=== PATIENT | male | born 2000 | race Caucasian/White ===

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

== ENCOUNTER 2023-10-11 19:32 | Emergency (ER) | payer OTHER ==
[~2023-10-11] VITALS: Ht 177.8 cm; Wt 166.9 kg
[2023-10-11 21:44] LABS: BASOPHILS # (AUTO) 0.04 K/uL (0.00-0.20); BASOPHILS % (AUTO) 0.4 % (0.0-5.0); EOSINOPHILS % (AUTO) 0.9 % (0.0-8.0); HEMATOCRIT 43.4 % (42-54); IMMATURE GRANULOCYTE ABSOLUTE 0.06 K/uL (0-1); LYMPHOCYTES # (AUTO) 2.2 K/uL (1.0-4.8); LYMPHOCYTES % (AUTO) 20.8 % (21.0-51.0); MEAN CORPUSCULAR HEMOGLOBIN 25.3 pg (27.0-33.0); MEAN CORPUSCULAR HGB CONC 34.3 g/dL (32.0-36.0); MEAN CORPUSCULAR VOLUME 73.8 fL (79-99); MONOCYTES # (AUTO) 0.9 K/uL (0.1-1.0); NEUTROPHILS # (AUTO) 7.5 K/uL (1.8-7.7); NEUTROPHILS % (AUTO) 69.3 % (40.0-77.0); PLATELET COUNT (AUTO) 393 K/uL (130-400); RED BLOOD CELL COUNT(AUTO) 5.88 MIL/uL (4.50-6.20); WHITE BLOOD COUNT (AUTO) 10.8 K/uL (4.8-10.8)
[2023-10-11] MEDS: CLINDAMYCIN IVPB 900MG/50ML 50 ML IV SCH (21:54)
[2023-10-11 22:27] LABS: CREATININE 0.6 mg/dL (0.5-1.3); POTASSIUM 5.2 mmol/L (3.5-5.1)
[2023-10-11] MEDS ORDERED: IOHEXOL 350 MG/ML 100ML INFUS..BTL IV ONE (22:33)
[2023-10-11] MEDS ORDERED: SULF1TAB42 PO (23:14)
[2023-10-11] MEDS: 0.9%NACL 1000ML 1,000 ML IV ONE (23:20)
[2023-10-11] MEDS: INSULIN HUMULIN R 100 UNIT/ML 3ML IV ONE (23:20)
[2023-10-11] MEDS ORDERED: KETO10TA2 PO (23:22)
[2023-10-11 23:40] VITALS: BP 105/73; PULSE 96; RESP 21; O2SAT 98
[2023-10-11] MEDS: ONDANSETRON 4MG INJ IVP ONE (23:45)
[2023-10-11] MEDS: FAMOTIDINE 20MG VIAL IV ONE (23:46)
[2023-10-11] MEDS: DiphenhydrAMINE HCL 50 MG/ML VIAL IV ONE (23:46)
== END 2023-10-12 00:50 | disposition home or self-care (01) ==
LOC: EDH 19:32
DX: L02.214 Cutaneous abscess of groin (principal); E11.9 Type 2 diabetes mellitus without complications; I10 Essential (primary) hypertension; Z79.4 Long term (current) use of insulin; Z79.899 Other long term (current) drug therapy
CPT/HCPCS: 99285; 74177; 96365; 96375; 96361; 80048; 85025; 36415; 84145; J1815; J1200; J3490 ×2; J7030; J2405; Q9967

== ENCOUNTER 2024-07-05 10:48 | Inpatient (IN) | payer BC ==
[~2024-07-05] VITALS: Ht 177.8 cm; Wt 165.6 kg
[~2024-07-05 10:48] MED LIST: KETO10TA2 PO; SULF1TAB42 PO
--- NOTE | 2024-07-05 11:16 | ERN ---
General Chief Complaint: Lower Extremity Pain/Injury Stated Complaint: RIGHT LEG PAIN Time Seen by MD: 10:49 History of Present Illness Initial Comments 23-year-old male history of obesity and hypertension, who presents for right leg pain. Patient reports that yesterday he noticed some redness and irritation to the back of his right knee. He reports that he thinks he has started with the pain because he was on his feet all day at work. He denies any trauma. He woke up this morning and there is some erythema to his paez as well. There is some swelling to the leg. He denies any other symptoms such as fevers, vomiting, shortness of breath, or any other concerning illness. Allergies: Coded Allergies: No Known Drug Allergies (Unverified Allergy, Unknown, 10/08/18) Home Meds Active Scripts Ketorolac Tromethamine (Ketorolac Tromethamine) 10 Mg Tablet, 10 MG PO BID for 5 Days, #10 TAB Prov:KO ESCUDERO 10/11/23 Sulfamethoxazole/Trimethoprim (Bactrim Ds Tablet) 800 Mg-160 Mg Tablet, 1 TAB PO BID for 10 Days, #20 TAB Prov:KO ESCUDERO 10/11/23 Past Medical History Past Medical History: Diabetes-Type II Past Surgical History: None ROS Dictation CONSTITUTIONAL: No chills, no fever, no weakness, no diaphoresis, no malaise. HEAD/FACE: No signs of trauma. EENT: No eye pain, no blurred vision, no tearing, no double vision, no ear pain, no ear discharge, no nose pain, no nasal congestion, no throat pain, no throat swelling, no mouth pain. RESPIRATORY: No cough, no orthopnea, no SOB, no stridor, no wheezing. CARDIOVASCULAR: No chest pain, no edema, no palpitations, no syncope. GASTROINTESTINAL/ABDOMINAL: No abdominal pain, no constipation, no diarrhea, no nausea, no vomiting. GENITOURINARY: No abnormal discharge, no dysuria, no frequent urination, no hematuria. No complaints of pain in the genitals. MUSCULOSKELETAL: Right leg pain INTEGUMENTARY: No change in color, no change in hair/nails, no dryness, no lesion, no lumps, no rash. NEUROLOGICAL/PSYCH: No anxiety, not depressed, no emotional problem, no headache, no numbness, no pre-existing deficit, no history of seizures, no tremors, no weakness. HEMATOLOGIC/LYMPHATIC: Not anemic, no history of blood clots, no apparent bleeding, no bruising, glands not swollen. All Systems Negative, Except as Noted. Physical Exam Physical Exam Dictation VITAL SIGNS: Reviewed. GENERAL APPEARANCE: Alert, oriented x3, no acute distress, obese. HEAD AND FACE: Non-traumatic. EYES: PERRL, pink conjunctivas, eyelid no trauma, anterior chamber clear. EARS: Pinnas intact and no signs of trauma or erythema. Ear canals clear and no discharge. TMs no erythema. NOSE: No discharge, no bleeding. OROPHARYNX: Mouth normal, teeth no caries, tongue pink. Pharynx clear, no erythema. Tonsils no exudates, no abscesses noted. Mucous membrane moist. NECK: Supple, non-tender, no thyromegaly, no masses, no JVD, no bruits. BREAST: Deferred. CHEST: No tenderness, no crepitus, no paradoxical movement, no retractions. LUNGS: Clear, well-ventilated, symmetric, no rales, no wheezing, no rhonchi, no stridor, good breath sounds bilaterally. HEART: Regular rate, regular rhythm, no murmur, no gallops. VASCULAR: No peripheral edema. ABDOMEN: Soft, positive bowel sounds, nondistended, no guarding, nontender, no rebound, no masses no hepatomegaly, no splenomegaly, no Lewis's sign, no hernias. RECTAL: Deferred. GENITAL: Deferred. NEUROLOGICAL: Normal speech, gross motor function intact, gross sensory function intact. MUSCULOSKELETAL: Neck nontender, full range of motion, back nontender, full range of motion. Right leg has some erythema to the back of the right leg, there is some swelling, he was neurovascularly intact, there is some erythema to the paez. No obvious open sores. He was ambulatory although he has not antalgic gait. Full range of motion of the knee in the ankle. EXTREMITIES: Nontender, full range of motion. SKIN: Color pink, dry, no turgor, no rash, no lacerations, no abrasions, no contusions. LYMPHATICS: Deferred. Results Laboratory and Microbiology Lab and Micro Result Laboratory Tests Test 07/05/24 11:46 White Blood Count 13.9 K/uL (4.8-10.8) H Red Blood Count 5.92 MIL/uL (4.50-6.20) Hemoglobin 15.0 g/dL (14.0-18.0) Hematocrit 43.1 % (42-54) Mean Corpuscular Volume 72.8 fL (79-99) L Mean Corpuscular Hemoglobin 25.3 pg (27.0-33.0) L Mean Corpuscular Hemoglobin Concent 34.8 g/dL (32.0-36.0) Red Cell Distribution Width 13.2 % (11.0-15.5) Platelet Count 364 K/uL (130-400) Mean Platelet Volume 8.8 fL (7.5-10.5) Immature Granulocyte % (Auto) 0.4 % (0-1) Neutrophils (%) (Auto) 73.1 % (40.0-77.0) Lymphocytes (%) (Auto) 14.6 % (21.0-51.0) L Monocytes (%) (Auto) 11.4 % (3.0-13.0) Eosinophils (%) (Auto) 0.2 % (0.0-8.0) Basophils (%) (Auto) 0.3 % (0.0-5.0) Neutrophils # (Auto) 10.2 K/uL (1.8-7.7) H Lymphocytes # (Auto) 2.0 K/uL (1.0-4.8) Monocytes # (Auto) 1.6 K/uL (0.1-1.0) H Eosinophils # (Auto) 0.03 K/uL (0.00-0.70) Basophils # (Auto) 0.04 K/uL (0.00-0.20) Absolute Immature Granulocyte (auto 0.06 K/uL (0-1) Nucleated Red Blood Cells 0.0 % (0.0-0.19) Erythrocyte Sedimentation Rate 16 MM/HR (0-15) H Sodium Level 130 mmol/L (136-145) L Potassium Level 3.9 mmol/L (3.5-5.1) Chloride Level 94 mmol/L (101-111) L Carbon Dioxide Level 25 mmol/L (21-32) Blood Urea Nitrogen 7 mg/dL (7-18) Creatinine 0.7 mg/dL (0.5-1.3) Glomerular Filtration Rate Calc 134 mL/min (>90) Random Glucose 398 mg/dL (70-105) H Total Calcium 9.1 mg/dL (8.5-10.1) C-Reactive Protein, Quantitative 55.10 mg/L (0.5-3.0) H MDM CC: Right leg swelling and pain unprovoked Historian: Patient Comorbidities: Obesity and diabetes Limitations by social determinants of health: None Differential diagnosis: Cellulitis, DVT, soft tissue injury, sepsis, other Vital signs: Stable, remained stable in the ER Labs ( independently ordered and interpreted by me ): CBC shows a leukocytosis 13.9 K, no bands. No anemia. Inflammatory markers CRP and ESR both elevated. The metabolic panel is unremarkable other than a glucose of 398. Right knee x-ray ( independently interpreted by me ): No free air obvious osseous abnormality DVT study of the right leg (independently interpreted by me): No obvious DVT Based on the presentation of right leg erythema swelling tenderness, in the elevated inflammatory markers including white blood cell count CRP and ESR, I suspect the patient has a cellulitis. He was an uncontrolled diabetic with a glucose of 398. Plan will be to started an IV give antibiotics and admit for IV antibiotics and further treatment and evaluation. The patient was agreeable to the plan. Treatment in the ED: 15 mg IV Toradol, 1 g of IV vancomycin, 2 g IV Rocephin, 1 L normal saline, 5 units of IV insulin. Consultation: Hospitalist for admission. ED Course Orders Procedure Category Date Status Time Cbc With Differential LAB 07/05/24 Complete 10:56 Basic Metabolic Panel LAB 07/05/24 Complete 10:56 Crp Quantitative LAB 07/05/24 Complete 10:56 Erythrocyte LAB 07/05/24 Complete Sedimentation Rate 10:56 Us Venous Doppler US 07/05/24 Resulted Unilateral 10:56 Knee 3vws Rt RAD 07/05/24 Resulted 10:56 Ketorolac PHA 07/05/24 Complete Tromethamine 15mg/Ml 11:00 Vancomycin 1g/250ml PHA 07/05/24 Complete Kit (Vancomycin 1g/2 13:00 0.9%Nacl 1000ml (Ns PHA 07/05/24 Complete 1000ml) 12:30 Insulin Regular, PHA 07/05/24 Complete Human 3ml (Humulin R 12:30 Ceftriaxone 2gm Vial PHA 07/05/24 Complete (Rocephin 2gm Inj) 12:30 Current Medications Medications (Trade) Dose Ordered Sig/Morales Route PRN Reason Start Time Stop Time Status Last Admin Dose Admin Ceftriaxone Sodium (Rocephin 2gm Inj) 2 gm ONCE ONCE IVPB 07/05/24 12:30 07/05/24 12:31 DC Insulin Human Regular (humuLIN R 100 UNIT/ML 3ML) 5 unit ONCE ONCE IV 07/05/24 12:30 07/05/24 12:31 DC Ketorolac Tromethamine (toRADol) 15 mg ONCE ONCE IM 07/05/24 11:00 07/05/24 11:03 DC Sodium Chloride 1,000 ml @ 0 mls/hr ONCE ONCE IV 07/05/24 12:30 07/05/24 12:31 DC Vancomycin HCl (Vancomycin 1g/ 250ml Kit) 1 gm ONCE ONCE IV 07/05/24 13:00 07/05/24 13:01 DC Vital Signs Date Time Temp Pulse Resp B/P (MAP) Pulse Ox O2 Delivery O2 Flow Rate FiO2 07/05/24 10:52 98.2 99 16 131/83 96 Room Air 0 DX & DISP Disposition: Inpatient Departure Impression: Primary Impression: Cellulitis of right lower leg Additional Impressions: Morbid obesity, Hyperglycemia due to diabetes mellitus Condition: Stable Referrals: AZRA GARCIA MD (PCP) LESLIE CARVALHO DO Jul 05, 2024 11:16
--- NOTE | 2024-07-05 11:41 | HMCIMG ---
RIGHT KNEE RADIOGRAPHS - 3 VIEWS INDICATION: Pain COMPARISON: None FINDINGS: AP, lateral, and oblique views. No acute fracture or dislocation identified. No significant joint effusion is present. Overlying soft tissues appear normal. IMPRESSION: No evidence for fracture or dislocation.
[2024-07-05 11:51] LABS: BASOPHILS # (AUTO) 0.04 K/uL (0.00-0.20); BASOPHILS % (AUTO) 0.3 % (0.0-5.0); EOSINOPHILS # (AUTO) 0.03 K/uL (0.00-0.70); EOSINOPHILS % (AUTO) 0.2 % (0.0-8.0); HEMATOCRIT 43.1 % (42-54); IMMATURE GRANULOCYTE ABSOLUTE 0.06 K/uL (0-1); LYMPHOCYTES % (AUTO) 14.6 % (21.0-51.0); MEAN CORPUSCULAR HEMOGLOBIN 25.3 pg (27.0-33.0); MEAN CORPUSCULAR HGB CONC 34.8 g/dL (32.0-36.0); MEAN CORPUSCULAR VOLUME 72.8 fL (79-99); MONOCYTES # (AUTO) 1.6 K/uL (0.1-1.0); MONOCYTES % (AUTO) 11.4 % (3.0-13.0); NEUTROPHILS # (AUTO) 10.2 K/uL (1.8-7.7); NEUTROPHILS % (AUTO) 73.1 % (40.0-77.0); PLATELET COUNT (AUTO) 364 K/uL (130-400); RED BLOOD CELL COUNT(AUTO) 5.92 MIL/uL (4.50-6.20); RED CELL DISTRIBUTION WIDTH 13.2 % (11.0-15.5); WHITE BLOOD COUNT (AUTO) 13.9 K/uL (4.8-10.8)
[2024-07-05 11:59] LABS: CREATININE 0.7 mg/dL (0.5-1.3); POTASSIUM 3.9 mmol/L (3.5-5.1)
--- NOTE | 2024-07-05 12:07 | HMCIMG ---
ULTRASOUND VENOUS DOPPLER RIGHT LOWER EXTREMITY INDICATION: Pain and swelling. TECHNIQUE: Routine grayscale and color Doppler ultrasound of the right lower extremity veins performed. COMPARISON: None. FINDINGS: Examination is limited by large patient body habitus. The demonstrated veins of the right lower extremity including the common femoral vein, femoral vein, and popliteal vein are associated with normal compressibility. IMPRESSION: No evidence for deep venous thrombosis.
[2024-07-05 13:01] LABS: ERYTHROCYTE SEDIMENTATION RATE 16 MM/HR (0-15)
[2024-07-05] MEDS: 0.9%NACL 1000ML 1,000 ML IV ONE (13:48)
[2024-07-05] MEDS: CEFTRIAXONE 2GM VIAL IVPB ONE (13:55)
[2024-07-05] MEDS: ketOROlac 15MG/ML VIAL (15MG/ML) IM ONE (13:56)
[2024-07-05] MEDS: INSULIN humuLIN R 100 UNIT/ML 3ML IV ONE (14:01)
[2024-07-05] MEDS: VANCOMYCIN KIT 1 GM/250 ML IV.KIT IV ONE (14:15)
[2024-07-05] MEDS ORDERED: VANCOMYCIN PROTOCOL PER PHARMACY IV SCH (14:30)
--- NOTE | 2024-07-05 14:43 | HMCIMG ---
RIGHT FOOT RADIOGRAPHS - 2 VIEWS INDICATION: Pain COMPARISON: None FINDINGS: AP, lateral views. Moderate dorsal soft tissue swelling. 3 mm linear radiopaque foreign body within the first web space closer to the second toe. No evidence for periosteal reaction, cortical erosive changes, or any abnormal subperiosteal bone resorption. No acute fracture or subluxation identified. Midfoot alignment is well maintained. Subcentimeter plantar calcaneal spur. No radiopaque foreign body noted. IMPRESSION: 3 mm linear radiopaque foreign body within the first web space closer to the second toe. No evidence for fracture or osteomyelitis.
[2024-07-05] MEDS: ZOSYN 3.375GM +NS 50ML IVPB SCH (14:56)
[2024-07-05] MEDS: 0.9%NACL 1000ML 1,000 ML IV SCH (14:56)
[2024-07-05] MEDS ORDERED: DEXTROSE 50%-WATER 50 ML DISP.SYRIN IV PRN (15:00)
[2024-07-05] MEDS ORDERED: GLUCAGON 1MG KIT 1 MG ML IM PRN (15:00)
[2024-07-05] MEDS: VANCOMYCIN 1G/250ML KIT 250 ML IV ONE (15:11)
[2024-07-05] MEDS ORDERED: IOHEXOL-350 75 ML VIAL IV ONE (15:20)
[2024-07-05 15:24] LABS: ABG BASE EXCESS -2.5 mmol/L (-2.0-3.0); ABG HCO3 21.1 mmol/L (21.0-28.0); ABG OXYGEN SATURATION 97.1 % (94.0-98.0); ABG PCO2 33 mmHg (35-48); DEVICE COMMENT RR RN; PO2, ARTERIAL BG 89.9 mmHg (83.0-108.0); VENT MODE, BG RA (ROOM AIR)
[2024-07-05 15:45] LABS: THYROID STIMULATING HORMONE 1.45 uIU/mL (0.36-3.74)
[2024-07-05] MEDS: INSULIN GLARgine 100 UNITS/ML 10 ML VIAL SQ SCH (15:48)
--- NOTE | 2024-07-05 16:17 | HMCIMG ---
CT LOW EXT W/WO CONTRAST HISTORY: right leg cellulitis. Rule out out necrotizing infection TECHNIQUE: CT LOW EXT W/WO CONTRAST. Axial images of the right lower extremity were performed from the hip to the foot. Coronal and sagittal reformats were obtained. FINDINGS/IMPRESSION: The study is degraded due to large [id number] and motion. No displaced fracture or dislocation is seen. There is diffuse soft tissue swelling. No soft tissue gas is identified. No drainable fluid collection is seen.
--- NOTE | 2024-07-05 16:39 | HP ---
[facility] HISTORY AND PHYSICAL Date of Service: Jul 05, 2024 Time of Service: 16:29 HISTORY OF PRESENT ILLNESS: 23-year-old male with no significant past medical history who presented to the hospital secondary to pain in the right leg. Patient states he noted that he was having redness in the right leg which started yesterday. Redness was notable on the posterior aspect of the right knee and was traveling down to the leg. He also has a history of ulcer in the big hallux of the right foot. He has been followed at least for a year by Dr. Mason as outpatient. Patient currently does not use any dressing on the two. He denied any cuts or scrapes to the leg. Denied any fever, chills, chest pain, shortness of breath, abdominal pain, nausea, vomiting. Denied any history of diabetes mellitus. He currently denies taking any medications for diabetes. Denied any falls, syncopal episode. Patient was having 10/10 pain in the right lower extremity. Labs showed white count of 13.9, hemoglobin was 15.0, platelet count was 364 K, sodium was 130, potassium was 3.9, chloride was 94, creatinine was 0.7, glucose was 398, calcium was 9.1 Patient had a knee x-ray done which showed no evidence of fracture or dislocation. He had a venous Doppler done which showed no evidence of venous thrombosis. REVIEW OF SYSTEMS CONSTITUTIONAL: Denies fevers, chills, or night sweats. No unintentional weight loss reported. NEUROLOGICAL: Denies headache, amaurosis fugax, motor weakness, sensory deficit, vertigo/spinning sensation, gait abnormalities, or tremors. ENT: No hearing loss, otalgia, otorrhea, rhinitis, rhinorrhea, hoarseness, or sore throat. CARDIOVASCULAR: Denies any exertional angina, dyspnea on exertion, orthopnea, paroxysmal nocturnal dyspnea, palpitations, life-threatening arrhythmias, cl audication. PULMONARY: Denies any shortness of breath, cough, phlegm/sputum, hemoptysis, pleuritic chest pain. SLEEP: Denies morning headaches, daytime somnolence or napping. Denies difficulty falling asleep, staying asleep, waking from sleep. Denies knowledge of snoring. GASTROINTESTINAL: Denies any type of dysphagia to either liquids or solids. Denies nausea, vomiting, pyrosis, early satiety, abdominal pain, diarrhea, const ipation, or changes in stool consistency or caliber. Denies coffee-ground emesis, hematemesis, hematochezia, or melanotic stools. GENITOURINARY: Denies frequency, urgency, nocturia, hematuria or incontinence (Storage/Irritative symptoms.) Low urinary stream, straining to void, urinary intermittency or hesitancy, splitting of the voiding stream, terminal dribbling. ENDOCRINOLOGIC: Denies polyuria, polydipsia, polyphagia or heat/cold intolerances. HEMATOLOGIC: Denies thrombophilia/previous clots, or coagulopathy/bleeding disorders. ONCOLOGIC: Denies personal history of malignancy. DERMATOLOGIC: Positive for redness in the right lower extremity. PSYCHIATRIC: Denies any suicidal or homicidal ideation. Denies hallucinations. PAST MEDICAL HISTORY: History of foot ulcer in the 1st toe of the right foot PAST SURGICAL HISTORY: Denied any previous surgical history PAST SOCIAL HISTORY: Denied any smoking, alcohol, drug use FAMILY HISTORY: Denied any pertinent family history Coded Allergies: No Known Drug Allergies (Unverified Allergy, Unknown, 10/08/18) PHYSICAL EXAM GENERAL APPEARANCE: The patient is awake, alert, and oriented, in no acute cardiopulmonary distress. Patient is obese NEUROLOGICAL: Cranial nerves II-XII grossly intact. Motor is 5/5 in bilateral upper and lower extremities proximal to distal. No sensory deficits. HEENT: Face is symmetric. Pupils are equal and reactive. Extraocular movements are intact. NECK: Supple. No JVD. No thyromegaly. No submental, submandibular, pre- /postauricular, occipital or supraclavicular lymphadenopathy. CHEST: Normal chest expansion. No Telemetry. LUNGS: Absence of any rales, rhonchi or any wheezing. CARDIOVASCULAR: Regular. S1 and S2 normal. No appreciable rubs, murmurs or gallops. ABDOMEN: Soft, nontender, and nondistended. There is no rebound, voluntary guarding, or rigidity. : Deferred. No Harden. EXTREMITIES: Patient has erythema on the posterior aspect of the leg involving the knee. He has redness traveling down to the leg to the foot. He has swelling noted. Area is tender to palpation. Additionally he has a ulcer noted in the 1st toe of the right foot. He has blackish discoloration with possible eschar noted SKIN: No skin breakdown. Vital Sign (Last 24 Hours) 4/26/25 13:46 Temp 99.0 Pulse 90 Resp 20 B/P (MAP) 137/78 Pulse Ox 96 O2 Delivery Room Air* O2 Flow Rate 0 FiO2 21 LABS: Laboratory: Test 07/05/24 15:21 07/05/24 14:55 07/05/24 14:00 07/05/24 11:46 Range/Units Blood Gas Specimen Type Arterial Arterial Blood pH 7.420 7.350-7.450 Arterial Blood Partial Pressure CO2 33 L 35-48 mmHg Arterial Blood Partial Pressure O2 89.9 83.0-108.0 mmHg Arterial Blood HCO3 21.1 21.0-28.0 mmol/L Arterial Blood Oxygen Saturation 97.1 94.0-98.0 % Arterial Blood Base Excess -2.5 L -2.0-3.0 mmol/L Blood Gas Temperature 37.0 35.5-37.0 CELSIUS Blood Gas Vent Mode RA ROOM AIR FiO2 21.0 % Blood Gas Specimen Comment RR RN Whole Blood Ketones Quantitative 0.2 0.0-0.6 mmol/L Lactic Acid Level 1.7 0.8-2.5 mmol/L Total Creatine Kinase 52 21-232 U/L C-Reactive Protein, Quantitative 57.90 H 0.5-3.0 mg/L Procalcitonin 0.11 0.05-0.5 ng/mL Thyroid Stimulating Hormone (TSH) 1.45 0.36-3.74 uIU/mL Whole Blood Glucose 411 *H 70-110 MG/DL White Blood Count 13.9 H 4.8-10.8 K/uL Red Blood Count 5.92 4.50-6.20 MIL/uL Hemoglobin 15.0 14.0-18.0 g/dL Hematocrit 43.1 42-54 % Mean Corpuscular Volume 72.8 L 79-99 fL Mean Corpuscular Hemoglobin 25.3 L 27.0-33.0 pg Mean Corpuscular Hemoglobin Concent 34.8 32.0-36.0 g/dL Red Cell Distribution Width 13.2 11.0-15.5 % Platelet Count 364 130-400 K/uL Mean Platelet Volume 8.8 7.5-10.5 fL Immature Granulocyte % (Auto) 0.4 0-1 % Neutrophils (%) (Auto) 73.1 40.0-77.0 % Lymphocytes (%) (Auto) 14.6 L 21.0-51.0 % Monocytes (%) (Auto) 11.4 3.0-13.0 % Eosinophils (%) (Auto) 0.2 0.0-8.0 % Basophils (%) (Auto) 0.3 0.0-5.0 % Neutrophils # (Auto) 10.2 H 1.8-7.7 K/uL Lymphocytes # (Auto) 2.0 1.0-4.8 K/uL Monocytes # (Auto) 1.6 H 0.1-1.0 K/uL Eosinophils # (Auto) 0.03 0.00-0.70 K/uL Basophils # (Auto) 0.04 0.00-0.20 K/uL Absolute Immature Granulocyte (auto 0.06 0-1 K/uL Nucleated Red Blood Cells 0.0 0.0-0.19 % Erythrocyte Sedimentation Rate 16 H 0-15 MM/HR Sodium Level 130 L 136-145 mmol/L Potassium Level 3.9 3.5-5.1 mmol/L Chloride Level 94 L 101-111 mmol/L Carbon Dioxide Level 25 21-32 mmol/L Blood Urea Nitrogen 7 7-18 mg/dL Creatinine 0.7 0.5-1.3 mg/dL Glomerular Filtration Rate Calc 134 >90 mL/min Random Glucose 398 H 70-105 mg/dL Total Calcium 9.1 8.5-10.1 mg/dL Current Medications Medications (Trade) Dose Ordered Sig/Morales Route PRN Reason Start Time Stop Time Status Last Admin Dose Admin Dextrose (D50w) 50 ml AD PRN IV HYPOGLYCEMIA PROTOCOL 07/05/24 15:00 08/04/24 14:59 Famotidine (Pepcid 20mg Vial) 20 mg BID IV 07/05/24 21:00 08/04/24 20:59 Glucagon (Glucagon 1mg Kit) 1 mg AD PRN IM HYPOGLYCEMIA PROTOCOL 07/05/24 15:00 08/04/24 14:59 Insulin Glargine (LANtus 100 UNITS/ML 10 ML VIAL) 15 units DAILY SQ 07/05/24 15:00 08/04/24 14:59 07/05/24 15:48 15 UNITS Insulin Human Regular (humuLIN R 100 UNIT/ML 3ML) INSULIN SLIDING SCAL... Q6H6 SQ 07/05/24 18:00 08/04/24 17:59 Piperacillin Sod/ Tazobactam Sod (Zosyn 3.375gm+NS 50ml) 3.375 gm Q8H IVPB 07/05/24 14:30 07/15/24 14:29 07/05/24 14:56 3.375 GM Sodium Chloride 1,000 ml @ 100 mls/hr Q10H IV 07/05/24 14:30 08/04/24 14:29 07/05/24 14:56 100 MLS/HR Sodium Chloride (NS 50ml) 50 ml AD IV 07/05/24 18:00 08/04/24 17:59 Vancomycin HCl 250 ml @ 167 mls/hr Q12H IV 07/06/24 01:00 07/16/24 00:59 Vancomycin HCl (Vancomycin Protocol) 1 each AD IV 07/05/24 14:30 07/19/24 14:29 DIAGNOSTICS / RADIOLOGY: [ ] ASSESSMENT: Right Leg cellulitis POA Hyperglycemia secondary to uncontrolled diabetes mellitus type POA Foot ulcer of the 1st toe of the right foot POA Hyponatremia secondary to hyperglycemia Dehydration Obesity BMI 53.1 PLAN: - patient to be admitted to medical-surgical unit -in reference to right foot cellulitis. We will start patient on vancomycin and Zosyn. Secondary to significant pain on palpation. We will also request consultation with Orthopedic surgery. Case was discussed with Orthopedic surgery. We will obtain a CT lower extremity with contrast to rule out concern for necrotizing infection. We will request consultation with Infectious Disease -in reference to foot ulcer of the right toe. We will obtain a foot x-ray. We will request consultation with Podiatry. - start patient on [id number] units daily. Patient will be started on sliding scale insulin. Check A1c. -check TSH, procal -further orders per hospitalization course. Advanced Care Planning Which of the following were discussed: Hospice care: Yes __ No _x_ Therapeutic options: Yes __ No __ Advance directives: Yes __ No __ Other discussions: Pt is full code Discussed with who?: patient (Patient, family or surrogates) Voluntary nature of this service was explained to the patient? Yes _x_ No __ Amount of time spent: 25 minutes KIMBERLY BROOKS MD Jul 05, 2024 16:39
[2024-07-05] MEDS ORDERED: morPHINE 2 MG SYG IVP PRN (17:00)
--- NOTE | 2024-07-05 17:07 | HMCIMG ---
US ARTERIAL BILAT LOW EXT DUPL HISTORY: assess for PVD TECHNIQUE: Real-time arterial doppler ultrasound of the lower extremity was performed using B mode, color flow and spectral analysis. FINDINGS: RIGHT: Abnormal monophasic waveforms and anterior tibial and dorsalis pedis artery suggesting proximal flow-limiting stenosis. The remaining arteries demonstrate biphasic and triphasic waveforms. LEFT: Normal triphasic and biphasic waveforms seen in the evaluated arteries. IMPRESSION: RIGHT: Abnormal monophasic waveforms and anterior tibial and dorsalis pedis artery suggesting proximal flow-limiting stenosis. The remaining arteries demonstrate biphasic and triphasic waveforms. LEFT: Normal triphasic and biphasic waveforms seen in the evaluated arteries.
[2024-07-05] MEDS: INSULIN humuLIN R 100 UNIT/ML 3ML SQ SCH (17:43)
[2024-07-05] MEDS ORDERED: 0.9%NACL 50ML IV SCH (18:00)
[2024-07-05 20:00] VITALS: BP 131/72; PULSE 91; RESP 16; TEMP 98.7
[2024-07-05] MEDS: FAMOTIDINE 20MG VIAL IV SCH (21:00)
[2024-07-05] MEDS: ketOROlac 15MG/ML VIAL (15MG/ML) IV PRN (21:03)
[2024-07-06] VITALS: BP 102/55; PULSE 86; RESP 21; TEMP 98.7
[2024-07-06] MEDS: VANCOMYCIN 1.5 GM/250 ML BAG 250 ML IV SCH (00:59)
[2024-07-06 04:12] VITALS: BP 118/68; PULSE 92; RESP 18; TEMP 98.7
[2024-07-06 06:43] LABS: BASOPHILS # (AUTO) 0.02 K/uL (0.00-0.20); BASOPHILS % (AUTO) 0.2 % (0.0-5.0); EOSINOPHILS # (AUTO) 0.04 K/uL (0.00-0.70); EOSINOPHILS % (AUTO) 0.3 % (0.0-8.0); HEMATOCRIT 41.1 % (42-54); IMMATURE GRANULOCYTE ABSOLUTE 0.05 K/uL (0-1); LYMPHOCYTES # (AUTO) 1.8 K/uL (1.0-4.8); LYMPHOCYTES % (AUTO) 13.9 % (21.0-51.0); MEAN CORPUSCULAR HEMOGLOBIN 25.8 pg (27.0-33.0); MEAN CORPUSCULAR HGB CONC 34.8 g/dL (32.0-36.0); MEAN CORPUSCULAR VOLUME 74.2 fL (79-99); MONOCYTES # (AUTO) 1.3 K/uL (0.1-1.0); MONOCYTES % (AUTO) 10.4 % (3.0-13.0); NEUTROPHILS # (AUTO) 9.6 K/uL (1.8-7.7); NEUTROPHILS % (AUTO) 74.8 % (40.0-77.0); PLATELET COUNT (AUTO) 320 K/uL (130-400); RED BLOOD CELL COUNT(AUTO) 5.54 MIL/uL (4.50-6.20); RED CELL DISTRIBUTION WIDTH 13.3 % (11.0-15.5); WHITE BLOOD COUNT (AUTO) 12.9 K/uL (4.8-10.8)
[2024-07-06 07:00] LABS: CREATININE 0.5 mg/dL (0.5-1.3); POTASSIUM 3.6 mmol/L (3.5-5.1)
[2024-07-06] MEDS: INSULIN humuLIN R 100 UNIT/ML 3ML SQ SCH ×2 (07:30)
[2024-07-06] MEDS: ENOXAPARIN SODIUM 30 MG/0.3 ML SQ SCH (09:28)
--- NOTE | 2024-07-06 09:49 | NUR ---
DR. DUNCAN CALLED AND NOTIFIED OF PATIENT, ORDERS GIVEN
[2024-07-06 12:00] VITALS: BP 148/86; PULSE 95; RESP 20; TEMP 98
--- NOTE | 2024-07-06 12:56 | HMCIMG ---
ULTRASOUND VENOUS DOPPLER LEFT LOWER EXTREMITY INDICATION: Pain and swelling. TECHNIQUE: Routine grayscale and color Doppler ultrasound of the left lower extremity veins performed. COMPARISON: None. FINDINGS: Examination is limited by patient body habitus. The demonstrated veins of the left lower extremity including the common femoral vein, femoral vein, and popliteal vein are associated with normal compressibility. IMPRESSION: No evidence for deep venous thrombosis.
--- NOTE | 2024-07-06 15:02 | PN ---
[facility] PROGRESS NOTE Date of Service: Jul 06, 2024 Time of Service: 14:58 SUBJECTIVE: 07/06 patient seen at bedside, no acute events overnight. He has been afebrile, hemodynamically stable saturating well on room air. His only complaint is pain when he is ambulating, his right lower extremity proximal to the knee joint on the medial aspect has erythema induration, no fluctuance noted and is tender to palpation. There is no crepitus noted. Outlined the margins of the lesion and we will continue with broad-spectrum antibiotics. WBC improved from 13.9 down to 12.9, blood sugars still quite elevated, diabetic medications have been adj usted by space buyer, appreciate their assistance. A1c pending, we will follow up. Podiatry recommendations regarding diabetic foot ulcer on the 1st great toe are still pending. REVIEW OF SYSTEMS 12 point review of systems negative unless noted in HPI PHYSICAL EXAM GENERAL APPEARANCE: The patient is awake, alert, and oriented, in no acute cardiopulmonary distress. Patient is obese NEUROLOGICAL: Cranial nerves II-XII grossly intact. Motor is 5/5 in bilateral upper and lower extremities proximal to distal. No sensory deficits. HEENT: Face is symmetric. Pupils are equal and reactive. Extraocular movements are intact. NECK: Supple. No JVD. No thyromegaly. No submental, submandibular, pre- /postauricular, occipital or supraclavicular lymphadenopathy. CHEST: Normal chest expansion. No Telemetry. LUNGS: Absence of any rales, rhonchi or any wheezing. CARDIOVASCULAR: Regular. S1 and S2 normal. No appreciable rubs, murmurs or gallops. ABDOMEN: Soft, nontender, and nondistended. There is no rebound, voluntary guarding, or rigidity. : Deferred. No Harden. EXTREMITIES: Patient has erythema on the posterior aspect of the leg involving the knee. He has redness traveling down to the leg to the foot. He has swelling noted. Area is tender to palpation. Additionally he has a ulcer noted in the 1st toe of the right foot. He has blackish discoloration with possible eschar noted SKIN: No skin breakdown. Vital Signs (last 8hr) Date Time Temp Pulse Resp B/P (MAP) Pulse Ox O2 Delivery O2 Flow Rate FiO2 07/06/24 12:00 98.1 95 20 148/86 96 Room Air LABS: Laboratory: Test 07/06/24 13:14 07/06/24 09:29 07/06/24 06:36 07/05/24 15:21 Range/Units Whole Blood Glucose 294 H 70-110 MG/DL Bedside Glucose Comment Notified Nurse White Blood Count 12.9 H 4.8-10.8 K/uL Red Blood Count 5.54 4.50-6.20 MIL/uL Hemoglobin 14.3 14.0-18.0 g/dL Hematocrit 41.1 L 42-54 % Mean Corpuscular Volume 74.2 L 79-99 fL Mean Corpuscular Hemoglobin 25.8 L 27.0-33.0 pg Mean Corpuscular Hemoglobin Concent 34.8 32.0-36.0 g/dL Red Cell Distribution Width 13.3 11.0-15.5 % Platelet Count 320 130-400 K/uL Mean Platelet Volume 8.5 7.5-10.5 fL Immature Granulocyte % (Auto) 0.4 0-1 % Neutrophils (%) (Auto) 74.8 40.0-77.0 % Lymphocytes (%) (Auto) 13.9 L 21.0-51.0 % Monocytes (%) (Auto) 10.4 3.0-13.0 % Eosinophils (%) (Auto) 0.3 0.0-8.0 % Basophils (%) (Auto) 0.2 0.0-5.0 % Neutrophils # (Auto) 9.6 H 1.8-7.7 K/uL Lymphocytes # (Auto) 1.8 1.0-4.8 K/uL Monocytes # (Auto) 1.3 H 0.1-1.0 K/uL Eosinophils # (Auto) 0.04 0.00-0.70 K/uL Basophils # (Auto) 0.02 0.00-0.20 K/uL Absolute Immature Granulocyte (auto 0.05 0-1 K/uL Nucleated Red Blood Cells 0.0 0.0-0.19 % Sodium Level 136 136-145 mmol/L Potassium Level 3.6 3.5-5.1 mmol/L Chloride Level 100 L 101-111 mmol/L Carbon Dioxide Level 25 21-32 mmol/L Blood Urea Nitrogen 6 L 7-18 mg/dL Creatinine 0.5 0.5-1.3 mg/dL Glomerular Filtration Rate Calc 148 >90 mL/min Random Glucose 235 H 70-105 mg/dL Total Calcium 8.4 L 8.5-10.1 mg/dL Blood Gas Specimen Type Arterial Arterial Blood pH 7.420 7.350-7.450 Arterial Blood Partial Pressure CO2 33 L 35-48 mmHg Arterial Blood Partial Pressure O2 89.9 83.0-108.0 mmHg Arterial Blood HCO3 21.1 21.0-28.0 mmol/L Arterial Blood Oxygen Saturation 97.1 94.0-98.0 % Arterial Blood Base Excess -2.5 L -2.0-3.0 mmol/L Blood Gas Temperature 37.0 35.5-37.0 CELSIUS Blood Gas Vent Mode RA ROOM AIR FiO2 21.0 % Blood Gas Specimen Comment RR RN Test 07/05/24 14:55 07/05/24 11:46 Range/Units Whole Blood Ketones Quantitative 0.2 0.0-0.6 mmol/L Lactic Acid Level 1.7 0.8-2.5 mmol/L Total Creatine Kinase 52 21-232 U/L C-Reactive Protein, Quantitative 57.90 H 0.5-3.0 mg/L Procalcitonin 0.11 0.05-0.5 ng/mL Thyroid Stimulating Hormone (TSH) 1.45 0.36-3.74 uIU/mL Erythrocyte Sedimentation Rate 16 H 0-15 MM/HR Current Medications Medications (Trade) Dose Ordered Sig/Morales Route PRN Reason Start Time Stop Time Status Last Admin Dose Admin Acetaminophen (TYLenol 325MG TAB) 650 mg Q6H PRN PO MILD PAIN (1-3) 07/06/24 13:30 08/05/24 13:29 Acetaminophen/ Hydrocodone Bitart (NORco 5/325MG) 1 tab Q6H PRN PO MODERATE PAIN (4-6) 07/06/24 13:30 07/11/24 13:29 Dextrose (D50w) 50 ml AD PRN IV HYPOGLYCEMIA PROTOCOL 07/05/24 15:00 08/04/24 14:59 Enoxaparin Sodium (Lovenox) 30 mg DAILY SQ 07/06/24 09:00 08/05/24 08:59 07/06/24 09:28 30 MG Famotidine (Pepcid 20mg Vial) 20 mg BID IV 07/05/24 21:00 08/04/24 20:59 07/06/24 09:28 20 MG Glucagon (Glucagon 1mg Kit) 1 mg AD PRN IM HYPOGLYCEMIA PROTOCOL 07/05/24 15:00 08/04/24 14:59 Insulin Glargine (LANtus 100 UNITS/ML 10 ML VIAL) 15 units DAILY SQ 07/05/24 15:00 08/04/24 14:59 07/06/24 09:38 15 UNITS Insulin Human Regular (humuLIN R 100 UNIT/ML 3ML) 10 unit TIDAC SQ 07/06/24 07:30 08/05/24 07:29 07/06/24 11:30 10 UNIT Insulin Human Regular (humuLIN R 100 UNIT/ML 3ML) INSULIN SLIDING SCAL... ACHS SQ 07/06/24 07:30 08/05/24 07:29 07/06/24 11:30 10 UNIT Insulin Human Regular (humuLIN R 100 UNIT/ML 3ML) INSULIN SLIDING SCAL... Q6H6 SQ 07/05/24 18:00 07/05/24 21:19 DC 07/05/24 17:43 8 UNIT Ketorolac Tromethamine (toRADol) 15 mg Q6H PRN IV MODERATE PAIN (4-6) 07/05/24 17:00 07/10/24 16:59 07/05/24 21:03 15 MG Morphine Sulfate (morPHINE 2MG SYG) 2 mg Q6H PRN IVP SEVERE PAIN (7-10) 07/05/24 17:00 07/12/24 16:59 Piperacillin Sod/ Tazobactam Sod (Zosyn 3.375gm+NS 50ml) 3.375 gm Q8H IVPB 07/05/24 14:30 07/15/24 14:29 07/06/24 06:07 3.375 GM Sodium Chloride 1,000 ml @ 100 mls/hr Q10H IV 07/05/24 14:30 08/04/24 14:29 07/06/24 01:02 100 MLS/HR Sodium Chloride (NS 50ml) 50 ml AD IV 07/05/24 18:00 07/06/24 13:20 DC Vancomycin HCl 250 ml @ 167 mls/hr Q12H IV 07/06/24 01:00 07/16/24 00:59 07/06/24 12:46 167 MLS/HR Vancomycin HCl (Vancomycin Protocol) 1 each AD IV 07/05/24 14:30 07/19/24 14:29 DIAGNOSTICS / RADIOLOGY: [ ] ASSESSMENT: Right Leg cellulitis POA Hyperglycemia secondary to uncontrolled diabetes mellitus type POA Foot ulcer of the 1st toe of the right foot POA Hyponatremia secondary to hyperglycemia Dehydration Obesity BMI 53.1 PLAN: - patient to be admitted to medical-surgical unit - Continue vancomycin and Zosyn. - Podiatry consulted, appreciate recommendations - Continue patient on [id number] units daily. Patient will be started on sliding scale insulin. Check A1c. - Continue hypoglycemia protocol Disposition: Pending improvement in clinical status MARICARMEN MCDANIELS MD Jul 06, 2024 15:02
[2024-07-06 16:00] VITALS: BP 130/79; PULSE 88; RESP 22; TEMP 98.4
--- NOTE | 2024-07-06 17:20 | NUR ---
Received patient from [facility] x4 , redness to rt lower extremity denies pain at present. new iv 20 to rt hand started bri well.
[2024-07-06 17:25] VITALS: BP 134/88; PULSE 90; RESP 20; TEMP 98.9
--- NOTE | 2024-07-06 20:11 | NUR ---
cm note met with pt and states is independent with adls/ambulation. no dme no home services. lives with grandmother and brother. plan is dc home. no dc needs. Addendum: 07/06/24 at 2012 by SHAY WOLFE CM Amended: Links added.
[2024-07-06 20:21] VITALS: BP 116/75; PULSE 95; RESP 18; TEMP 99.1
--- NOTE | 2024-07-06 21:34 | CONS ---
HISTORY OF PRESENT ILLNESS: The patient is a 23-year-old diabetic, morbidly obese male, who I was asked to see regarding a right great toe ulcer. He presented with right knee and leg cellulitis. Had a CT of his right lower extremity that was negative. He had an incidental finding of a possible retained foreign body to the medial aspect of his right second toe. The patient is currently afebrile at 98.1, pulse 95, respirations 20, blood pressure 148/86. White count decreased 12.9, H and H of 14 and 41, platelets 320, neutrophils 74.8, sedimentation rate 16. BUN and creatinine level 6 and 0.5, glucose 294. The patient has had an arterial Doppler study suggesting possible peripheral vascular disease, anterior tibial and dorsalis pedis artery on the right. Foot x-ray showed calcaneal spur, linear radiopaque foreign body medial aspect of the second toe. No evidence of any fractures or osteomyelitis. The patient is currently receiving the IV vancomycin and IV Zosyn. PAST MEDICAL HISTORY: The patient has a past medical history significant for morbid obesity, right great toe ulcer, diabetes. He has been followed for right leg cellulitis, hyperglycemia, right foot first toe plantar ulcer, hyponatremia, dehydration, obesity, BMI 53.1. SOCIAL HISTORY: He does not smoke or drink or use any drugs. PHYSICAL EXAMINATION: He does have palpable pedal pulses. His protective sensation is decreased to his feet bilaterally. Reflexes are diminished. Muscle strength is intact. He has flexible hammertoes and bunion deformities. Toenails are well trimmed. He has a callus sub hallux on the left. No ulcer. Callus sub 5 on the left, no ulcer. He has a hemorrhagic callus with ulceration to the plantar aspect of the right great toe. ASSESSMENT: A 23-year-old diabetic male, morbid obesity, BMI of 53, ulcer plantar aspect of the right great toe, right cellulitis. X-rays suggest small retained foreign body to the second toe on the right. PLAN: We will continue with the vancomycin and Zosyn. I blocked the right great toe today with 3 mL of 1% lidocaine plain with the patient's consent and use of a 15 scalpel blade. I performed sharp excisional debridement. I debrided hemorrhagic callus. I debrided slough, fiber and necrotic fiber and dysvascular debridement of skin and subcutaneous tissues down to including the level of the subcutaneous tissue in an area that measured pre-debridement approximately 5 x 3 mm and post debridement 10 x 15 mm approximately 5 mm in depth for a total area of sharp excision and debridement of 1.5 cm2. Estimated blood loss 2 mL. Hemostasis was obtained with pressure, gauze, and QuikClot. A culture was taken of the wound. A dressing of QuikClot and Hydrofera Blue was applied. We will continue with the IV antibiotics in need of vancomycin and Zosyn. Follow the patient closely while in-house. TID: [id number] RECEIPT: [id number]
[2024-07-07] VITALS (9 sets, daily range): BP systolic 103–142; BP diastolic 55–89; PULSE 89–97; RESP 17–22; TEMP 98.9–99.8; O2SAT 95–96
[2024-07-07] MEDS: HYDROcodone/APAP 5/325 1 TAB TABLET PO PRN (01:53)
[2024-07-07 06:24] LABS: BASOPHILS # (AUTO) 0.03 K/uL (0.00-0.20); BASOPHILS % (AUTO) 0.3 % (0.0-5.0); EOSINOPHILS # (AUTO) 0.07 K/uL (0.00-0.70); EOSINOPHILS % (AUTO) 0.6 % (0.0-8.0); HEMATOCRIT 37.7 % (42-54); IMMATURE GRANULOCYTE ABSOLUTE 0.05 K/uL (0-1); LYMPHOCYTES # (AUTO) 2.4 K/uL (1.0-4.8); LYMPHOCYTES % (AUTO) 21.3 % (21.0-51.0); MEAN CORPUSCULAR HEMOGLOBIN 25.5 pg (27.0-33.0); MEAN CORPUSCULAR HGB CONC 34.7 g/dL (32.0-36.0); MEAN CORPUSCULAR VOLUME 73.3 fL (79-99); MONOCYTES # (AUTO) 1.2 K/uL (0.1-1.0); MONOCYTES % (AUTO) 10.3 % (3.0-13.0); NEUTROPHILS # (AUTO) 7.6 K/uL (1.8-7.7); NEUTROPHILS % (AUTO) 67.1 % (40.0-77.0); PLATELET COUNT (AUTO) 324 K/uL (130-400); RED BLOOD CELL COUNT(AUTO) 5.14 MIL/uL (4.50-6.20); RED CELL DISTRIBUTION WIDTH 13.3 % (11.0-15.5); WHITE BLOOD COUNT (AUTO) 11.4 K/uL (4.8-10.8)
[2024-07-07 06:35] LABS: CREATININE 0.5 mg/dL (0.5-1.3); MAGNESIUM 1.7 mg/dL (1.80-2.40); PHOSPHORUS 3.2 mg/dL (2.5-4.9); POTASSIUM 3.2 mmol/L (3.5-5.1)
--- NOTE | 2024-07-07 06:45 | PN ---
SUBJECTIVE: The patient is a very pleasant 23-year-old male with diabetes, followed up for a right great toe ulcer. T-max 99.7, pulse 94, respirations 17, blood pressure 105/67. White count 12.9, H and H 14.3 and 41, neutrophils 74.8, sed rate 16. BUN and creatinine 6 and 0.5, blood sugar 235. The patient is currently receiving IV vancomycin, IV Zosyn. REVIEW OF SYSTEMS: CONSTITUTIONAL: Having no chills, no fevers, no night sweats. No nausea, vomiting, no diarrhea. HEENT: No problems with his eyes, ears, nose, or throat. CARDIOVASCULAR: Having no current chest pain. RESPIRATORY: No shortness of breath. GENITOURINARY: No dysuria. GASTROINTESTINAL: No dysphagia. ENDOCRINE: Diabetes. PSYCHIATRIC: Denied any depression. MUSCULOSKELETAL: Bunions and hammertoe deformities. INTEGUMENT: Ulceration on plantar aspect of his right great toe. OBJECTIVE: Examination today shows he has palpable pedal pulses. He has protective sensation that is intact to his feet bilaterally. He has a callus subhallux on the left. He has an ulcer subhallux on the right, the ulcer is measuring 10 x 15 x 5 mm. No evidence of consolidated abscess, no ascending cellulitis. ASSESSMENT: A 23-year-old morbidly obese, diabetic male, BMI of 53. Ulcer to plantar aspect of the right great toe, right great toe cellulitis. X-rays suggest small retained foreign body to the second toe on the right. PLAN: We will continue with vancomycin and Zosyn. Await the results of his wound cultures. Medihoney dressings to his wound daily. We will dispense the patient postop shoes to ambulate with, with the use of a walker. TID: [id number] RECEIPT: [id number]
--- NOTE | 2024-07-07 07:29 | CONS ---
CONSULT NOTE: endocrinology consult chief complaint: right toe ulcer reason for consult: uncontrolled dm-2 Date of Service: Jul 07, 2024 HISTORY OF PRESENT ILLNESS: 23-year-old male with no significant past medical history who presented to the hospital secondary to pain in the right leg. Patient states he noted that he was having redness in the right leg. Redness was notable on the posterior aspect of the right knee and was traveling down to the leg. He also has a history of ulcer in the big hallux of the right foot. He has been followed at least for a year by Dr. Mason as outpatient. Patient currently does not use any dressing on the two. He denied any cuts or scrapes to the leg. Denied any fever, chills, chest pain, shortness of breath, abdominal pain, nausea, vomiting. Denied any history of diabetes mellitus. He currently denies taking any medications for diabetes. Denied any falls, syncopal episode. Patient was having 10/10 pain in the right lower extremity. Labs showed white count of 13.9, hemoglobin was 15.0, platelet count was 364 K, sodium was 130, potassium was 3.9, chloride was 94, creatinine was 0.7, glucose was 398, calcium was 9.1 Patient had a knee x-ray done which showed no evidence of fracture or dislocation. He had a venous Doppler done which showed no evidence of venous thrombosis. patient used to inject lantus and humalog but not injecting for many months. he does not check glucose at home. hba1c>15.0% REVIEW OF SYSTEMS CONSTITUTIONAL: Denies fevers, chills, or night sweats. No unintentional weight loss reported. NEUROLOGICAL: Denies headache, amaurosis fugax, motor weakness, sensory deficit, vertigo/spinning sensation, gait abnormalities, or tremors. ENT: No hearing loss, otalgia, otorrhea, rhinitis, rhinorrhea, hoarseness, or sore throat. CARDIOVASCULAR: Denies any exertional angina, dyspnea on exertion, orthopnea, paroxysmal nocturnal dyspnea, palpitations, life-threatening arrhythmias, claudication. PULMONARY: Denies any shortness of breath, cough, phlegm/sputum, hemoptysis, p leuritic chest pain. SLEEP: Denies morning headaches, daytime somnolence or napping. Denies difficulty falling asleep, staying asleep, waking from sleep. Denies knowledge of snoring. GASTROINTESTINAL: Denies any type of dysphagia to either liquids or solids. Denies nausea, vomiting, pyrosis, early satiety, abdominal pain, diarrhea, constipation, or changes in stool consistency or caliber. Denies coffee-ground emesis, hematemesis, hematochezia, or melanotic stools. GENITOURINARY: Denies frequency, urgency, nocturia, hematuria or incontinence (Storage/Irritative symptoms.) Low urinary stream, straining to void, urinary intermittency or hesitancy, splitting of the voiding stream, terminal dribbling. ENDOCRINOLOGIC: Denies polyuria, polydipsia, polyphagia or heat/cold intoler ances. HEMATOLOGIC: Denies thrombophilia/previous clots, or coagulopathy/bleeding disorders. ONCOLOGIC: Denies personal history of malignancy. DERMATOLOGIC: Positive for redness in the right lower extremity and improving. PSYCHIATRIC: Denies any suicidal or homicidal ideation. Denies hallucinations. PAST MEDICAL HISTORY: History of foot ulcer in the 1st toe of the right foot PAST SURGICAL HISTORY: Denied any previous surgical history PAST SOCIAL HISTORY: Denied any smoking, alcohol, drug use FAMILY HISTORY: Denied any pertinent family history Coded Allergies: No Known Drug Allergies (Unverified Allergy, Unknown, 10/08/18) PHYSICAL EXAM GENERAL APPEARANCE: The patient is awake, alert, and oriented, in no acute cardiopulmonary distress. Patient is obese NEUROLOGICAL: Cranial nerves II-XII grossly intact. Motor is 5/5 in bilateral upper and lower extremities proximal to distal. No sensory deficits. HEENT: Face is symmetric. Pupils are equal and reactive. Extraocular movements are intact. NECK: Supple. No JVD. No thyromegaly. No submental, submandibular, pre- /postauricular, occipital or supraclavicular lymphadenopathy. CHEST: Normal chest expansion. No Telemetry. LUNGS: Absence of any rales, rhonchi or any wheezing. CARDIOVASCULAR: Regular. S1 and S2 normal. No appreciable rubs, murmurs or gallops. ABDOMEN: Soft, nontender, and nondistended. There is no rebound, voluntary guarding, or rigidity. : Deferred. No Harden. EXTREMITIES: Patient has erythema on the posterior aspect of the leg involving the knee. He has redness traveling down to the leg to the foot. He has swelling noted. Area is tender to palpation. Additionally he has a ulcer noted in the 1st toe of the right foot. He has blackish discoloration with possible eschar noted SKIN: No skin breakdown. ASSESSMENT: Hyperglycemia secondary to uncontrolled diabetes mellitus type POA patient used to inject lantus and humalog but not injecting for many months. he does not check glucose at home. hba1c>15.0% Right Leg cellulitis POA Foot ulcer of the 1st toe of the right foot POA Hyponatremia secondary to hyperglycemia Dehydration Obesity BMI 53.1 PLAN: increase lantus to 40 units daily increase regular insulin to 16 units tid before meals continue medium dose insulin ssi [id number] abs ordered. monitor glucose qx6 hourly patient will need insulin at discharge thanks for allowing me to particpate in patient care and will continue to follow up. Vital Signs 07/06/24 07/07/24 20:00 04:16 Temp 99.1 Pulse 92 Resp 19 B/P (MAP) 135/89 Pulse Ox 96 O2 Delivery Room Air O2 Flow Rate 0 FiO2 21 Hematology Labs: Test 07/07/24 06:19 07/05/24 11:46 Range/Units White Blood Count 11.4 H 4.8-10.8 K/uL Red Blood Count 5.14 4.50-6.20 MIL/uL Hemoglobin 13.1 L 14.0-18.0 g/dL Hematocrit 37.7 L 42-54 % Mean Corpuscular Volume 73.3 L 79-99 fL Mean Corpuscular Hemoglobin 25.5 L 27.0-33.0 pg Mean Corpuscular Hemoglobin Concent 34.7 32.0-36.0 g/dL Red Cell Distribution Width 13.3 11.0-15.5 % Platelet Count 324 130-400 K/uL Mean Platelet Volume 8.7 7.5-10.5 fL Immature Granulocyte % (Auto) 0.4 0-1 % Neutrophils (%) (Auto) 67.1 40.0-77.0 % Lymphocytes (%) (Auto) 21.3 21.0-51.0 % Monocytes (%) (Auto) 10.3 3.0-13.0 % Eosinophils (%) (Auto) 0.6 0.0-8.0 % Basophils (%) (Auto) 0.3 0.0-5.0 % Neutrophils # (Auto) 7.6 1.8-7.7 K/uL Lymphocytes # (Auto) 2.4 1.0-4.8 K/uL Monocytes # (Auto) 1.2 H 0.1-1.0 K/uL Eosinophils # (Auto) 0.07 0.00-0.70 K/uL Basophils # (Auto) 0.03 0.00-0.20 K/uL Absolute Immature Granulocyte (auto 0.05 0-1 K/uL Nucleated Red Blood Cells 0.0 0.0-0.19 % Erythrocyte Sedimentation Rate 16 H 0-15 MM/HR Chemistry Labs: Test 07/07/24 06:19 07/07/24 05:20 07/06/24 16:38 07/05/24 14:55 Range/Units Sodium Level 133 L 136-145 mmol/L Potassium Level 3.2 L 3.5-5.1 mmol/L Chloride Level 100 L 101-111 mmol/L Carbon Dioxide Level 23 21-32 mmol/L Blood Urea Nitrogen 6 L 7-18 mg/dL Creatinine 0.5 0.5-1.3 mg/dL Glomerular Filtration Rate Calc 148 >90 mL/min Random Glucose 171 H 70-105 mg/dL Total Calcium 8.1 L 8.5-10.1 mg/dL Phosphorus Level 3.2 2.5-4.9 mg/dL Magnesium Level 1.70 L 1.80-2.40 mg/dL Whole Blood Glucose 182 H 70-110 MG/DL Bedside Glucose Comment Notified Nurse Whole Blood Ketones Quantitative 0.2 0.0-0.6 mmol/L Lactic Acid Level 1.7 0.8-2.5 mmol/L Total Creatine Kinase 52 21-232 U/L C-Reactive Protein, Quantitative 57.90 H 0.5-3.0 mg/L Procalcitonin 0.11 0.05-0.5 ng/mL Thyroid Stimulating Hormone (TSH) 1.45 0.36-3.74 uIU/mL Current Medications Medications (Trade) Dose Ordered Sig/Morales Route Start Time Stop Time Status Last Admin Dose Admin Enoxaparin Sodium (Lovenox) 30 mg DAILY SQ 07/06/24 09:00 08/05/24 08:59 07/06/24 09:28 30 MG Famotidine (Pepcid 20mg Vial) 20 mg BID IV 07/05/24 21:00 08/04/24 20:59 07/06/24 20:55 20 MG Insulin Glargine (LANtus 100 UNITS/ML 10 ML VIAL) 15 units DAILY SQ 07/05/24 15:00 08/04/24 14:59 07/06/24 09:38 15 UNITS Insulin Human Regular (humuLIN R 100 UNIT/ML 3ML) 10 unit TIDAC SQ 07/06/24 07:30 08/05/24 07:29 07/07/24 05:38 10 UNIT Insulin Human Regular (humuLIN R 100 UNIT/ML 3ML) INSULIN SLIDING SCAL... ACHS SQ 07/06/24 07:30 08/05/24 07:29 07/07/24 05:39 2 UNIT Insulin Human Regular (humuLIN R 100 UNIT/ML 3ML) INSULIN SLIDING SCAL... Q6H6 SQ 07/05/24 18:00 07/05/24 21:19 DC 07/05/24 17:43 8 UNIT Leptospermum Honey ([facility]) 1 APPLICATION DAILY TP 07/07/24 09:00 08/06/24 08:59 Piperacillin Sod/ Tazobactam Sod (Zosyn 3.375gm+NS 50ml) 3.375 gm Q8H IVPB 07/05/24 14:30 07/15/24 14:29 07/07/24 05:46 3.375 GM Sodium Chloride 1,000 ml @ 100 mls/hr Q10H IV 07/05/24 14:30 08/04/24 14:29 07/07/24 05:46 100 MLS/HR Sodium Chloride (NS 50ml) 50 ml AD IV 07/05/24 18:00 07/06/24 13:20 DC Vancomycin HCl 250 ml @ 167 mls/hr Q12H IV 07/06/24 01:00 07/16/24 00:59 07/07/24 01:11 167 MLS/HR Vancomycin HCl (Vancomycin Protocol) 1 each AD IV 07/05/24 14:30 07/19/24 14:29 JOSE CASTILLO MD Jul 07, 2024 07:29
--- NOTE | 2024-07-07 07:56 | CONS ---
DATE OF SERVICE: 07/05/2024 CONSULTING PHYSICIAN: Dr. Ayan Buchanan. CONSULTING SERVICE: Hospitalist. REASON FOR CONSULTATION: Right leg cellulitis. HISTORY OF PRESENT ILLNESS: This is a 23-year-old gentleman who has noticed bruising, erythema, and some ecchymosis to the right knee and thigh for the last few days, progressively getting worse. No history of any trauma or falls. Low-grade fever present. The patient is obese and has a history of diabetes which is not very much under control. PAST MEDICAL HISTORY: Positive for diabetes. PAST SURGICAL HISTORY: No surgeries. ALLERGIES: No allergies. MEDICATIONS: He does not take diabetic medications regularly. SOCIAL HISTORY: The patient lives in [place], works in [employer]. REVIEW OF SYSTEMS: A 12-system review of system was obtained and is negative. PHYSICAL EXAMINATION: GENERAL: The patient is awake, alert, and oriented x 3. VITAL SIGNS: Heart rate tachycardia present, temperature low-grade fever present, blood pressure 142/73. HEENT: Normocephalic and atraumatic. NECK: No engorged vein. CHEST: Symmetric. Murmur is seen. HEART: Regular rate and rhythm. ABDOMEN: Soft, nontender, and nondistended. PELVIS: No tenderness on pelvis compression or distraction. EXTREMITIES: Examination of the right lower extremity, erythema present around the right knee and distal thigh. Mild warmth present. No obvious discharge seen. No crepitus present. Good capillary refill is present. Motor and sensory grossly intact. LABORATORY INVESTIGATIONS: Reviewed. ASSESSMENT AND PLAN: A 23-year-old man showing some cellulitis to the right thigh and knee. We have some suspicion of deep infection, so we took a CT scan which came back negative for any correction or crepitus or any air in the thigh. So the patient will be getting the IV broad-spectrum antibiotics. Ortho will closely follow the patient. TID: [id number] RECEIPT: [id number] [facility]
--- NOTE | 2024-07-07 07:59 | PN ---
DATE OF SERVICE: 07/06/2024 SUBJECTIVE: This is a 23-year-old gentleman who has been diagnosed with cellulitis to the right knee and distal thigh. The patient is still in the emergency department getting IV antibiotics, broad spectrum. The patient still continues to complain of pain. No change in the acute events overnight. PHYSICAL EXAMINATION: GENERAL: The patient is awake, alert and oriented x 3. VITAL SIGNS: So far showing some tachycardia and pressures are stable. The patient is afebrile. EXTREMITIES: Examination of the right lower extremity and the right thigh shows some swelling and ecchymosis present. Mild erythema present over the middle of the thigh and the knee. Motor and sensory grossly intact. Dorsalis pedis, posterior tibialis 2+. No crepitus palpable. Increased warmth present. Tenderness was present over the thigh. LABORATORY INVESTIGATIONS: Reviewed. ASSESSMENT AND PLAN: We will continue to follow the patient. We discussed the treatment options and I strongly recommended for the patient to control his blood sugars. Otherwise, he may end up losing his leg and sometimes life because of low immunity and increased risk of infection. Orthopedics will continue to follow the patient. TID: [id number] RECEIPT: [id number] [facility]
[2024-07-07] MEDS: HONEY 1 APPL/ML TUBE TP SCH (08:58)
[2024-07-07] MEDS ORDERED: PoTASSium chl 10% ELIXIR 20MEQ 20 MEQ/15 ML UDCUP PO PRN (10:00)
[2024-07-07] MEDS: MAGNESIUM 2GM PREMIX 50ML 50 ML IV PRN (10:57)
[2024-07-07] MEDS: PoTASSium chloRIDE 20MEQ ER 20 MEQ ERTAB PO PRN (12:31)
[2024-07-07] MEDS: VANCOMYCIN 1G/250ML KIT 250 ML IV SCH (13:15)
[2024-07-07] MEDS: acetaMINOPHEN 325 MG TAB PO PRN (14:01)
--- NOTE | 2024-07-07 16:22 | PN ---
[facility] PROGRESS NOTE Date of Service: Jul 07, 2024 Time of Service: 16:18 SUBJECTIVE: 07/06 patient seen at bedside, no acute events overnight. He has been afebrile, hemodynamically stable saturating well on room air. His only complaint is pain when he is ambulating, his right lower extremity proximal to the knee joint on the medial aspect has erythema induration, no fluctuance noted and is tender to palpation. There is no crepitus noted. Outlined the margins of the lesion and we will continue with broad-spectrum antibiotics. WBC improved from 13.9 down to 12.9, blood sugars still quite elevated, diabetic medications have been adj usted by log operations coordinator, appreciate their assistance. A1c pending, we will follow up. Podiatry recommendations regarding diabetic foot ulcer on the 1st great toe are still pending. 07/07 patient seen at bedside, no acute events overnight. He has been afebrile, hemodynamically stable saturating well on room air. Area of cellulitis appears to be improved in color and swelling is diminished. Foot x-ray showing possible retained foreign body. Podiatry recommending a bone scan has MRI is contraindicated with foreign body, to assess for osteomyelitis. We will follow up with Endocrinology recommendations. REVIEW OF SYSTEMS 12 point review of systems negative unless noted in HPI PHYSICAL EXAM GENERAL APPEARANCE: The patient is awake, alert, and oriented, in no acute cardiopulmonary distress. Patient is obese NEUROLOGICAL: Cranial nerves II-XII grossly intact. Motor is 5/5 in bilateral upper and lower extremities proximal to distal. No sensory deficits. HEENT: Face is symmetric. Pupils are equal and reactive. Extraocular movements are intact. NECK: Supple. No JVD. No thyromegaly. No submental, submandibular, pre- /postauricular, occipital or supraclavicular lymphadenopathy. CHEST: Normal chest expansion. No Telemetry. LUNGS: Absence of any rales, rhonchi or any wheezing. CARDIOVASCULAR: Regular. S1 and S2 normal. No appreciable rubs, murmurs or gallops. ABDOMEN: Soft, nontender, and nondistended. There is no rebound, voluntary guarding, or rigidity. : Deferred. No Harden. EXTREMITIES: Patient has erythema on the posterior aspect of the leg involving the knee. He has redness traveling down to the leg to the foot. He has swelling noted. Area is tender to palpation. Additionally he has a ulcer noted in the 1st toe of the right foot. He has blackish discoloration with possible eschar noted SKIN: No skin breakdown. Vital Signs (last 8hr) Date Time Temp Pulse Resp B/P (MAP) Pulse Ox O2 Delivery O2 Flow Rate FiO2 07/07/24 12:00 99.0 90 20 123/77 96 Room Air 21 LABS: Laboratory: Test 07/07/24 15:31 07/07/24 11:52 07/07/24 06:19 07/06/24 16:38 Range/Units Whole Blood Glucose 283 H 70-110 MG/DL Vancomycin Level Trough 2.0 L 10.0-20.0 UG/ML White Blood Count 11.4 H 4.8-10.8 K/uL Red Blood Count 5.14 4.50-6.20 MIL/uL Hemoglobin 13.1 L 14.0-18.0 g/dL Hematocrit 37.7 L 42-54 % Mean Corpuscular Volume 73.3 L 79-99 fL Mean Corpuscular Hemoglobin 25.5 L 27.0-33.0 pg Mean Corpuscular Hemoglobin Concent 34.7 32.0-36.0 g/dL Red Cell Distribution Width 13.3 11.0-15.5 % Platelet Count 324 130-400 K/uL Mean Platelet Volume 8.7 7.5-10.5 fL Immature Granulocyte % (Auto) 0.4 0-1 % Neutrophils (%) (Auto) 67.1 40.0-77.0 % Lymphocytes (%) (Auto) 21.3 21.0-51.0 % Monocytes (%) (Auto) 10.3 3.0-13.0 % Eosinophils (%) (Auto) 0.6 0.0-8.0 % Basophils (%) (Auto) 0.3 0.0-5.0 % Neutrophils # (Auto) 7.6 1.8-7.7 K/uL Lymphocytes # (Auto) 2.4 1.0-4.8 K/uL Monocytes # (Auto) 1.2 H 0.1-1.0 K/uL Eosinophils # (Auto) 0.07 0.00-0.70 K/uL Basophils # (Auto) 0.03 0.00-0.20 K/uL Absolute Immature Granulocyte (auto 0.05 0-1 K/uL Nucleated Red Blood Cells 0.0 0.0-0.19 % Sodium Level 133 L 136-145 mmol/L Potassium Level 3.2 L 3.5-5.1 mmol/L Chloride Level 100 L 101-111 mmol/L Carbon Dioxide Level 23 21-32 mmol/L Blood Urea Nitrogen 6 L 7-18 mg/dL Creatinine 0.5 0.5-1.3 mg/dL Glomerular Filtration Rate Calc 148 >90 mL/min Random Glucose 171 H 70-105 mg/dL Total Calcium 8.1 L 8.5-10.1 mg/dL Phosphorus Level 3.2 2.5-4.9 mg/dL Magnesium Level 1.70 L 1.80-2.40 mg/dL Bedside Glucose Comment Notified Nurse Current Medications Medications (Trade) Dose Ordered Sig/Morales Route PRN Reason Start Time Stop Time Status Last Admin Dose Admin Acetaminophen (TYLenol 325MG TAB) 650 mg Q6H PRN PO MILD PAIN (1-3) 07/06/24 13:30 08/05/24 13:29 07/07/24 14:01 650 MG Acetaminophen/ Hydrocodone Bitart (NORco 5/325MG) 1 tab Q6H PRN PO MODERATE PAIN (4-6) 07/06/24 13:30 07/11/24 13:29 07/07/24 01:53 1 TAB Dextrose (D50w) 50 ml AD PRN IV HYPOGLYCEMIA PROTOCOL 07/05/24 15:00 08/04/24 14:59 Enoxaparin Sodium (Lovenox) 30 mg DAILY SQ 07/06/24 09:00 08/05/24 08:59 07/07/24 08:41 30 MG Famotidine (Pepcid 20mg Vial) 20 mg BID IV 07/05/24 21:00 08/04/24 20:59 07/07/24 08:41 20 MG Glucagon (Glucagon 1mg Kit) 1 mg AD PRN IM HYPOGLYCEMIA PROTOCOL 07/05/24 15:00 08/04/24 14:59 Insulin Glargine (LANtus 100 UNITS/ML 10 ML VIAL) 15 units DAILY SQ 07/05/24 15:00 08/04/24 14:59 07/07/24 08:47 15 UNITS Insulin Human Regular (humuLIN R 100 UNIT/ML 3ML) 10 unit TIDAC SQ 07/06/24 07:30 08/05/24 07:29 07/07/24 12:34 10 UNIT Insulin Human Regular (humuLIN R 100 UNIT/ML 3ML) INSULIN SLIDING SCAL... ACHS SQ 07/06/24 07:30 08/05/24 07:29 07/07/24 12:35 6 UNIT Insulin Human Regular (humuLIN R 100 UNIT/ML 3ML) INSULIN SLIDING SCAL... Q6H6 SQ 07/05/24 18:00 07/05/24 21:19 DC 07/05/24 17:43 8 UNIT Ketorolac Tromethamine (toRADol) 15 mg Q6H PRN IV MODERATE PAIN (4-6) 07/05/24 17:00 07/07/24 06:16 DC 07/05/24 21:03 15 MG Leptospermum Honey (Medihoney) 1 APPLICATION DAILY TP 07/07/24 09:00 08/06/24 08:59 07/07/24 08:58 1 APPL Magnesium Sulfate 50 ml @ 0 mls/hr PROTOCOL PRN IV low magnesium 07/07/24 10:00 08/06/24 09:59 07/07/24 10:57 1.7 MLS/HR Morphine Sulfate (morPHINE 2MG SYG) 2 mg Q6H PRN IVP SEVERE PAIN (7-10) 07/05/24 17:00 07/12/24 16:59 Piperacillin Sod/ Tazobactam Sod (Zosyn 3.375gm+NS 50ml) 3.375 gm Q8H IVPB 07/05/24 14:30 07/15/24 14:29 07/07/24 15:58 3.375 GM Potassium Chloride 100 ml @ 100 mls/hr AD PRN IV POTASSIUM PROTOCOL 07/07/24 10:00 08/06/24 09:59 Potassium Chloride (K-Dur/Klor-Con 20meq) 20 meq AD PRN PO POTASSIUM PROTOCOL 07/07/24 10:00 08/06/24 09:59 07/07/24 14:31 20 MEQ Potassium Chloride (KCl 10% Elixir 20meq/15ml) 20 meq AD PRN PO POTASSIUM PROTOCOL 07/07/24 10:00 08/06/24 09:59 Sodium Chloride 1,000 ml @ 100 mls/hr Q10H IV 07/05/24 14:30 08/04/24 14:29 07/07/24 05:46 100 MLS/HR Sodium Chloride (NS 50ml) 50 ml AD IV 07/05/24 18:00 07/06/24 13:20 DC Vancomycin HCl 250 ml @ 125 mls/hr Q8H IV 07/07/24 13:00 07/17/24 12:59 07/07/24 13:15 125 MLS/HR Vancomycin HCl 250 ml @ 167 mls/hr Q12H IV 07/06/24 01:00 07/07/24 12:31 DC 07/07/24 01:11 167 MLS/HR Vancomycin HCl (Vancomycin Protocol) 1 each AD IV 07/05/24 14:30 07/19/24 14:29 DIAGNOSTICS / RADIOLOGY: [ ] ASSESSMENT: Right Leg cellulitis POA Hyperglycemia secondary to uncontrolled diabetes mellitus type POA Foot ulcer of the 1st toe of the right foot POA Hyponatremia secondary to hyperglycemia Dehydration Obesity BMI 53.1 PLAN: - patient to be admitted to medical-surgical unit - Continue vancomycin and Zosyn. - Podiatry consulted, appreciate recommendations - bone scan ordered, we will follow up - Continue patient on [id number] units daily. Patient will be started on sliding scale insulin. Check A1c. - Continue hypoglycemia protocol Disposition: Pending improvement in clinical status MARICARMEN MCDANIELS MD Jul 07, 2024 16:22
[2024-07-08] VITALS (7 sets, daily range): BP systolic 104–141; BP diastolic 61–93; PULSE 93–99; RESP 18–21; TEMP 98.7–99.8; O2SAT 91
[2024-07-08 06:20] LABS: BASOPHILS # (AUTO) 0.03 K/uL (0.00-0.20); BASOPHILS % (AUTO) 0.3 % (0.0-5.0); EOSINOPHILS # (AUTO) 0.12 K/uL (0.00-0.70); EOSINOPHILS % (AUTO) 1.1 % (0.0-8.0); IMMATURE GRANULOCYTE ABSOLUTE 0.05 K/uL (0-1); LYMPHOCYTES # (AUTO) 2.1 K/uL (1.0-4.8); LYMPHOCYTES % (AUTO) 19.2 % (21.0-51.0); MEAN CORPUSCULAR HEMOGLOBIN 25.5 pg (27.0-33.0); MEAN CORPUSCULAR VOLUME 74.9 fL (79-99); MONOCYTES # (AUTO) 0.8 K/uL (0.1-1.0); MONOCYTES % (AUTO) 7.5 % (3.0-13.0); NEUTROPHILS # (AUTO) 7.8 K/uL (1.8-7.7); NEUTROPHILS % (AUTO) 71.4 % (40.0-77.0); PLATELET COUNT (AUTO) 385 K/uL (130-400); RED BLOOD CELL COUNT(AUTO) 5.34 MIL/uL (4.50-6.20); RED CELL DISTRIBUTION WIDTH 13.4 % (11.0-15.5); WHITE BLOOD COUNT (AUTO) 10.9 K/uL (4.8-10.8)
--- NOTE | 2024-07-08 06:23 | PN ---
SUBJECTIVE: The patient is a very pleasant 23-year-old diabetic male who is being followed for right leg cellulitis, right great toe ulcer, hyperglycemia, diabetes, morbid obesity and foreign body to the right second toe. The patient is currently afebrile and his white count is within normal limits. He has a T-max of 99.9. He has a pulse of 95, respirations of 19 and blood pressure 141/93. He has a white count of 11.4, trending down, H and H 13.1 and 37.7, platelets 324. Sedimentation rate 16. BUN and creatinine level 6 and 0.5. Glucose 228. The patient is currently receiving IV vancomycin and IV Zosyn. The patient has arterial Doppler studies on the right. Abnormal monophasic waveform anterior tibial and dorsalis pedis. The patient was evaluated by the Orthopedic Service. Apparently, there is no plan for surgical intervention for his right thigh cellulitis. _mri____ has been cancelled to the right foot due to the foreign body to the second toe. We will order a 3-phase technetium bone scan for the patient on the right side. The patient's examination today shows that he has T-max of 99.9 REVIEW OF SYSTEMS: CONSTITUTIONAL: Relates no fevers, no chills, no night sweats. No nausea, vomiting or diarrhea. HEENT: No problems with eyes, ears, nose or throat. CARDIOVASCULAR: No shortness of breath. GENITOURINARY: No dysuria. GASTROINTESTINAL: No dysphagia. ENDOCRINE: Diabetes. PSYCHIATRIC: Denies impression. MUSCULOSKELETAL: Bunions and hammertoes. INTEGUMENTARY: He has an ulcer to the plantar aspect of the right great toe. OBJECTIVE: On examination today shows he has palpable pedal pulses. He has protective sensation intact to his feet. He has a callus, sub hallux on the left. He has an ulcer, plantar great toe on the right, 10 x 15 x 3 mm. No consolidated abscess. No ascending cellulitis. ASSESSMENT: The patient is a 23-year-old male with morbid obesity, BMI of 53, ulcer to the plantar aspect of the right great toe and right great toe cellulitis. X-rays suggest small retained foreign body to the second toe on the right. PLAN: We will order a 3-phase technetium bone scan to rule out osteomyelitis of the right great toe. Continue the vancomycin and Zosyn. The patient's wound cultures are pending. Medihoney dressings to his right great toe daily. The patient may ambulate with surgical shoes to his feet bilaterally. TID: [id number] RECEIPT: [id number] [facility]
[2024-07-08 06:46] LABS: CREATININE 0.4 mg/dL (0.5-1.3); POTASSIUM 3.6 mmol/L (3.5-5.1)
[2024-07-08] MEDS: INSULIN GLARgine 100 UNITS/ML 10 ML VIAL SQ SCH (07:54)
[2024-07-08] MEDS: INSULIN humuLIN R 100 UNIT/ML 3ML SQ SCH (07:54)
--- NOTE | 2024-07-08 12:18 | HMCIMG ---
NM BONE SCAN 3 PHASE REASON: Right great toe osteomyelitis. COMPARISON: None TECHNIQUE: 3 phase bone scan was performed with 25 mCi of technetium MDP through intravenous route. FINDINGS: Increased activities are seen involving the shoulders, knees and ankles consistent with degenerative changes. No scintigraphic evidence of bone metastases is seen. Specific attention is given to the right great toe. No definite decrease activity is seen. If needed, MRI may be helpful. IMPRESSION: Findings as described above.
--- NOTE | 2024-07-08 18:39 | PN ---
[facility] PROGRESS NOTE Date of Service: Jul 08, 2024 Time of Service: 18:37 SUBJECTIVE: 07/06 patient seen at bedside, no acute events overnight. He has been afebrile, hemodynamically stable saturating well on room air. His only complaint is pain when he is ambulating, his right lower extremity proximal to the knee joint on the medial aspect has erythema induration, no fluctuance noted and is tender to palpation. There is no crepitus noted. Outlined the margins of the lesion and we will continue with broad-spectrum antibiotics. WBC improved from 13.9 down to 12.9, blood sugars still quite elevated, diabetic medications have been adj usted by town administrator, appreciate their assistance. A1c pending, we will follow up. Podiatry recommendations regarding diabetic foot ulcer on the 1st great toe are still pending. 07/07 patient seen at bedside, no acute events overnight. He has been afebrile, hemodynamically stable saturating well on room air. Area of cellulitis appears to be improved in color and swelling is diminished. Foot x-ray showing possible retained foreign body. Podiatry recommending a bone scan has MRI is contraindicated with foreign body, to assess for osteomyelitis. We will follow up with Endocrinology recommendations. 07/08 bone scan pending today, we will follow up postprocedure. Wound cultures are still pending, we will continue to follow. Patient has cellulitis in his right medial thigh continues to improve, swelling and erythema have retracted significantly. Labs are relatively unremarkable. Insulin adjusted by endocrinology, appreciate recommendations. REVIEW OF SYSTEMS 12 point review of systems negative unless noted in HPI PHYSICAL EXAM GENERAL APPEARANCE: The patient is awake, alert, and oriented, in no acute cardiopulmonary distress. Patient is obese NEUROLOGICAL: Cranial nerves II-XII grossly intact. Motor is 5/5 in bilateral upper and lower extremities proximal to distal. No sensory deficits. HEENT: Face is symmetric. Pupils are equal and reactive. Extraocular movements are intact. NECK: Supple. No JVD. No thyromegaly. No submental, submandibular, pre-/pos tauricular, occipital or supraclavicular lymphadenopathy. CHEST: Normal chest expansion. No Telemetry. LUNGS: Absence of any rales, rhonchi or any wheezing. CARDIOVASCULAR: Regular. S1 and S2 normal. No appreciable rubs, murmurs or gallops. ABDOMEN: Soft, nontender, and nondistended. There is no rebound, voluntary guarding, or rigidity. : Deferred. No Harden. EXTREMITIES: Patient has erythema on the posterior aspect of the leg involving the knee. He has redness traveling down to the leg to the foot. He has swelling noted. Area is tender to palpation. Additionally he has a ulcer noted in the 1st toe of the right foot. He has blackish discoloration with possible eschar noted SKIN: No skin breakdown. Vital Signs (last 8hr) Date Time Temp Pulse Resp B/P (MAP) Pulse Ox O2 Delivery O2 Flow Rate FiO2 07/08/24 16:00 98.8 99 20 110/80 92 Room Air 07/08/24 14:18 99.0 94 127/78 91 Room Air 07/08/24 11:43 99.0 95 21 130/81 93 Room Air LABS: Laboratory: Test 07/08/24 16:05 07/08/24 05:28 07/07/24 11:52 07/07/24 06:19 Range/Units Whole Blood Glucose 236 H 70-110 MG/DL White Blood Count 10.9 H 4.8-10.8 K/uL Red Blood Count 5.34 4.50-6.20 MIL/uL Hemoglobin 13.6 L 14.0-18.0 g/dL Hematocrit 40.0 L 42-54 % Mean Corpuscular Volume 74.9 L 79-99 fL Mean Corpuscular Hemoglobin 25.5 L 27.0-33.0 pg Mean Corpuscular Hemoglobin Concent 34.0 32.0-36.0 g/dL Red Cell Distribution Width 13.4 11.0-15.5 % Platelet Count 385 130-400 K/uL Mean Platelet Volume 9.0 7.5-10.5 fL Immature Granulocyte % (Auto) 0.5 0-1 % Neutrophils (%) (Auto) 71.4 40.0-77.0 % Lymphocytes (%) (Auto) 19.2 L 21.0-51.0 % Monocytes (%) (Auto) 7.5 3.0-13.0 % Eosinophils (%) (Auto) 1.1 0.0-8.0 % Basophils (%) (Auto) 0.3 0.0-5.0 % Neutrophils # (Auto) 7.8 H 1.8-7.7 K/uL Lymphocytes # (Auto) 2.1 1.0-4.8 K/uL Monocytes # (Auto) 0.8 0.1-1.0 K/uL Eosinophils # (Auto) 0.12 0.00-0.70 K/uL Basophils # (Auto) 0.03 0.00-0.20 K/uL Absolute Immature Granulocyte (auto 0.05 0-1 K/uL Nucleated Red Blood Cells 0.0 0.0-0.19 % Sodium Level 136 136-145 mmol/L Potassium Level 3.6 3.5-5.1 mmol/L Chloride Level 103 101-111 mmol/L Carbon Dioxide Level 23 21-32 mmol/L Blood Urea Nitrogen 6 L 7-18 mg/dL Creatinine 0.4 L 0.5-1.3 mg/dL Glomerular Filtration Rate Calc 158 >90 mL/min Random Glucose 228 H 70-105 mg/dL Total Calcium 8.5 8.5-10.1 mg/dL Vancomycin Level Trough 2.0 L 10.0-20.0 UG/ML Phosphorus Level 3.2 2.5-4.9 mg/dL Magnesium Level 1.70 L 1.80-2.40 mg/dL Current Medications Medications (Trade) Dose Ordered Sig/Morales Route PRN Reason Start Time Stop Time Status Last Admin Dose Admin Acetaminophen (TYLenol 325MG TAB) 650 mg Q6H PRN PO MILD PAIN (1-3) 07/06/24 13:30 08/05/24 13:29 07/07/24 14:01 650 MG Acetaminophen/ Hydrocodone Bitart (NORco 5/325MG) 1 tab Q6H PRN PO MODERATE PAIN (4-6) 07/06/24 13:30 07/11/24 13:29 07/07/24 01:53 1 TAB Dextrose (D50w) 50 ml AD PRN IV HYPOGLYCEMIA PROTOCOL 07/05/24 15:00 08/04/24 14:59 Enoxaparin Sodium (Lovenox) 30 mg DAILY SQ 07/06/24 09:00 08/05/24 08:59 07/08/24 07:45 30 MG Famotidine (Pepcid 20mg Vial) 20 mg BID IV 07/05/24 21:00 08/04/24 20:59 07/08/24 07:44 20 MG Glucagon (Glucagon 1mg Kit) 1 mg AD PRN IM HYPOGLYCEMIA PROTOCOL 07/05/24 15:00 08/04/24 14:59 Insulin Glargine (LANtus 100 UNITS/ML 10 ML VIAL) 15 units DAILY SQ 07/05/24 15:00 07/07/24 22:00 DC 07/07/24 08:47 15 UNITS Insulin Glargine (LANtus 100 UNITS/ML 10 ML VIAL) 40 units DAILY07 SQ 07/08/24 07:00 08/04/24 14:59 07/08/24 07:54 40 UNITS Insulin Human Regular (humuLIN R 100 UNIT/ML 3ML) 10 unit TIDAC SQ 07/06/24 07:30 07/07/24 22:00 DC 07/07/24 17:19 10 UNIT Insulin Human Regular (humuLIN R 100 UNIT/ML 3ML) 16 unit TIDAC SQ 07/08/24 07:30 08/07/24 07:29 07/08/24 17:33 16 UNIT Insulin Human Regular (humuLIN R 100 UNIT/ML 3ML) INSULIN SLIDING SCAL... ACHS SQ 07/06/24 07:30 08/05/24 07:29 07/08/24 17:32 6 UNIT Insulin Human Regular (humuLIN R 100 UNIT/ML 3ML) INSULIN SLIDING SCAL... Q6H6 SQ 07/05/24 18:00 07/05/24 21:19 DC 07/05/24 17:43 8 UNIT Ketorolac Tromethamine (toRADol) 15 mg Q6H PRN IV MODERATE PAIN (4-6) 07/05/24 17:00 07/07/24 06:16 DC 07/05/24 21:03 15 MG Leptospermum Honey (Medihoney) 1 APPLICATION DAILY TP 07/07/24 09:00 08/06/24 08:59 07/08/24 07:55 1 APPL Magnesium Sulfate 50 ml @ 0 mls/hr PROTOCOL PRN IV low magnesium 07/07/24 10:00 08/06/24 09:59 07/07/24 10:57 1.7 MLS/HR Morphine Sulfate (morPHINE 2MG SYG) 2 mg Q6H PRN IVP SEVERE PAIN (7-10) 07/05/24 17:00 07/12/24 16:59 Piperacillin Sod/ Tazobactam Sod (Zosyn 3.375gm+NS 50ml) 3.375 gm Q8H IVPB 07/05/24 14:30 07/15/24 14:29 07/08/24 15:12 3.375 GM Potassium Chloride 100 ml @ 100 mls/hr AD PRN IV POTASSIUM PROTOCOL 07/07/24 10:00 08/06/24 09:59 Potassium Chloride (K-Dur/Klor-Con 20meq) 20 meq AD PRN PO POTASSIUM PROTOCOL 07/07/24 10:00 08/06/24 09:59 07/08/24 11:53 20 MEQ Potassium Chloride (KCl 10% Elixir 20meq/15ml) 20 meq AD PRN PO POTASSIUM PROTOCOL 07/07/24 10:00 08/06/24 09:59 Sodium Chloride 1,000 ml @ 100 mls/hr Q10H IV 07/05/24 14:30 08/04/24 14:29 07/08/24 13:08 100 MLS/HR Sodium Chloride (NS 50ml) 50 ml AD IV 07/05/24 18:00 07/06/24 13:20 DC Vancomycin HCl 250 ml @ 125 mls/hr Q8H IV 07/07/24 13:00 07/17/24 12:59 07/08/24 13:08 125 MLS/HR Vancomycin HCl 250 ml @ 167 mls/hr Q12H IV 07/06/24 01:00 07/07/24 12:31 DC 07/07/24 01:11 167 MLS/HR Vancomycin HCl (Vancomycin Protocol) 1 each AD IV 07/05/24 14:30 07/19/24 14:29 DIAGNOSTICS / RADIOLOGY: [ ] ASSESSMENT: Right Leg cellulitis POA Hyperglycemia secondary to uncontrolled diabetes mellitus type POA Foot ulcer of the 1st toe of the right foot POA Hyponatremia secondary to hyperglycemia Dehydration Obesity BMI 53.1 PLAN: - patient to be admitted to medical-surgical unit - Continue vancomycin and Zosyn. - Podiatry consulted, appreciate recommendations - bone scan ordered, we will follow up - Continue patient on [id number] units daily. Patient will be started on sliding scale insulin. Check A1c. - Continue hypoglycemia protocol - endocrinology consulted, appreciate recommendations Disposition: Pending bone scan, cultures and sensitivities MARICARMEN MCDANIELS MD Jul 08, 2024 18:39
--- NOTE | 2024-07-08 21:01 | PN ---
endocrinology Date of Service: Jul 08, 2024 subjective: glucose are stll elevated. insulin adjusted. patient used to inject lantus and humalog but not injecting for many months. he does not check glucose at home. hba1c>15.0% PAST MEDICAL HISTORY: History of foot ulcer in the 1st toe of the right foot PAST SURGICAL HISTORY: Denied any previous surgical history PAST SOCIAL HISTORY: Denied any smoking, alcohol, drug use FAMILY HISTORY: Denied any pertinent family history Coded Allergies: No Known Drug Allergies (Unverified Allergy, Unknown, 10/08/18) ASSESSMENT: Hyperglycemia secondary to uncontrolled diabetes mellitus type POA patient used to inject lantus and humalog but not injecting for many months. he does not check glucose at home. hba1c>15.0% Right Leg cellulitis POA Foot ulcer of the 1st toe of the right foot POA Hyponatremia secondary to hyperglycemia Dehydration Obesity BMI 53.1 PLAN: increase lantus to 60 units daily increase regular insulin to 22 units tid before meals continue medium dose insulin ssi follow on talia-65 abs monitor glucose qx6 hourly patient will need insulin at discharge Vitals/Labs Vital Signs Date Time Temp Pulse Resp B/P (MAP) Pulse Ox O2 Delivery O2 Flow Rate FiO2 07/08/24 20:40 99.0 96 18 104/61 90 Room Air 07/08/24 07:55 0 21 Laboratory Tests 07/08/24 05:28 Medications Current Medications Ketorolac Tromethamine 15 mg ONCE ONCE IM Last administered on 07/05/24at 13:56; Start 07/05/24 at 11:00; Stop 07/05/24 at 11:03; Status DC Vancomycin HCl 1 gm ONCE ONCE IV Last administered on 07/05/24at 14:15; Start 07/05/24 at 13:00; Stop 07/05/24 at 13:01; Status DC Ceftriaxone Sodium 2 gm ONCE ONCE IVPB Last administered on 07/05/24at 13:55; Start 07/05/24 at 12:30; Stop 07/05/24 at 12:31; Status DC Sodium Chloride 1,000 ml @ 0 mls/hr ONCE ONCE IV Last administered on 07/05/24at 13:48; Start 07/05/24 at 12:30; Stop 07/05/24 at 12:31; Status DC Insulin Human Regular 5 unit ONCE ONCE IV Last administered on 07/05/24at 14:01; Start 07/05/24 at 12:30; Stop 07/05/24 at 12:31; Status DC Famotidine 20 mg BID IV Last administered on 07/08/24at 07:44; Start 07/05/24 at 21:00; Stop 08/04/24 at 20:59 Vancomycin HCl 1 each AD IV; Start 07/05/24 at 14:30; Stop 07/19/24 at 14:29 Piperacillin Sod/ Tazobactam Sod 3.375 gm Q8H IVPB Last administered on 07/08/24at 15:12; Start 07/05/24 at 14:30; Stop 07/15/24 at 14:29 Sodium Chloride 50 ml AD IV; Start 07/05/24 at 18:00; Stop 07/06/24 at 13:20; Status DC Insulin Human Regular INSULIN SLIDING SCAL... Q6H6 SQ Last administered on 07/05/24at 17:43; Start 07/05/24 at 18:00; Stop 07/05/24 at 21:19; Status DC Sodium Chloride 1,000 ml @ 100 mls/hr Q10H IV Last administered on 07/08/24at 13:08; Start 07/05/24 at 14:30; Stop 08/04/24 at 14:29 Insulin Glargine 15 units DAILY SQ Last administered on 07/07/24at 08:47; Start 07/05/24 at 15:00; Stop 07/07/24 at 22:00; Status DC Dextrose 50 ml AD PRN IV; Start 07/05/24 at 15:00; Stop 08/04/24 at 14:59 Glucagon 1 mg AD PRN IM; Start 07/05/24 at 15:00; Stop 08/04/24 at 14:59 Vancomycin HCl 250 ml @ 250 mls/hr ONCE ONCE IV Last administered on 07/05/24at 15:11; Start 07/05/24 at 15:00; Stop 07/05/24 at 15:59; Status DC Vancomycin HCl 250 ml @ 167 mls/hr Q12H IV Last administered on 07/07/24at 01:11; Start 07/06/24 at 01:00; Stop 07/07/24 at 12:31; Status DC Iohexol 75 ml STK-MED ONCE IV; Start 07/05/24 at 15:20; Stop 07/05/24 at 15:21; Status DC Ketorolac Tromethamine 15 mg Q6H PRN IV Last administered on 07/05/24at 21:03; Start 07/05/24 at 17:00; Stop 07/07/24 at 06:16; Status DC Morphine Sulfate 2 mg Q6H PRN IVP; Start 07/05/24 at 17:00; Stop 07/12/24 at 16:59 Insulin Human Regular 10 unit TIDAC SQ Last administered on 07/07/24at 17:19; Start 07/06/24 at 07:30; Stop 07/07/24 at 22:00; Status DC Insulin Human Regular INSULIN SLIDING SCAL... ACHS SQ Last administered on 07/08/24at 17:32; Start 07/06/24 at 07:30; Stop 08/05/24 at 07:29 Enoxaparin Sodium 30 mg DAILY SQ Last administered on 07/08/24at 07:45; Start 07/06/24 at 09:00; Stop 08/05/24 at 08:59 Acetaminophen 650 mg Q6H PRN PO Last administered on 07/07/24at 14:01; Start 07/06/24 at 13:30; Stop 08/05/24 at 13:29 Acetaminophen/ Hydrocodone Bitart 1 tab Q6H PRN PO Last administered on 07/07/24at 01:53; Start 07/06/24 at 13:30; Stop 07/11/24 at 13:29 Leptospermum Honey 1 APPLICATION DAILY TP Last administered on 07/08/24at 07:55; Start 07/07/24 at 09:00; Stop 08/06/24 at 08:59 Potassium Chloride 100 ml @ 100 mls/hr AD PRN IV; Start 07/07/24 at 10:00; Stop 08/06/24 at 09:59 Potassium Chloride 20 meq AD PRN PO; Start 07/07/24 at 10:00; Stop 08/06/24 at 09:59 Potassium Chloride 20 meq AD PRN PO Last administered on 07/08/24at 11:53; Start 07/07/24 at 10:00; Stop 08/06/24 at 09:59 Magnesium Sulfate 50 ml @ 0 mls/hr PROTOCOL PRN IV Last administered on 07/07/24at 10:57; Start 07/07/24 at 10:00; Stop 08/06/24 at 09:59 Vancomycin HCl 250 ml @ 125 mls/hr Q8H IV Last administered on 07/08/24at 13:08; Start 07/07/24 at 13:00; Stop 07/17/24 at 12:59 Insulin Glargine 40 units DAILY07 SQ Last administered on 07/08/24at 07:54; Start 07/08/24 at 07:00; Stop 08/04/24 at 14:59 Insulin Human Regular 16 unit TIDAC SQ Last administered on 07/08/24at 17:33; Start 07/08/24 at 07:30; Stop 08/07/24 at 07:29 JOSE CASTILLO MD Jul 08, 2024 21:01
[2024-07-09] VITALS (7 sets, daily range): BP systolic 109–140; BP diastolic 67–93; PULSE 92–99; RESP 18–20; TEMP 98.7–99.7; O2SAT 94
[2024-07-09 06:11] LABS: BASOPHILS # (AUTO) 0.04 K/uL (0.00-0.20); BASOPHILS % (AUTO) 0.4 % (0.0-5.0); EOSINOPHILS # (AUTO) 0.21 K/uL (0.00-0.70); HEMATOCRIT 39.9 % (42-54); IMMATURE GRANULOCYTE ABSOLUTE 0.06 K/uL (0-1); LYMPHOCYTES # (AUTO) 2.1 K/uL (1.0-4.8); MEAN CORPUSCULAR HEMOGLOBIN 25.4 pg (27.0-33.0); MEAN CORPUSCULAR HGB CONC 34.3 g/dL (32.0-36.0); MEAN CORPUSCULAR VOLUME 73.9 fL (79-99); MONOCYTES # (AUTO) 0.8 K/uL (0.1-1.0); MONOCYTES % (AUTO) 7.9 % (3.0-13.0); NEUTROPHILS # (AUTO) 7.4 K/uL (1.8-7.7); NEUTROPHILS % (AUTO) 69.1 % (40.0-77.0); PLATELET COUNT (AUTO) 415 K/uL (130-400); RED CELL DISTRIBUTION WIDTH 13.3 % (11.0-15.5); WHITE BLOOD COUNT (AUTO) 10.6 K/uL (4.8-10.8)
[2024-07-09 06:18] LABS: CREATININE 0.5 mg/dL (0.5-1.3); POTASSIUM 3.3 mmol/L (3.5-5.1)
--- NOTE | 2024-07-09 06:27 | PN ---
SUBJECTIVE: The patient is a very pleasant 23-year-old diabetic, [place] male who is followed up for a diabetic ulcer to the plantar aspect of his right great toe, cellulitis to his right knee. He has a T-Max today of 99.1, pulse 98, respirations 18, blood pressure 136/93. He has a white count decreased to 10.9, H and H 13.6 and 40.0, platelets 385, neutrophils 71.4. The patient is currently receiving IV vancomycin, IV Zosyn. Cultures right great toe, 3+ Gram-positive cocci in cluster, Staph aureus, 2+ Gram-positive cocci in chains. Identifications and sensitivities to follow. Three-phase technetium bone scan has been performed on patient. Increased activity seen in the shoulders, knees, and ankles consistent with degenerative changes. No evidence of increased signal intensity to the right great toe. REVIEW OF SYSTEMS: CONSTITUTIONAL: Having no constitutional symptoms. HEENT: No problems with his eyes, ears, nose, or throat. CARDIOVASCULAR: No chest pain. GENITOURINARY: No dysuria. GASTROINTESTINAL: No dysphagia. ENDOCRINE: Diabetes. PSYCHIATRIC: Denied any depression. MUSCULOSKELETAL: Bunions and hammertoe deformities. INTEGUMENTARY: He has an ulcer to the plantar aspect of the right great toe that is improving. OBJECTIVE: Examination today, he has palpable pedal pulses. Projective sensation is decreased to his feet bilaterally. He has a callus sub-hallux on the left, no ulcer. Ulcer on the plantar aspect of the right great toe, approximately 8 x 12 x 2 mm. No abscess, no ascending cellulitis. ASSESSMENT: A 23-year-old male with morbid obesity, BMI of 53, ulcer to the plantar aspect of the right great toe improving with the use of Medihoney and the IV antibiotics. X-rays suggest a small retained foreign body to the second toe on the right, asymptomatic. The patient's bone scan negative for any increased signal intensity to that right great toe. PLAN: We will continue with vancomycin and Zosyn. Awaiting the results of his cultures. Sensitivities and identifications pending to the right great toe. Medihoney dressings to the right great toe. The patient may ambulate with surgical shoes to his feet bilaterally. TID: [id number] RECEIPT: [id number]
[2024-07-09] MEDS: INSULIN humuLIN R 100 UNIT/ML 3ML SQ SCH (06:39)
[2024-07-09] MEDS: INSULIN GLARgine 100 UNITS/ML 10 ML VIAL SQ SCH (10:30)
--- NOTE | 2024-07-09 11:45 | NUR ---
Discharge Planning: Bone Scan is negative. As per Dr. Kincaid, patient may ambulate with surgical shoe. Pending PCP orders. Possible d/c home tomorrow.
[2024-07-09] MEDS: VANCOMYCIN 2GM/500 ML BAG 500 ML IV ONE (15:24)
--- NOTE | 2024-07-09 15:38 | NUR ---
Discharge Update: Patient's nurse Valentina to call Dr. Kincaid to clarify if patient will require a walker.States he is ambulating without difficulty. Pending PT evaluation and recommendations.
--- NOTE | 2024-07-09 16:51 | PN ---
[facility] PROGRESS NOTE Date of Service: Jul 09, 2024 Time of Service: 16:35 SUBJECTIVE: 07/06 patient seen at bedside, no acute events overnight. He has been afebrile, hemodynamically stable saturating well on room air. His only complaint is pain when he is ambulating, his right lower extremity proximal to the knee joint on the medial aspect has erythema induration, no fluctuance noted and is tender to palpation. There is no crepitus noted. Outlined the margins of the lesion and we will continue with broad-spectrum antibiotics. WBC improved from 13.9 down to 12.9, blood sugars still quite elevated, diabetic medications have been adj usted by compactor driver, appreciate their assistance. A1c pending, we will follow up. Podiatry recommendations regarding diabetic foot ulcer on the 1st great toe are still pending. 07/07 patient seen at bedside, no acute events overnight. He has been afebrile, hemodynamically stable saturating well on room air. Area of cellulitis appears to be improved in color and swelling is diminished. Foot x-ray showing possible retained foreign body. Podiatry recommending a bone scan has MRI is contraindicated with foreign body, to assess for osteomyelitis. We will follow up with Endocrinology recommendations. 07/08 bone scan pending today, we will follow up postprocedure. Wound cultures are still pending, we will continue to follow. Patient has cellulitis in his right medial thigh continues to improve, swelling and erythema have retracted significantly. Labs are relatively unremarkable. Insulin adjusted by endocrinology, appreciate recommendations. 07/09 patient seen at bedside, no acute events overnight. Sensitivities are growing out Enterococcus and MRSA, infectious disease consulted for this discharge antibiotics. Patient counseled extensively on the importance of glycemic control. REVIEW OF SYSTEMS 12 point review of systems negative unless noted in HPI PHYSICAL EXAM GENERAL APPEARANCE: The patient is awake, alert, and oriented, in no acute cardiopulmonary distress. Patient is obese NEUROLOGICAL: Cranial nerves II-XII grossly intact. Motor is 5/5 in bilateral upper and lower extremities proximal to distal. No sensory deficits. HEENT: Face is symmetric. Pupils are equal and reactive. Extraocular movements are intact. NECK: Supple. No JVD. No thyromegaly. No submental, submandibular, pre- /postauricular, occipital or supraclavicular lymphadenopathy. CHEST: Normal chest expansion. No Telemetry. LUNGS: Absence of any rales, rhonchi or any wheezing. CARDIOVASCULAR: Regular. S1 and S2 normal. No appreciable rubs, murmurs or gallops. ABDOMEN: Soft, nontender, and nondistended. There is no rebound, voluntary guarding, or rigidity. : Deferred. No Harden. EXTREMITIES: Patient has erythema on the posterior aspect of the leg involving the knee. He has redness traveling down to the leg to the foot. He has swelling noted. Area is tender to palpation. Additionally he has a ulcer noted in the 1st toe of the right foot. He has blackish discoloration with possible eschar noted SKIN: No skin breakdown. Vital Signs (last 8hr) Date Time Temp Pulse Resp B/P (MAP) Pulse Ox O2 Delivery O2 Flow Rate FiO2 07/09/24 12:00 99.7 92 20 109/67 90 Room Air LABS: Laboratory: Test 07/09/24 16:27 07/09/24 11:52 07/09/24 06:01 Range/Units Whole Blood Glucose 271 H 70-110 MG/DL Vancomycin Level Trough 4.0 #L 10.0-20.0 UG/ML White Blood Count 10.6 4.8-10.8 K/uL Red Blood Count 5.40 4.50-6.20 MIL/uL Hemoglobin 13.7 L 14.0-18.0 g/dL Hematocrit 39.9 L 42-54 % Mean Corpuscular Volume 73.9 L 79-99 fL Mean Corpuscular Hemoglobin 25.4 L 27.0-33.0 pg Mean Corpuscular Hemoglobin Concent 34.3 32.0-36.0 g/dL Red Cell Distribution Width 13.3 11.0-15.5 % Platelet Count 415 H 130-400 K/uL Mean Platelet Volume 8.6 7.5-10.5 fL Immature Granulocyte % (Auto) 0.6 0-1 % Neutrophils (%) (Auto) 69.1 40.0-77.0 % Lymphocytes (%) (Auto) 20.0 L 21.0-51.0 % Monocytes (%) (Auto) 7.9 3.0-13.0 % Eosinophils (%) (Auto) 2.0 0.0-8.0 % Basophils (%) (Auto) 0.4 0.0-5.0 % Neutrophils # (Auto) 7.4 1.8-7.7 K/uL Lymphocytes # (Auto) 2.1 1.0-4.8 K/uL Monocytes # (Auto) 0.8 0.1-1.0 K/uL Eosinophils # (Auto) 0.21 0.00-0.70 K/uL Basophils # (Auto) 0.04 0.00-0.20 K/uL Absolute Immature Granulocyte (auto 0.06 0-1 K/uL Nucleated Red Blood Cells 0.0 0.0-0.19 % Sodium Level 135 L 136-145 mmol/L Potassium Level 3.3 L 3.5-5.1 mmol/L Chloride Level 103 101-111 mmol/L Carbon Dioxide Level 23 21-32 mmol/L Blood Urea Nitrogen 4 L 7-18 mg/dL Creatinine 0.5 0.5-1.3 mg/dL Glomerular Filtration Rate Calc 148 >90 mL/min Random Glucose 189 H 70-105 mg/dL Total Calcium 8.4 L 8.5-10.1 mg/dL Current Medications Medications (Trade) Dose Ordered Sig/Morales Route PRN Reason Start Time Stop Time Status Last Admin Dose Admin Acetaminophen (TYLenol 325MG TAB) 650 mg Q6H PRN PO MILD PAIN (1-3) 07/06/24 13:30 08/05/24 13:29 07/07/24 14:01 650 MG Acetaminophen/ Hydrocodone Bitart (NORco 5/325MG) 1 tab Q6H PRN PO MODERATE PAIN (4-6) 07/06/24 13:30 07/11/24 13:29 07/07/24 01:53 1 TAB Dextrose (D50w) 50 ml AD PRN IV HYPOGLYCEMIA PROTOCOL 07/05/24 15:00 08/04/24 14:59 Enoxaparin Sodium (Lovenox) 30 mg DAILY SQ 07/06/24 09:00 08/05/24 08:59 07/09/24 10:24 30 MG Famotidine (Pepcid 20mg Vial) 20 mg BID IV 07/05/24 21:00 08/04/24 20:59 07/09/24 10:24 20 MG Glucagon (Glucagon 1mg Kit) 1 mg AD PRN IM HYPOGLYCEMIA PROTOCOL 07/05/24 15:00 08/04/24 14:59 Insulin Glargine (LANtus 100 UNITS/ML 10 ML VIAL) 15 units DAILY SQ 07/05/24 15:00 07/07/24 22:00 DC 07/07/24 08:47 15 UNITS Insulin Glargine (LANtus 100 UNITS/ML 10 ML VIAL) 40 units DAILY07 SQ 07/08/24 07:00 07/08/24 21:03 DC 07/08/24 07:54 40 UNITS Insulin Glargine (LANtus 100 UNITS/ML 10 ML VIAL) 60 units DAILY07 SQ 07/09/24 07:00 08/08/24 06:59 07/09/24 10:30 60 UNITS Insulin Human Regular (humuLIN R 100 UNIT/ML 3ML) 10 unit TIDAC SQ 07/06/24 07:30 07/07/24 22:00 DC 07/07/24 17:19 10 UNIT Insulin Human Regular (humuLIN R 100 UNIT/ML 3ML) 16 unit TIDAC SQ 07/08/24 07:30 07/08/24 21:03 DC 07/08/24 17:33 16 UNIT Insulin Human Regular (humuLIN R 100 UNIT/ML 3ML) 22 unit TIDAC SQ 07/09/24 07:30 08/08/24 07:29 07/09/24 13:41 22 UNIT Insulin Human Regular (humuLIN R 100 UNIT/ML 3ML) INSULIN SLIDING SCAL... ACHS SQ 07/06/24 07:30 08/05/24 07:29 07/09/24 13:42 6 UNIT Insulin Human Regular (humuLIN R 100 UNIT/ML 3ML) INSULIN SLIDING SCAL... Q6H6 SQ 07/05/24 18:00 07/05/24 21:19 DC 07/05/24 17:43 8 UNIT Ketorolac Tromethamine (toRADol) 15 mg Q6H PRN IV MODERATE PAIN (4-6) 07/05/24 17:00 07/07/24 06:16 DC 07/05/24 21:03 15 MG Leptospermum Honey (Medihoney) 1 APPLICATION DAILY TP 07/07/24 09:00 08/06/24 08:59 07/09/24 10:24 1 APPL Magnesium Sulfate 50 ml @ 0 mls/hr PROTOCOL PRN IV low magnesium 07/07/24 10:00 08/06/24 09:59 07/07/24 10:57 1.7 MLS/HR Morphine Sulfate (morPHINE 2MG SYG) 2 mg Q6H PRN IVP SEVERE PAIN (7-10) 07/05/24 17:00 07/12/24 16:59 Piperacillin Sod/ Tazobactam Sod (Zosyn 3.375gm+NS 50ml) 3.375 gm Q8H IVPB 07/05/24 14:30 07/15/24 14:29 07/09/24 15:24 3.375 GM Potassium Chloride 100 ml @ 100 mls/hr AD PRN IV POTASSIUM PROTOCOL 07/07/24 10:00 08/06/24 09:59 Potassium Chloride (K-Dur/Klor-Con 20meq) 20 meq AD PRN PO POTASSIUM PROTOCOL 07/07/24 10:00 08/06/24 09:59 07/08/24 11:53 20 MEQ Potassium Chloride (KCl 10% Elixir 20meq/15ml) 20 meq AD PRN PO POTASSIUM PROTOCOL 07/07/24 10:00 08/06/24 09:59 Sodium Chloride 1,000 ml @ 100 mls/hr Q10H IV 07/05/24 14:30 08/04/24 14:29 07/09/24 15:24 100 MLS/HR Sodium Chloride (NS 50ml) 50 ml AD IV 07/05/24 18:00 07/06/24 13:20 DC Vancomycin HCl 250 ml @ 125 mls/hr Q8H IV 07/07/24 13:00 07/09/24 12:53 DC 07/09/24 04:38 125 MLS/HR Vancomycin HCl 250 ml @ 125 mls/hr Q8H IV 07/09/24 21:00 07/19/24 20:59 Vancomycin HCl 250 ml @ 167 mls/hr Q12H IV 07/06/24 01:00 07/07/24 12:31 DC 07/07/24 01:11 167 MLS/HR Vancomycin HCl (Vancomycin Protocol) 1 each AD IV 07/05/24 14:30 07/19/24 14:29 DIAGNOSTICS / RADIOLOGY: [ ] ASSESSMENT: Right Leg cellulitis, improving POA Hyperglycemia secondary to uncontrolled diabetes mellitus type 2 last A1C 15.5, POA Foot ulcer of the 1st toe of the right foot, MRSA and Enterofaecalis, POA Hyponatremia secondary to hyperglycemia Dehydration, resolved Obesity BMI 53.1 PLAN: - patient to be admitted to medical-surgical unit - Continue vancomycin and Zosyn. - Podiatry consulted, appreciate recommendations - bone scan ordered, we will follow up - Continue patient on Tzddid62 units daily. Patient will be started on sliding scale insulin. Check A1c. - Continue hypoglycemia protocol - endocrinology consulted, appreciate recommendations Disposition: Pending ID recommendations for discharge MARICARMEN MCDANIELS MD Jul 09, 2024 16:51
--- NOTE | 2024-07-09 21:14 | PN ---
endocrinology Date of Service: Jul 09, 2024 subjective: glucose are still elevated but improving. insulin adjusted. patient used to inject lantus and humalog but not injecting for many months. he does not check glucose at home. hba1c>15.0% right foot wound is positive for MRSA and Enterofaecalis, PAST MEDICAL HISTORY: History of foot ulcer in the 1st toe of the right foot PAST SURGICAL HISTORY: Denied any previous surgical history PAST SOCIAL HISTORY: Denied any smoking, alcohol, drug use FAMILY HISTORY: Denied any pertinent family history Coded Allergies: No Known Drug Allergies (Unverified Allergy, Unknown, 10/08/18) ASSESSMENT: Hyperglycemia secondary to uncontrolled diabetes mellitus type POA patient used to inject lantus and humalog but not injecting for many months. he does not check glucose at home. hba1c>15.0% Right Leg cellulitis POA MRSA and Enterofaecalis, Foot ulcer of the 1st toe of the right foot POA Hyponatremia secondary to hyperglycemia Dehydration Obesity BMI 53.1 PLAN: increase lantus to 65 units daily increase regular insulin to 25 units tid before meals continue medium dose insulin ssi follow on talia-65 abs monitor glucose qx6 hourly patient will need insulin at discharge Vitals/Labs Vital Signs Date Time Temp Pulse Resp B/P (MAP) Pulse Ox O2 Delivery O2 Flow Rate FiO2 07/09/24 20:00 98.8 99 18 135/84 94 Room Air 07/09/24 08:00 0 21 Laboratory Tests 07/09/24 06:01 Medications Current Medications Ketorolac Tromethamine 15 mg ONCE ONCE IM Last administered on 07/05/24at 13:56; Start 07/05/24 at 11:00; Stop 07/05/24 at 11:03; Status DC Vancomycin HCl 1 gm ONCE ONCE IV Last administered on 07/05/24at 14:15; Start 07/05/24 at 13:00; Stop 07/05/24 at 13:01; Status DC Ceftriaxone Sodium 2 gm ONCE ONCE IVPB Last administered on 07/05/24at 13:55; Start 07/05/24 at 12:30; Stop 07/05/24 at 12:31; Status DC Sodium Chloride 1,000 ml @ 0 mls/hr ONCE ONCE IV Last administered on 07/05/24at 13:48; Start 07/05/24 at 12:30; Stop 07/05/24 at 12:31; Status DC Insulin Human Regular 5 unit ONCE ONCE IV Last administered on 07/05/24at 14:01; Start 07/05/24 at 12:30; Stop 07/05/24 at 12:31; Status DC Famotidine 20 mg BID IV Last administered on 07/09/24at 10:24; Start 07/05/24 at 21:00; Stop 08/04/24 at 20:59 Vancomycin HCl 1 each AD IV; Start 07/05/24 at 14:30; Stop 07/19/24 at 14:29 Piperacillin Sod/ Tazobactam Sod 3.375 gm Q8H IVPB Last administered on 07/09/24at 15:24; Start 07/05/24 at 14:30; Stop 07/15/24 at 14:29 Sodium Chloride 50 ml AD IV; Start 07/05/24 at 18:00; Stop 07/06/24 at 13:20; Status DC Insulin Human Regular INSULIN SLIDING SCAL... Q6H6 SQ Last administered on 07/05/24at 17:43; Start 07/05/24 at 18:00; Stop 07/05/24 at 21:19; Status DC Sodium Chloride 1,000 ml @ 100 mls/hr Q10H IV Last administered on 07/09/24at 15:24; Start 07/05/24 at 14:30; Stop 08/04/24 at 14:29 Insulin Glargine 15 units DAILY SQ Last administered on 07/07/24at 08:47; Start 07/05/24 at 15:00; Stop 07/07/24 at 22:00; Status DC Dextrose 50 ml AD PRN IV; Start 07/05/24 at 15:00; Stop 08/04/24 at 14:59 Glucagon 1 mg AD PRN IM; Start 07/05/24 at 15:00; Stop 08/04/24 at 14:59 Vancomycin HCl 250 ml @ 250 mls/hr ONCE ONCE IV Last administered on 07/05/24at 15:11; Start 07/05/24 at 15:00; Stop 07/05/24 at 15:59; Status DC Vancomycin HCl 250 ml @ 167 mls/hr Q12H IV Last administered on 07/07/24at 01:11; Start 07/06/24 at 01:00; Stop 07/07/24 at 12:31; Status DC Iohexol 75 ml STK-MED ONCE IV; Start 07/05/24 at 15:20; Stop 07/05/24 at 15:21; Status DC Ketorolac Tromethamine 15 mg Q6H PRN IV Last administered on 07/05/24at 21:03; Start 07/05/24 at 17:00; Stop 07/07/24 at 06:16; Status DC Morphine Sulfate 2 mg Q6H PRN IVP; Start 07/05/24 at 17:00; Stop 07/12/24 at 16:59 Insulin Human Regular 10 unit TIDAC SQ Last administered on 07/07/24at 17:19; Start 07/06/24 at 07:30; Stop 07/07/24 at 22:00; Status DC Insulin Human Regular INSULIN SLIDING SCAL... ACHS SQ Last administered on 07/09/24at 17:45; Start 07/06/24 at 07:30; Stop 08/05/24 at 07:29 Enoxaparin Sodium 30 mg DAILY SQ Last administered on 07/09/24at 10:24; Start 07/06/24 at 09:00; Stop 08/05/24 at 08:59 Acetaminophen 650 mg Q6H PRN PO Last administered on 07/07/24at 14:01; Start 07/06/24 at 13:30; Stop 08/05/24 at 13:29 Acetaminophen/ Hydrocodone Bitart 1 tab Q6H PRN PO Last administered on 07/07/24at 01:53; Start 07/06/24 at 13:30; Stop 07/11/24 at 13:29 Leptospermum Honey 1 APPLICATION DAILY TP Last administered on 07/09/24at 10:24; Start 07/07/24 at 09:00; Stop 08/06/24 at 08:59 Potassium Chloride 100 ml @ 100 mls/hr AD PRN IV; Start 07/07/24 at 10:00; Stop 08/06/24 at 09:59 Potassium Chloride 20 meq AD PRN PO; Start 07/07/24 at 10:00; Stop 08/06/24 at 09:59 Potassium Chloride 20 meq AD PRN PO Last administered on 07/08/24at 11:53; Start 07/07/24 at 10:00; Stop 08/06/24 at 09:59 Magnesium Sulfate 50 ml @ 0 mls/hr PROTOCOL PRN IV Last administered on 07/07/24at 10:57; Start 07/07/24 at 10:00; Stop 08/06/24 at 09:59 Vancomycin HCl 250 ml @ 125 mls/hr Q8H IV Last administered on 07/09/24at 04:38; Start 07/07/24 at 13:00; Stop 07/09/24 at 12:53; Status DC Insulin Glargine 40 units DAILY07 SQ Last administered on 07/08/24at 07:54; Start 07/08/24 at 07:00; Stop 07/08/24 at 21:03; Status DC Insulin Human Regular 16 unit TIDAC SQ Last administered on 07/08/24at 17:33; Start 07/08/24 at 07:30; Stop 07/08/24 at 21:03; Status DC Insulin Glargine 60 units DAILY07 SQ Last administered on 07/09/24at 10:30; Start 07/09/24 at 07:00; Stop 08/08/24 at 06:59 Insulin Human Regular 22 unit TIDAC SQ Last administered on 07/09/24at 17:44; Start 07/09/24 at 07:30; Stop 08/08/24 at 07:29 Vancomycin HCl 250 ml @ 125 mls/hr Q8H IV; Start 07/09/24 at 21:00; Stop 07/19/24 at 20:59 Vancomycin HCl 500 ml @ 250 mls/hr ONCE ONCE IV Last administered on 07/09/24at 15:24; Start 07/09/24 at 13:00; Stop 07/09/24 at 14:59; Status JOSE MARTINEZ MD Jul 09, 2024 21:14
[2024-07-09] MEDS: VANCOMYCIN 1.5 GM/250 ML BAG 250 ML IV SCH (21:43)
[2024-07-10] VITALS (7 sets, daily range): BP systolic 125–147; BP diastolic 73–89; PULSE 69–96; RESP 19–20; TEMP 98.3–98.7; O2SAT 93–94
--- NOTE | 2024-07-10 07:10 | PN ---
SUBJECTIVE: The patient is a very pleasant 23-year-old diabetic, Latin-[place] male followed for right leg cellulitis, right great toe ulcer. He had a 3-phase technetium bone scan, no evidence of osteomyelitis. He has hyperglycemia, diabetes, morbid obesity, history of asymptomatic foreign body to the right second toe per x-rays. He is currently afebrile. His white count is within normal limits. He has been receiving IV antibiotics per Infectious Disease, currently the vancomycin and the Zosyn. He has a T-max of 99.5. He has a pulse of 95, respirations 20, blood pressure 140/94. White count trending down at 11.2, H and H 13 and 37, BUN and creatinine 6 and 0.5. He has had abnormal arterial Doppler studies. His right great toe ulcer is healing well. REVIEW OF SYSTEMS: CONSTITUTIONAL: No chills, no fevers, no night sweats. No nausea or vomiting, no diarrhea. HEENT: No problems with eyes, ears, nose, or throat. CARDIOVASCULAR: He has no chest pain. RESPIRATORY: No shortness of breath. GENITOURINARY: No dysuria. GASTROINTESTINAL: No dysphagia. ENDOCRINE: Diabetes. PSYCHIATRIC: Denied any depression. MUSCULOSKELETAL: Bunions and hammertoe deformity. INTEGUMENT: He has an ulcer to the plantar aspect of the right great toe, is improving. OBJECTIVE: His examination today shows palpable pedal pulses. Protective sensation is intact. He has a callus subhallux to the left. He has an ulcer to plantar aspect of the right great toe that is now 5 x 10 x 2 mm. No signs of infection. ASSESSMENT: A 23-year-old male with morbid obesity, BMI of 53, ulcer to the plantar aspect of the right great toe improving. A 3-phase bone scan negative for osteomyelitis. X-rays suggest small foreign body asymptomatic to the second toe on the right. PLAN: We will continue with Medihoney dressings to the right great toe. Continue with vancomycin and Zosyn. The patient may ambulate with a surgical shoe on that right side. Continue to follow the patient closely while in-house. TID: [id number] RECEIPT: [id number]
[2024-07-10] MEDS: INSULIN humuLIN R 100 UNIT/ML 3ML SQ SCH (07:30)
[2024-07-10] MEDS ORDERED: ZOSYN 3.375GM +NS 50ML IVPB SCH (08:00)
[2024-07-10 11:34] LABS: INR 1.19 (0.85-1.15); PROTHROMBIN TIME 12.4 SEC (9.6-11.6)
--- NOTE | 2024-07-10 11:57 | NUR ---
Discharge Planning: Spoke to patient and offered a walker for ambulation. Patient states he is uncomfortable ambulating with a walker and would prefer a cane. Ambulating >150 ft. States he will reach out to family member to purchase. New referral to Peggy from Dr. Toure. Pt. not sure if he has a ride. States will contact his grandmother. Offered SNF placement.
--- NOTE | 2024-07-10 15:01 | PN ---
[facility] PROGRESS NOTE Date of Service: July 10, 2024 Time of Service: 15:00 SUBJECTIVE: 07/06 patient seen at bedside, no acute events overnight. He has been afebrile, hemodynamically stable saturating well on room air. His only complaint is pain when he is ambulating, his right lower extremity proximal to the knee joint on the medial aspect has erythema induration, no fluctuance noted and is tender to palpation. There is no crepitus noted. Outlined the margins of the lesion and we will continue with broad-spectrum antibiotics. WBC improved from 13.9 down to 12.9, blood sugars still quite elevated, diabetic medications have been adju sted by doll wig maker, appreciate their assistance. A1c pending, we will follow up. Podiatry recommendations regarding diabetic foot ulcer on the 1st great toe are still pending. 07/07 patient seen at bedside, no acute events overnight. He has been afebrile, hemodynamically stable saturating well on room air. Area of cellulitis appears to be improved in color and swelling is diminished. Foot x-ray showing possible retained foreign body. Podiatry recommending a bone scan has MRI is contraindicated with foreign body, to assess for osteomyelitis. We will follow up with Endocrinology recommendations. 07/08 bone scan pending today, we will follow up postprocedure. Wound cultures are still pending, we will continue to follow. Patient has cellulitis in his right medial thigh continues to improve, swelling and erythema have retracted significantly. Labs are relatively unremarkable. Insulin adjusted by endocrinology, appreciate recommendations. 07/09 patient seen at bedside, no acute events overnight. Sensitivities are growing out Enterococcus and MRSA, infectious disease consulted for this discharge antibiotics. Patient counseled extensively on the importance of glycemic control. 07/10 infectious Disease recommending PICC line with follow up at [facility] for outpatient IV antibiotics. Once this is completed patient will be good candidate for discharge REVIEW OF SYSTEMS 12 point review of systems negative unless noted in HPI PHYSICAL EXAM GENERAL APPEARANCE: The patient is awake, alert, and oriented, in no acute cardiopulmonary distress. Patient is obese NEUROLOGICAL: Cranial nerves II-XII grossly intact. Motor is 5/5 in bilateral upper and lower extremities proximal to distal. No sensory deficits. HEENT: Face is symmetric. Pupils are equal and reactive. Extraocular movements are intact. NECK: Supple. No JVD. No thyromegaly. No submental, submandibular, pre- /postauricular, occipital or supraclavicular lymphadenopathy. CHEST: Normal chest expansion. No Telemetry. LUNGS: Absence of any rales, rhonchi or any wheezing. CARDIOVASCULAR: Regular. S1 and S2 normal. No appreciable rubs, murmurs or gallops. ABDOMEN: Soft, nontender, and nondistended. There is no rebound, voluntary guarding, or rigidity. : Deferred. No Harden. EXTREMITIES: Patient has erythema on the posterior aspect of the leg involving the knee. He has redness traveling down to the leg to the foot. He has swelling noted. Area is tender to palpation. Additionally he has a ulcer noted in the 1st toe of the right foot. He has blackish discoloration with possible eschar noted SKIN: No skin breakdown. Vital Signs (last 8hr) Date Time Temp Pulse Resp B/P (MAP) Pulse Ox O2 Delivery O2 Flow Rate FiO2 07/10/24 12:59 98.4 93 19 147/89 98 07/10/24 09:26 98.6 69 19 125/81 93 LABS: Laboratory: Test 07/10/24 11:19 07/10/24 11:12 07/09/24 11:52 07/09/24 06:01 Range/Units Prothrombin Time 12.4 H 9.6-11.6 SEC Prothromb Time International Ratio 1.19 H 0.85-1.15 Whole Blood Glucose 149 H 70-110 MG/DL Vancomycin Level Trough 4.0 #L 10.0-20.0 UG/ML White Blood Count 10.6 4.8-10.8 K/uL Red Blood Count 5.40 4.50-6.20 MIL/uL Hemoglobin 13.7 L 14.0-18.0 g/dL Hematocrit 39.9 L 42-54 % Mean Corpuscular Volume 73.9 L 79-99 fL Mean Corpuscular Hemoglobin 25.4 L 27.0-33.0 pg Mean Corpuscular Hemoglobin Concent 34.3 32.0-36.0 g/dL Red Cell Distribution Width 13.3 11.0-15.5 % Platelet Count 415 H 130-400 K/uL Mean Platelet Volume 8.6 7.5-10.5 fL Immature Granulocyte % (Auto) 0.6 0-1 % Neutrophils (%) (Auto) 69.1 40.0-77.0 % Lymphocytes (%) (Auto) 20.0 L 21.0-51.0 % Monocytes (%) (Auto) 7.9 3.0-13.0 % Eosinophils (%) (Auto) 2.0 0.0-8.0 % Basophils (%) (Auto) 0.4 0.0-5.0 % Neutrophils # (Auto) 7.4 1.8-7.7 K/uL Lymphocytes # (Auto) 2.1 1.0-4.8 K/uL Monocytes # (Auto) 0.8 0.1-1.0 K/uL Eosinophils # (Auto) 0.21 0.00-0.70 K/uL Basophils # (Auto) 0.04 0.00-0.20 K/uL Absolute Immature Granulocyte (auto 0.06 0-1 K/uL Nucleated Red Blood Cells 0.0 0.0-0.19 % Sodium Level 135 L 136-145 mmol/L Potassium Level 3.3 L 3.5-5.1 mmol/L Chloride Level 103 101-111 mmol/L Carbon Dioxide Level 23 21-32 mmol/L Blood Urea Nitrogen 4 L 7-18 mg/dL Creatinine 0.5 0.5-1.3 mg/dL Glomerular Filtration Rate Calc 148 >90 mL/min Random Glucose 189 H 70-105 mg/dL Total Calcium 8.4 L 8.5-10.1 mg/dL Current Medications Medications (Trade) Dose Ordered Sig/Morales Route PRN Reason Start Time Stop Time Status Last Admin Dose Admin Acetaminophen (TYLenol 325MG TAB) 650 mg Q6H PRN PO MILD PAIN (1-3) 07/06/24 13:30 08/05/24 13:29 07/07/24 14:01 650 MG Acetaminophen/ Hydrocodone Bitart (NORco 5/325MG) 1 tab Q6H PRN PO MODERATE PAIN (4-6) 07/06/24 13:30 07/11/24 13:29 07/07/24 01:53 1 TAB Dextrose (D50w) 50 ml AD PRN IV HYPOGLYCEMIA PROTOCOL 07/05/24 15:00 08/04/24 14:59 Enoxaparin Sodium (Lovenox) 30 mg DAILY SQ 07/06/24 09:00 08/05/24 08:59 07/09/24 10:24 30 MG Famotidine (Pepcid 20mg Vial) 20 mg BID IV 07/05/24 21:00 08/04/24 20:59 07/10/24 12:01 20 MG Glucagon (Glucagon 1mg Kit) 1 mg AD PRN IM HYPOGLYCEMIA PROTOCOL 07/05/24 15:00 08/04/24 14:59 Insulin Glargine (LANtus 100 UNITS/ML 10 ML VIAL) 15 units DAILY SQ 07/05/24 15:00 07/07/24 22:00 DC 07/07/24 08:47 15 UNITS Insulin Glargine (LANtus 100 UNITS/ML 10 ML VIAL) 40 units DAILY07 07/08/24 07:00 07/08/24 21:03 DC 07/08/24 07:54 40 UNITS Insulin Glargine (LANtus 100 UNITS/ML 10 ML VIAL) 60 units DAILY07 07/09/24 07:00 08/08/24 06:59 07/10/24 13:57 60 UNITS Insulin Human Regular (humuLIN R 100 UNIT/ML 3ML) 10 unit TIDAC SQ 07/06/24 07:30 07/07/24 22:00 DC 07/07/24 17:19 10 UNIT Insulin Human Regular (humuLIN R 100 UNIT/ML 3ML) 16 unit TIDAC SQ 07/08/24 07:30 07/08/24 21:03 DC 07/08/24 17:33 16 UNIT Insulin Human Regular (humuLIN R 100 UNIT/ML 3ML) 22 unit TIDAC SQ 07/09/24 07:30 07/09/24 21:14 DC 07/09/24 17:44 22 UNIT Insulin Human Regular (humuLIN R 100 UNIT/ML 3ML) 25 unit TIDAC SQ 07/10/24 07:30 08/09/24 07:29 07/10/24 13:58 25 UNIT Insulin Human Regular (humuLIN R 100 UNIT/ML 3ML) INSULIN SLIDING SCAL... ACHS SQ 07/06/24 07:30 08/05/24 07:29 07/09/24 21:00 2 UNIT Insulin Human Regular (humuLIN R 100 UNIT/ML 3ML) INSULIN SLIDING SCAL... Q6H6 SQ 07/05/24 18:00 07/05/24 21:19 DC 07/05/24 17:43 8 UNIT Ketorolac Tromethamine (toRADol) 15 mg Q6H PRN IV MODERATE PAIN (4-6) 07/05/24 17:00 07/07/24 06:16 DC 07/05/24 21:03 15 MG Leptospermum Honey (Medihoney) 1 APPLICATION DAILY TP 07/07/24 09:00 08/06/24 08:59 07/10/24 12:01 1 APPL Magnesium Sulfate 50 ml @ 0 mls/hr PROTOCOL PRN IV low magnesium 07/07/24 10:00 08/06/24 09:59 07/07/24 10:57 1.7 MLS/HR Morphine Sulfate (morPHINE 2MG SYG) 2 mg Q6H PRN IVP SEVERE PAIN (7-10) 07/05/24 17:00 07/12/24 16:59 Piperacillin Sod/ Tazobactam Sod (Zosyn 3.375gm+NS 50ml) 3.375 gm Q8H IVPB 07/05/24 14:30 07/10/24 03:41 DC 07/10/24 00:09 3.375 GM Piperacillin Sod/ Tazobactam Sod (Zosyn 3.375gm+NS 50ml) 3.375 gm Q8H IVPB 07/10/24 08:00 07/10/24 09:45 DC Potassium Chloride 100 ml @ 100 mls/hr AD PRN IV POTASSIUM PROTOCOL 07/07/24 10:00 08/06/24 09:59 Potassium Chloride (K-Dur/Klor-Con 20meq) 20 meq AD PRN PO POTASSIUM PROTOCOL 07/07/24 10:00 08/06/24 09:59 07/08/24 11:53 20 MEQ Potassium Chloride (KCl 10% Elixir 20meq/15ml) 20 meq AD PRN PO POTASSIUM PROTOCOL 07/07/24 10:00 08/06/24 09:59 Sodium Chloride 1,000 ml @ 100 mls/hr Q10H IV 07/05/24 14:30 08/04/24 14:29 07/09/24 15:24 100 MLS/HR Sodium Chloride (NS 50ml) 50 ml AD IV 07/05/24 18:00 07/06/24 13:20 DC Vancomycin HCl 250 ml @ 125 mls/hr Q8H IV 07/07/24 13:00 07/09/24 12:53 DC 07/09/24 04:38 125 MLS/HR Vancomycin HCl 250 ml @ 125 mls/hr Q8H IV 07/09/24 21:00 07/10/24 09:45 DC 07/09/24 21:43 125 MLS/HR Vancomycin HCl 250 ml @ 167 mls/hr Q12H IV 07/06/24 01:00 07/07/24 12:31 DC 07/07/24 01:11 167 MLS/HR Vancomycin HCl (Vancomycin Protocol) 1 each AD IV 07/05/24 14:30 07/19/24 14:29 DIAGNOSTICS / RADIOLOGY: [ ] ASSESSMENT: Right Leg cellulitis, improving POA Hyperglycemia secondary to uncontrolled diabetes mellitus type 2 last A1C 15.5, POA Foot ulcer of the 1st toe of the right foot, MRSA and Enterofaecalis, POA Hyponatremia secondary to hyperglycemia Dehydration, resolved Obesity BMI 53.1 PLAN: - patient to be admitted to medical-surgical unit - Continue vancomycin and Zosyn. - Podiatry consulted, appreciate recommendations - bone scan ordered, we will follow up - Continue patient on [id number] units daily. Patient will be started on sliding scale insulin. Check A1c. - Continue hypoglycemia protocol - endocrinology consulted, appreciate recommendations Disposition: Pending ID recommendations for discharge MARICARMEN MCDANIELS MD July 10, 2024 15:01
--- NOTE | 2024-07-10 16:12 | HMCIMG ---
CHEST 1VW HISTORY: PICC line placement COMPARISON: None FINDINGS: A frontal projection of the chest was obtained. There are bilateral pulmonary infiltrates suggestive of pulmonary vascular congestion with possible superimposed pneumonitis. The study is limited due to patient's large body habitus. PICC line is seen entering from the right with distal tip in the plane of the atriocaval junction. The heart is borderline enlarged. All the lines and tubes are again seen in place. Degenerative changes are seen IMPRESSION: 1. Bilateral pulmonary infiltrates are seen suggestive of pulmonary vascular congestion with possible superimposed pneumonitis.
[2024-07-10] MEDS ORDERED: VANCOMYCIN PROTOCOL PER PHARMACY IV SCH (21:00)
[2024-07-10] MEDS: VANCOMYCIN 1G/250ML KIT 250 ML IV SCH (21:04)
--- NOTE | 2024-07-10 21:18 | PN ---
endocrinology Date of Service: 07/10/2024 subjective: glucose are improving. patient used to inject lantus and humalog but not injecting for many months. he does not check glucose at home. hba1c>15.0% right foot wound is positive for MRSA and Enterofaecalis, PAST MEDICAL HISTORY: History of foot ulcer in the 1st toe of the right foot PAST SURGICAL HISTORY: Denied any previous surgical history PAST SOCIAL HISTORY: Denied any smoking, alcohol, drug use FAMILY HISTORY: Denied any pertinent family history Coded Allergies: No Known Drug Allergies (Unverified Allergy, Unknown, 10/08/18) ASSESSMENT: Hyperglycemia secondary to uncontrolled diabetes mellitus type POA patient used to inject lantus and humalog but not injecting for many months. he does not check glucose at home. hba1c>15.0% Right Leg cellulitis POA MRSA and Enterofaecalis, Foot ulcer of the 1st toe of the right foot POA Hyponatremia secondary to hyperglycemia Dehydration Obesity BMI 53.1 PLAN: increase lantus to 65 units daily continue regular insulin 25 units tid before meals continue medium dose insulin ssi follow on talia-65 abs monitor glucose qx6 hourly patient will need insulin at discharge Vitals/Labs Vital Signs Date Time Temp Pulse Resp B/P (MAP) Pulse Ox O2 Delivery O2 Flow Rate FiO2 07/10/24 20:00 98.8 87 20 140/77 94 Room Air 07/09/24 20:45 0 21 Medications Current Medications Ketorolac Tromethamine 15 mg ONCE ONCE IM Last administered on 07/05/24at 13:56; Start 07/05/24 at 11:00; Stop 07/05/24 at 11:03; Status DC Vancomycin HCl 1 gm ONCE ONCE IV Last administered on 07/05/24at 14:15; Start 07/05/24 at 13:00; Stop 07/05/24 at 13:01; Status DC Ceftriaxone Sodium 2 gm ONCE ONCE IVPB Last administered on 07/05/24at 13:55; Start 07/05/24 at 12:30; Stop 07/05/24 at 12:31; Status DC Sodium Chloride 1,000 ml @ 0 mls/hr ONCE ONCE IV Last administered on 07/05/24at 13:48; Start 07/05/24 at 12:30; Stop 07/05/24 at 12:31; Status DC Insulin Human Regular 5 unit ONCE ONCE IV Last administered on 07/05/24at 14:01; Start 07/05/24 at 12:30; Stop 07/05/24 at 12:31; Status DC Famotidine 20 mg BID IV Last administered on 07/10/24at 21:03; Start 07/05/24 at 21:00; Stop 08/04/24 at 20:59 Vancomycin HCl 1 each AD IV; Start 07/05/24 at 14:30; Stop 07/10/24 at 20:22; Status DC Piperacillin Sod/ Tazobactam Sod 3.375 gm Q8H IVPB Last administered on 07/10/24at 00:09; Start 07/05/24 at 14:30; Stop 07/10/24 at 03:41; Status DC Sodium Chloride 50 ml AD IV; Start 07/05/24 at 18:00; Stop 07/06/24 at 13:20; Status DC Insulin Human Regular INSULIN SLIDING SCAL... Q6H6 SQ Last administered on 07/05/24at 17:43; Start 07/05/24 at 18:00; Stop 07/05/24 at 21:19; Status DC Sodium Chloride 1,000 ml @ 100 mls/hr Q10H IV Last administered on 07/09/24at 15:24; Start 07/05/24 at 14:30; Stop 08/04/24 at 14:29 Insulin Glargine 15 units DAILY SQ Last administered on 07/07/24at 08:47; Start 07/05/24 at 15:00; Stop 07/07/24 at 22:00; Status DC Dextrose 50 ml AD PRN IV; Start 07/05/24 at 15:00; Stop 08/04/24 at 14:59 Glucagon 1 mg AD PRN IM; Start 07/05/24 at 15:00; Stop 08/04/24 at 14:59 Vancomycin HCl 250 ml @ 250 mls/hr ONCE ONCE IV Last administered on 07/05/24at 15:11; Start 07/05/24 at 15:00; Stop 07/05/24 at 15:59; Status DC Vancomycin HCl 250 ml @ 167 mls/hr Q12H IV Last administered on 07/07/24at 01:11; Start 07/06/24 at 01:00; Stop 07/07/24 at 12:31; Status DC Iohexol 75 ml STK-MED ONCE IV; Start 07/05/24 at 15:20; Stop 07/05/24 at 15:21; Status DC Ketorolac Tromethamine 15 mg Q6H PRN IV Last administered on 07/05/24at 21:03; Start 07/05/24 at 17:00; Stop 07/07/24 at 06:16; Status DC Morphine Sulfate 2 mg Q6H PRN IVP; Start 07/05/24 at 17:00; Stop 07/10/24 at 19:59; Status DC Insulin Human Regular 10 unit TIDAC SQ Last administered on 07/07/24at 17:19; Start 07/06/24 at 07:30; Stop 07/07/24 at 22:00; Status DC Insulin Human Regular INSULIN SLIDING SCAL... ACHS SQ Last administered on 07/10/24at 21:05; Start 07/06/24 at 07:30; Stop 08/05/24 at 07:29 Enoxaparin Sodium 30 mg DAILY SQ Last administered on 07/09/24at 10:24; Start 07/06/24 at 09:00; Stop 08/05/24 at 08:59 Acetaminophen 650 mg Q6H PRN PO Last administered on 07/07/24at 14:01; Start 07/06/24 at 13:30; Stop 08/05/24 at 13:29 Acetaminophen/ Hydrocodone Bitart 1 tab Q6H PRN PO Last administered on 07/10/24at 19:19; Start 07/06/24 at 13:30; Stop 07/11/24 at 13:29 Leptospermum Honey 1 APPLICATION DAILY TP Last administered on 07/10/24at 12:01; Start 07/07/24 at 09:00; Stop 08/06/24 at 08:59 Potassium Chloride 100 ml @ 100 mls/hr AD PRN IV; Start 07/07/24 at 10:00; Stop 08/06/24 at 09:59 Potassium Chloride 20 meq AD PRN PO; Start 07/07/24 at 10:00; Stop 08/06/24 at 09:59 Potassium Chloride 20 meq AD PRN PO Last administered on 07/08/24at 11:53; Start 07/07/24 at 10:00; Stop 08/06/24 at 09:59 Magnesium Sulfate 50 ml @ 0 mls/hr PROTOCOL PRN IV Last administered on 07/07/24at 10:57; Start 07/07/24 at 10:00; Stop 08/06/24 at 09:59 Vancomycin HCl 250 ml @ 125 mls/hr Q8H IV Last administered on 07/09/24at 04:38; Start 07/07/24 at 13:00; Stop 07/09/24 at 12:53; Status DC Insulin Glargine 40 units DAILY07 SQ Last administered on 07/08/24at 07:54; Start 07/08/24 at 07:00; Stop 07/08/24 at 21:03; Status DC Insulin Human Regular 16 unit TIDAC SQ Last administered on 07/08/24at 17:33; Start 07/08/24 at 07:30; Stop 07/08/24 at 21:03; Status DC Insulin Glargine 60 units DAILY07 SQ Last administered on 07/10/24at 13:57; Start 07/09/24 at 07:00; Stop 08/08/24 at 06:59 Insulin Human Regular 22 unit TIDAC SQ Last administered on 07/09/24at 17:44; Start 07/09/24 at 07:30; Stop 07/09/24 at 21:14; Status DC Vancomycin HCl 250 ml @ 125 mls/hr Q8H IV Last administered on 07/09/24at 21:43; Start 07/09/24 at 21:00; Stop 07/10/24 at 09:45; Status DC Vancomycin HCl 500 ml @ 250 mls/hr ONCE ONCE IV Last administered on 07/09/24at 15:24; Start 07/09/24 at 13:00; Stop 07/09/24 at 14:59; Status DC Insulin Human Regular 25 unit TIDAC SQ Last administered on 07/10/24at 19:13; Start 07/10/24 at 07:30; Stop 08/09/24 at 07:29 Piperacillin Sod/ Tazobactam Sod 3.375 gm Q8H IVPB; Start 07/10/24 at 08:00; Stop 07/10/24 at 09:45; Status DC Vancomycin HCl 1 each AD IV; Start 07/10/24 at 21:00; Stop 07/24/24 at 20:59 Vancomycin HCl 250 ml @ 125 mls/hr Q6H IV Last administered on 07/10/24at 21:04; Start 07/10/24 at 21:00; Stop 07/20/24 at 20:59 JOSE CASTILLO MD July 10, 2024 21:18
[2024-07-11] VITALS (8 sets, daily range): BP systolic 114–144; BP diastolic 73–89; PULSE 70–97; RESP 18–20; TEMP 97.8–98.6; O2SAT 90–99
[2024-07-11] MEDS: ZOSYN 3.375GM +NS 50ML IV SCH (00:03)
--- NOTE | 2024-07-11 02:42 | CONS ---
INFECTIOUS DISEASE CONSULTATION DATE OF SERVICE: 07/10/2024 REQUESTING PHYSICIAN: Dr. Caldwell. REASON FOR CONSULTATION: Right great toe ulcer and antibiotic management. HISTORY OF PRESENT ILLNESS: This is a 23-year-old male who presented to the hospital with right leg pain, swelling, and redness. The patient claims that he has had ulcer to the right great toe for about one year. The patient has been followed up with all source analyst. Wound culture sent and came back positive for Enterococcus faecalis and MRSA. The patient has glucose of 411. A1c came back at 15.4. The patient denies of diabetes mellitus in the past. No cough, no hemoptysis, or pleuritic pain. PAST MEDICAL HISTORY: * Morbid obesity. * Diabetic foot ulcer. * Newly-diagnosed diabetes mellitus PAST SURGICAL HISTORY: Denies. ALLERGIES: No known drug allergies. CURRENT MEDICATIONS: Reviewed. * Vancomycin. * Zosyn. * Insulin. * Tylenol. SOCIAL HISTORY: Lives with grandmother. No alcohol, tobacco or illicit drug use. FAMILY HISTORY: Positive for diabetes mellitus. REVIEW OF SYSTEMS: Greater than 10 systems were reviewed, negative except for as document above. PHYSICAL EXAMINATION: GENERAL: A young male, awake, not in distress. VITAL SIGNS: Temperature 98.6, pulse 69, respiratory 19, blood pressure 125/81. EYES: No icterus. Pupils are equal and reactive. HENT: No oral thrush seen. Moist oral mucosa. NECK: Supple. No JVD or thyromegaly. LUNGS: Good air entry. No rales. No rhonchi. CARDIOVASCULAR: S1, S2. Regular. No murmur heard. ABDOMEN: Morbidly obese, soft, nontender. Bowel sound is present. CENTRAL NERVOUS SYSTEM: Awake, alert, oriented x 3. No focal deficits. SKIN: No rashes. No itchiness. LYMPHATIC: No peripheral lymphadenopathy. BACK: No deformity. No pressure ulcer. EXTREMITIES: Ulcer involving the right great toe on the plantar aspect right great toe. There is callus involving at the plantar aspect of the left great toe. Cellulitis right thigh with blister. LABORATORY DATA: Hemoglobin A1c of 15.4, sodium 135, potassium 3.3, BUN 4, creatinine 0.5. Right foot wound culture . RADIOLOGY: unremarkable. ASSESSMENT: A 23-year-old presenting with right foot ulcer. Current problems include: * Right foot abscess. * Diabetic foot ulcer. * Diabetes mellitus. * Hemoglobin A1c of 15.4. * Morbid obesity. * Right lower extremity cellulitis. * Polymicrobial wound infection. * DVT. * Hypokalemia. PLAN: * Continue vancomycin. * Discontinue Zosyn. * Start cefepime. * Continue antidiabetic. * Continue nutritional support. * Monitor electrolytes. * The patient will be followed up closely. Thank you for allowing me to participate in the care of this patient. TID: [id number] RECEIPT: [id number] MTD
--- NOTE | 2024-07-11 06:42 | PN ---
SUBJECTIVE: The patient is a very pleasant 23-year-old male. Follow up for right leg cellulitis, right great toe ulcer. Three-phase bone scan negative for osteomyelitis of the right great toe. He is being followed for hyperglycemia, elevated hemoglobin A1c, being evaluated by the nurse staff industrial. He is being followed for morbid obesity. T-max 98.6, pulse 72, respirations 19, blood pressure 114/73. Blood sugar 85. White count 10.6, trending down, hemoglobin and hematocrit were 13.7 and 39.9 and platelets 415. The patient has had abnormal arterial Doppler studies. Right great toe ulcer is healing well. He has no pain. He is pending evaluation by the PED coagulating bath operator in the office for appropriate shoe gear and appropriate diabetic insoles. REVIEW OF SYSTEMS: CONSTITUTIONAL: No chills, fevers or night sweats. No nausea or vomiting. No diarrhea HEENT: No problems with eyes, ears, nose or throat. CARDIOVASCULAR: He has no chest pain. He has had abnormal arterial Doppler studies to his lower extremities. GENITOURINARY: No dysuria. GASTROINTESTINAL: No dysphagia. ENDOCRINE: Diabetes uncontrolled, being followed by nurse staff industrial. PSYCHIATRIC: Denied any depression. MUSCULOSKELETAL: Bunions and hammertoe. INTEGUMENTARY: He has an ulcer on the plantar aspect of the right great toe that has shown significant improvement. OBJECTIVE: On examination today, palpable pedal pulses, protective sensation is intact. Callus, sub hallux on the left. No ulcer. The ulcer in the plantar aspect of the right great toe is now 3 mm x 8 mm x 1 mm. No signs of infection. ASSESSMENT: The patient is a 23-year-old male, morbid obesity, BMI 53, ulcer at the plantar aspect of the right great toe improving. Three-phase bone scan negative for osteomyelitis. The patient's cultures grew back Enterococcus faecalis and MRSA. Currently receiving antibiotic therapy with IV vancomycin and IV Zosyn. Plan is for continuation of IV vancomycin and IV Zosyn as an outpatient. The patient is being followed for leg cellulitis. PLAN: We will continue with Medihoney dressings of the right great toe. Continue with vancomycin and Zosyn. The patient may ambulate with a surgical shoe on that right side and need to follow up with the PED coagulating bath operator in my office for shoe gear and appropriate insoles to prevent recurrence of his ulcerations to his feet bilaterally. TID: [id number] RECEIPT: [id number]
--- NOTE | 2024-07-11 14:26 | PN ---
INFECTIOUS DISEASE PROGRESS NOTE Date of Service: July 11, 2024 SUBJECTIVE: This 23 year old male patient is being seen today at bedside. He is awake, alert and oriented x3. No fever or chills. No nausea or vomiting. Patient continues with antibiotics tolerating well. Patient denies chest pain or shortness of breath. Patient swelling and redness have improved from right lower extremity. Still states to have some tenderness. Patient will remain on antibiotics and continues as outpatient. PHYSICAL EXAM EYES: Anicteric. Pupils equal and reactive. HENT: No oral thrush seen, moist Oral mucosa NECK: Supple, no JVD or thyromegaly. LUNGS: Good air entry. No rales, no rhonchi. CARDIOVASCULAR: S1, S2 regular. No murmur heard. ABDOMEN: Soft, non tender, bowel sounds present, no organomegaly CENTRAL NERVOUS SYSTEM: Awake, alert, oriented x 3. No focal deficits. SKIN: No rashes, no swelling. LYMPHATICS: No peripheral lymphadenopathy MUSCULOSKELETAL: No joint swelling, erythema or tenderness. EXTREMITIES: small blister to right upper extremity, erythema, induration noted to area. BACK: No deformity, no pressure ulcer. GENITOURINARY: No dysuria or hematuria Vital Sign (Last 12 Hours) 07/11/24 07/11/24 07/11/24 07/11/24 03:44 07:48 10:00 11:10 Temp 98.6 98.2 98.4 Pulse 72 84 88 Resp 19 19 19 B/P (MAP) 114/73 121/77 128/89 Pulse Ox 94 94 99 94 O2 Delivery Room Air Room Air Room Air* Room Air O2 Flow Rate 0 FiO2 21 Intake & Output (last 24hrs) 07/10/24 07/10/24 07/11/24 15:00 23:00 07:00 Intake Total 250.0 ml 300.0 ml Balance 250.0 ml 300.0 ml LABS: Laboratory: Test 07/11/24 10:41 07/10/24 20:15 07/10/24 11:19 Range/Units Whole Blood Glucose 113 H 70-110 MG/DL Vancomycin Level Trough 4.1 L 10.0-20.0 UG/ML Prothrombin Time 12.4 H 9.6-11.6 SEC Prothromb Time International Ratio 1.19 H 0.85-1.15 DIAGNOSTICS / RADIOLOGY: AEROBIC CULTURE Final (continued) 07/09/24-4678 REPORT 2: NO FURTHER WORK-UP DONE MRSA: NOTE: THIS IS A METHICILLIN-RESISTANT STAPH AUREUS ENTEROCOCCUS FAECALIS STAPHYLOCOCCUS AUREUS-MRSA E FAECALIS MRSA M.I.C. RX M.I.C. RX --------- ---- --------- ---- AMPICILLIN <=2 S CLINDAMYCIN >2 R ERYTHROMYCIN >4 R GENTAMICIN <=4 S VANCOMYCIN 1 S 1 S OXACILLIN SMOOTH >2 R RIFAMPIN <=1 S TETRACYCLINE <=4 S GENTAMICIN Synergy Screen >500 R PENICILLIN 2 S STREPTOMYCIN Synergy Screen <=1000 S TRIMETHOPRIM/SUFLAMETHOXAZOLE <=0.5/9.5 S ENTEROCOCCUS FAECALIS: POSITIVE COMBO 34 Streptomycin Synergy Screen S Gentamicin Synergy Screen R ASSESSMENT: * Right foot abscess. * Diabetic foot ulcer. * Diabetes mellitus. * Hemoglobin A1c of 15.4. * Morbid obesity. * Right lower extremity cellulitis. * Polymicrobial wound infection. * DVT. * Hypokalemia. PLAN: * Continue vancomycin. * continue Zosyn. * Continue antidiabetic. * Continue nutritional support. * Monitor electrolytes. This case has been discussed with my supervising physician Dr. Toure. [facility] July 11, 2024 14:26
--- NOTE | 2024-07-11 15:32 | PN ---
[facility] PROGRESS NOTE Date of Service: July 11, 2024 Time of Service: 15:30 SUBJECTIVE: 07/06 patient seen at bedside, no acute events overnight. He has been afebrile, hemodynamically stable saturating well on room air. His only complaint is pain when he is ambulating, his right lower extremity proximal to the knee joint on the medial aspect has erythema induration, no fluctuance noted and is tender to palpation. There is no crepitus noted. Outlined the margins of the lesion and we will continue with broad-spectrum antibiotics. WBC improved from 13.9 down to 12.9, blood sugars still quite elevated, diabetic medications have been adju sted by lobby attendant, appreciate their assistance. A1c pending, we will follow up. Podiatry recommendations regarding diabetic foot ulcer on the 1st great toe are still pending. 07/07 patient seen at bedside, no acute events overnight. He has been afebrile, hemodynamically stable saturating well on room air. Area of cellulitis appears to be improved in color and swelling is diminished. Foot x-ray showing possible retained foreign body. Podiatry recommending a bone scan has MRI is contraindicated with foreign body, to assess for osteomyelitis. We will follow up with Endocrinology recommendations. 07/08 bone scan pending today, we will follow up postprocedure. Wound cultures are still pending, we will continue to follow. Patient has cellulitis in his right medial thigh continues to improve, swelling and erythema have retracted significantly. Labs are relatively unremarkable. Insulin adjusted by endocrinology, appreciate recommendations. 07/09 patient seen at bedside, no acute events overnight. Sensitivities are growing out Enterococcus and MRSA, infectious disease consulted for this discharge antibiotics. Patient counseled extensively on the importance of glycemic control. 07/10 infectious Disease recommending PICC line with follow up at [facility] for outpatient IV antibiotics. Once this is completed patient will be good candidate for discharge 07/11 patient seen at bedside, no acute events overnight. PICC line has been successfully placed, still pending acceptance to [facility]. Once he was acc eptance will be good candidate for discharge. REVIEW OF SYSTEMS 12 point review of systems negative unless noted in HPI PHYSICAL EXAM GENERAL APPEARANCE: The patient is awake, alert, and oriented, in no acute cardiopulmonary distress. Patient is obese NEUROLOGICAL: Cranial nerves II-XII grossly intact. Motor is 5/5 in bilateral upper and lower extremities proximal to distal. No sensory deficits. HEENT: Face is symmetric. Pupils are equal and reactive. Extraocular movements are intact. NECK: Supple. No JVD. No thyromegaly. No submental, submandibular, pre- /postauricular, occipital or supraclavicular lymphadenopathy. CHEST: Normal chest expansion. No Telemetry. LUNGS: Absence of any rales, rhonchi or any wheezing. CARDIOVASCULAR: Regular. S1 and S2 normal. No appreciable rubs, murmurs or gallops. ABDOMEN: Soft, nontender, and nondistended. There is no rebound, voluntary guarding, or rigidity. : Deferred. No Harden. EXTREMITIES: Patient has erythema on the posterior aspect of the leg involving the knee. He has redness traveling down to the leg to the foot. He has swelling noted. Area is tender to palpation. Additionally he has a ulcer noted in the 1st toe of the right foot. He has blackish discoloration with possible eschar noted SKIN: No skin breakdown. Vital Signs (last 8hr) Date Time Temp Pulse Resp B/P (MAP) Pulse Ox O2 Delivery O2 Flow Rate FiO2 07/11/24 15:27 97.9 70 18 144/77 958 Room Air 07/11/24 11:10 98.4 88 19 128/89 94 Room Air 07/11/24 10:00 99 Room Air* 0 21 07/11/24 07:48 98.2 84 19 121/77 94 Room Air LABS: Laboratory: Test 07/11/24 14:22 07/11/24 10:41 07/10/24 11:19 Range/Units Vancomycin Level Trough 11.4 # 10.0-20.0 UG/ML Whole Blood Glucose 113 H 70-110 MG/DL Prothrombin Time 12.4 H 9.6-11.6 SEC Prothromb Time International Ratio 1.19 H 0.85-1.15 Current Medications Medications (Trade) Dose Ordered Sig/Morales Route PRN Reason Start Time Stop Time Status Last Admin Dose Admin Acetaminophen (TYLenol 325MG TAB) 650 mg Q6H PRN PO MILD PAIN (1-3) 07/06/24 13:30 08/05/24 13:29 07/07/24 14:01 650 MG Acetaminophen/ Hydrocodone Bitart (NORco 5/325MG) 1 tab Q6H PRN PO MODERATE PAIN (4-6) 07/06/24 13:30 07/11/24 13:29 DC 07/10/24 19:19 1 TAB Dextrose (D50w) 50 ml AD PRN IV HYPOGLYCEMIA PROTOCOL 07/05/24 15:00 08/04/24 14:59 Enoxaparin Sodium (Lovenox) 30 mg DAILY SQ 07/06/24 09:00 08/05/24 08:59 07/11/24 09:37 30 MG Famotidine (Pepcid 20mg Vial) 20 mg BID IV 07/05/24 21:00 08/04/24 20:59 07/11/24 09:37 20 MG Glucagon (Glucagon 1mg Kit) 1 mg AD PRN IM HYPOGLYCEMIA PROTOCOL 07/05/24 15:00 08/04/24 14:59 Insulin Glargine (LANtus 100 UNITS/ML 10 ML VIAL) 15 units DAILY SQ 07/05/24 15:00 07/07/24 22:00 DC 07/07/24 08:47 15 UNITS Insulin Glargine (LANtus 100 UNITS/ML 10 ML VIAL) 40 units DAILY07 SQ 07/08/24 07:00 07/08/24 21:03 DC 07/08/24 07:54 40 UNITS Insulin Glargine (LANtus 100 UNITS/ML 10 ML VIAL) 60 units DAILY07 SQ 07/09/24 07:00 08/08/24 06:59 07/11/24 08:10 60 UNITS Insulin Human Regular (humuLIN R 100 UNIT/ML 3ML) 10 unit TIDAC SQ 07/06/24 07:30 07/07/24 22:00 DC 07/07/24 17:19 10 UNIT Insulin Human Regular (humuLIN R 100 UNIT/ML 3ML) 16 unit TIDAC SQ 07/08/24 07:30 07/08/24 21:03 DC 07/08/24 17:33 16 UNIT Insulin Human Regular (humuLIN R 100 UNIT/ML 3ML) 22 unit TIDAC SQ 07/09/24 07:30 07/09/24 21:14 DC 07/09/24 17:44 22 UNIT Insulin Human Regular (humuLIN R 100 UNIT/ML 3ML) 25 unit TIDAC SQ 07/10/24 07:30 08/09/24 07:29 07/10/24 19:13 25 UNIT Insulin Human Regular (humuLIN R 100 UNIT/ML 3ML) INSULIN SLIDING SCAL... ACHS SQ 07/06/24 07:30 08/05/24 07:29 07/10/24 21:05 6 UNIT Insulin Human Regular (humuLIN R 100 UNIT/ML 3ML) INSULIN SLIDING SCAL... Q6H6 SQ 07/05/24 18:00 07/05/24 21:19 DC 07/05/24 17:43 8 UNIT Ketorolac Tromethamine (toRADol) 15 mg Q6H PRN IV MODERATE PAIN (4-6) 07/05/24 17:00 07/07/24 06:16 DC 07/05/24 21:03 15 MG Leptospermum Honey (Medihoney) 1 APPLICATION DAILY TP 07/07/24 09:00 08/06/24 08:59 07/11/24 09:38 1 APPL Magnesium Sulfate 50 ml @ 0 mls/hr PROTOCOL PRN IV low magnesium 07/07/24 10:00 08/06/24 09:59 07/07/24 10:57 1.7 MLS/HR Morphine Sulfate (morPHINE 2MG SYG) 2 mg Q6H PRN IVP SEVERE PAIN (7-10) 07/05/24 17:00 07/10/24 19:59 DC Piperacillin Sod/ Tazobactam Sod (Zosyn 3.375gm+NS 50ml) 3.375 gm Q8H IV 07/11/24 00:00 07/21/24 00:00 07/11/24 15:18 3.375 GM Piperacillin Sod/ Tazobactam Sod (Zosyn 3.375gm+NS 50ml) 3.375 gm Q8H IVPB 07/05/24 14:30 07/10/24 03:41 DC 07/10/24 00:09 3.375 GM Piperacillin Sod/ Tazobactam Sod (Zosyn 3.375gm+NS 50ml) 3.375 gm Q8H IVPB 07/10/24 08:00 07/10/24 09:45 DC Potassium Chloride 100 ml @ 100 mls/hr AD PRN IV POTASSIUM PROTOCOL 07/07/24 10:00 08/06/24 09:59 Potassium Chloride (K-Dur/Klor-Con 20meq) 20 meq AD PRN PO POTASSIUM PROTOCOL 07/07/24 10:00 08/06/24 09:59 07/08/24 11:53 20 MEQ Potassium Chloride (KCl 10% Elixir 20meq/15ml) 20 meq AD PRN PO POTASSIUM PROTOCOL 07/07/24 10:00 08/06/24 09:59 Sodium Chloride 1,000 ml @ 100 mls/hr Q10H IV 07/05/24 14:30 07/11/24 03:05 DC 07/09/24 15:24 100 MLS/HR Sodium Chloride (NS 50ml) 50 ml AD IV 07/05/24 18:00 07/06/24 13:20 DC Vancomycin HCl 250 ml @ 125 mls/hr Q6H IV 07/10/24 21:00 07/20/24 20:59 07/11/24 15:18 125 MLS/HR Vancomycin HCl 250 ml @ 125 mls/hr Q8H IV 07/07/24 13:00 07/09/24 12:53 DC 07/09/24 04:38 125 MLS/HR Vancomycin HCl 250 ml @ 125 mls/hr Q8H IV 07/09/24 21:00 07/10/24 09:45 DC 07/09/24 21:43 125 MLS/HR Vancomycin HCl 250 ml @ 167 mls/hr Q12H IV 07/06/24 01:00 07/07/24 12:31 DC 07/07/24 01:11 167 MLS/HR Vancomycin HCl (Vancomycin Protocol) 1 each AD IV 07/05/24 14:30 07/10/24 20:22 DC Vancomycin HCl (Vancomycin Protocol) 1 each AD IV 07/10/24 21:00 07/24/24 20:59 DIAGNOSTICS / RADIOLOGY: [ ] ASSESSMENT: Right Leg cellulitis, improving POA Hyperglycemia secondary to uncontrolled diabetes mellitus type 2 last A1C 15.5, POA Foot ulcer of the 1st toe of the right foot, MRSA and Enterofaecalis, POA Hyponatremia secondary to hyperglycemia Dehydration, resolved Obesity BMI 53.1 PLAN: - patient to be admitted to medical-surgical unit - Continue vancomycin and Zosyn. - Podiatry consulted, appreciate recommendations - bone scan ordered, we will follow up - Continue patient on [id number] units daily. Patient will be started on sliding scale insulin. Check A1c. - Continue hypoglycemia protocol - endocrinology consulted, appreciate recommendations Disposition: Pending good melissa acceptance for discharge MARICARMEN MCDANIELS MD July 11, 2024 15:32
--- NOTE | 2024-07-11 22:06 | PN ---
endocrinology Date of Service: 07/11/2024 subjective: glucose are improving. patient used to inject lantus and humalog but not injecting for many months. he does not check glucose at home. hba1c>15.0% right foot wound is positive for MRSA and Enterofaecalis, PAST MEDICAL HISTORY: History of foot ulcer in the 1st toe of the right foot PAST SURGICAL HISTORY: Denied any previous surgical history PAST SOCIAL HISTORY: Denied any smoking, alcohol, drug use FAMILY HISTORY: Denied any pertinent family history Coded Allergies: No Known Drug Allergies (Unverified Allergy, Unknown, 10/08/18) ASSESSMENT: Hyperglycemia secondary to uncontrolled diabetes mellitus type POA patient used to inject lantus and humalog but not injecting for many months. he does not check glucose at home. hba1c>15.0% Right Leg cellulitis POA MRSA and Enterofaecalis, ID following Foot ulcer of the 1st toe of the right foot POA Hyponatremia secondary to hyperglycemia Dehydration Obesity BMI 53.1 PLAN: increase lantus to 65 units daily continue regular insulin 25 units tid before meals continue medium dose insulin ssi follow on talia-65 abs monitor glucose qx6 hourly patient will need insulin at discharge Vitals/Labs Vital Signs Date Time Temp Pulse Resp B/P (MAP) Pulse Ox O2 Delivery O2 Flow Rate FiO2 07/11/24 20:40 98.2 97 18 128/83 90 Room Air 07/11/24 10:00 0 21 Medications Current Medications Ketorolac Tromethamine 15 mg ONCE ONCE IM Last administered on 07/05/24at 13:56; Start 07/05/24 at 11:00; Stop 07/05/24 at 11:03; Status DC Vancomycin HCl 1 gm ONCE ONCE IV Last administered on 07/05/24at 14:15; Start 07/05/24 at 13:00; Stop 07/05/24 at 13:01; Status DC Ceftriaxone Sodium 2 gm ONCE ONCE IVPB Last administered on 07/05/24at 13:55; Start 07/05/24 at 12:30; Stop 07/05/24 at 12:31; Status DC Sodium Chloride 1,000 ml @ 0 mls/hr ONCE ONCE IV Last administered on 07/05/24at 13:48; Start 07/05/24 at 12:30; Stop 07/05/24 at 12:31; Status DC Insulin Human Regular 5 unit ONCE ONCE IV Last administered on 07/05/24at 14:01; Start 07/05/24 at 12:30; Stop 07/05/24 at 12:31; Status DC Famotidine 20 mg BID IV Last administered on 07/11/24at 20:27; Start 07/05/24 at 21:00; Stop 08/04/24 at 20:59 Vancomycin HCl 1 each AD IV; Start 07/05/24 at 14:30; Stop 07/10/24 at 20:22; Status DC Piperacillin Sod/ Tazobactam Sod 3.375 gm Q8H IVPB Last administered on 07/10/24at 00:09; Start 07/05/24 at 14:30; Stop 07/10/24 at 03:41; Status DC Sodium Chloride 50 ml AD IV; Start 07/05/24 at 18:00; Stop 07/06/24 at 13:20; Status DC Insulin Human Regular INSULIN SLIDING SCAL... Q6H6 SQ Last administered on 07/05/24at 17:43; Start 07/05/24 at 18:00; Stop 07/05/24 at 21:19; Status DC Sodium Chloride 1,000 ml @ 100 mls/hr Q10H IV Last administered on 07/09/24at 15:24; Start 07/05/24 at 14:30; Stop 07/11/24 at 03:05; Status DC Insulin Glargine 15 units DAILY SQ Last administered on 07/07/24at 08:47; Start 07/05/24 at 15:00; Stop 07/07/24 at 22:00; Status DC Dextrose 50 ml AD PRN IV; Start 07/05/24 at 15:00; Stop 08/04/24 at 14:59 Glucagon 1 mg AD PRN IM; Start 07/05/24 at 15:00; Stop 08/04/24 at 14:59 Vancomycin HCl 250 ml @ 250 mls/hr ONCE ONCE IV Last administered on 07/05/24at 15:11; Start 07/05/24 at 15:00; Stop 07/05/24 at 15:59; Status DC Vancomycin HCl 250 ml @ 167 mls/hr Q12H IV Last administered on 07/07/24at 01:11; Start 07/06/24 at 01:00; Stop 07/07/24 at 12:31; Status DC Iohexol 75 ml STK-MED ONCE IV; Start 07/05/24 at 15:20; Stop 07/05/24 at 15:21; Status DC Ketorolac Tromethamine 15 mg Q6H PRN IV Last administered on 07/05/24at 21:03; Start 07/05/24 at 17:00; Stop 07/07/24 at 06:16; Status DC Morphine Sulfate 2 mg Q6H PRN IVP; Start 07/05/24 at 17:00; Stop 07/10/24 at 19:59; Status DC Insulin Human Regular 10 unit TIDAC SQ Last administered on 07/07/24at 17:19; Start 07/06/24 at 07:30; Stop 07/07/24 at 22:00; Status DC Insulin Human Regular INSULIN SLIDING SCAL... ACHS SQ Last administered on 07/11/24at 20:33; Start 07/06/24 at 07:30; Stop 08/05/24 at 07:29 Enoxaparin Sodium 30 mg DAILY SQ Last administered on 07/11/24at 09:37; Start 07/06/24 at 09:00; Stop 08/05/24 at 08:59 Acetaminophen 650 mg Q6H PRN PO Last administered on 07/07/24at 14:01; Start 07/06/24 at 13:30; Stop 08/05/24 at 13:29 Acetaminophen/ Hydrocodone Bitart 1 tab Q6H PRN PO Last administered on 07/10/24at 19:19; Start 07/06/24 at 13:30; Stop 07/11/24 at 13:29; Status DC Leptospermum Honey 1 APPLICATION DAILY TP Last administered on 07/11/24at 09:38; Start 07/07/24 at 09:00; Stop 08/06/24 at 08:59 Potassium Chloride 100 ml @ 100 mls/hr AD PRN IV; Start 07/07/24 at 10:00; Stop 08/06/24 at 09:59 Potassium Chloride 20 meq AD PRN PO; Start 07/07/24 at 10:00; Stop 08/06/24 at 09:59 Potassium Chloride 20 meq AD PRN PO Last administered on 07/08/24at 11:53; Start 07/07/24 at 10:00; Stop 08/06/24 at 09:59 Magnesium Sulfate 50 ml @ 0 mls/hr PROTOCOL PRN IV Last administered on 07/07/24at 10:57; Start 07/07/24 at 10:00; Stop 08/06/24 at 09:59 Vancomycin HCl 250 ml @ 125 mls/hr Q8H IV Last administered on 07/09/24at 04:38; Start 07/07/24 at 13:00; Stop 07/09/24 at 12:53; Status DC Insulin Glargine 40 units DAILY07 SQ Last administered on 07/08/24at 07:54; Start 07/08/24 at 07:00; Stop 07/08/24 at 21:03; Status DC Insulin Human Regular 16 unit TIDAC SQ Last administered on 07/08/24at 17:33; Start 07/08/24 at 07:30; Stop 07/08/24 at 21:03; Status DC Insulin Glargine 60 units DAILY07 SQ Last administered on 07/11/24at 08:10; Start 07/09/24 at 07:00; Stop 08/08/24 at 06:59 Insulin Human Regular 22 unit TIDAC SQ Last administered on 07/09/24at 17:44; Start 07/09/24 at 07:30; Stop 07/09/24 at 21:14; Status DC Vancomycin HCl 250 ml @ 125 mls/hr Q8H IV Last administered on 07/09/24at 21:43; Start 07/09/24 at 21:00; Stop 07/10/24 at 09:45; Status DC Vancomycin HCl 500 ml @ 250 mls/hr ONCE ONCE IV Last administered on 07/09/24at 15:24; Start 07/09/24 at 13:00; Stop 07/09/24 at 14:59; Status DC Insulin Human Regular 25 unit TIDAC SQ Last administered on 07/10/24at 19:13; Start 07/10/24 at 07:30; Stop 08/09/24 at 07:29 Piperacillin Sod/ Tazobactam Sod 3.375 gm Q8H IVPB; Start 07/10/24 at 08:00; Stop 07/10/24 at 09:45; Status DC Vancomycin HCl 1 each AD IV; Start 07/10/24 at 21:00; Stop 07/24/24 at 20:59 Vancomycin HCl 250 ml @ 125 mls/hr Q6H IV Last administered on 07/11/24at 20:27; Start 07/10/24 at 21:00; Stop 07/20/24 at 20:59 Piperacillin Sod/ Tazobactam Sod 3.375 gm Q8H IV Last administered on 07/11/24at 15:18; Start 07/11/24 at 00:00; Stop 07/21/24 at 00:00 JOSE CASTILLO MD July 11, 2024 22:06
[2024-07-12] VITALS (7 sets, daily range): BP systolic 114–131; BP diastolic 64–87; PULSE 66–96; RESP 18–20; TEMP 97.9–98.5; O2SAT 92–96
--- NOTE | 2024-07-12 07:02 | PN ---
SUBJECTIVE: The patient is a very pleasant 23-year-old diabetic, Latin-[place] male who has a T-Max today of 97.9, pulse 92, respirations 18, blood pressure 122/72. White count 10.6, H and H 13.7 and 39.9, platelets 415, sed rate 16. Results of the bone scan negative for osteomyelitis of the right great toe. BUN and creatinine level 4 and 0.5, glucose 239. The patient is receiving Medihoney dressings to the right great toe plantar ulcer. The patient has been followed by Endocrinology. The patient has a PICC line in place. He is pending acceptance to [facility] for IV antibiotics as an outpatient. REVIEW OF SYSTEMS: CONSTITUTIONAL: Denies any chills, fevers, night sweats, nausea, vomiting, or diarrhea. HEENT: No problems with his eyes, ears, nose, or throat. CARDIOVASCULAR: Having no chest pain. He has abnormal arterial Doppler studies. He has strongly palpable pedal pulses. GENITOURINARY: No dysuria. GASTROINTESTINAL: No dysphagia. ENDOCRINE: Diabetes, uncontrolled. Being followed by Endocrinology. PSYCHIATRIC: Denied any depression. MUSCULOSKELETAL: Bunions and hammertoes. Morbid obesity. INTEGUMENT: He has an ulcer to the plantar aspect of his right great toe, decreased in size and depth without clinical signs of infection. Bone scan has been negative for osteomyelitis. OBJECTIVE: On examination today, he has palpable pedal pulses. Productive sensation is decreased. Callus and hallux on the left. No ulcer. He has an ulcer to the plantar aspect of the right great toe, 3 x 8 x 1 mm. No signs of infection present. ASSESSMENT: This is a 23-year-old male with morbid obesity, BMI of 53, ulcer to the plantar aspect of the right great toe improving. Three-phase bone scan negative for osteomyelitis to the right great toe. The patient's culture scored back enterococcus faecalis and MRSA. Currently receiving antibiotics with vancomycin and Zosyn. PLAN: We will continue with Medihoney dressings to the right great toe. Continue with IV vancomycin and IV Zosyn. The patient may ambulate with surgical shoe to his feet bilaterally. He will need to follow up as an outpatient with the pedorthotist for shoe gear evaluation and modification. We will need to offload the areas of the right great toes due to recurrent callus and recurrent ulcerations to those areas. TID: [id number] RECEIPT: [id number]
[2024-07-12 07:31] LABS: MEAN CORPUSCULAR HEMOGLOBIN 25.5 pg (27.0-33.0); MEAN CORPUSCULAR HGB CONC 34.1 g/dL (32.0-36.0); MEAN CORPUSCULAR VOLUME 74.7 fL (79-99); RED BLOOD CELL COUNT(AUTO) 5.22 MIL/uL (4.50-6.20); RED CELL DISTRIBUTION WIDTH 13.4 % (11.0-15.5); WHITE BLOOD COUNT (AUTO) 10.2 K/uL (4.8-10.8)
[2024-07-12 07:42] LABS: CREATININE 0.6 mg/dL (0.5-1.3); POTASSIUM 3.3 mmol/L (3.5-5.1)
--- NOTE | 2024-07-12 09:47 | NUR ---
CM NOTE call made to [facility] to followup on referral.appt at [phone].no answer. and unable to leave message full voicemeail. updated Pita Matthew NP of above.
--- NOTE | 2024-07-12 11:51 | PN ---
INFECTIOUS DISEASE PROGRESS NOTE Date of Service: July 12, 2024 SUBJECTIVE: This is a 23 year old male patient who was seen and examined at bedside in room 328. Patient is awake, alert and oriented x3. The final right great toe wound cultures results came back positive for MRSA and Enterococcus faecalis. We will discontinue Zosyn and start patient on cefepime 1 g IV every 8 hours and continue on vancomycin. [facility] with cefepime and vancomycin for 4 weeks and pending insurance approval. Patient is afebrile this morning, temperature is 98.1� and a WBC of 10.2. No other issues reported by nursing. PHYSICAL EXAM EYES: Anicteric. Pupils equal and reactive. HENT: No oral thrush seen, moist Oral mucosa. NECK: Supple, no JVD or thyromegaly. LUNGS: Good air entry. No rales, no rhonchi. CARDIOVASCULAR: S1, S2 regular. No murmur heard. ABDOMEN: Soft, non tender, bowel sounds present, no organomegaly CENTRAL NERVOUS SYSTEM: Awake, alert, oriented x 3. SKIN: No rashes, no swelling. LYMPHATICS: No peripheral lymphadenopathy MUSCULOSKELETAL: No joint swelling, erythema or tenderness. EXTREMITIES: Right great toe diabetic ulcer with abscess. Left great toe callus. BACK: No deformity, no pressure ulcer. GENITOURINARY: No dysuria or hematuria. Vital Sign (Last 12 Hours) 07/12/24 07/12/24 07/12/24 00:34 04:45 08:00 Temp 98.1 97.9 98.1 Pulse 96 92 66 Resp 18 18 18 B/P (MAP) 122/72 114/68 Pulse Ox 95 95 92 O2 Delivery Room Air Room Air Room Air FiO2 21 LABS: Laboratory: Test 07/12/24 07:15 07/11/24 19:12 07/11/24 14:22 Range/Units White Blood Count 10.2 4.8-10.8 K/uL Red Blood Count 5.22 4.50-6.20 MIL/uL Hemoglobin 13.3 L 14.0-18.0 g/dL Hematocrit 39.0 L 42-54 % Mean Corpuscular Volume 74.7 L 79-99 fL Mean Corpuscular Hemoglobin 25.5 L 27.0-33.0 pg Mean Corpuscular Hemoglobin Concent 34.1 32.0-36.0 g/dL Red Cell Distribution Width 13.4 11.0-15.5 % Platelet Count 231 130-400 K/uL Mean Platelet Volume 10.4 7.5-10.5 fL Nucleated Red Blood Cells 0.0 0.0-0.19 % Sodium Level 137 136-145 mmol/L Potassium Level 3.3 L 3.5-5.1 mmol/L Chloride Level 104 101-111 mmol/L Carbon Dioxide Level 27 21-32 mmol/L Blood Urea Nitrogen 5 L 7-18 mg/dL Creatinine 0.6 0.5-1.3 mg/dL Glomerular Filtration Rate Calc 140 >90 mL/min Random Glucose 137 H 70-105 mg/dL Total Calcium 8.4 L 8.5-10.1 mg/dL Whole Blood Glucose 253 H 70-110 MG/DL Vancomycin Level Trough 11.4 # 10.0-20.0 UG/ML DIAGNOSTICS / RADIOLOGY: RUN DATE: 07/10/24 [facility] [address] RUN TIME: [id number] [address], [place] [address] Department of Laboratories CLIA # [id number] Stave Hewer: Massiel Hewitt DO Specimen Report SPEC: [id number] PATIENT: SARA HEADLEY [id number] (Continued) Procedure Result Renetta Date-Time AEROBIC CULTURE Final (continued) 07/09/24-1049 REPORT 2: NO FURTHER WORK-UP DONE MRSA: NOTE: THIS IS A METHICILLIN-RESISTANT STAPH AUREUS ENTEROCOCCUS FAECALIS STAPHYLOCOCCUS AUREUS-MRSA E FAECALIS MRSA M.I.C. RX M.I.C. RX --------- ---- --------- ---- AMPICILLIN <=2 S CLINDAMYCIN >2 R ERYTHROMYCIN >4 R GENTAMICIN <=4 S VANCOMYCIN 1 S 1 S OXACILLIN SMOOTH >2 R RIFAMPIN <=1 S TETRACYCLINE <=4 S GENTAMICIN Synergy Screen >500 R PENICILLIN 2 S STREPTOMYCIN Synergy Screen <=1000 S TRIMETHOPRIM/SUFLAMETHOXAZOLE <=0.5/9.5 S ENTEROCOCCUS FAECALIS: POSITIVE COMBO 34 Streptomycin Synergy Screen S Gentamicin Synergy Screen R ASSESSMENT: Right foot diabetic ulcer with abscess. Infection with methicillin-resistant Staphylococcus aureus. Right foot cellulitis, resolving. Leukocytosis, resolved. Poorly controlled Diabetes mellitus with hemoglobin A1c of 15.4. Morbid obesity. PLAN: Discontinue Zosyn. Start cefepime 1 g IV every 8 hours. Continue vancomycin per pharmacy protocol. Continue wound care. Continue antidiabetics. Patient was educated on weight loss. Will monitor electrolytes. This case was reviewed and discussed with my supervising physician and the above assessment and plan was formulated and agreed upon. ATTESTATION BY PHYSICIAN I have seen and examined the patient. I reviewed the documentation, medical decision making, and treatment plan as noted by the mid-level provider above. I agree with the findings and plan of care. ALTON LEÓN MD, [facility] July 12, 2024 11:51
[2024-07-12] MEDS: ceFEPime HCL 1 GM VIAL IVPB SCH (13:31)
--- NOTE | 2024-07-12 17:14 | PN ---
[facility] PROGRESS NOTE Date of Service: July 12, 2024 Time of Service: 17:12 SUBJECTIVE: 07/06 patient seen at bedside, no acute events overnight. He has been afebrile, hemodynamically stable saturating well on room air. His only complaint is pain when he is ambulating, his right lower extremity proximal to the knee joint on the medial aspect has erythema induration, no fluctuance noted and is tender to palpation. There is no crepitus noted. Outlined the margins of the lesion and we will continue with broad-spectrum antibiotics. WBC improved from 13.9 down to 12.9, blood sugars still quite elevated, diabetic medications have been adju sted by ribbon hanking machine operator, appreciate their assistance. A1c pending, we will follow up. Podiatry recommendations regarding diabetic foot ulcer on the 1st great toe are still pending. 07/07 patient seen at bedside, no acute events overnight. He has been afebrile, hemodynamically stable saturating well on room air. Area of cellulitis appears to be improved in color and swelling is diminished. Foot x-ray showing possible retained foreign body. Podiatry recommending a bone scan has MRI is contraindicated with foreign body, to assess for osteomyelitis. We will follow up with Endocrinology recommendations. 07/08 bone scan pending today, we will follow up postprocedure. Wound cultures are still pending, we will continue to follow. Patient has cellulitis in his right medial thigh continues to improve, swelling and erythema have retracted significantly. Labs are relatively unremarkable. Insulin adjusted by endocrinology, appreciate recommendations. 07/09 patient seen at bedside, no acute events overnight. Sensitivities are growing out Enterococcus and MRSA, infectious disease consulted for this discharge antibiotics. Patient counseled extensively on the importance of glycemic control. 07/10 infectious Disease recommending PICC line with follow up at [facility] for outpatient IV antibiotics. Once this is completed patient will be good candidate for discharge 5/ patient seen at bedside, no acute events overnight. PICC line has been successfully placed, still pending acceptance to [facility]. Once he was acc eptance will be good candidate for discharge. 5 patient seen at bedside, no acute events overnight. Still pending acceptance to [facility]. Once he was acceptance will be good candidate for discharge. REVIEW OF SYSTEMS 12 point review of systems negative unless noted in HPI PHYSICAL EXAM GENERAL APPEARANCE: The patient is awake, alert, and oriented, in no acute cardiopulmonary distress. Patient is obese NEUROLOGICAL: Cranial nerves II-XII grossly intact. Motor is 5/5 in bilateral upper and lower extremities proximal to distal. No sensory deficits. HEENT: Face is symmetric. Pupils are equal and reactive. Extraocular movements are intact. NECK: Supple. No JVD. No thyromegaly. No submental, submandibular, pre- /postauricular, occipital or supraclavicular lymphadenopathy. CHEST: Normal chest expansion. No Telemetry. LUNGS: Absence of any rales, rhonchi or any wheezing. CARDIOVASCULAR: Regular. S1 and S2 normal. No appreciable rubs, murmurs or gallops. ABDOMEN: Soft, nontender, and nondistended. There is no rebound, voluntary guarding, or rigidity. : Deferred. No Harden. EXTREMITIES: Patient has erythema on the posterior aspect of the leg involving the knee. He has redness traveling down to the leg to the foot. He has swelling noted. Area is tender to palpation. Additionally he has a ulcer noted in the 1st toe of the right foot. He has blackish discoloration with possible eschar noted SKIN: No skin breakdown. Vital Signs (last 8hr) Date Time Temp Pulse Resp B/P (MAP) Pulse Ox O2 Delivery O2 Flow Rate FiO2 07/12/24 16:00 98.4 85 18 115/64 92 Room Air 21 07/12/24 11:59 98.4 84 18 131/75 92 Room Air 21 LABS: Laboratory: Test 07/12/24 15:19 07/12/24 14:09 07/12/24 07:15 Range/Units Whole Blood Glucose 156 H 70-110 MG/DL Vancomycin Level Trough 13.1 10.0-20.0 UG/ML White Blood Count 10.2 4.8-10.8 K/uL Red Blood Count 5.22 4.50-6.20 MIL/uL Hemoglobin 13.3 L 14.0-18.0 g/dL Hematocrit 39.0 L 42-54 % Mean Corpuscular Volume 74.7 L 79-99 fL Mean Corpuscular Hemoglobin 25.5 L 27.0-33.0 pg Mean Corpuscular Hemoglobin Concent 34.1 32.0-36.0 g/dL Red Cell Distribution Width 13.4 11.0-15.5 % Platelet Count 231 130-400 K/uL Mean Platelet Volume 10.4 7.5-10.5 fL Nucleated Red Blood Cells 0.0 0.0-0.19 % Sodium Level 137 136-145 mmol/L Potassium Level 3.3 L 3.5-5.1 mmol/L Chloride Level 104 101-111 mmol/L Carbon Dioxide Level 27 21-32 mmol/L Blood Urea Nitrogen 5 L 7-18 mg/dL Creatinine 0.6 0.5-1.3 mg/dL Glomerular Filtration Rate Calc 140 >90 mL/min Random Glucose 137 H 70-105 mg/dL Total Calcium 8.4 L 8.5-10.1 mg/dL Current Medications Medications (Trade) Dose Ordered Sig/Morales Route PRN Reason Start Time Stop Time Status Last Admin Dose Admin Acetaminophen (TYLenol 325MG TAB) 650 mg Q6H PRN PO MILD PAIN (1-3) 07/06/24 13:30 08/05/24 13:29 07/07/24 14:01 650 MG Acetaminophen/ Hydrocodone Bitart (NORco 5/325MG) 1 tab Q6H PRN PO MODERATE PAIN (4-6) 07/06/24 13:30 07/11/24 13:29 DC 07/10/24 19:19 1 TAB Alteplase, Recombinant (CathFLO 2MG VIAL) 1 mg ONCE IVCATH 07/12/24 13:30 08/11/24 13:29 Cefepime HCl (MAXipime 1 GM vial) 1 gm Q8H IVPB 07/12/24 12:00 07/22/24 11:59 07/12/24 13:31 1 GM Dextrose (D50w) 50 ml AD PRN IV HYPOGLYCEMIA PROTOCOL 07/05/24 15:00 08/04/24 14:59 Enoxaparin Sodium (Lovenox) 30 mg DAILY SQ 07/06/24 09:00 08/05/24 08:59 07/12/24 08:52 30 MG Famotidine (Pepcid 20mg Vial) 20 mg BID IV 07/05/24 21:00 08/04/24 20:59 07/12/24 08:52 20 MG Glucagon (Glucagon 1mg Kit) 1 mg AD PRN IM HYPOGLYCEMIA PROTOCOL 07/05/24 15:00 08/04/24 14:59 Insulin Glargine (LANtus 100 UNITS/ML 10 ML VIAL) 15 units DAILY SQ 07/05/24 15:00 07/07/24 22:00 DC 07/07/24 08:47 15 UNITS Insulin Glargine (LANtus 100 UNITS/ML 10 ML VIAL) 40 units DAILY07 SQ 07/08/24 07:00 07/08/24 21:03 DC 07/08/24 07:54 40 UNITS Insulin Glargine (LANtus 100 UNITS/ML 10 ML VIAL) 60 units DAILY07 SQ 07/09/24 07:00 08/08/24 06:59 07/12/24 06:56 60 UNITS Insulin Human Regular (humuLIN R 100 UNIT/ML 3ML) 10 unit TIDAC SQ 07/06/24 07:30 07/07/24 22:00 DC 07/07/24 17:19 10 UNIT Insulin Human Regular (humuLIN R 100 UNIT/ML 3ML) 16 unit TIDAC SQ 07/08/24 07:30 07/08/24 21:03 DC 07/08/24 17:33 16 UNIT Insulin Human Regular (humuLIN R 100 UNIT/ML 3ML) 22 unit TIDAC SQ 07/09/24 07:30 07/09/24 21:14 DC 07/09/24 17:44 22 UNIT Insulin Human Regular (humuLIN R 100 UNIT/ML 3ML) 25 unit TIDAC SQ 07/10/24 07:30 08/09/24 07:29 07/10/24 19:13 25 UNIT Insulin Human Regular (humuLIN R 100 UNIT/ML 3ML) INSULIN SLIDING SCAL... ACHS SQ 07/06/24 07:30 08/05/24 07:29 07/11/24 20:33 8 UNIT Insulin Human Regular (humuLIN R 100 UNIT/ML 3ML) INSULIN SLIDING SCAL... Q6H6 SQ 07/05/24 18:00 07/05/24 21:19 DC 07/05/24 17:43 8 UNIT Ketorolac Tromethamine (toRADol) 15 mg Q6H PRN IV MODERATE PAIN (4-6) 07/05/24 17:00 07/07/24 06:16 DC 07/05/24 21:03 15 MG Leptospermum Honey (Medihoney) 1 APPLICATION DAILY TP 07/07/24 09:00 08/06/24 08:59 07/11/24 09:38 1 APPL Magnesium Sulfate 50 ml @ 0 mls/hr PROTOCOL PRN IV low magnesium 07/07/24 10:00 08/06/24 09:59 07/07/24 10:57 1.7 MLS/HR Morphine Sulfate (morPHINE 2MG SYG) 2 mg Q6H PRN IVP SEVERE PAIN (7-10) 07/05/24 17:00 07/10/24 19:59 DC Piperacillin Sod/ Tazobactam Sod (Zosyn 3.375gm+NS 50ml) 3.375 gm Q8H IV 07/11/24 00:00 07/12/24 11:46 DC 07/12/24 08:51 3.375 GM Piperacillin Sod/ Tazobactam Sod (Zosyn 3.375gm+NS 50ml) 3.375 gm Q8H IVPB 07/05/24 14:30 07/10/24 03:41 DC 07/10/24 00:09 3.375 GM Piperacillin Sod/ Tazobactam Sod (Zosyn 3.375gm+NS 50ml) 3.375 gm Q8H IVPB 07/10/24 08:00 07/10/24 09:45 DC Potassium Chloride 100 ml @ 100 mls/hr AD PRN IV POTASSIUM PROTOCOL 07/07/24 10:00 08/06/24 09:59 Potassium Chloride (K-Dur/Klor-Con 20meq) 20 meq AD PRN PO POTASSIUM PROTOCOL 07/07/24 10:00 08/06/24 09:59 07/08/24 11:53 20 MEQ Potassium Chloride (KCl 10% Elixir 20meq/15ml) 20 meq AD PRN PO POTASSIUM PROTOCOL 07/07/24 10:00 08/06/24 09:59 Sodium Chloride 1,000 ml @ 100 mls/hr Q10H IV 07/05/24 14:30 07/11/24 03:05 DC 07/09/24 15:24 100 MLS/HR Sodium Chloride (NS 50ml) 50 ml AD IV 07/05/24 18:00 07/06/24 13:20 DC Vancomycin HCl 250 ml @ 125 mls/hr Q6H IV 07/10/24 21:00 07/20/24 20:59 07/12/24 15:08 125 MLS/HR Vancomycin HCl 250 ml @ 125 mls/hr Q8H IV 07/07/24 13:00 07/09/24 12:53 DC 07/09/24 04:38 125 MLS/HR Vancomycin HCl 250 ml @ 125 mls/hr Q8H IV 07/09/24 21:00 07/10/24 09:45 DC 07/09/24 21:43 125 MLS/HR Vancomycin HCl 250 ml @ 167 mls/hr Q12H IV 07/06/24 01:00 07/07/24 12:31 DC 07/07/24 01:11 167 MLS/HR Vancomycin HCl (Vancomycin Protocol) 1 each AD IV 07/05/24 14:30 07/10/24 20:22 DC Vancomycin HCl (Vancomycin Protocol) 1 each AD IV 07/10/24 21:00 07/24/24 20:59 DIAGNOSTICS / RADIOLOGY: [ ] ASSESSMENT: Right Leg cellulitis, improving POA Hyperglycemia secondary to uncontrolled diabetes mellitus type 2 last A1C 15.5, POA Foot ulcer of the 1st toe of the right foot, MRSA and Enterofaecalis, POA Hyponatremia secondary to hyperglycemia Dehydration, resolved Obesity BMI 53.1 PLAN: - patient to be admitted to medical-surgical unit - Continue vancomycin and Zosyn. - Podiatry consulted, appreciate recommendations - bone scan ordered, we will follow up - Continue patient on [id number] units daily. Patient will be started on sliding scale insulin. Check A1c. - Continue hypoglycemia protocol - endocrinology consulted, appreciate recommendations Disposition: [facility]ending [facility] for [facility] MARICARMEN MCDANIELS MD July 12, 2024 17:14
[2024-07-12] MEDS: ALTEplase 2MG VIAL 2 MG/VIAL VIAL IVCATH SCH (18:20)
--- NOTE | 2024-07-12 22:07 | PN ---
endocrinology Date of Service: 07/12/2024 subjective: glucose are improving despote did not receive pre-meal insulin.. patient used to inject lantus and humalog but not injecting for many months. he does not check glucose at home. hba1c>15.0% right foot wound is positive for MRSA and Enterofaecalis, PAST MEDICAL HISTORY: History of foot ulcer in the 1st toe of the right foot PAST SURGICAL HISTORY: Denied any previous surgical history PAST SOCIAL HISTORY: Denied any smoking, alcohol, drug use FAMILY HISTORY: Denied any pertinent family history Coded Allergies: No Known Drug Allergies (Unverified Allergy, Unknown, 10/08/18) ASSESSMENT: Hyperglycemia secondary to uncontrolled diabetes mellitus type POA patient used to inject lantus and humalog but not injecting for many months. he does not check glucose at home. hba1c>15.0% talia-65 abs are negative, so likely type 2 dm. Right Leg cellulitis POA MRSA and Enterofaecalis, ID following Foot ulcer of the 1st toe of the right foot POA Hyponatremia secondary to hyperglycemia Dehydration Obesity BMI 53.1 PLAN: decrease lantus to 50 units daily decrease regular insulin to 10 units tid before meals continue medium dose insulin ssi monitor glucose qx6 hourly patient will need insulin at discharge Vitals/Labs Vital Signs Date Time Temp Pulse Resp B/P (MAP) Pulse Ox O2 Delivery O2 Flow Rate FiO2 07/12/24 20:00 98.2 88 20 116/87 92 Room Air 07/12/24 16:00 21 07/12/24 08:00 0 Laboratory Tests 07/12/24 07:15 Medications Current Medications Ketorolac Tromethamine 15 mg ONCE ONCE IM Last administered on 07/05/24at 13:56; Start 07/05/24 at 11:00; Stop 07/05/24 at 11:03; Status DC Vancomycin HCl 1 gm ONCE ONCE IV Last administered on 07/05/24at 14:15; Start 07/05/24 at 13:00; Stop 07/05/24 at 13:01; Status DC Ceftriaxone Sodium 2 gm ONCE ONCE IVPB Last administered on 07/05/24at 13:55; Start 07/05/24 at 12:30; Stop 07/05/24 at 12:31; Status DC Sodium Chloride 1,000 ml @ 0 mls/hr ONCE ONCE IV Last administered on 07/05/24at 13:48; Start 07/05/24 at 12:30; Stop 07/05/24 at 12:31; Status DC Insulin Human Regular 5 unit ONCE ONCE IV Last administered on 07/05/24at 14:01; Start 07/05/24 at 12:30; Stop 07/05/24 at 12:31; Status DC Famotidine 20 mg BID IV Last administered on 07/12/24at 20:47; Start 07/05/24 at 21:00; Stop 08/04/24 at 20:59 Vancomycin HCl 1 each AD IV; Start 07/05/24 at 14:30; Stop 07/10/24 at 20:22; Status DC Piperacillin Sod/ Tazobactam Sod 3.375 gm Q8H IVPB Last administered on 07/10/24at 00:09; Start 07/05/24 at 14:30; Stop 07/10/24 at 03:41; Status DC Sodium Chloride 50 ml AD IV; Start 07/05/24 at 18:00; Stop 07/06/24 at 13:20; Status DC Insulin Human Regular INSULIN SLIDING SCAL... Q6H6 SQ Last administered on 07/05/24at 17:43; Start 07/05/24 at 18:00; Stop 07/05/24 at 21:19; Status DC Sodium Chloride 1,000 ml @ 100 mls/hr Q10H IV Last administered on 07/09/24at 15:24; Start 07/05/24 at 14:30; Stop 07/11/24 at 03:05; Status DC Insulin Glargine 15 units DAILY SQ Last administered on 07/07/24at 08:47; Start 07/05/24 at 15:00; Stop 07/07/24 at 22:00; Status DC Dextrose 50 ml AD PRN IV; Start 07/05/24 at 15:00; Stop 08/04/24 at 14:59 Glucagon 1 mg AD PRN IM; Start 07/05/24 at 15:00; Stop 08/04/24 at 14:59 Vancomycin HCl 250 ml @ 250 mls/hr ONCE ONCE IV Last administered on 07/05/24at 15:11; Start 07/05/24 at 15:00; Stop 07/05/24 at 15:59; Status DC Vancomycin HCl 250 ml @ 167 mls/hr Q12H IV Last administered on 07/07/24at 01:11; Start 07/06/24 at 01:00; Stop 07/07/24 at 12:31; Status DC Iohexol 75 ml STK-MED ONCE IV; Start 07/05/24 at 15:20; Stop 07/05/24 at 15:21; Status DC Ketorolac Tromethamine 15 mg Q6H PRN IV Last administered on 07/05/24at 21:03; Start 07/05/24 at 17:00; Stop 07/07/24 at 06:16; Status DC Morphine Sulfate 2 mg Q6H PRN IVP; Start 07/05/24 at 17:00; Stop 07/10/24 at 19:59; Status DC Insulin Human Regular 10 unit TIDAC SQ Last administered on 07/07/24at 17:19; Start 07/06/24 at 07:30; Stop 07/07/24 at 22:00; Status DC Insulin Human Regular INSULIN SLIDING SCAL... ACHS SQ Last administered on 07/12/24at 20:49; Start 07/06/24 at 07:30; Stop 08/05/24 at 07:29 Enoxaparin Sodium 30 mg DAILY SQ Last administered on 07/12/24at 08:52; Start 07/06/24 at 09:00; Stop 08/05/24 at 08:59 Acetaminophen 650 mg Q6H PRN PO Last administered on 07/07/24at 14:01; Start 07/06/24 at 13:30; Stop 08/05/24 at 13:29 Acetaminophen/ Hydrocodone Bitart 1 tab Q6H PRN PO Last administered on 07/10/24at 19:19; Start 07/06/24 at 13:30; Stop 07/11/24 at 13:29; Status DC Leptospermum Honey 1 APPLICATION DAILY TP Last administered on 07/11/24at 09:38; Start 07/07/24 at 09:00; Stop 08/06/24 at 08:59 Potassium Chloride 100 ml @ 100 mls/hr AD PRN IV; Start 07/07/24 at 10:00; Stop 08/06/24 at 09:59 Potassium Chloride 20 meq AD PRN PO; Start 07/07/24 at 10:00; Stop 08/06/24 at 09:59 Potassium Chloride 20 meq AD PRN PO Last administered on 07/08/24at 11:53; Start 07/07/24 at 10:00; Stop 08/06/24 at 09:59 Magnesium Sulfate 50 ml @ 0 mls/hr PROTOCOL PRN IV Last administered on 07/07/24at 10:57; Start 07/07/24 at 10:00; Stop 08/06/24 at 09:59 Vancomycin HCl 250 ml @ 125 mls/hr Q8H IV Last administered on 07/09/24at 04:38; Start 07/07/24 at 13:00; Stop 07/09/24 at 12:53; Status DC Insulin Glargine 40 units DAILY07 SQ Last administered on 07/08/24at 07:54; Start 07/08/24 at 07:00; Stop 07/08/24 at 21:03; Status DC Insulin Human Regular 16 unit TIDAC SQ Last administered on 07/08/24at 17:33; Start 07/08/24 at 07:30; Stop 07/08/24 at 21:03; Status DC Insulin Glargine 60 units DAILY07 SQ Last administered on 07/12/24at 06:56; Start 07/09/24 at 07:00; Stop 08/08/24 at 06:59 Insulin Human Regular 22 unit TIDAC SQ Last administered on 07/09/24at 17:44; Start 07/09/24 at 07:30; Stop 07/09/24 at 21:14; Status DC Vancomycin HCl 250 ml @ 125 mls/hr Q8H IV Last administered on 07/09/24at 21:43; Start 07/09/24 at 21:00; Stop 07/10/24 at 09:45; Status DC Vancomycin HCl 500 ml @ 250 mls/hr ONCE ONCE IV Last administered on 07/09/24at 15:24; Start 07/09/24 at 13:00; Stop 07/09/24 at 14:59; Status DC Insulin Human Regular 25 unit TIDAC SQ Last administered on 07/10/24at 19:13; Start 07/10/24 at 07:30; Stop 08/09/24 at 07:29 Piperacillin Sod/ Tazobactam Sod 3.375 gm Q8H IVPB; Start 07/10/24 at 08:00; Stop 07/10/24 at 09:45; Status DC Vancomycin HCl 1 each AD IV; Start 07/10/24 at 21:00; Stop 07/24/24 at 20:59 Vancomycin HCl 250 ml @ 125 mls/hr Q6H IV Last administered on 07/12/24at 20:50; Start 07/10/24 at 21:00; Stop 07/20/24 at 20:59 Piperacillin Sod/ Tazobactam Sod 3.375 gm Q8H IV Last administered on 07/12/24at 08:51; Start 07/11/24 at 00:00; Stop 07/12/24 at 11:46; Status DC Cefepime HCl 1 gm Q8H IVPB Last administered on 07/12/24at 20:47; Start 07/12/24 at 12:00; Stop 07/22/24 at 11:59 Alteplase, Recombinant 1 mg ONCE IVCATH Last administered on 07/12/24at 18:20; Start 07/12/24 at 13:30; Stop 08/11/24 at 13:29 JOSE CASTILLO MD July 12, 2024 22:07
[2024-07-13] VITALS (7 sets, daily range): BP systolic 122–146; BP diastolic 58–87; PULSE 68–88; RESP 18–20; TEMP 98.1–98.5; O2SAT 92–93
[2024-07-13] MEDS: INSULIN GLARgine 100 UNITS/ML 10 ML VIAL SQ SCH (06:20)
[2024-07-13] MEDS: INSULIN humuLIN R 100 UNIT/ML 3ML SQ SCH (06:22)
--- NOTE | 2024-07-13 09:25 | PN ---
SUBJECTIVE: A very pleasant 23-year-old male who has been afebrile and his white count is within normal limits. Sed rate is 16. Results of his bone scan negative for osteomyelitis of the right great toe. BUN and creatinine level 4 and 0.5. The patient has been receiving Medihoney dressings to his right great toe ulcer. He has been followed by Endocrinology. He has a PICC line in place and is pending acceptance to [facility] for IV antibiotics as an outpatient. He is concerned of callus at the plantar aspects of both great toes. He is ambulating with surgical shoes. REVIEW OF SYSTEMS: CONSTITUTIONAL: No chills, no fevers, no night sweats. No nausea, vomiting. No diarrhea. HEENT: No problems with eyes, ears, nose, or throat. CARDIOVASCULAR: He has no chest pain. He has abnormal arterial Doppler studies, but strongly palpable pedal pulses clinically. GENITOURINARY: No dysuria. GASTROINTESTINAL: No dysphagia. ENDOCRINE: Diabetes, uncontrolled. Being followed by Endocrinology. PSYCHIATRIC: Denied any depression. MUSCULOSKELETAL: Bunions and hammertoes. He has morbid obesity. INTEGUMENT: He has an ulcer to the plantar aspect of his right great toe. MRI could not be done. Bone scan was negative for osteomyelitis. He has developed a new ulcer now to the left great toe. OBJECTIVE: His examination today shows he has hemorrhagic callus to the plantar aspects of both great toes. He has a central ulcer to the right great toe plantarly that is 3 x 5 x 1 mm. He developed a new ulcer to the left great toe. Pre-debridement, it was a hemorrhagic callus and post-debridement, it was 3 x 3 x 3 mm. ASSESSMENT: A 23-year-old male with morbid obesity, BMI of 55, uncontrolled diabetes, ulcer to plantar aspects of both great toes, new ulcer to the left great toe, improving ulcer to the right great toe. Three phase bone scan was negative for great toe osteomyelitis. The patient has cultures on the right, growing back Enterococcus faecalis and MRSA, currently receiving vancomycin and Zosyn per his cultures and sensitivities. The patient is pending authorization for IV antibiotics through [facility] as an outpatient. PLAN: With the patient's consent and with the use of #15 scalpel blade and a forceps, I trimmed the hemorrhagic callus to the ulcer site sub-hallux on the right without incidence. On the left, I debrided hemorrhagic hyperkeratotic callus. I then debrided full-thickness skin. I debrided slough and fibrin, necrotic fibrin, dysvascular appearing subcutaneous tissues down to including the level of the subcutaneous tissues and an area that measured post debridement 3 x 3 x 3 mm. There was no purulent drainage. Minimal bleeding. Hemostasis with pressure. Both wounds were dressed with Medihoney. The patient tolerated the debridement well and had no pain. Total area of sharp excisional debridement was 0.09 cm2. The patient was instructed to ambulate with his surgical shoes, follow up with his pedorthotist as an outpatient for offloading insoles to both great toes. Continue with his IV antibiotics, currently the IV Zosyn and the IV vancomycin. TID: [id number] RECEIPT: [id number]
--- NOTE | 2024-07-13 18:33 | PN ---
[facility] PROGRESS NOTE Date of Service: July 13, 2024 Time of Service: 18:33 SUBJECTIVE: 07/06 patient seen at bedside, no acute events overnight. He has been afebrile, hemodynamically stable saturating well on room air. His only complaint is pain when he is ambulating, his right lower extremity proximal to the knee joint on the medial aspect has erythema induration, no fluctuance noted and is tender to palpation. There is no crepitus noted. Outlined the margins of the lesion and we will continue with broad-spectrum antibiotics. WBC improved from 13.9 down to 12.9, blood sugars still quite elevated, diabetic medications have been adju sted by structural steel shop supervisor, appreciate their assistance. A1c pending, we will follow up. Podiatry recommendations regarding diabetic foot ulcer on the 1st great toe are still pending. 07/07 patient seen at bedside, no acute events overnight. He has been afebrile, hemodynamically stable saturating well on room air. Area of cellulitis appears to be improved in color and swelling is diminished. Foot x-ray showing possible retained foreign body. Podiatry recommending a bone scan has MRI is contraindicated with foreign body, to assess for osteomyelitis. We will follow up with Endocrinology recommendations. 07/08 bone scan pending today, we will follow up postprocedure. Wound cultures are still pending, we will continue to follow. Patient has cellulitis in his right medial thigh continues to improve, swelling and erythema have retracted significantly. Labs are relatively unremarkable. Insulin adjusted by endocrinology, appreciate recommendations. 07/09 patient seen at bedside, no acute events overnight. Sensitivities are growing out Enterococcus and MRSA, infectious disease consulted for this discharge antibiotics. Patient counseled extensively on the importance of glycemic control. 07/10 infectious Disease recommending PICC line with follow up at [facility] for outpatient IV antibiotics. Once this is completed patient will be good candidate for discharge 5/ patient seen at bedside, no acute events overnight. PICC line has been successfully placed, still pending acceptance to [facility]. Once he was acc eptance will be good candidate for discharge. 5/3 patient seen at bedside, no acute events overnight. Still pending acceptance to [facility]. Once he was acceptance will be good candidate for discharge. / patient seen at bedside, no acute events overnight. Still pending acceptance to [facility]. Once he was acceptance will be good candidate for discharge. REVIEW OF SYSTEMS 12 point review of systems negative unless noted in HPI PHYSICAL EXAM GENERAL APPEARANCE: The patient is awake, alert, and oriented, in no acute cardiopulmonary distress. Patient is obese NEUROLOGICAL: Cranial nerves II-XII grossly intact. Motor is 5/5 in bilateral upper and lower extremities proximal to distal. No sensory deficits. HEENT: Face is symmetric. Pupils are equal and reactive. Extraocular movements are intact. NECK: Supple. No JVD. No thyromegaly. No submental, submandibular, pre- /postauricular, occipital or supraclavicular lymphadenopathy. CHEST: Normal chest expansion. No Telemetry. LUNGS: Absence of any rales, rhonchi or any wheezing. CARDIOVASCULAR: Regular. S1 and S2 normal. No appreciable rubs, murmurs or gallops. ABDOMEN: Soft, nontender, and nondistended. There is no rebound, voluntary guarding, or rigidity. : Deferred. No Harden. EXTREMITIES: Patient has erythema on the posterior aspect of the leg involving the knee. He has redness traveling down to the leg to the foot. He has swelling noted. Area is tender to palpation. Additionally he has a ulcer noted in the 1st toe of the right foot. He has blackish discoloration with possible eschar noted SKIN: No skin breakdown. Vital Signs (last 8hr) Date Time Temp Pulse Resp B/P (MAP) Pulse Ox O2 Delivery O2 Flow Rate FiO2 07/13/24 16:00 98.1 68 19 122/72 95 Room Air 21 07/13/24 12:00 98.2 68 20 132/76 95 Room Air 21 LABS: Laboratory: Test 07/13/24 15:10 07/12/24 14:09 07/12/24 07:15 Range/Units Whole Blood Glucose 152 H 70-110 MG/DL Vancomycin Level Trough 13.1 10.0-20.0 UG/ML White Blood Count 10.2 4.8-10.8 K/uL Red Blood Count 5.22 4.50-6.20 MIL/uL Hemoglobin 13.3 L 14.0-18.0 g/dL Hematocrit 39.0 L 42-54 % Mean Corpuscular Volume 74.7 L 79-99 fL Mean Corpuscular Hemoglobin 25.5 L 27.0-33.0 pg Mean Corpuscular Hemoglobin Concent 34.1 32.0-36.0 g/dL Red Cell Distribution Width 13.4 11.0-15.5 % Platelet Count 231 130-400 K/uL Mean Platelet Volume 10.4 7.5-10.5 fL Nucleated Red Blood Cells 0.0 0.0-0.19 % Sodium Level 137 136-145 mmol/L Potassium Level 3.3 L 3.5-5.1 mmol/L Chloride Level 104 101-111 mmol/L Carbon Dioxide Level 27 21-32 mmol/L Blood Urea Nitrogen 5 L 7-18 mg/dL Creatinine 0.6 0.5-1.3 mg/dL Glomerular Filtration Rate Calc 140 >90 mL/min Random Glucose 137 H 70-105 mg/dL Total Calcium 8.4 L 8.5-10.1 mg/dL Current Medications Medications (Trade) Dose Ordered Sig/Morales Route PRN Reason Start Time Stop Time Status Last Admin Dose Admin Acetaminophen (TYLenol 325MG TAB) 650 mg Q6H PRN PO MILD PAIN (1-3) 07/06/24 13:30 08/05/24 13:29 07/07/24 14:01 650 MG Acetaminophen/ Hydrocodone Bitart (NORco 5/325MG) 1 tab Q6H PRN PO MODERATE PAIN (4-6) 07/06/24 13:30 07/11/24 13:29 DC 07/10/24 19:19 1 TAB Alteplase, Recombinant (CathFLO 2MG VIAL) 1 mg ONCE IVCATH 07/12/24 13:30 08/11/24 13:29 07/12/24 18:20 1 MG Cefepime HCl (MAXipime 1 GM vial) 1 gm Q8H IVPB 07/12/24 12:00 07/22/24 11:59 07/13/24 11:57 1 GM Dextrose (D50w) 50 ml AD PRN IV HYPOGLYCEMIA PROTOCOL 07/05/24 15:00 08/04/24 14:59 Enoxaparin Sodium (Lovenox) 30 mg DAILY SQ 07/06/24 09:00 08/05/24 08:59 07/13/24 08:38 30 MG Famotidine (Pepcid 20mg Vial) 20 mg BID IV 07/05/24 21:00 08/04/24 20:59 07/13/24 08:37 20 MG Glucagon (Glucagon 1mg Kit) 1 mg AD PRN IM HYPOGLYCEMIA PROTOCOL 07/05/24 15:00 08/04/24 14:59 Insulin Glargine (LANtus 100 UNITS/ML 10 ML VIAL) 15 units DAILY 07/05/24 15:00 07/07/24 22:00 DC 07/07/24 08:47 15 UNITS Insulin Glargine (LANtus 100 UNITS/ML 10 ML VIAL) 40 units DAILY07 07/08/24 07:00 07/08/24 21:03 DC 07/08/24 07:54 40 UNITS Insulin Glargine (LANtus 100 UNITS/ML 10 ML VIAL) 50 units DAILY07 07/13/24 07:00 08/12/24 06:59 Insulin Glargine (LANtus 100 UNITS/ML 10 ML VIAL) 60 units DAILY07 07/09/24 07:00 07/13/24 06:18 DC 07/13/24 06:17 60 UNITS Insulin Human Regular (humuLIN R 100 UNIT/ML 3ML) 10 unit TIDAC 07/06/24 07:30 07/07/24 22:00 DC 07/07/24 17:19 10 UNIT Insulin Human Regular (humuLIN R 100 UNIT/ML 3ML) 10 unit TIDAC 07/13/24 07:30 08/12/24 07:29 07/13/24 17:45 10 UNIT Insulin Human Regular (humuLIN R 100 UNIT/ML 3ML) 16 unit TIDAC 07/08/24 07:30 07/08/24 21:03 DC 07/08/24 17:33 16 UNIT Insulin Human Regular (humuLIN R 100 UNIT/ML 3ML) 22 unit TIDAC SQ 07/09/24 07:30 07/09/24 21:14 DC 07/09/24 17:44 22 UNIT Insulin Human Regular (humuLIN R 100 UNIT/ML 3ML) 25 unit TIDAC 07/10/24 07:30 07/13/24 06:18 DC 07/10/24 19:13 25 UNIT Insulin Human Regular (humuLIN R 100 UNIT/ML 3ML) INSULIN SLIDING SCAL... ACHS 07/06/24 07:30 08/05/24 07:29 07/12/24 20:49 6 UNIT Insulin Human Regular (humuLIN R 100 UNIT/ML 3ML) INSULIN SLIDING SCAL... Q6H6 SQ 07/05/24 18:00 07/05/24 21:19 DC 07/05/24 17:43 8 UNIT Ketorolac Tromethamine (toRADol) 15 mg Q6H PRN IV MODERATE PAIN (4-6) 07/05/24 17:00 07/07/24 06:16 DC 07/05/24 21:03 15 MG Leptospermum Honey (Medihoney) 1 APPLICATION DAILY TP 07/07/24 09:00 08/06/24 08:59 07/13/24 08:39 1 APPL Magnesium Sulfate 50 ml @ 0 mls/hr PROTOCOL PRN IV low magnesium 07/07/24 10:00 08/06/24 09:59 07/07/24 10:57 1.7 MLS/HR Morphine Sulfate (morPHINE 2MG SYG) 2 mg Q6H PRN IVP SEVERE PAIN (7-10) 07/05/24 17:00 07/10/24 19:59 DC Piperacillin Sod/ Tazobactam Sod (Zosyn 3.375gm+NS 50ml) 3.375 gm Q8H IV 07/11/24 00:00 07/12/24 11:46 DC 07/12/24 08:51 3.375 GM Piperacillin Sod/ Tazobactam Sod (Zosyn 3.375gm+NS 50ml) 3.375 gm Q8H IVPB 07/05/24 14:30 07/10/24 03:41 DC 07/10/24 00:09 3.375 GM Piperacillin Sod/ Tazobactam Sod (Zosyn 3.375gm+NS 50ml) 3.375 gm Q8H IVPB 07/10/24 08:00 07/10/24 09:45 DC Potassium Chloride 100 ml @ 100 mls/hr AD PRN IV POTASSIUM PROTOCOL 07/07/24 10:00 08/06/24 09:59 Potassium Chloride (K-Dur/Klor-Con 20meq) 20 meq AD PRN PO POTASSIUM PROTOCOL 07/07/24 10:00 08/06/24 09:59 07/08/24 11:53 20 MEQ Potassium Chloride (KCl 10% Elixir 20meq/15ml) 20 meq AD PRN PO POTASSIUM PROTOCOL 07/07/24 10:00 08/06/24 09:59 Sodium Chloride 1,000 ml @ 100 mls/hr Q10H IV 07/05/24 14:30 07/11/24 03:05 DC 07/09/24 15:24 100 MLS/HR Sodium Chloride (NS 50ml) 50 ml AD IV 07/05/24 18:00 07/06/24 13:20 DC Vancomycin HCl 250 ml @ 125 mls/hr Q6H IV 07/10/24 21:00 07/20/24 20:59 07/13/24 17:42 125 MLS/HR Vancomycin HCl 250 ml @ 125 mls/hr Q8H IV 07/07/24 13:00 07/09/24 12:53 DC 07/09/24 04:38 125 MLS/HR Vancomycin HCl 250 ml @ 125 mls/hr Q8H IV 07/09/24 21:00 07/10/24 09:45 DC 07/09/24 21:43 125 MLS/HR Vancomycin HCl 250 ml @ 167 mls/hr Q12H IV 07/06/24 01:00 07/07/24 12:31 DC 07/07/24 01:11 167 MLS/HR Vancomycin HCl (Vancomycin Protocol) 1 each AD IV 07/05/24 14:30 07/10/24 20:22 DC Vancomycin HCl (Vancomycin Protocol) 1 each AD IV 07/10/24 21:00 07/24/24 20:59 DIAGNOSTICS / RADIOLOGY: [ ] ASSESSMENT: Right Leg cellulitis, improving POA Hyperglycemia secondary to uncontrolled diabetes mellitus type 2 last A1C 15.5, POA Foot ulcer of the 1st toe of the right foot, MRSA and Enterofaecalis, POA Hyponatremia secondary to hyperglycemia Dehydration, resolved Obesity BMI 53.1 PLAN: - patient to be admitted to medical-surgical unit - Continue vancomycin and Zosyn. - Podiatry consulted, appreciate recommendations - bone scan ordered, we will follow up - Continue patient on [id number] units daily. Patient will be started on sliding scale insulin. Check A1c. - Continue hypoglycemia protocol - endocrinology consulted, appreciate recommendations Disposition: [facility]ending [facility] for discharge MARICARMEN MCDANIELS MD July 13, 2024 18:33
[2024-07-13] MEDS: VANCOMYCIN 1G/250ML KIT 250 ML IV SCH (23:25)
[2024-07-14] VITALS (9 sets, daily range): BP systolic 100–143; BP diastolic 53–88; PULSE 60–86; RESP 18–20; TEMP 98.1–98.7; O2SAT 95–97
--- NOTE | 2024-07-14 06:57 | PN ---
SUBJECTIVE: The patient is a very pleasant 24-year-old diabetic male who is followed up for bilateral great toe plantar ulcers. Bone scan negative for osteomyelitis, pending discharge, pending authorization of his IV antibiotic therapy as an outpatient with [facility]. His cultures have grown back Enterococcus faecalis and methicillin-resistant Staph aureus. He is receiving vancomycin and cefepime. BUN and creatinine level is within normal limits. The patient is ambulating with surgical shoes, receiving Medihoney dressings to his great toe ulcers. REVIEW OF SYSTEMS: CONSTITUTIONAL: No chills, no fevers, no night sweats. No nausea, vomiting. No diarrhea. HEENT: No problems with eyes, ears, nose or throat. CARDIOVASCULAR: He has no chest pain. He has abnormal arterial Doppler studies but strongly palpable pedal pulses to his feet. GENITOURINARY: No dysuria. GASTROINTESTINAL: No dysphagia. ENDOCRINE: Diabetes, uncontrolled, being followed by Endocrinology. PSYCHIATRIC: Denied depression. MUSCULOSKELETAL: Bunions and hammertoes deformities. He has morbid obesity. INTEGUMENTARY: He has ulcers to the plantar aspect of both great toes. MRIs could not be done. Bone scan was negative for osteomyelitis. He is being followed for ulcer to the right great toe and ulcer to the left great toe, receiving Medihoney dressings. OBJECTIVE: On examination today, he has ulcers to the great toes plantarly, right 3 x 5 x 1 mm, on the left, 3 x 3 x 3 mm. They are clean. They are granular. There are no signs of infection. ASSESSMENT: The patient is a 24-year-old male with morbid obesity, BMI of 55, uncontrolled diabetes, ulcer in the plantar aspect of both great toes, improving. Bone scan negative for osteomyelitis. The patient's cultures are growing Enterococcus faecalis and MRSA, receiving vancomycin and cefepime per Infectious Disease. The patient is awaiting authorization for IV antibiotics to [facility] as an outpatient. PLAN: We will continue Medihoney dressings, offloading measures with surgical shoes. Continue to follow the patient closely while in-house. TID: [id number] RECEIPT: [id number]
--- NOTE | 2024-07-14 10:08 | PN ---
[facility] PROGRESS NOTE Date of Service: July 14, 2024 Time of Service: 10:07 SUBJECTIVE: 07/06 patient seen at bedside, no acute events overnight. He has been afebrile, hemodynamically stable saturating well on room air. His only complaint is pain when he is ambulating, his right lower extremity proximal to the knee joint on the medial aspect has erythema induration, no fluctuance noted and is tender to palpation. There is no crepitus noted. Outlined the margins of the lesion and we will continue with broad-spectrum antibiotics. WBC improved from 13.9 down to 12.9, blood sugars still quite elevated, diabetic medications have been adju sted by overlock sleeve setter, appreciate their assistance. A1c pending, we will follow up. Podiatry recommendations regarding diabetic foot ulcer on the 1st great toe are still pending. 07/07 patient seen at bedside, no acute events overnight. He has been afebrile, hemodynamically stable saturating well on room air. Area of cellulitis appears to be improved in color and swelling is diminished. Foot x-ray showing possible retained foreign body. Podiatry recommending a bone scan has MRI is contraindicated with foreign body, to assess for osteomyelitis. We will follow up with Endocrinology recommendations. 07/08 bone scan pending today, we will follow up postprocedure. Wound cultures are still pending, we will continue to follow. Patient has cellulitis in his right medial thigh continues to improve, swelling and erythema have retracted significantly. Labs are relatively unremarkable. Insulin adjusted by endocrinology, appreciate recommendations. 07/09 patient seen at bedside, no acute events overnight. Sensitivities are growing out Enterococcus and MRSA, infectious disease consulted for this discharge antibiotics. Patient counseled extensively on the importance of glycemic control. 07/10 infectious Disease recommending PICC line with follow up at [facility] for outpatient IV antibiotics. Once this is completed patient will be good candidate for discharge 5/ patient seen at bedside, no acute events overnight. PICC line has been successfully placed, still pending acceptance to [facility]. Once he was acc eptance will be good candidate for discharge. 5/ patient seen at bedside, no acute events overnight. Still pending acceptance to [facility]. Once he was acceptance will be good candidate for discharge. 07/13 patient seen at bedside, no acute events overnight. Still pending acceptance to [facility]. Once he was acceptance will be good candidate for discharge. 07/14 patient seen at bedside, no acute events overnight. Pending outpatient arrangements at [facility]. REVIEW OF SYSTEMS 12 point review of systems negative unless noted in HPI PHYSICAL EXAM GENERAL APPEARANCE: The patient is awake, alert, and oriented, in no acute cardiopulmonary distress. Patient is obese NEUROLOGICAL: Cranial nerves II-XII grossly intact. Motor is 5/5 in bilateral upper and lower extremities proximal to distal. No sensory deficits. HEENT: Face is symmetric. Pupils are equal and reactive. Extraocular movements are intact. NECK: Supple. No JVD. No thyromegaly. No submental, submandibular, pre- /postauricular, occipital or supraclavicular lymphadenopathy. CHEST: Normal chest expansion. No Telemetry. LUNGS: Absence of any rales, rhonchi or any wheezing. CARDIOVASCULAR: Regular. S1 and S2 normal. No appreciable rubs, murmurs or gallops. ABDOMEN: Soft, nontender, and nondistended. There is no rebound, voluntary guarding, or rigidity. : Deferred. No Harden. EXTREMITIES: Patient has erythema on the posterior aspect of the leg involving the knee. He has redness traveling down to the leg to the foot. He has swel ling noted. Area is tender to palpation. Additionally he has a ulcer noted in the 1st toe of the right foot. He has blackish discoloration with possible eschar noted SKIN: No skin breakdown. Vital Signs (last 8hr) Date Time Temp Pulse Resp B/P (MAP) Pulse Ox O2 Delivery O2 Flow Rate FiO2 07/14/24 07:39 98.4 81 18 104/66 95 Room Air 07/14/24 05:13 98.4 81 18 129/88 94 Room Air LABS: Laboratory: Test 07/14/24 05:25 07/12/24 14:09 Range/Units Whole Blood Glucose 216 H 70-110 MG/DL Vancomycin Level Trough 13.1 10.0-20.0 UG/ML Current Medications Medications (Trade) Dose Ordered Sig/Morales Route PRN Reason Start Time Stop Time Status Last Admin Dose Admin Acetaminophen (TYLenol 325MG TAB) 650 mg Q6H PRN PO MILD PAIN (1-3) 07/06/24 13:30 08/05/24 13:29 07/07/24 14:01 650 MG Acetaminophen/ Hydrocodone Bitart (NORco 5/325MG) 1 tab Q6H PRN PO MODERATE PAIN (4-6) 07/06/24 13:30 07/11/24 13:29 DC 07/10/24 19:19 1 TAB Alteplase, Recombinant (CathFLO 2MG VIAL) 1 mg ONCE IVCATH 07/12/24 13:30 07/13/24 19:09 DC 07/12/24 18:20 1 MG Cefepime HCl (MAXipime 1 GM vial) 1 gm Q8H IVPB 07/12/24 12:00 07/22/24 11:59 07/14/24 04:55 1 GM Dextrose (D50w) 50 ml AD PRN IV HYPOGLYCEMIA PROTOCOL 07/05/24 15:00 08/04/24 14:59 Enoxaparin Sodium (Lovenox) 30 mg DAILY SQ 07/06/24 09:00 08/05/24 08:59 07/13/24 08:38 30 MG Famotidine (Pepcid 20mg Vial) 20 mg BID IV 07/05/24 21:00 08/04/24 20:59 07/13/24 20:57 20 MG Glucagon (Glucagon 1mg Kit) 1 mg AD PRN IM HYPOGLYCEMIA PROTOCOL 07/05/24 15:00 08/04/24 14:59 Insulin Glargine (LANtus 100 UNITS/ML 10 ML VIAL) 15 units DAILY SQ 07/05/24 15:00 07/07/24 22:00 DC 07/07/24 08:47 15 UNITS Insulin Glargine (LANtus 100 UNITS/ML 10 ML VIAL) 40 units DAILY07 SQ 07/08/24 07:00 07/08/24 21:03 DC 07/08/24 07:54 40 UNITS Insulin Glargine (LANtus 100 UNITS/ML 10 ML VIAL) 50 units DAILY07 SQ 07/13/24 07:00 08/12/24 06:59 07/14/24 06:09 50 UNITS Insulin Glargine (LANtus 100 UNITS/ML 10 ML VIAL) 60 units DAILY07 SQ 07/09/24 07:00 07/13/24 06:18 DC 07/13/24 06:17 60 UNITS Insulin Human Regular (humuLIN R 100 UNIT/ML 3ML) 10 unit TIDAC SQ 07/06/24 07:30 07/07/24 22:00 DC 07/07/24 17:19 10 UNIT Insulin Human Regular (humuLIN R 100 UNIT/ML 3ML) 10 unit TIDAC SQ 07/13/24 07:30 08/12/24 07:29 07/14/24 06:11 10 UNIT Insulin Human Regular (humuLIN R 100 UNIT/ML 3ML) 16 unit TIDAC SQ 07/08/24 07:30 07/08/24 21:03 DC 07/08/24 17:33 16 UNIT Insulin Human Regular (humuLIN R 100 UNIT/ML 3ML) 22 unit TIDAC SQ 07/09/24 07:30 07/09/24 21:14 DC 07/09/24 17:44 22 UNIT Insulin Human Regular (humuLIN R 100 UNIT/ML 3ML) 25 unit TIDAC SQ 07/10/24 07:30 07/13/24 06:18 DC 07/10/24 19:13 25 UNIT Insulin Human Regular (humuLIN R 100 UNIT/ML 3ML) INSULIN SLIDING SCAL... ACHS SQ 07/06/24 07:30 08/05/24 07:29 07/14/24 06:10 4 UNIT Insulin Human Regular (humuLIN R 100 UNIT/ML 3ML) INSULIN SLIDING SCAL... Q6H6 SQ 07/05/24 18:00 07/05/24 21:19 DC 07/05/24 17:43 8 UNIT Ketorolac Tromethamine (toRADol) 15 mg Q6H PRN IV MODERATE PAIN (4-6) 07/05/24 17:00 07/07/24 06:16 DC 07/05/24 21:03 15 MG Leptospermum Honey (Medihoney) 1 APPLICATION DAILY TP 07/07/24 09:00 08/06/24 08:59 07/13/24 08:39 1 APPL Magnesium Sulfate 50 ml @ 0 mls/hr PROTOCOL PRN IV low magnesium 07/07/24 10:00 08/06/24 09:59 07/07/24 10:57 1.7 MLS/HR Morphine Sulfate (morPHINE 2MG SYG) 2 mg Q6H PRN IVP SEVERE PAIN (7-10) 07/05/24 17:00 07/10/24 19:59 DC Piperacillin Sod/ Tazobactam Sod (Zosyn 3.375gm+NS 50ml) 3.375 gm Q8H IV 07/11/24 00:00 07/12/24 11:46 DC 07/12/24 08:51 3.375 GM Piperacillin Sod/ Tazobactam Sod (Zosyn 3.375gm+NS 50ml) 3.375 gm Q8H IVPB 07/05/24 14:30 07/10/24 03:41 DC 07/10/24 00:09 3.375 GM Piperacillin Sod/ Tazobactam Sod (Zosyn 3.375gm+NS 50ml) 3.375 gm Q8H IVPB 07/10/24 08:00 07/10/24 09:45 DC Potassium Chloride 100 ml @ 100 mls/hr AD PRN IV POTASSIUM PROTOCOL 07/07/24 10:00 08/06/24 09:59 Potassium Chloride (K-Dur/Klor-Con 20meq) 20 meq AD PRN PO POTASSIUM PROTOCOL 07/07/24 10:00 08/06/24 09:59 07/08/24 11:53 20 MEQ Potassium Chloride (KCl 10% Elixir 20meq/15ml) 20 meq AD PRN PO POTASSIUM PROTOCOL 07/07/24 10:00 08/06/24 09:59 Sodium Chloride 1,000 ml @ 100 mls/hr Q10H IV 07/05/24 14:30 07/11/24 03:05 DC 07/09/24 15:24 100 MLS/HR Sodium Chloride (NS 50ml) 50 ml AD IV 07/05/24 18:00 07/06/24 13:20 DC Vancomycin HCl 250 ml @ 125 mls/hr Q6H IV 07/10/24 21:00 07/13/24 21:00 DC 07/13/24 17:42 125 MLS/HR Vancomycin HCl 250 ml @ 125 mls/hr Q6H IV 07/14/24 00:00 07/24/24 00:00 07/14/24 04:58 125 MLS/HR Vancomycin HCl 250 ml @ 125 mls/hr Q8H IV 07/07/24 13:00 07/09/24 12:53 DC 07/09/24 04:38 125 MLS/HR Vancomycin HCl 250 ml @ 125 mls/hr Q8H IV 07/09/24 21:00 07/10/24 09:45 DC 07/09/24 21:43 125 MLS/HR Vancomycin HCl 250 ml @ 167 mls/hr Q12H IV 07/06/24 01:00 07/07/24 12:31 DC 07/07/24 01:11 167 MLS/HR Vancomycin HCl (Vancomycin Protocol) 1 each AD IV 07/05/24 14:30 07/10/24 20:22 DC Vancomycin HCl (Vancomycin Protocol) 1 each AD IV 07/10/24 21:00 07/24/24 20:59 DIAGNOSTICS / RADIOLOGY: [ ] ASSESSMENT: Right Leg cellulitis, improving POA Hyperglycemia secondary to uncontrolled diabetes mellitus type 2 last A1C 15.5, POA Foot ulcer of the 1st toe of the right foot, MRSA and Enterofaecalis, POA Hyponatremia secondary to hyperglycemia Dehydration, resolved Obesity BMI 53.1 PLAN: - patient to be admitted to medical-surgical unit - Continue vancomycin and Zosyn. - Podiatry consulted, appreciate recommendations - bone scan ordered, we will follow up - Continue patient on [id number] units daily. Patient will be started on sliding scale insulin. Check A1c. - Continue hypoglycemia protocol - endocrinology consulted, appreciate recommendations Disposition: Pending [facility] acceptance for discharge FANNIE RAMÍREZ MD July 14, 2024 10:08
[2024-07-14 11:30] LABS: HEMATOCRIT 38.2 % (42-54); MEAN CORPUSCULAR HEMOGLOBIN 25.3 pg (27.0-33.0); MEAN CORPUSCULAR VOLUME 74.3 fL (79-99); RED BLOOD CELL COUNT(AUTO) 5.14 MIL/uL (4.50-6.20); RED CELL DISTRIBUTION WIDTH 13.2 % (11.0-15.5); WHITE BLOOD COUNT (AUTO) 9.3 K/uL (4.8-10.8)
[2024-07-14 11:41] LABS: ALBUMIN 2.4 g/dL (3.5-5.0); BILIRUBIN,TOTAL 0.4 mg/dL (0.2-1.0); CREATININE 0.7 mg/dL (0.5-1.3); MAGNESIUM 1.8 mg/dL (1.80-2.40); TOTAL PROTEIN, SERUM 6.8 g/dL (6.0-8.3)
[2024-07-14 11:44] LABS: POTASSIUM 2.7 mmol/L (3.5-5.1)
[2024-07-14] MEDS: PoTASSium chloRIDE 20MEQ/100ML 100 ML IV PRN (11:59)
--- NOTE | 2024-07-14 12:48 | PN ---
endocrinology Date of Service: 07/14/2024 subjective: glucose are improving patient used to inject lantus and humalog but not injecting for many months. he does not check glucose at home. hba1c>15.0% right foot wound is positive for MRSA and Enterofaecalis, PAST MEDICAL HISTORY: History of foot ulcer in the 1st toe of the right foot PAST SURGICAL HISTORY: Denied any previous surgical history PAST SOCIAL HISTORY: Denied any smoking, alcohol, drug use FAMILY HISTORY: Denied any pertinent family history Coded Allergies: No Known Drug Allergies (Unverified Allergy, Unknown, 10/08/18) ASSESSMENT: Hyperglycemia secondary to uncontrolled diabetes mellitus type POA patient used to inject lantus and humalog but not injecting for many months. he does not check glucose at home. hba1c>15.0% talia-65 abs are negative, so likely type 2 dm. Right Leg cellulitis POA MRSA and Enterofaecalis, ID following Foot ulcer of the 1st toe of the right foot POA Hyponatremia secondary to hyperglycemia Dehydration Obesity BMI 53.1 PLAN: continue lantus 50 units daily continue regular insulin 10 units tid before meals continue medium dose insulin ssi monitor glucose qx6 hourly patient will need insulin at discharge Vitals/Labs Vital Signs Date Time Temp Pulse Resp B/P (MAP) Pulse Ox O2 Delivery O2 Flow Rate FiO2 07/14/24 11:26 98.4 85 18 143/66 94 Room Air 07/13/24 21:00 0 21 Laboratory Tests 07/14/24 11:18 Medications Current Medications Ketorolac Tromethamine 15 mg ONCE ONCE IM Last administered on 07/05/24at 13:56; Start 07/05/24 at 11:00; Stop 07/05/24 at 11:03; Status DC Vancomycin HCl 1 gm ONCE ONCE IV Last administered on 07/05/24at 14:15; Start 07/05/24 at 13:00; Stop 07/05/24 at 13:01; Status DC Ceftriaxone Sodium 2 gm ONCE ONCE IVPB Last administered on 07/05/24at 13:55; Start 07/05/24 at 12:30; Stop 07/05/24 at 12:31; Status DC Sodium Chloride 1,000 ml @ 0 mls/hr ONCE ONCE IV Last administered on 07/05/24at 13:48; Start 07/05/24 at 12:30; Stop 07/05/24 at 12:31; Status DC Insulin Human Regular 5 unit ONCE ONCE IV Last administered on 07/05/24at 14:01; Start 07/05/24 at 12:30; Stop 07/05/24 at 12:31; Status DC Famotidine 20 mg BID IV Last administered on 07/14/24at 11:10; Start 07/05/24 at 21:00; Stop 08/04/24 at 20:59 Vancomycin HCl 1 each AD IV; Start 07/05/24 at 14:30; Stop 07/10/24 at 20:22; Status DC Piperacillin Sod/ Tazobactam Sod 3.375 gm Q8H IVPB Last administered on 07/10/24at 00:09; Start 07/05/24 at 14:30; Stop 07/10/24 at 03:41; Status DC Sodium Chloride 50 ml AD IV; Start 07/05/24 at 18:00; Stop 07/06/24 at 13:20; Status DC Insulin Human Regular INSULIN SLIDING SCAL... Q6H6 SQ Last administered on 07/05/24at 17:43; Start 07/05/24 at 18:00; Stop 07/05/24 at 21:19; Status DC Sodium Chloride 1,000 ml @ 100 mls/hr Q10H IV Last administered on 07/09/24at 15:24; Start 07/05/24 at 14:30; Stop 07/11/24 at 03:05; Status DC Insulin Glargine 15 units DAILY SQ Last administered on 07/07/24at 08:47; Start 07/05/24 at 15:00; Stop 07/07/24 at 22:00; Status DC Dextrose 50 ml AD PRN IV; Start 07/05/24 at 15:00; Stop 08/04/24 at 14:59 Glucagon 1 mg AD PRN IM; Start 07/05/24 at 15:00; Stop 08/04/24 at 14:59 Vancomycin HCl 250 ml @ 250 mls/hr ONCE ONCE IV Last administered on 07/05/24at 15:11; Start 07/05/24 at 15:00; Stop 07/05/24 at 15:59; Status DC Vancomycin HCl 250 ml @ 167 mls/hr Q12H IV Last administered on 07/07/24at 01:11; Start 07/06/24 at 01:00; Stop 07/07/24 at 12:31; Status DC Iohexol 75 ml STK-MED ONCE IV; Start 07/05/24 at 15:20; Stop 07/05/24 at 15:21; Status DC Ketorolac Tromethamine 15 mg Q6H PRN IV Last administered on 07/05/24at 21:03; Start 07/05/24 at 17:00; Stop 07/07/24 at 06:16; Status DC Morphine Sulfate 2 mg Q6H PRN IVP; Start 07/05/24 at 17:00; Stop 07/10/24 at 19:59; Status DC Insulin Human Regular 10 unit TIDAC SQ Last administered on 07/07/24at 17:19; Start 07/06/24 at 07:30; Stop 07/07/24 at 22:00; Status DC Insulin Human Regular INSULIN SLIDING SCAL... ACHS SQ Last administered on 07/14/24at 06:10; Start 07/06/24 at 07:30; Stop 08/05/24 at 07:29 Enoxaparin Sodium 30 mg DAILY SQ Last administered on 07/14/24at 11:10; Start 07/06/24 at 09:00; Stop 08/05/24 at 08:59 Acetaminophen 650 mg Q6H PRN PO Last administered on 07/07/24at 14:01; Start 07/06/24 at 13:30; Stop 08/05/24 at 13:29 Acetaminophen/ Hydrocodone Bitart 1 tab Q6H PRN PO Last administered on 07/10/24at 19:19; Start 07/06/24 at 13:30; Stop 07/11/24 at 13:29; Status DC Leptospermum Honey 1 APPLICATION DAILY TP Last administered on 07/14/24at 11:10; Start 07/07/24 at 09:00; Stop 08/06/24 at 08:59 Potassium Chloride 100 ml @ 100 mls/hr AD PRN IV Last administered on 07/14/24at 11:59; Start 07/07/24 at 10:00; Stop 08/06/24 at 09:59 Potassium Chloride 20 meq AD PRN PO; Start 07/07/24 at 10:00; Stop 08/06/24 at 09:59 Potassium Chloride 20 meq AD PRN PO Last administered on 07/14/24at 11:59; Start 07/07/24 at 10:00; Stop 08/06/24 at 09:59 Magnesium Sulfate 50 ml @ 0 mls/hr PROTOCOL PRN IV Last administered on 07/07/24at 10:57; Start 07/07/24 at 10:00; Stop 08/06/24 at 09:59 Vancomycin HCl 250 ml @ 125 mls/hr Q8H IV Last administered on 07/09/24at 04:38; Start 07/07/24 at 13:00; Stop 07/09/24 at 12:53; Status DC Insulin Glargine 40 units DAILY07 SQ Last administered on 07/08/24at 07:54; Start 07/08/24 at 07:00; Stop 07/08/24 at 21:03; Status DC Insulin Human Regular 16 unit TIDAC SQ Last administered on 07/08/24at 17:33; Start 07/08/24 at 07:30; Stop 07/08/24 at 21:03; Status DC Insulin Glargine 60 units DAILY07 SQ Last administered on 07/13/24at 06:17; Start 07/09/24 at 07:00; Stop 07/13/24 at 06:18; Status DC Insulin Human Regular 22 unit TIDAC SQ Last administered on 07/09/24at 17:44; Start 07/09/24 at 07:30; Stop 07/09/24 at 21:14; Status DC Vancomycin HCl 250 ml @ 125 mls/hr Q8H IV Last administered on 07/09/24at 21:43; Start 07/09/24 at 21:00; Stop 07/10/24 at 09:45; Status DC Vancomycin HCl 500 ml @ 250 mls/hr ONCE ONCE IV Last administered on 07/09/24at 15:24; Start 07/09/24 at 13:00; Stop 07/09/24 at 14:59; Status DC Insulin Human Regular 25 unit TIDAC SQ Last administered on 07/10/24at 19:13; Start 07/10/24 at 07:30; Stop 07/13/24 at 06:18; Status DC Piperacillin Sod/ Tazobactam Sod 3.375 gm Q8H IVPB; Start 07/10/24 at 08:00; Stop 07/10/24 at 09:45; Status DC Vancomycin HCl 1 each AD IV; Start 07/10/24 at 21:00; Stop 07/24/24 at 20:59 Vancomycin HCl 250 ml @ 125 mls/hr Q6H IV Last administered on 07/13/24at 17:42; Start 07/10/24 at 21:00; Stop 07/13/24 at 21:00; Status DC Piperacillin Sod/ Tazobactam Sod 3.375 gm Q8H IV Last administered on 07/12/24at 08:51; Start 07/11/24 at 00:00; Stop 07/12/24 at 11:46; Status DC Cefepime HCl 1 gm Q8H IVPB Last administered on 07/14/24at 04:55; Start 07/12/24 at 12:00; Stop 07/22/24 at 11:59 Alteplase, Recombinant 1 mg ONCE IVCATH Last administered on 07/12/24at 18:20; Start 07/12/24 at 13:30; Stop 07/13/24 at 19:09; Status DC Insulin Glargine 50 units DAILY07 SQ Last administered on 07/14/24at 06:09; Start 07/13/24 at 07:00; Stop 08/12/24 at 06:59 Insulin Human Regular 10 unit TIDAC SQ Last administered on 07/14/24at 12:02; Start 07/13/24 at 07:30; Stop 08/12/24 at 07:29 Vancomycin HCl 250 ml @ 125 mls/hr Q6H IV Last administered on 07/14/24at 12:22; Start 07/14/24 at 00:00; Stop 07/24/24 at 00:00 JOSE CASTILLO MD July 14, 2024 12:48
[2024-07-14] MEDS: PoTASSium chloRIDE 20MEQ/100ML 100 ML IV ONE (13:11)
[2024-07-14] MEDS: PoTASSium chloRIDE 20MEQ ER 20 MEQ ERTAB PO ONE (13:48)
[2024-07-14 17:40] LABS: POTASSIUM 3.3 mmol/L (3.5-5.1)
--- NOTE | 2024-07-14 18:46 | NUR ---
DCP Pt to follow up with PCP for referral to [facility].
[2024-07-14] MEDS: VANCOMYCIN 750MG VIAL IVPB SCH (20:45)
[2024-07-14] MEDS: 0.9% NACL 250ML 250 ML IV SCH (20:46)
[2024-07-14] MEDS ORDERED: VANCOMYCIN 1.75 GM/250 ML BAG 250 ML IV SCH (22:00)
--- NOTE | 2024-07-14 22:53 | PN ---
INFECTIOUS DISEASE PROGRESS NOTE Date of Service: July 14, 2024 SUBJECTIVE: This is a 23 year old male patient who was seen and examined at bedside in room 328. Patient is awake, alert and oriented x 3. Patient still pending approval to [facility] for outpatient IV antibiotics for 4 weeks. Per report patient will possibly be discharged later today for him to follow up with his PCP for referral to [facility]. No fever, temperature is 98.9� and a WBC of 9.3. Low potassium level of 2.7 being replaced. Continues on cefepime and vancomycin. PHYSICAL EXAM EYES: Anicteric. Pupils equal and reactive. HENT: No oral thrush seen, moist Oral mucosa. NECK: Supple, no JVD or thyromegaly. LUNGS: Good air entry. No rales, no rhonchi. CARDIOVASCULAR: S1, S2 regular. No murmur heard. ABDOMEN: Soft, non tender, bowel sounds present, no organomegaly. CENTRAL NERVOUS SYSTEM: Awake, alert, oriented x 3. SKIN: No rashes, no swelling. LYMPHATICS: No peripheral lymphadenopathy MUSCULOSKELETAL: No joint swelling, erythema or tenderness. EXTREMITIES: Right great toe diabetic ulcer with abscess. Left great toe callus. Right inner thigh abscess. BACK: No deformity, no pressure ulcer. GENITOURINARY: No dysuria or hematuria. Vital Sign (Last 12 Hours) 07/14/24 07/14/24 07/14/24 11:26 16:25 20:00 Temp 98.4 98.8 98.1 Pulse 85 86 60 Resp 18 19 19 B/P (MAP) 143/66 100/53 122/81 Pulse Ox 94 95 97 O2 Delivery Room Air Room Air Room Air Intake & Output (last 24hrs) 07/13/24 07/13/24 07/14/24 15:00 23:00 07:00 Intake Total 1800 ml Balance 1800 ml LABS: Laboratory: Test 07/14/24 19:21 07/14/24 17:13 07/14/24 11:18 Range/Units Whole Blood Glucose 203 H 70-110 MG/DL Potassium Level 3.3 L 3.5-5.1 mmol/L Magnesium Level 2.00 1.80-2.40 mg/dL Vancomycin Level Trough 10.8 10.0-20.0 UG/ML White Blood Count 9.3 4.8-10.8 K/uL Red Blood Count 5.14 4.50-6.20 MIL/uL Hemoglobin 13.0 L 14.0-18.0 g/dL Hematocrit 38.2 L 42-54 % Mean Corpuscular Volume 74.3 L 79-99 fL Mean Corpuscular Hemoglobin 25.3 L 27.0-33.0 pg Mean Corpuscular Hemoglobin Concent 34.0 32.0-36.0 g/dL Red Cell Distribution Width 13.2 11.0-15.5 % Platelet Count 456 #H 130-400 K/uL Mean Platelet Volume 8.5 7.5-10.5 fL Nucleated Red Blood Cells 0.0 0.0-0.19 % Sodium Level 143 136-145 mmol/L Chloride Level 104 101-111 mmol/L Carbon Dioxide Level 29 21-32 mmol/L Blood Urea Nitrogen 5 L 7-18 mg/dL Creatinine 0.7 0.5-1.3 mg/dL Glomerular Filtration Rate Calc 133 >90 mL/min Random Glucose 155 H 70-105 mg/dL Total Calcium 8.2 L 8.5-10.1 mg/dL Total Bilirubin 0.4 0.2-1.0 mg/dL Aspartate Amino Transf (AST/SGOT) 15 10-37 U/L Alanine Aminotransferase (ALT/SGPT) 16 12-78 U/L Alkaline Phosphatase 64 50-136 U/L Total Protein 6.8 6.0-8.3 g/dL Albumin 2.4 L 3.5-5.0 g/dL ASSESSMENT: Right foot diabetic ulcer with abscess. Infection with methicillin-resistant Staphylococcus aureus. Right foot cellulitis, resolving. Leukocytosis, resolved. Poorly controlled Diabetes mellitus with hemoglobin A1c of 15.4. Morbid obesity. PLAN: Continue cefepime. Continue vancomycin per pharmacy protocol. Continue GI prophylaxis. Continue wound care. Continue antidiabetics. Patient is pending insurance approval to [facility] for outpatient IV antibiotics for 4 weeks. This case was reviewed and discussed with my supervising physician and the above assessment and plan was formulated and agreed upon. ATTESTATION BY PHYSICIAN I have seen and examined the patient. I reviewed the documentation, medical decision making, and treatment plan as noted by the mid-level provider above. I agree with the findings and plan of care. ALTON LEÓN MD, [facility] July 14, 2024 22:53
[2024-07-15] VITALS (10 sets, daily range): BP systolic 117–140; BP diastolic 82–98; PULSE 76–97; RESP 18–20; TEMP 98.1–98.5; O2SAT 95–98
[2024-07-15 03:10] LABS: HEMATOCRIT 38.5 % (42-54); MEAN CORPUSCULAR HEMOGLOBIN 25.5 pg (27.0-33.0); MEAN CORPUSCULAR VOLUME 74.9 fL (79-99); RED BLOOD CELL COUNT(AUTO) 5.14 MIL/uL (4.50-6.20); RED CELL DISTRIBUTION WIDTH 13.3 % (11.0-15.5); WHITE BLOOD COUNT (AUTO) 9.3 K/uL (4.8-10.8)
[2024-07-15 03:25] LABS: ALBUMIN 2.3 g/dL (3.5-5.0); BILIRUBIN,TOTAL 0.2 mg/dL (0.2-1.0); CREATININE 0.7 mg/dL (0.5-1.3); MAGNESIUM 2.4 mg/dL (1.80-2.40); POTASSIUM 3.3 mmol/L (3.5-5.1); TOTAL PROTEIN, SERUM 6.9 g/dL (6.0-8.3)
[2024-07-15] MEDS: VANCOMYCIN 1.75 GM/250 ML BAG 250 ML IV SCH (06:00)
--- NOTE | 2024-07-15 06:48 | PN ---
SUBJECTIVE: The patient is a very pleasant 24-year-old diabetic male. White count is within normal limits. Potassium 3.3. Results of his bone scan negative for osteomyelitis to his feet. The patient has been receiving Medihoney dressings to his bilateral great toe ulcers. He is being followed by Endocrinology. Hemoglobin A1c has been greater than 15. PICC line in place. Pending acceptance of [facility] for IV antibiotics. He is being followed for a BMI of greater than 55. REVIEW OF SYSTEMS: CONSTITUTIONAL: No chills, no fevers, no night sweats. GASTROINTESTINAL: No nausea or vomiting. No diarrhea. HEENT: No problems with eyes, ears, nose or throat. CARDIOVASCULAR: Having no current chest pain. He has had abnormal arterial Doppler studies but strongly palpable pedal pulses clinically. GENITOURINARY: No dysuria or gastrointestinal dysphagia. ENDOCRINE: Diabetes uncontrolled. Being followed by Endocrinology. PSYCHIATRIC: Denied any depression. MUSCULOSKELETAL: He has bunions and hammertoe deformities. He has morbid obesity. INTEGUMENT: Ulcers, plantar aspect of his great toes. His cultures have grown back Enterococcus faecalis and methicillin-resistant Staph aureus, receiving vancomycin and Zosyn. The patient is being followed for right leg cellulitis, bilateral great toe ulcers. OBJECTIVE: His exam today shows he has ulcers with hemorrhagic callus to the plantar aspect of both great toes, plantarly on the right, 3 x 3 x 1 mm and on the left, 3 x 3 x 3 mm. No odor, no pus, no necrosis, no abscess formation. ASSESSMENT: A 24-year-old male, morbid obesity, BMI of 55, uncontrolled diabetes, history of plantar great toe ulcers, new ulcer to the left, improving ulcer to the right. The patient's three-phase bone scan negative for osteomyelitis. The patient has had cultures that have grown back Enterococcus faecalis, MRSA, receiving vancomycin and Zosyn for his culture sensitivities. The patient is apparently still pending authorization for antibiotics through [facility] as an outpatient. He is being followed now for hypokalemia. PLAN: We will continue with Medihoney dressings to both great toes. Will continue to ambulate with surgical shoes. Once the patient is discharged, he will follow up with the ped accountant cost for appropriate shoe gear with insoles to offload the great toe ulcer sites to his feet bilaterally. The patient is currently receiving the IV vancomycin and the IV Zosyn. TID: [id number] RECEIPT: [id number]
--- NOTE | 2024-07-15 11:28 | PN ---
[facility] PROGRESS NOTE Date of Service: July 15, 2024 Time of Service: 11:23 SUBJECTIVE: 07/06 patient seen at bedside, no acute events overnight. He has been afebrile, hemodynamically stable saturating well on room air. His only complaint is pain when he is ambulating, his right lower extremity proximal to the knee joint on the medial aspect has erythema induration, no fluctuance noted and is tender to palpation. There is no crepitus noted. Outlined the margins of the lesion and we will continue with broad-spectrum antibiotics. WBC improved from 13.9 down to 12.9, blood sugars still quite elevated, diabetic medications have been adju sted by storeroom keeper, appreciate their assistance. A1c pending, we will follow up. Podiatry recommendations regarding diabetic foot ulcer on the 1st great toe are still pending. 07/07 patient seen at bedside, no acute events overnight. He has been afebrile, hemodynamically stable saturating well on room air. Area of cellulitis appears to be improved in color and swelling is diminished. Foot x-ray showing possible retained foreign body. Podiatry recommending a bone scan has MRI is contraindicated with foreign body, to assess for osteomyelitis. We will follow up with Endocrinology recommendations. 07/08 bone scan pending today, we will follow up postprocedure. Wound cultures are still pending, we will continue to follow. Patient has cellulitis in his right medial thigh continues to improve, swelling and erythema have retracted significantly. Labs are relatively unremarkable. Insulin adjusted by endocrinology, appreciate recommendations. 07/09 patient seen at bedside, no acute events overnight. Sensitivities are growing out Enterococcus and MRSA, infectious disease consulted for this discharge antibiotics. Patient counseled extensively on the importance of glycemic control. 07/10 infectious Disease recommending PICC line with follow up at [facility] for outpatient IV antibiotics. Once this is completed patient will be good candidate for discharge 5/ patient seen at bedside, no acute events overnight. PICC line has been successfully placed, still pending acceptance to [facility]. Once he was acc eptance will be good candidate for discharge. 5/ patient seen at bedside, no acute events overnight. Still pending acceptance to [facility]. Once he was acceptance will be good candidate for discharge. 07/13 patient seen at bedside, no acute events overnight. Still pending acceptance to [facility]. Once he was acceptance will be good candidate for discharge. 07/14 patient seen at bedside, no acute events overnight. Pending outpatient arrangements at [facility]. 07/15 patient is seen and examined at bedside, no acute events overnight, at the time of my visit, the patient has been started on supplemental oxygen via nasal cannula at 2 L, he is saturating 92-93%, he feels mild short of breath but denied chest pain, not actively coughing. He is getting IV antibiotics during my visit, no family members at bedside. REVIEW OF SYSTEMS 12 point review of systems negative unless noted in HPI PHYSICAL EXAM GENERAL APPEARANCE: The patient is awake, alert, and oriented, in no acute cardiopulmonary distress. Patient is obese NEUROLOGICAL: Cranial nerves II-XII grossly intact. Motor is 5/5 in bilateral upper and lower extremities proximal to distal. No sensory deficits. HEENT: Face is symmetric. Pupils are equal and reactive. Extraocular movements are intact. NECK: Supple. No JVD. No thyromegaly. No submental, submandibular, pre-/postauricular, occipital or supraclavicular lymphadenopathy. CHEST: Normal chest expansion. No Telemetry. LUNGS: Absence of any rales, rhonchi or any wheezing. CARDIOVASCULAR: Regular. S1 and S2 normal. No appreciable rubs, murmurs or gallops. ABDOMEN: Soft, nontender, and nondistended. There is no rebound, voluntary guarding, or rigidity. : Deferred. No Harden. EXTREMITIES: Patient has erythema on the posterior aspect of the leg involving the knee. He has redness traveling down to the leg to the foot. He has swelling noted. Area is tender to palpation. Additionally he has a ulcer noted in the 1st toe of the right foot. He has blackish discoloration with possible eschar noted SKIN: No skin breakdown. Vital Signs (last 8hr) Date Time Temp Pulse Resp B/P (MAP) Pulse Ox O2 Delivery O2 Flow Rate FiO2 07/15/24 07:38 98.2 97 18 140/93 98 Room Air 07/15/24 03:44 98.1 76 19 133/82 93 Room Air LABS: Laboratory: Test 07/15/24 10:40 07/15/24 03:06 07/14/24 17:13 Range/Units Whole Blood Glucose 160 H 70-110 MG/DL White Blood Count 9.3 4.8-10.8 K/uL Red Blood Count 5.14 4.50-6.20 MIL/uL Hemoglobin 13.1 L 14.0-18.0 g/dL Hematocrit 38.5 L 42-54 % Mean Corpuscular Volume 74.9 L 79-99 fL Mean Corpuscular Hemoglobin 25.5 L 27.0-33.0 pg Mean Corpuscular Hemoglobin Concent 34.0 32.0-36.0 g/dL Red Cell Distribution Width 13.3 11.0-15.5 % Platelet Count 436 H 130-400 K/uL Mean Platelet Volume 8.4 7.5-10.5 fL Nucleated Red Blood Cells 0.0 0.0-0.19 % Sodium Level 143 136-145 mmol/L Potassium Level 3.3 L 3.5-5.1 mmol/L Chloride Level 107 101-111 mmol/L Carbon Dioxide Level 28 21-32 mmol/L Blood Urea Nitrogen 6 L 7-18 mg/dL Creatinine 0.7 0.5-1.3 mg/dL Glomerular Filtration Rate Calc 133 >90 mL/min Random Glucose 239 #H 70-105 mg/dL Total Calcium 8.3 L 8.5-10.1 mg/dL Magnesium Level 2.40 1.80-2.40 mg/dL Total Bilirubin 0.2 # 0.2-1.0 mg/dL Aspartate Amino Transf (AST/SGOT) 15 10-37 U/L Alanine Aminotransferase (ALT/SGPT) 16 12-78 U/L Alkaline Phosphatase 73 50-136 U/L Total Protein 6.9 6.0-8.3 g/dL Albumin 2.3 L 3.5-5.0 g/dL Vancomycin Level Trough 10.8 10.0-20.0 UG/ML Current Medications Medications (Trade) Dose Ordered Sig/Morales Route PRN Reason Start Time Stop Time Status Last Admin Dose Admin Acetaminophen (TYLenol 325MG TAB) 650 mg Q6H PRN PO MILD PAIN (1-3) 07/06/24 13:30 08/05/24 13:29 07/07/24 14:01 650 MG Acetaminophen/ Hydrocodone Bitart (NORco 5/325MG) 1 tab Q6H PRN PO MODERATE PAIN (4-6) 07/06/24 13:30 07/11/24 13:29 DC 07/10/24 19:19 1 TAB Alteplase, Recombinant (CathFLO 2MG VIAL) 1 mg ONCE IVCATH 07/12/24 13:30 07/13/24 19:09 DC 07/12/24 18:20 1 MG Cefepime HCl (MAXipime 1 GM vial) 1 gm Q8H IVPB 07/12/24 12:00 07/22/24 11:59 07/15/24 04:06 1 GM Dextrose (D50w) 50 ml AD PRN IV HYPOGLYCEMIA PROTOCOL 07/05/24 15:00 08/04/24 14:59 Enoxaparin Sodium (Lovenox) 30 mg DAILY SQ 07/06/24 09:00 08/05/24 08:59 07/15/24 09:34 30 MG Famotidine (Pepcid 20mg Vial) 20 mg BID IV 07/05/24 21:00 08/04/24 20:59 07/15/24 09:34 20 MG Glucagon (Glucagon 1mg Kit) 1 mg AD PRN IM HYPOGLYCEMIA PROTOCOL 07/05/24 15:00 08/04/24 14:59 Insulin Glargine (LANtus 100 UNITS/ML 10 ML VIAL) 15 units DAILY SQ 07/05/24 15:00 07/07/24 22:00 DC 07/07/24 08:47 15 UNITS Insulin Glargine (LANtus 100 UNITS/ML 10 ML VIAL) 40 units DAILY07 SQ 07/08/24 07:00 07/08/24 21:03 DC 07/08/24 07:54 40 UNITS Insulin Glargine (LANtus 100 UNITS/ML 10 ML VIAL) 50 units DAILY07 SQ 07/13/24 07:00 08/12/24 06:59 07/15/24 06:55 50 UNITS Insulin Glargine (LANtus 100 UNITS/ML 10 ML VIAL) 60 units DAILY07 SQ 07/09/24 07:00 07/13/24 06:18 DC 07/13/24 06:17 60 UNITS Insulin Human Regular (humuLIN R 100 UNIT/ML 3ML) 10 unit TIDAC SQ 07/06/24 07:30 07/07/24 22:00 DC 07/07/24 17:19 10 UNIT Insulin Human Regular (humuLIN R 100 UNIT/ML 3ML) 10 unit TIDAC SQ 07/13/24 07:30 08/12/24 07:29 07/15/24 09:34 10 UNIT Insulin Human Regular (humuLIN R 100 UNIT/ML 3ML) 16 unit TIDAC SQ 07/08/24 07:30 07/08/24 21:03 DC 07/08/24 17:33 16 UNIT Insulin Human Regular (humuLIN R 100 UNIT/ML 3ML) 22 unit TIDAC SQ 07/09/24 07:30 07/09/24 21:14 DC 07/09/24 17:44 22 UNIT Insulin Human Regular (humuLIN R 100 UNIT/ML 3ML) 25 unit TIDAC SQ 07/10/24 07:30 07/13/24 06:18 DC 07/10/24 19:13 25 UNIT Insulin Human Regular (humuLIN R 100 UNIT/ML 3ML) INSULIN SLIDING SCAL... ACHS SQ 07/06/24 07:30 08/05/24 07:29 07/15/24 06:54 4 UNIT Insulin Human Regular (humuLIN R 100 UNIT/ML 3ML) INSULIN SLIDING SCAL... Q6H6 SQ 07/05/24 18:00 07/05/24 21:19 DC 07/05/24 17:43 8 UNIT Ketorolac Tromethamine (toRADol) 15 mg Q6H PRN IV MODERATE PAIN (4-6) 07/05/24 17:00 07/07/24 06:16 DC 07/05/24 21:03 15 MG Leptospermum Honey (Medihoney) 1 APPLICATION DAILY TP 07/07/24 09:00 08/06/24 08:59 07/14/24 11:10 1 APPL Magnesium Sulfate 50 ml @ 0 mls/hr PROTOCOL PRN IV low magnesium 07/07/24 10:00 08/06/24 09:59 07/14/24 15:22 20 MLS/HR Morphine Sulfate (morPHINE 2MG SYG) 2 mg Q6H PRN IVP SEVERE PAIN (7-10) 07/05/24 17:00 07/10/24 19:59 DC Piperacillin Sod/ Tazobactam Sod (Zosyn 3.375gm+NS 50ml) 3.375 gm Q8H IV 07/11/24 00:00 07/12/24 11:46 DC 07/12/24 08:51 3.375 GM Piperacillin Sod/ Tazobactam Sod (Zosyn 3.375gm+NS 50ml) 3.375 gm Q8H IVPB 07/05/24 14:30 07/10/24 03:41 DC 07/10/24 00:09 3.375 GM Piperacillin Sod/ Tazobactam Sod (Zosyn 3.375gm+NS 50ml) 3.375 gm Q8H IVPB 07/10/24 08:00 07/10/24 09:45 DC Potassium Chloride 100 ml @ 100 mls/hr AD PRN IV POTASSIUM PROTOCOL 07/07/24 10:00 08/06/24 09:59 07/14/24 14:24 100 MLS/HR Potassium Chloride (K-Dur/Klor-Con 20meq) 20 meq AD PRN PO POTASSIUM PROTOCOL 07/07/24 10:00 08/06/24 09:59 07/15/24 09:38 20 MEQ Potassium Chloride (KCl 10% Elixir 20meq/15ml) 20 meq AD PRN PO POTASSIUM PROTOCOL 07/07/24 10:00 08/06/24 09:59 Sodium Chloride 250 ml @ 125 mls/hr AD IV 07/14/24 21:00 07/14/24 23:59 DC 07/14/24 20:46 125 MLS/HR Sodium Chloride 1,000 ml @ 100 mls/hr Q10H IV 07/05/24 14:30 07/11/24 03:05 DC 07/09/24 15:24 100 MLS/HR Sodium Chloride (NS 50ml) 50 ml AD IV 07/05/24 18:00 07/06/24 13:20 DC Vancomycin HCl 250 ml @ 125 mls/hr Q6H IV 07/10/24 21:00 07/15/24 06:33 DC 07/13/24 17:42 125 MLS/HR Vancomycin HCl 250 ml @ 125 mls/hr Q6H IV 07/14/24 00:00 07/14/24 20:29 DC 07/14/24 19:38 125 MLS/HR Vancomycin HCl 250 ml @ 125 mls/hr Q6H IV 07/15/24 12:00 07/25/24 11:59 Vancomycin HCl 250 ml @ 125 mls/hr Q8H IV 07/07/24 13:00 07/09/24 12:53 DC 07/09/24 04:38 125 MLS/HR Vancomycin HCl 250 ml @ 125 mls/hr Q8H IV 07/09/24 21:00 07/10/24 09:45 DC 07/09/24 21:43 125 MLS/HR Vancomycin HCl 250 ml @ 125 mls/hr Q8H6 IV 07/14/24 22:00 07/14/24 19:24 DC Vancomycin HCl 250 ml @ 125 mls/hr Q8H6 IV 07/15/24 06:00 07/15/24 06:29 DC 07/15/24 06:00 125 MLS/HR Vancomycin HCl 250 ml @ 125 mls/hr Q8H6 IV 07/15/24 14:00 07/15/24 06:33 DC Vancomycin HCl 250 ml @ 167 mls/hr Q12H IV 07/06/24 01:00 07/07/24 12:31 DC 07/07/24 01:11 167 MLS/HR Vancomycin HCl (Vancomycin 750mg) 750 mg ONCE IVPB 07/14/24 21:00 07/14/24 23:59 DC 07/14/24 20:45 750 MG Vancomycin HCl (Vancomycin Protocol) 1 each AD IV 07/05/24 14:30 07/10/24 20:22 DC Vancomycin HCl (Vancomycin Protocol) 1 each AD IV 07/10/24 21:00 07/24/24 20:59 DIAGNOSTICS / RADIOLOGY: [ ] ASSESSMENT: Right Leg cellulitis, improving POA Hyperglycemia secondary to uncontrolled diabetes mellitus type 2 last A1C 15.5, POA Foot ulcer of the 1st toe of the right foot, MRSA and Enterofaecalis, POA Hyponatremia secondary to hyperglycemia Dehydration, resolved Obesity BMI 53.1 PLAN: -patient remains admitted to the medical floor - continue the patient on broad-spectrum IV antibiotics - infectious disease input noted and appreciated, patient is still pending insurance approval for outpatient IV antibiotics with [facility]. - Podiatry input noted and appreciated, continue with Medihoney dressing to both great toes. Patient to continue ambulation with surgical shoes. Once the patient is discharged he can follow up as an outpatient with the ped director gift for appropriate shoe gear with insoles to offload the great toe ulcer sites to his feet bilaterally. -continue the patient on supplemental oxygen via nasal cannula at 2 L to keep oxygen saturation greater than 94%, follow chest x-ray. NEURO: Minimize central acting medications as possible. Fall Precautions. Well lighted room through the day and minimize interruptions through the night to prevent acute delirium. PULMONARY: Supplemental 02 as needed BiPAP as necessary, for respiratory distress Titrate Fio2 to keep Spo2 > or = 90% DuoNeb�s and CPT as needed IS hourly while awake for pulmonary hygiene prn Out of bed to chair as tolerated Maintain aspiration precautions at all times CARDIOVASCULAR: Follow hemodynamics. Vital signs per facility protocol GI & NUTRITION: Continue nutritional support Aspirations precautions Prokinetic agents and laxatives as needed KIDNEYS & ELECTROLYTES: Strict monitoring of intake and output Daily weights Avoid nephrotoxic agents Monitor electrolytes and replace as needed Goal urine output of 30mL/hr or 0.5mL/kg/hr Medications to be dosed according to renal function. Avoid contrast if possible ENDOCRINE: Maintain blood glucose between 100-180 at all times. Insulin sliding scale for blood glucose management Hypoglycemia and hyperglycemia protocol in place INFECTIOUS DISEASE: Trend temperature, WBC and procalcitonin level Follow cultures, deescalate antibiotics as soon as possible. Panculture if new onset fever HEMATOLOGY & COAGULATION: Monitor H&H. Keep Hgb > 7 Transfuse 1 unit of PRBC for Hgb < 7 Transfuse 1 pack of platelets of platelets < 20, 000 Watch for any signs and symptoms of bleeding SKIN: Pressure ulcer prevention per facility protocol Specialty mattress as needed ORTHO/REHAB Continue PT/OT PRN: MEDICATIONS Tylenol 650 mg po every 4 hrs for fever zofran 4 mg IV every 6 hrs for n/v Hydralazine 5 mg IV every 4 hrs systolic pressure > 160 bowel regiment: lactulose 20 gm PO BID PRN constipation Supportive measures: Continue GI and DVT prophylaxis Disposition: Pending improvement in clinical condition All questions answered time spent: > 35 min FANNIE RAMÍREZ MD July 15, 2024 11:28
[2024-07-15 12:10] LABS: ABG BASE EXCESS -0.1 mmol/L (-2.0-3.0); ABG HCO3 23.4 mmol/L (21.0-28.0); ABG OXYGEN SATURATION 91.8 % (94.0-98.0); ABG PCO2 35 mmHg (35-48); ABG PH 7.445 (7.350-7.450); PO2, ARTERIAL BG 58.9 mmHg (83.0-108.0); VENT MODE, BG RA (ROOM AIR)
--- NOTE | 2024-07-15 12:31 | HMCIMG ---
Exam Type: CHEST 1VW Clinical Information: sob Comparison: None Findings: RightPICC line is noted with tip within the distal superior vena cava and there are no other interval changes. IMPRESSION: Right PICC line as noted.
[2024-07-15] MEDS: VANCOMYCIN 1G/250ML KIT 250 ML IV SCH (12:40)
[2024-07-15] MEDS ORDERED: VANCOMYCIN 1.5 GM/250 ML BAG 250 ML IV SCH (14:00)
[2024-07-15] MEDS: furoSEMIDE 40MG VIAL IV ONE (14:00)
--- NOTE | 2024-07-15 14:53 | CONS ---
[facility] CONSULTATION NOTE Date Patient Seen: July 15, 2024 Time of Visit: 14:21 Supervising Physician: Bebeto Reyes MD Reason for Consultation: SOB Primary Care Physician: Magno. Billy Villarreal MD Outpatient Specialists: Inpatient Consults: DR Moy Kincaid, DR Reyes , Dr Estevez , Dr Gilbert Carrillo and Dr Toure Attending: Dr Paulette Moore MD PROBLEM LIST: Acute hypoxemic resp failure not POA Suspected acute heart failure not POA Well's score for PE 6 points ( Moderate) Right Leg cellulitis, improving POA Hyperglycemia secondary to uncontrolled diabetes mellitus type 2 last A1C 15.5, POA Foot ulcer of the 1st toe of the right foot, MRSA and Enterofaecalis, POA Hyponatremia secondary to hyperglycemia Dehydration, resolved Morbidly Obesity BMI 53.1 Suspected RUTH/OHS undiagnosed and untreated POA HPI: This is a 23 yr old morbidly obese male with a past medical history of rt foot diabetic ulcer who presented on 07/05/24 for evaluation of written he is in the right leg. He was admitted for right leg cellulitis to the medical floor and was found to have MRSA entero faecalis wound infection of the 1st toe in the right foot. Patient is status post PICC line and ID has recommended antibiotics per outpatient adequate face clinic. Podiatry has been consulted which r [facility] dressing to quit toes. This morning we will consult pulmonology shortness breath. On assessment pt is laying in bed there is a box of Pizza and doritos at the bedside. He is in mil distress tachycardic with HR of 106 saturating 92% with 2 L via NC. Per pt he has not had much ambuation since arrived at the hospital due to fear of his wounds getting worst. He denies any chest pain at this time, but mcdowell report some sob with exertions. On chest XR trachea is midline, there is what appears bilateral pulmonary vascular congestion, cardiomegaly, there is no pneumothorax noted. On ABG pt is hypoxemic with po2 of 58.9 compared from admission which was 89.9. Venous Doppler of left and right lower extremity have been negative. Pt does report he snores at night sometimes but has never had a sleep study. We will order a BNP due to Chest XR highly suspicious for pulmonary edema. If elevated will order a 2D echo. D- Dimer ordered as well and if elevated we will rule out PE with a CTA. Otherwise CBC and BMP similar to yesterday. Showing hyperglycemia glucose of 239mg/dl. Thrombocytosis plt count of 436K. HH 13.1/38.5. I informed pt on clinical findings and informed pt of Plan of care he verbalized understanding. I have advised pt on the need for weight loss and importance to follow up a diabetic diet. He will need further encouragement and diabetic teaching as evident by a large box of pizza at the bedside and chips. PAST MEDICAL HX: see above PAST SURGICAL HX: noncontributory SOCIAL HISTORY: No tobacco, ETOH, or illicit drug use Coded Allergies: No Known Drug Allergies (Unverified Allergy, Unknown, 10/08/18) REVIEW OF SYSTEMS: 12 point ROS reviewed with patient. Pertinent positives mentioned above. Otherwise negative. PHYSICAL EXAM: GENERAL: alert, weak, awake oriented x 3 HEENT: EOMI, Sclera non icteric, moist mucosa NECK: Supple, no JVD, trachea midline LUNGS: Diminished breath sounds bilaterally. No wheezes HEART: Sinus Tachy rate and rhythm. Normal S1 and S2, without murmurs ABD: Morbidly obese. Abdomen soft, nontender. Bowel sounds present EXT: No clubbing cyanosis or edema. tyesha great toe wounds, rt knee redness /cellulitis. NEURO: Alert and oriented to person, follows commands Vital Signs (last 8hr) Date Time Temp Pulse Resp B/P (MAP) Pulse Ox O2 Delivery O2 Flow Rate FiO2 07/15/24 12:05 88 20 N/Cannula Low lpm 2.0 28 07/15/24 11:33 98.4 83 18 131/83 95 Nasal Cannula 3.0 07/15/24 07:38 98.2 97 18 140/93 98 Room Air LABS: Hematology Labs: Test 07/15/24 03:06 Range/Units White Blood Count 9.3 4.8-10.8 K/uL Red Blood Count 5.14 4.50-6.20 MIL/uL Hemoglobin 13.1 L 14.0-18.0 g/dL Hematocrit 38.5 L 42-54 % Mean Corpuscular Volume 74.9 L 79-99 fL Mean Corpuscular Hemoglobin 25.5 L 27.0-33.0 pg Mean Corpuscular Hemoglobin Concent 34.0 32.0-36.0 g/dL Red Cell Distribution Width 13.3 11.0-15.5 % Platelet Count 436 H 130-400 K/uL Mean Platelet Volume 8.4 7.5-10.5 fL Nucleated Red Blood Cells 0.0 0.0-0.19 % Chemistry Labs: Test 07/15/24 10:40 07/15/24 03:06 Range/Units Whole Blood Glucose 160 H 70-110 MG/DL Sodium Level 143 136-145 mmol/L Potassium Level 3.3 L 3.5-5.1 mmol/L Chloride Level 107 101-111 mmol/L Carbon Dioxide Level 28 21-32 mmol/L Blood Urea Nitrogen 6 L 7-18 mg/dL Creatinine 0.7 0.5-1.3 mg/dL Glomerular Filtration Rate Calc 133 >90 mL/min Random Glucose 239 #H 70-105 mg/dL Total Calcium 8.3 L 8.5-10.1 mg/dL Magnesium Level 2.40 1.80-2.40 mg/dL Total Bilirubin 0.2 # 0.2-1.0 mg/dL Aspartate Amino Transf (AST/SGOT) 15 10-37 U/L Alanine Aminotransferase (ALT/SGPT) 16 12-78 U/L Alkaline Phosphatase 73 50-136 U/L Total Protein 6.9 6.0-8.3 g/dL Albumin 2.3 L 3.5-5.0 g/dL DIAGNOSTICS / RADIOLOGY RESULTS: [ ] IMAGING REPORT Signed PATIENT: SARA HEADLEY MR#: [id number] : 2000 SEX: M AGE: 24 LOCATION: [facility] ORDER [id number] STATUS: ADM IN REPORT#: [id number] SERVICE 1052 REASON: sob ORDERING PHYSICIAN: FANNIE RAMÍREZ MD PROCEDURE: CXR1VW - CHEST 1VW Exam Type: CHEST 1VW Clinical Information: sob Comparison: None Findings: RightPICC line is noted with tip within the distal superior vena cava and there are no other interval changes. IMPRESSION: Right PICC line as noted. DICTATED BY: JORGE REINA MD DATE: 07/15/24 1228 ELECTRONICALLY SIGNED BY: JORGE REINA MD DATE: 07/15/24 1231 PLAN Rule out PE - CTA BNP- Lasix 40 mg iv x 1 dose now wean o2 as possible. chest XR in am Pt to eval and treat increase Lovenox to 40mg sq BID dose for DVT PPX for BMI > 40 NEURO: Minimize central acting medications as possible. Maintain fall precautions, adequate lighting during the day PULMONARY: Supplemental 02 as needed. Maintain aspiration precautions at all times CARDIOVASCULAR: Follow hemodynamics. Vital signs per facility protocol GI & NUTRITION: Continue with nutritional support. Continue stool softeners and laxatives as needed. KIDNEYS & ELECTROLYTES: Strict monitoring of intake, output and overall fluid balance. Avoid nephrotoxic medications to the extent possible. Medications to be dosed according to renal function. Monitor electrolytes and replace as needed ENDOCRINE: Maintain blood glucose between 100-180 at all times. Hypoglycemia protocol in place INFECTIOUS DISEASE: Trend temperature, WBC and procalcitonin level Follow cultures, deescalate antibiotics as soon as possible. Panculture if new onset fever ONCOLOGY/HEMATOLOGY/COAGULATION: Monitor for s/s of bleeding Monitor hemoglobin, coagulation studies as needed SKIN: Pressure ulcer prevention per facility protocol Specialty mattress ORTHO/REHAB: Continue PT/OT Prophylaxis: Continue GI and DVT prophylaxis Code Status: Full Resuscitation Disposition: TBD Other: Total patient care time exceeds 35 minutes excluding all procedures. ATTESTATION BY PHYSICIAN I attest that I reviewed and discussed the case with the Physician Plow Holder as well as agree with the Physician Plow Holder's findings, plans of care, and documentation above. Bebeto Jimenez MD, NELLY J ARNP July 15, 2024 14:53
[2024-07-15] MEDS ORDERED: IOHEXOL-350 75 ML VIAL IV ONE (16:25)
[2024-07-15] MEDS ORDERED: IOHEXOL-350 50ML VIAL IV ONE (16:25)
[2024-07-15] MEDS: Solu-medROL 40MG VIAL ONE (16:51)
[2024-07-15] MEDS: DiphenhydrAMINE HCL 50 MG/ML VIAL ONE (16:51)
[2024-07-15] MEDS: DiphenhydrAMINE HCL 50 MG/ML VIAL IV STA (16:52)
[2024-07-15] MEDS: Solu-medROL 125MG VIAL IVP STA (16:52)
--- NOTE | 2024-07-15 16:55 | HMCIMG ---
CT angiogram chest CLINICAL INDICATION: rule out PE COMPARISON: None. CT Dose Index (CTDI): 113.50 mGy Dose Length Product (DLP): 1408.10 total mGy PROTOCOL: Contrast: 100 cc of Isovue-370, injected IV, no complications Examination is done at 2.5 millimeter volumetric acquisition after contrast administration. Photography is done at 5 millimeter thick intervals for the thorax. FINDINGS: There is no evidence of pulmonary embolism. The airway is intact. The trachea and major bronchi are unremarkable. No pulmonary infiltrates or mass lesions are seen. However, there is evidence of hypervolemia of the lungs, manifesting as interstitial and alveolar edema. Bilateral pleural effusions are seen, trace on the left, small on the right. The exam of the corky and mediastinum is unremarkable. No evidence of hilar enlargement is seen. The aorta shows no aneurysmal dilatation or significant atheromatous calcification. There is no thoracic aortic dissection. No significant brachiocephalic vascular abnormalities are seen. The heart is unremarkable. It is not enlarged. No significant coronary arterial calcifications are seen. There is a moderate pericardial effusion. The rib cage appears unremarkable. The soft tissues of the chest wall are unremarkable. The dorsal spine shows no significant abnormalities. Limited evaluation of the upper abdomen demonstrates no gross abnormalities. IMPRESSION: No evidence of pulmonary embolism. Hyperlipoidemia which may represent failure including interstitial and alveolar edema, pericardial effusion and bilateral pleural effusions. This study was performed using dose reduction techniques to include automated exposure control and/or adjustment of the mA and/or kV according to patient size.
--- NOTE | 2024-07-15 18:17 | CONS ---
GENERAL SURGERY CONSULTATION NOTE Date/Time Patient Seen: [ July 15, 2024] Requesting Physician: [ Dr. Benitez Toure] Reason for Consultation: [Right thigh abscess ] History of Present Illness: [Patient who is morbidly obese and is an uncontrolled diabetic presented to the hospital with a right foot wound. 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 During his hospitalization patient was also noted to have a large abscess on the medial aspect of his right thigh. Patient indicates that the area started to hurt him on June the 27 mm progressively gotten worse. Patient indicates there is some swelling and erythema to the area. Patient has never had something like this on his right thigh before. During this hospitalization patient was also thought to have a possible PE. Patient's currently undergone a CT PE protocol to rule out a PE. ] Past Medical History: [Uncontrolled diabetes with a hemoglobin A1c in the 15 range ] Past Surgical History: [ Debridement of right foot wounds] Family History: [ Noncontributory] Social History: [ Patient denies any illicit drug use] Habits: [Never] smoker. [Denies] alcohol consumption. [Denies] illicit drug use Current Medications Medications (Trade) Dose Ordered Sig/Morales Route Start Time Stop Time Status Last Admin Dose Admin Alteplase, Recombinant (CathFLO 2MG VIAL) 1 mg ONCE IVCATH 07/12/24 13:30 07/13/24 19:09 DC 07/12/24 18:20 1 MG Cefepime HCl (MAXipime 1 GM vial) 1 gm Q8H IVPB 07/12/24 12:00 07/22/24 11:59 07/15/24 13:21 1 GM Diphenhydramine HCl (BENAdryl INJ) 25 mg ONCE STAT IV 07/15/24 16:42 07/15/24 16:47 DC 07/15/24 16:52 25 MG Enoxaparin Sodium (Lovenox) 30 mg DAILY SQ 07/06/24 09:00 07/15/24 14:28 DC 07/15/24 09:34 30 MG Enoxaparin Sodium (Lovenox) 40 mg BID SQ 07/15/24 21:00 08/05/24 08:59 Famotidine (Pepcid 20mg Vial) 20 mg BID IV 07/05/24 21:00 08/04/24 20:59 07/15/24 09:34 20 MG Insulin Glargine (LANtus 100 UNITS/ML 10 ML VIAL) 15 units DAILY 07/05/24 15:00 07/07/24 22:00 DC 07/07/24 08:47 15 UNITS Insulin Glargine (LANtus 100 UNITS/ML 10 ML VIAL) 40 units DAILY07 SQ 07/08/24 07:00 07/08/24 21:03 DC 07/08/24 07:54 40 UNITS Insulin Glargine (LANtus 100 UNITS/ML 10 ML VIAL) 50 units DAILY07 07/13/24 07:00 08/12/24 06:59 07/15/24 06:55 50 UNITS Insulin Glargine (LANtus 100 UNITS/ML 10 ML VIAL) 60 units DAILY07 07/09/24 07:00 07/13/24 06:18 DC 07/13/24 06:17 60 UNITS Insulin Human Regular (humuLIN R 100 UNIT/ML 3ML) 10 unit TIDAC SQ 07/06/24 07:30 07/07/24 22:00 DC 07/07/24 17:19 10 UNIT Insulin Human Regular (humuLIN R 100 UNIT/ML 3ML) 10 unit TIDAC SQ 07/13/24 07:30 08/12/24 07:29 07/15/24 17:09 10 UNIT Insulin Human Regular (humuLIN R 100 UNIT/ML 3ML) 16 unit TIDAC SQ 07/08/24 07:30 07/08/24 21:03 DC 07/08/24 17:33 16 UNIT Insulin Human Regular (humuLIN R 100 UNIT/ML 3ML) 22 unit TIDAC SQ 07/09/24 07:30 07/09/24 21:14 DC 07/09/24 17:44 22 UNIT Insulin Human Regular (humuLIN R 100 UNIT/ML 3ML) 25 unit TIDAC SQ 07/10/24 07:30 07/13/24 06:18 DC 07/10/24 19:13 25 UNIT Insulin Human Regular (humuLIN R 100 UNIT/ML 3ML) INSULIN SLIDING SCAL... ACHS SQ 07/06/24 07:30 08/05/24 07:29 07/15/24 17:08 2 UNIT Insulin Human Regular (humuLIN R 100 UNIT/ML 3ML) INSULIN SLIDING SCAL... Q6H6 SQ 07/05/24 18:00 07/05/24 21:19 DC 07/05/24 17:43 8 UNIT Leptospermum Honey (Medihoney) 1 APPLICATION DAILY TP 07/07/24 09:00 08/06/24 08:59 07/14/24 11:10 1 APPL Methylprednisolone Sodium Succinate (Solu-medROL 125MG) 80 mg ONCE STAT IVP 07/15/24 16:42 07/15/24 16:47 DC 07/15/24 16:52 80 MG Piperacillin Sod/ Tazobactam Sod (Zosyn 3.375gm+NS 50ml) 3.375 gm Q8H IV 07/11/24 00:00 07/12/24 11:46 DC 07/12/24 08:51 3.375 GM Piperacillin Sod/ Tazobactam Sod (Zosyn 3.375gm+NS 50ml) 3.375 gm Q8H IVPB 07/05/24 14:30 07/10/24 03:41 DC 07/10/24 00:09 3.375 GM Piperacillin Sod/ Tazobactam Sod (Zosyn 3.375gm+NS 50ml) 3.375 gm Q8H IVPB 07/10/24 08:00 07/10/24 09:45 DC Sodium Chloride 250 ml @ 125 mls/hr AD IV 07/14/24 21:00 07/14/24 23:59 DC 07/14/24 20:46 125 MLS/HR Sodium Chloride 1,000 ml @ 100 mls/hr Q10H IV 07/05/24 14:30 07/11/24 03:05 DC 07/09/24 15:24 100 MLS/HR Sodium Chloride (NS 50ml) 50 ml AD IV 07/05/24 18:00 07/06/24 13:20 DC Vancomycin HCl 250 ml @ 125 mls/hr Q6H IV 07/10/24 21:00 07/15/24 06:33 DC 07/13/24 17:42 125 MLS/HR Vancomycin HCl 250 ml @ 125 mls/hr Q6H IV 07/14/24 00:00 07/14/24 20:29 DC 07/14/24 19:38 125 MLS/HR Vancomycin HCl 250 ml @ 125 mls/hr Q6H IV 07/15/24 12:00 07/25/24 11:59 07/15/24 12:40 125 MLS/HR Vancomycin HCl 250 ml @ 125 mls/hr Q8H IV 07/07/24 13:00 07/09/24 12:53 DC 07/09/24 04:38 125 MLS/HR Vancomycin HCl 250 ml @ 125 mls/hr Q8H IV 07/09/24 21:00 07/10/24 09:45 DC 07/09/24 21:43 125 MLS/HR Vancomycin HCl 250 ml @ 125 mls/hr Q8H6 IV 07/14/24 22:00 07/14/24 19:24 DC Vancomycin HCl 250 ml @ 125 mls/hr Q8H6 IV 07/15/24 06:00 07/15/24 06:29 DC 07/15/24 06:00 125 MLS/HR Vancomycin HCl 250 ml @ 125 mls/hr Q8H6 IV 07/15/24 14:00 07/15/24 06:33 DC Vancomycin HCl 250 ml @ 167 mls/hr Q12H IV 07/06/24 01:00 07/07/24 12:31 DC 07/07/24 01:11 167 MLS/HR Vancomycin HCl (Vancomycin 750mg) 750 mg ONCE IVPB 07/14/24 21:00 07/14/24 23:59 DC 07/14/24 20:45 750 MG Vancomycin HCl (Vancomycin Protocol) 1 each AD IV 07/05/24 14:30 07/10/24 20:22 DC Vancomycin HCl (Vancomycin Protocol) 1 each AD IV 07/10/24 21:00 07/24/24 20:59 Review of Systems: A 14 point review of systems negative except was mentioned in history of present illness Physical Examination: PHYSICAL EXAM EYES: Sclera white HENT: Oral nasal mucosa pink and moist NECK: Supple, . LUNGS: Unlabored CARDIOVASCULAR: Regular rate and rhythm ABDOMEN: Soft, nontender, nondistended CENTRAL NERVOUS SYSTEM: Awake, alert, oriented x3 SKIN: No rashes, no swelling. LYMPHATICS: Bilateral lower extremity lymphedema MUSCULOSKELETAL: Motor and sensory function grossly intact EXTREMITIES: Area of fluctuance noted in the medial aspect of right lower thigh. Tender to touch. Vital Signs (last 8hr) Date Time Temp Pulse Resp B/P (MAP) Pulse Ox O2 Delivery O2 Flow Rate FiO2 07/15/24 16:10 98.2 96 18 126/98 94 Nasal Cannula 2.0 07/15/24 12:05 88 20 N/Cannula Low lpm 2.0 28 07/15/24 11:33 98.4 83 18 131/83 95 Nasal Cannula 3.0 Laboratory: [ ] Hematology Labs: Test 07/15/24 03:06 Range/Units White Blood Count 9.3 4.8-10.8 K/uL Red Blood Count 5.14 4.50-6.20 MIL/uL Hemoglobin 13.1 L 14.0-18.0 g/dL Hematocrit 38.5 L 42-54 % Mean Corpuscular Volume 74.9 L 79-99 fL Mean Corpuscular Hemoglobin 25.5 L 27.0-33.0 pg Mean Corpuscular Hemoglobin Concent 34.0 32.0-36.0 g/dL Red Cell Distribution Width 13.3 11.0-15.5 % Platelet Count 436 H 130-400 K/uL Mean Platelet Volume 8.4 7.5-10.5 fL Nucleated Red Blood Cells 0.0 0.0-0.19 % Chemistry Labs: Test 07/15/24 15:09 07/15/24 15:06 07/15/24 03:06 Range/Units Whole Blood Glucose 200 H 70-110 MG/DL Potassium Level 3.5 3.5-5.1 mmol/L B-Type Natriuretic Peptide 875 H 0-100 pg/mL Sodium Level 143 136-145 mmol/L Chloride Level 107 101-111 mmol/L Carbon Dioxide Level 28 21-32 mmol/L Blood Urea Nitrogen 6 L 7-18 mg/dL Creatinine 0.7 0.5-1.3 mg/dL Glomerular Filtration Rate Calc 133 >90 mL/min Random Glucose 239 #H 70-105 mg/dL Total Calcium 8.3 L 8.5-10.1 mg/dL Magnesium Level 2.40 1.80-2.40 mg/dL Total Bilirubin 0.2 # 0.2-1.0 mg/dL Aspartate Amino Transf (AST/SGOT) 15 10-37 U/L Alanine Aminotransferase (ALT/SGPT) 16 12-78 U/L Alkaline Phosphatase 73 50-136 U/L Total Protein 6.9 6.0-8.3 g/dL Albumin 2.3 L 3.5-5.0 g/dL Coagulation Labs: Test 07/15/24 15:06 Range/Units D-Dimer Quantitative (PE/DVT) 996 *H 0-500 ng/mL Diagnostics / Radiology: [Copy/Paste Echos/Imaging Report here] Assessment: [ Right thigh abscess] Plan: [Plan take the patient to the OR for a incision and drainage of right thigh abscess. Risks associated with the procedure not limited to infection, bleeding, injury to surrounding structures has been explained to patient and his mother and they indicate they understand and would like to proceed. ] SALAZAR BERNAL MD July 15, 2024 18:17
[2024-07-15] MEDS: ENOXAPARIN SODIUM 40 MG/0.4 ML SYRINGE SQ SCH (20:35)
--- NOTE | 2024-07-15 21:42 | PN ---
endocrinology progress note Date of Service: 07/15/2024 subjective: glucose are improving patient used to inject lantus and humalog but not injecting for many months. he does not check glucose at home. hba1c>15.0% right foot wound is positive for MRSA and Enterofaecalis, PAST MEDICAL HISTORY: History of foot ulcer in the 1st toe of the right foot PAST SURGICAL HISTORY: Denied any previous surgical history PAST SOCIAL HISTORY: Denied any smoking, alcohol, drug use FAMILY HISTORY: Denied any pertinent family history Coded Allergies: No Known Drug Allergies (Unverified Allergy, Unknown, 10/08/18) ASSESSMENT: Hyperglycemia secondary to uncontrolled diabetes mellitus type POA patient used to inject lantus and humalog but not injecting for many months. he does not check glucose at home. hba1c>15.0% talia-65 abs are negative, so likely type 2 dm. Right Leg cellulitis POA MRSA and Enterofaecalis, ID following Foot ulcer of the 1st toe of the right foot POA Hyponatremia secondary to hyperglycemia Dehydration Obesity BMI 53.1 PLAN: continue lantus 50 units daily increase regular insulin to 15 units tid before meals for daytime hyperglycemia. continue medium dose insulin ssi monitor glucose qx6 hourly patient will need insulin at discharge Vitals/Labs Vital Signs Date Time Temp Pulse Resp B/P (MAP) Pulse Ox O2 Delivery O2 Flow Rate FiO2 07/15/24 21:14 96 20 N/Cannula Low lpm 2.0 28 07/15/24 20:00 98.1 117/89 94 Laboratory Tests 07/15/24 03:06 07/15/24 15:06 Medications Current Medications Ketorolac Tromethamine 15 mg ONCE ONCE IM Last administered on 07/05/24at 13:56; Start 07/05/24 at 11:00; Stop 07/05/24 at 11:03; Status DC Vancomycin HCl 1 gm ONCE ONCE IV Last administered on 07/05/24at 14:15; Start 07/05/24 at 13:00; Stop 07/05/24 at 13:01; Status DC Ceftriaxone Sodium 2 gm ONCE ONCE IVPB Last administered on 07/05/24at 13:55; Start 07/05/24 at 12:30; Stop 07/05/24 at 12:31; Status DC Sodium Chloride 1,000 ml @ 0 mls/hr ONCE ONCE IV Last administered on 07/05/24at 13:48; Start 07/05/24 at 12:30; Stop 07/05/24 at 12:31; Status DC Insulin Human Regular 5 unit ONCE ONCE IV Last administered on 07/05/24at 14:01; Start 07/05/24 at 12:30; Stop 07/05/24 at 12:31; Status DC Famotidine 20 mg BID IV Last administered on 07/15/24at 20:32; Start 07/05/24 at 21:00; Stop 08/04/24 at 20:59 Vancomycin HCl 1 each AD IV; Start 07/05/24 at 14:30; Stop 07/10/24 at 20:22; Status DC Piperacillin Sod/ Tazobactam Sod 3.375 gm Q8H IVPB Last administered on 07/10/24at 00:09; Start 07/05/24 at 14:30; Stop 07/10/24 at 03:41; Status DC Sodium Chloride 50 ml AD IV; Start 07/05/24 at 18:00; Stop 07/06/24 at 13:20; Status DC Insulin Human Regular INSULIN SLIDING SCAL... Q6H6 SQ Last administered on 07/05/24at 17:43; Start 07/05/24 at 18:00; Stop 07/05/24 at 21:19; Status DC Sodium Chloride 1,000 ml @ 100 mls/hr Q10H IV Last administered on 07/09/24at 15:24; Start 07/05/24 at 14:30; Stop 07/11/24 at 03:05; Status DC Insulin Glargine 15 units DAILY SQ Last administered on 07/07/24at 08:47; Start 07/05/24 at 15:00; Stop 07/07/24 at 22:00; Status DC Dextrose 50 ml AD PRN IV; Start 07/05/24 at 15:00; Stop 08/04/24 at 14:59 Glucagon 1 mg AD PRN IM; Start 07/05/24 at 15:00; Stop 08/04/24 at 14:59 Vancomycin HCl 250 ml @ 250 mls/hr ONCE ONCE IV Last administered on 07/05/24at 15:11; Start 07/05/24 at 15:00; Stop 07/05/24 at 15:59; Status DC Vancomycin HCl 250 ml @ 167 mls/hr Q12H IV Last administered on 07/07/24at 01:11; Start 07/06/24 at 01:00; Stop 07/07/24 at 12:31; Status DC Iohexol 75 ml STK-MED ONCE IV; Start 07/05/24 at 15:20; Stop 07/05/24 at 15:21; Status DC Ketorolac Tromethamine 15 mg Q6H PRN IV Last administered on 07/05/24at 21:03; Start 07/05/24 at 17:00; Stop 07/07/24 at 06:16; Status DC Morphine Sulfate 2 mg Q6H PRN IVP; Start 07/05/24 at 17:00; Stop 07/10/24 at 19:59; Status DC Insulin Human Regular 10 unit TIDAC SQ Last administered on 07/07/24at 17:19; Start 07/06/24 at 07:30; Stop 07/07/24 at 22:00; Status DC Insulin Human Regular INSULIN SLIDING SCAL... ACHS SQ Last administered on 07/15/24at 21:29; Start 07/06/24 at 07:30; Stop 08/05/24 at 07:29 Enoxaparin Sodium 30 mg DAILY SQ Last administered on 07/15/24at 09:34; Start 07/06/24 at 09:00; Stop 07/15/24 at 14:28; Status DC Acetaminophen 650 mg Q6H PRN PO Last administered on 07/07/24at 14:01; Start 07/06/24 at 13:30; Stop 08/05/24 at 13:29 Acetaminophen/ Hydrocodone Bitart 1 tab Q6H PRN PO Last administered on 07/10/24at 19:19; Start 07/06/24 at 13:30; Stop 07/11/24 at 13:29; Status DC Leptospermum Honey 1 APPLICATION DAILY TP Last administered on 07/14/24at 11:10; Start 07/07/24 at 09:00; Stop 08/06/24 at 08:59 Potassium Chloride 100 ml @ 100 mls/hr AD PRN IV Last administered on 07/14/24at 14:24; Start 07/07/24 at 10:00; Stop 08/06/24 at 09:59 Potassium Chloride 20 meq AD PRN PO; Start 07/07/24 at 10:00; Stop 08/06/24 at 09:59 Potassium Chloride 20 meq AD PRN PO Last administered on 07/15/24at 20:36; Start 07/07/24 at 10:00; Stop 08/06/24 at 09:59 Magnesium Sulfate 50 ml @ 0 mls/hr PROTOCOL PRN IV Last administered on 07/14/24at 15:22; Start 07/07/24 at 10:00; Stop 08/06/24 at 09:59 Vancomycin HCl 250 ml @ 125 mls/hr Q8H IV Last administered on 07/09/24at 04:38; Start 07/07/24 at 13:00; Stop 07/09/24 at 12:53; Status DC Insulin Glargine 40 units DAILY07 SQ Last administered on 07/08/24at 07:54; Start 07/08/24 at 07:00; Stop 07/08/24 at 21:03; Status DC Insulin Human Regular 16 unit TIDAC SQ Last administered on 07/08/24at 17:33; Start 07/08/24 at 07:30; Stop 07/08/24 at 21:03; Status DC Insulin Glargine 60 units DAILY07 SQ Last administered on 07/13/24at 06:17; Start 07/09/24 at 07:00; Stop 07/13/24 at 06:18; Status DC Insulin Human Regular 22 unit TIDAC SQ Last administered on 07/09/24at 17:44; Start 07/09/24 at 07:30; Stop 07/09/24 at 21:14; Status DC Vancomycin HCl 250 ml @ 125 mls/hr Q8H IV Last administered on 07/09/24at 21:43; Start 07/09/24 at 21:00; Stop 07/10/24 at 09:45; Status DC Vancomycin HCl 500 ml @ 250 mls/hr ONCE ONCE IV Last administered on 07/09/24at 15:24; Start 07/09/24 at 13:00; Stop 07/09/24 at 14:59; Status DC Insulin Human Regular 25 unit TIDAC SQ Last administered on 07/10/24at 19:13; Start 07/10/24 at 07:30; Stop 07/13/24 at 06:18; Status DC Piperacillin Sod/ Tazobactam Sod 3.375 gm Q8H IVPB; Start 07/10/24 at 08:00; Stop 07/10/24 at 09:45; Status DC Vancomycin HCl 1 each AD IV; Start 07/10/24 at 21:00; Stop 07/24/24 at 20:59 Vancomycin HCl 250 ml @ 125 mls/hr Q6H IV Last administered on 07/13/24at 17:42; Start 07/10/24 at 21:00; Stop 07/15/24 at 06:33; Status DC Piperacillin Sod/ Tazobactam Sod 3.375 gm Q8H IV Last administered on 07/12/24at 08:51; Start 07/11/24 at 00:00; Stop 07/12/24 at 11:46; Status DC Cefepime HCl 1 gm Q8H IVPB Last administered on 07/15/24at 20:32; Start 07/12/24 at 12:00; Stop 07/22/24 at 11:59 Alteplase, Recombinant 1 mg ONCE IVCATH Last administered on 07/12/24at 18:20; Start 07/12/24 at 13:30; Stop 07/13/24 at 19:09; Status DC Insulin Glargine 50 units DAILY07 SQ Last administered on 07/15/24at 06:55; Start 07/13/24 at 07:00; Stop 08/12/24 at 06:59 Insulin Human Regular 10 unit TIDAC SQ Last administered on 07/15/24at 17:09; Start 07/13/24 at 07:30; Stop 08/12/24 at 07:29 Vancomycin HCl 250 ml @ 125 mls/hr Q6H IV Last administered on 07/14/24at 19:38; Start 07/14/24 at 00:00; Stop 07/14/24 at 20:29; Status DC Potassium Chloride 40 meq ONCE ONCE PO Last administered on 07/14/24at 13:48; Start 07/14/24 at 13:00; Stop 07/14/24 at 13:02; Status DC Potassium Chloride 100 ml @ 50 mls/hr ONCE ONCE IV; Start 07/14/24 at 13:00; Stop 07/14/24 at 14:59; Status DC Vancomycin HCl 250 ml @ 125 mls/hr Q8H6 IV; Start 07/14/24 at 22:00; Stop 07/14/24 at 19:24; Status DC Vancomycin HCl 250 ml @ 125 mls/hr Q8H6 IV Last administered on 07/15/24at 06:00; Start 07/15/24 at 06:00; Stop 07/15/24 at 06:29; Status DC Vancomycin HCl 750 mg ONCE IVPB Last administered on 07/14/24at 20:45; Start 07/14/24 at 21:00; Stop 07/14/24 at 23:59; Status DC Sodium Chloride 250 ml @ 125 mls/hr AD IV Last administered on 07/14/24at 20:46; Start 07/14/24 at 21:00; Stop 07/14/24 at 23:59; Status DC Vancomycin HCl 250 ml @ 125 mls/hr Q8H6 IV; Start 07/15/24 at 14:00; Stop 07/15/24 at 06:33; Status DC Vancomycin HCl 250 ml @ 125 mls/hr Q6H IV Last administered on 07/15/24at 20:34; Start 07/15/24 at 12:00; Stop 07/15/24 at 20:48; Status DC Furosemide 40 mg ONCE ONCE IV Last administered on 07/15/24at 14:00; Start 07/15/24 at 14:00; Stop 07/15/24 at 14:01; Status DC Enoxaparin Sodium 40 mg BID SQ Last administered on 07/15/24at 20:35; Start 07/15/24 at 21:00; Stop 08/05/24 at 08:59 Iohexol 50 ml STK-MED ONCE IV; Start 07/15/24 at 16:25; Stop 07/15/24 at 16:25; Status DC Iohexol 75 ml STK-MED ONCE IV; Start 07/15/24 at 16:25; Stop 07/15/24 at 16:25; Status DC Methylprednisolone Sodium Succinate 80 mg ONCE STAT IVP Last administered on 07/15/24at 16:52; Start 07/15/24 at 16:42; Stop 07/15/24 at 16:47; Status DC Diphenhydramine HCl 25 mg ONCE STAT IV Last administered on 07/15/24at 16:52; Start 07/15/24 at 16:42; Stop 07/15/24 at 16:47; Status DC Methylprednisolone Sodium Succinate 40 mg STK-MED ONCE .ROUTE; Start 07/15/24 at 16:46; Stop 07/15/24 at 16:46; Status DC Diphenhydramine HCl 50 mg STK-MED ONCE .ROUTE; Start 07/15/24 at 16:46; Stop 07/15/24 at 16:47; Status DC Vancomycin HCl 250 ml @ 125 mls/hr Q6H IV; Start 07/16/24 at 03:00; Stop 07/26/24 at 02:59 JOSE CASTILLO MD July 15, 2024 21:42
[2024-07-16] VITALS (28 sets, daily range): BP systolic 103–148; BP diastolic 53–88; PULSE 72–94; RESP 13–20; TEMP 97.4–98.8; O2SAT 95–96
[2024-07-16] MEDS: VANCOMYCIN 1G/250ML KIT 250 ML IV SCH (02:31)
[2024-07-16] MEDS: INSULIN humuLIN R 100 UNIT/ML 3ML SQ SCH (07:30)
--- NOTE | 2024-07-16 10:50 | NUR ---
PATIENT OF THE FLOOR FOR PROCEDURE
[2024-07-16] MEDS ORDERED: LIDOCAINE PF 100MG/5ML (2%) SYRINGE 5ML ONE (11:05)
--- NOTE | 2024-07-16 11:07 | PN ---
[facility] PROGRESS NOTE Date Patient Seen: July 16, 2024 Time of Visit: 11:07 Supervising Physician: [Dr. Tabares] Primary Care Physician: Magno. Billy Villarreal MD Outpatient Specialists: Inpatient Consults: DR Moy Kincaid, DR Reyes , Dr Estevez , Dr Gilbert Carrillo and Dr Toure Attending: Dr Paulette Moore MD PROBLEM LIST: Acute hypoxemic resp failure not POA Suspected acute heart failure not POA Well's score for PE 6 points ( Moderate) Right Leg cellulitis, improving POA Hyperglycemia secondary to uncontrolled diabetes mellitus type 2 last A1C 15.5, POA Foot ulcer of the 1st toe of the right foot, MRSA and Enterofaecalis, POA Hyponatremia secondary to hyperglycemia Dehydration, resolved Morbidly Obesity BMI 53.1 Suspected RUTH/OHS undiagnosed and untreated POA INTERVAL HISTORY: [Patient is pending I and D of right lower extremity today by General surgery. His CTA of the chest was negative for PE. BNP is elevated at 875, pending echocardiogram. ABG shows some hypoxia, likely underlying OHS. He continues on vancomycin and cefepime for treatment of wound infection per ID. Has PICC line in place, pending continued IV antibiotics at [facility] upon discharge.] REVIEW OF SYSTEMS: 12 point ROS reviewed with patient. Pertinent positives mentioned above. Oth erwise negative. PHYSICAL EXAM: GENERAL: alert, weak, awake oriented x 3 HEENT: EOMI, Sclera non icteric, moist mucosa NECK: Supple, no JVD, trachea midline LUNGS: Diminished breath sounds bilaterally. No wheezes HEART: Sinus Tachy rate and rhythm. Normal S1 and S2, without murmurs ABD: Morbidly obese. Abdomen soft, nontender. Bowel sounds present EXT: No clubbing cyanosis or edema. tyesha great toe wounds, rt knee redness /cellulitis. NEURO: Alert and oriented to person, follows commands Vital Signs (last 8hr) Date Time Temp Pulse Resp B/P (MAP) Pulse Ox O2 Delivery O2 Flow Rate FiO2 07/16/24 08:11 90 20 N/A Room Air 21 07/16/24 08:00 98.8 76 20 139/79 93 Room Air 21 07/16/24 03:59 98.2 88 20 126/76 93 Nasal Cannula 2.0 LABS: Hematology Labs: Test 07/15/24 03:06 Range/Units White Blood Count 9.3 4.8-10.8 K/uL Red Blood Count 5.14 4.50-6.20 MIL/uL Hemoglobin 13.1 L 14.0-18.0 g/dL Hematocrit 38.5 L 42-54 % Mean Corpuscular Volume 74.9 L 79-99 fL Mean Corpuscular Hemoglobin 25.5 L 27.0-33.0 pg Mean Corpuscular Hemoglobin Concent 34.0 32.0-36.0 g/dL Red Cell Distribution Width 13.3 11.0-15.5 % Platelet Count 436 H 130-400 K/uL Mean Platelet Volume 8.4 7.5-10.5 fL Nucleated Red Blood Cells 0.0 0.0-0.19 % Chemistry Labs: Test 07/16/24 10:53 07/15/24 15:06 07/15/24 03:06 Range/Units Whole Blood Glucose 162 H 70-110 MG/DL Potassium Level 3.5 3.5-5.1 mmol/L B-Type Natriuretic Peptide 875 H 0-100 pg/mL Sodium Level 143 136-145 mmol/L Chloride Level 107 101-111 mmol/L Carbon Dioxide Level 28 21-32 mmol/L Blood Urea Nitrogen 6 L 7-18 mg/dL Creatinine 0.7 0.5-1.3 mg/dL Glomerular Filtration Rate Calc 133 >90 mL/min Random Glucose 239 #H 70-105 mg/dL Total Calcium 8.3 L 8.5-10.1 mg/dL Magnesium Level 2.40 1.80-2.40 mg/dL Total Bilirubin 0.2 # 0.2-1.0 mg/dL Aspartate Amino Transf (AST/SGOT) 15 10-37 U/L Alanine Aminotransferase (ALT/SGPT) 16 12-78 U/L Alkaline Phosphatase 73 50-136 U/L Total Protein 6.9 6.0-8.3 g/dL Albumin 2.3 L 3.5-5.0 g/dL Coagulation Labs: Test 07/15/24 15:06 Range/Units D-Dimer Quantitative (PE/DVT) 996 *H 0-500 ng/mL DIAGNOSTICS / RADIOLOGY RESULTS: [ ] PLAN PE (-) per CTA BNP- 875 Pending echo wean o2 as possible. chest XR in am Pt to eval and treat continue Lovenox 40mg sq BID dose for DVT PPX for BMI > 40 NEURO: Minimize central acting medications as possible. Maintain fall precautions, adequate lighting during the day PULMONARY: Supplemental 02 as needed. Maintain aspiration precautions at all times CARDIOVASCULAR: Follow hemodynamics. Vital signs per facility protocol GI & NUTRITION: Continue with nutritional support. Continue stool softeners and laxatives as needed. KIDNEYS & ELECTROLYTES: Strict monitoring of intake, output and overall fluid balance. Avoid nephrotoxic medications to the extent possible. Medications to be dosed according to renal function. Monitor electrolytes and replace as needed ENDOCRINE: Maintain blood glucose between 100-180 at all times. Hypoglycemia protocol in place INFECTIOUS DISEASE: Trend temperature, WBC and procalcitonin level Follow cultures, deescalate antibiotics as soon as possible. Panculture if new onset fever ONCOLOGY/HEMATOLOGY/COAGULATION: Monitor for s/s of bleeding Monitor hemoglobin, coagulation studies as needed SKIN: Pressure ulcer prevention per facility protocol Specialty mattress ORTHO/REHAB: Continue PT/OT Prophylaxis: Continue GI and DVT prophylaxis Code Status: Full Resuscitation Disposition: TBD Other: Total patient care time exceeds 35 minutes excluding all procedures. OMER BLACK July 16, 2024 11:07
[2024-07-16] MEDS ORDERED: ondanSETRON 4MG INJ ONE (11:09)
[2024-07-16] MEDS ORDERED: proPOFol 10 MG/ML 20ML VIAL IV ONE (11:09)
[2024-07-16] MEDS ORDERED: NEOSTIGMINE METHYLSULFATE 1MG/ML IV ONE (11:09)
[2024-07-16] MEDS ORDERED: GLYCOPYRROLATE 0.2 MG/ML 5 ML VIAL ONE (11:09)
[2024-07-16] MEDS ORDERED: MIDAZOLAM HCL 1 MG/ML 2ML VIAL ONE (11:09)
[2024-07-16] MEDS ORDERED: FENTanyl CITRate PF 50 MCG/1 ML 2ML VIAL ONE (11:10)
[2024-07-16] MEDS ORDERED: rocuRONium bROMide 10MG/1ML 5ML VL ONE (11:10)
[2024-07-16] MEDS ORDERED: SUCCINYLCHOLINE CHLORIDE 20 MG/ML 10 ML VIAL ONE (11:10)
[2024-07-16] MEDS ORDERED: BUPIvacaine/PF 0.5% 30ML VIAL ONE (11:47)
[2024-07-16] MEDS: BUPIvacaine/PF 0.5% 30ML VIAL INJ ONE (11:50)
[2024-07-16] MEDS: SUGAMMADEX SODIUM 200 MG/2 ML VIAL IV ONE (11:54)
--- NOTE | 2024-07-16 12:05 | OP ---
Operative Note: DATE OF PROCEDURE: 07/16/24 SURGEON: SALAZAR BERNAL MD HUNTING GUIDE: [Patricia Paez CFA] ANESTHESIA: [General endotracheal anesthesia] ANESTHESIOLOGIST/ELECTROTYPE FINISHER: [[facility] anesthesia team] PREOPERATIVE DIAGNOSIS: [Right thigh abscess] POSTOPERATIVE DIAGNOSIS: [Same] SYNOPSIS: [Patient with multiple medical problems who has a large right thigh abscess Incision and drainage and debridement of right thigh abscess with destruction of all loculations and opening up of the tunneling tract All sponges and instruments accounted for at the end the case Patient tolerated the procedure well, there no complications] PROCEDURE: [Incision and drainage and debridement of right thigh abscess] ESTIMATED BLOOD LOSS: [Less than 10 cc] INDICATIONS: [Right thigh abscess] DESCRIPTION OF PROCEDURE: [On day of surgery patient presented to the hospital. Patient was brought back to operating room. Positioned in the supine position. Preoperative antibiotics were given. Bilateral SCDs were placed. Patient was intubated. Patient then was prepped and draped the usual fashion. A skin inci izaiah was made in the apex of the abscess. Dissection down to an abscess cavity was done with the electrocautery. There appeared to be significant amount of granular material. Samples were taken for Gram stain, aerobic and anaerobic culture and sensitivity. The necrotic tissue that was removed from the apex of the wound was also sent off for cultures. Then utilizing a pair of curved clamps the loculations within the abscess cavity were broken down. There appeared to be some tunneling that when deepened the tunnel was probed with a pair of curved clamp and all its loculations were also broken down. The defect itself stretch properly about 7 cm. Once all this was opened up and cleaned out the cavity was copiously irrigated with saline. Once irrigation was removed appropriate hemostasis was observed. Then the cavity was packed with Kerlix soaked in Betadine. Appropriate dressings were placed. Patient has woken up, transferred to a stretcher, taken to recovery recovery. All sponges and instruments were accounted for at the end the case. Patient tolerated the procedure well, there no complications.] SALAZAR BERNAL MD July 16, 2024 12:05
--- NOTE | 2024-07-16 12:44 | PN ---
[facility] PROGRESS NOTE Date of Service: July 16, 2024 Time of Service: 12:40 SUBJECTIVE: 07/06 patient seen at bedside, no acute events overnight. He has been afebrile, hemodynamically stable saturating well on room air. His only complaint is pain when he is ambulating, his right lower extremity proximal to the knee joint on the medial aspect has erythema induration, no fluctuance noted and is tender to palpation. There is no crepitus noted. Outlined the margins of the lesion and we will continue with broad-spectrum antibiotics. WBC improved from 13.9 down to 12.9, blood sugars still quite elevated, diabetic medications have been adju sted by clay pigeon loader, appreciate their assistance. A1c pending, we will follow up. Podiatry recommendations regarding diabetic foot ulcer on the 1st great toe are still pending. 07/07 patient seen at bedside, no acute events overnight. He has been afebrile, hemodynamically stable saturating well on room air. Area of cellulitis appears to be improved in color and swelling is diminished. Foot x-ray showing possible retained foreign body. Podiatry recommending a bone scan has MRI is contraindicated with foreign body, to assess for osteomyelitis. We will follow up with Endocrinology recommendations. 07/08 bone scan pending today, we will follow up postprocedure. Wound cultures are still pending, we will continue to follow. Patient has cellulitis in his right medial thigh continues to improve, swelling and erythema have retracted significantly. Labs are relatively unremarkable. Insulin adjusted by endocrinology, appreciate recommendations. 07/09 patient seen at bedside, no acute events overnight. Sensitivities are growing out Enterococcus and MRSA, infectious disease consulted for this discharge antibiotics. Patient counseled extensively on the importance of glycemic control. 07/10 infectious Disease recommending PICC line with follow up at [facility] for outpatient IV antibiotics. Once this is completed patient will be good candidate for discharge 5/ patient seen at bedside, no acute events overnight. PICC line has been successfully placed, still pending acceptance to [facility]. Once he was acc eptance will be good candidate for discharge. 5/ patient seen at bedside, no acute events overnight. Still pending acceptance to [facility]. Once he was acceptance will be good candidate for discharge. 07/13 patient seen at bedside, no acute events overnight. Still pending acceptance to [facility]. Once he was acceptance will be good candidate for discharge. 07/14 patient seen at bedside, no acute events overnight. Pending outpatient arrangements at [facility]. 07/15 patient is seen and examined at bedside, no acute events overnight, at the time of my visit, the patient has been started on supplemental oxygen via nasal cannula at 2 L, he is saturating 92-93%, he feels mild short of breath but denied chest pain, not actively coughing. He is getting IV antibiotics during my visit, no family members at bedside. 07/16 Patient seen and examined at bedside, no acute events overnight, getting iv antibiotics, NPO, schedule to go to the OR for I&D right lower extremity abscess. REVIEW OF SYSTEMS 12 point review of systems negative unless noted in HPI PHYSICAL EXAM GENERAL APPEARANCE: The patient is awake, alert, and oriented, in no acute cardiopulmonary distress. Patient is obese NEUROLOGICAL: Cranial nerves II-XII grossly intact. Motor is 5/5 in bilateral upper and lower extremities proximal to distal. No sensory deficits. HEENT: Face is symmetric. Pupils are equal and reactive. Extraocular movements are intact. NECK: Supple. No JVD. No thyromegaly. No submental, submandibular, pre- /postauricular, occipital or supraclavicular lymphadenopathy. CHEST: Normal chest expansion. No Telemetry. LUNGS: Absence of any rales, rhonchi or any wheezing. CARDIOVASCULAR: Regular. S1 and S2 normal. No appreciable rubs, murmurs or gallops. ABDOMEN: Soft, nontender, and nondistended. There is no rebound, voluntary guarding, or rigidity. : Deferred. No Harden. EXTREMITIES: Patient has erythema on the posterior aspect of the leg involving the knee. He has redness traveling down to the leg to the foot. He has swelling noted. Area is tender to palpation. Additionally he has a ulcer noted in the 1st toe of the right foot. He has blackish discoloration with possible eschar noted SKIN: No skin breakdown. Vital Signs (last 8hr) Date Time Temp Pulse Resp B/P (MAP) Pulse Ox O2 Delivery O2 Flow Rate FiO2 07/16/24 10:55 98.6 87 17 121/82 96 Room Air 07/16/24 08:11 90 20 N/A Room Air 21 07/16/24 08:00 98.8 76 20 139/79 93 Room Air 21 LABS: Laboratory: Test 07/16/24 12:29 07/16/24 08:05 07/15/24 15:06 07/15/24 12:08 Range/Units Whole Blood Glucose 159 H 70-110 MG/DL Vancomycin Level Trough 11.5 10.0-20.0 UG/ML D-Dimer Quantitative (PE/DVT) 996 *H 0-500 ng/mL Potassium Level 3.5 3.5-5.1 mmol/L B-Type Natriuretic Peptide 875 H 0-100 pg/mL Blood Gas Specimen Type Arterial Arterial Blood pH 7.445 7.350-7.450 Arterial Blood Partial Pressure CO2 35 35-48 mmHg Arterial Blood Partial Pressure O2 58.9 L 83.0-108.0 mmHg Arterial Blood HCO3 23.4 21.0-28.0 mmol/L Arterial Blood Oxygen Saturation 91.8 L 94.0-98.0 % Arterial Blood Base Excess -0.1 -2.0-3.0 mmol/L Blood Gas Temperature 37.0 35.5-37.0 CELSIUS Blood Gas Vent Mode RA ROOM AIR FiO2 21.0 % Blood Gas Specimen Comment RR, GERARDO,CHRISTIAN SCIENCE NURSE Test 07/15/24 03:06 Range/Units White Blood Count 9.3 4.8-10.8 K/uL Red Blood Count 5.14 4.50-6.20 MIL/uL Hemoglobin 13.1 L 14.0-18.0 g/dL Hematocrit 38.5 L 42-54 % Mean Corpuscular Volume 74.9 L 79-99 fL Mean Corpuscular Hemoglobin 25.5 L 27.0-33.0 pg Mean Corpuscular Hemoglobin Concent 34.0 32.0-36.0 g/dL Red Cell Distribution Width 13.3 11.0-15.5 % Platelet Count 436 H 130-400 K/uL Mean Platelet Volume 8.4 7.5-10.5 fL Nucleated Red Blood Cells 0.0 0.0-0.19 % Sodium Level 143 136-145 mmol/L Chloride Level 107 101-111 mmol/L Carbon Dioxide Level 28 21-32 mmol/L Blood Urea Nitrogen 6 L 7-18 mg/dL Creatinine 0.7 0.5-1.3 mg/dL Glomerular Filtration Rate Calc 133 >90 mL/min Random Glucose 239 #H 70-105 mg/dL Total Calcium 8.3 L 8.5-10.1 mg/dL Magnesium Level 2.40 1.80-2.40 mg/dL Total Bilirubin 0.2 # 0.2-1.0 mg/dL Aspartate Amino Transf (AST/SGOT) 15 10-37 U/L Alanine Aminotransferase (ALT/SGPT) 16 12-78 U/L Alkaline Phosphatase 73 50-136 U/L Total Protein 6.9 6.0-8.3 g/dL Albumin 2.3 L 3.5-5.0 g/dL Current Medications Medications (Trade) Dose Ordered Sig/Morales Route PRN Reason Start Time Stop Time Status Last Admin Dose Admin Acetaminophen (TYLenol 325MG TAB) 650 mg Q6H PRN PO MILD PAIN (1-3) 07/06/24 13:30 08/05/24 13:29 07/07/24 14:01 650 MG Acetaminophen/ Hydrocodone Bitart (NORco 5/325MG) 1 tab Q6H PRN PO MODERATE PAIN (4-6) 07/06/24 13:30 07/11/24 13:29 DC 07/10/24 19:19 1 TAB Alteplase, Recombinant (CathFLO 2MG VIAL) 1 mg ONCE IVCATH 07/12/24 13:30 07/13/24 19:09 DC 07/12/24 18:20 1 MG Cefepime HCl (MAXipime 1 GM vial) 1 gm Q8H IVPB 07/12/24 12:00 07/22/24 11:59 07/16/24 04:25 1 GM Dextrose (D50w) 50 ml AD PRN IV HYPOGLYCEMIA PROTOCOL 07/05/24 15:00 08/04/24 14:59 Diphenhydramine HCl (BENAdryl INJ) 25 mg ONCE STAT IV 07/15/24 16:42 07/15/24 16:47 DC 07/15/24 16:52 25 MG Enoxaparin Sodium (Lovenox) 30 mg DAILY SQ 07/06/24 09:00 07/15/24 14:28 DC 07/15/24 09:34 30 MG Enoxaparin Sodium (Lovenox) 40 mg BID SQ 07/15/24 21:00 08/05/24 08:59 07/15/24 20:35 40 MG Famotidine (Pepcid 20mg Vial) 20 mg BID IV 07/05/24 21:00 08/04/24 20:59 07/16/24 09:41 20 MG Glucagon (Glucagon 1mg Kit) 1 mg AD PRN IM HYPOGLYCEMIA PROTOCOL 07/05/24 15:00 08/04/24 14:59 Insulin Glargine (LANtus 100 UNITS/ML 10 ML VIAL) 15 units DAILY SQ 07/05/24 15:00 07/07/24 22:00 DC 07/07/24 08:47 15 UNITS Insulin Glargine (LANtus 100 UNITS/ML 10 ML VIAL) 40 units DAILY07 07/08/24 07:00 07/08/24 21:03 DC 07/08/24 07:54 40 UNITS Insulin Glargine (LANtus 100 UNITS/ML 10 ML VIAL) 50 units DAILY07 07/13/24 07:00 07/16/24 07:20 DC 07/16/24 06:37 50 UNITS Insulin Glargine (LANtus 100 UNITS/ML 10 ML VIAL) 60 units DAILY07 07/09/24 07:00 07/13/24 06:18 DC 07/13/24 06:17 60 UNITS Insulin Glargine (LANtus 100 UNITS/ML 10 ML VIAL) 60 units DAILY07 07/17/24 07:00 08/16/24 06:59 Insulin Human Regular (humuLIN R 100 UNIT/ML 3ML) 10 unit TIDAC SQ 07/06/24 07:30 07/07/24 22:00 DC 07/07/24 17:19 10 UNIT Insulin Human Regular (humuLIN R 100 UNIT/ML 3ML) 10 unit TIDAC SQ 07/13/24 07:30 07/15/24 21:41 DC 07/15/24 17:09 10 UNIT Insulin Human Regular (humuLIN R 100 UNIT/ML 3ML) 15 unit TIDAC SQ 07/16/24 07:30 08/15/24 07:29 Insulin Human Regular (humuLIN R 100 UNIT/ML 3ML) 16 unit TIDAC SQ 07/08/24 07:30 07/08/24 21:03 DC 07/08/24 17:33 16 UNIT Insulin Human Regular (humuLIN R 100 UNIT/ML 3ML) 22 unit TIDAC SQ 07/09/24 07:30 07/09/24 21:14 DC 07/09/24 17:44 22 UNIT Insulin Human Regular (humuLIN R 100 UNIT/ML 3ML) 25 unit TIDAC SQ 07/10/24 07:30 07/13/24 06:18 DC 07/10/24 19:13 25 UNIT Insulin Human Regular (humuLIN R 100 UNIT/ML 3ML) INSULIN SLIDING SCAL... ACHS SQ 07/06/24 07:30 08/05/24 07:29 07/16/24 06:38 8 UNIT Insulin Human Regular (humuLIN R 100 UNIT/ML 3ML) INSULIN SLIDING SCAL... Q6H6 SQ 07/05/24 18:00 07/05/24 21:19 DC 07/05/24 17:43 8 UNIT Ketorolac Tromethamine (toRADol) 15 mg Q6H PRN IV MODERATE PAIN (4-6) 07/05/24 17:00 07/07/24 06:16 DC 07/05/24 21:03 15 MG Leptospermum Honey (Medihoney) 1 APPLICATION DAILY TP 07/07/24 09:00 08/06/24 08:59 07/16/24 09:41 1 APPL Magnesium Sulfate 50 ml @ 0 mls/hr PROTOCOL PRN IV low magnesium 07/07/24 10:00 08/06/24 09:59 07/14/24 15:22 20 MLS/HR Methylprednisolone Sodium Succinate (Solu-medROL 125MG) 80 mg ONCE STAT IVP 07/15/24 16:42 07/15/24 16:47 DC 07/15/24 16:52 80 MG Morphine Sulfate (morPHINE 2MG SYG) 2 mg Q6H PRN IVP SEVERE PAIN (7-10) 07/05/24 17:00 07/10/24 19:59 DC Piperacillin Sod/ Tazobactam Sod (Zosyn 3.375gm+NS 50ml) 3.375 gm Q8H IV 07/11/24 00:00 07/12/24 11:46 DC 07/12/24 08:51 3.375 GM Piperacillin Sod/ Tazobactam Sod (Zosyn 3.375gm+NS 50ml) 3.375 gm Q8H IVPB 07/05/24 14:30 07/10/24 03:41 DC 07/10/24 00:09 3.375 GM Piperacillin Sod/ Tazobactam Sod (Zosyn 3.375gm+NS 50ml) 3.375 gm Q8H IVPB 07/10/24 08:00 07/10/24 09:45 DC Potassium Chloride 100 ml @ 100 mls/hr AD PRN IV POTASSIUM PROTOCOL 07/07/24 10:00 08/06/24 09:59 07/14/24 14:24 100 MLS/HR Potassium Chloride (K-Dur/Klor-Con 20meq) 20 meq AD PRN PO POTASSIUM PROTOCOL 07/07/24 10:00 08/06/24 09:59 07/15/24 20:36 20 MEQ Potassium Chloride (KCl 10% Elixir 20meq/15ml) 20 meq AD PRN PO POTASSIUM PROTOCOL 07/07/24 10:00 08/06/24 09:59 Sodium Chloride 250 ml @ 125 mls/hr AD IV 07/14/24 21:00 07/14/24 23:59 DC 07/14/24 20:46 125 MLS/HR Sodium Chloride 1,000 ml @ 100 mls/hr Q10H IV 07/05/24 14:30 07/11/24 03:05 DC 07/09/24 15:24 100 MLS/HR Sodium Chloride (NS 50ml) 50 ml AD IV 07/05/24 18:00 07/06/24 13:20 DC Vancomycin HCl 250 ml @ 125 mls/hr Q6H IV 07/10/24 21:00 07/15/24 06:33 DC 07/13/24 17:42 125 MLS/HR Vancomycin HCl 250 ml @ 125 mls/hr Q6H IV 07/14/24 00:00 07/14/24 20:29 DC 07/14/24 19:38 125 MLS/HR Vancomycin HCl 250 ml @ 125 mls/hr Q6H IV 07/15/24 12:00 07/15/24 20:48 DC 07/15/24 20:34 125 MLS/HR Vancomycin HCl 250 ml @ 125 mls/hr Q6H IV 07/16/24 03:00 07/26/24 02:59 07/16/24 09:41 125 MLS/HR Vancomycin HCl 250 ml @ 125 mls/hr Q8H IV 07/07/24 13:00 07/09/24 12:53 DC 07/09/24 04:38 125 MLS/HR Vancomycin HCl 250 ml @ 125 mls/hr Q8H IV 07/09/24 21:00 07/10/24 09:45 DC 07/09/24 21:43 125 MLS/HR Vancomycin HCl 250 ml @ 125 mls/hr Q8H6 IV 07/14/24 22:00 07/14/24 19:24 DC Vancomycin HCl 250 ml @ 125 mls/hr Q8H6 IV 07/15/24 06:00 07/15/24 06:29 DC 07/15/24 06:00 125 MLS/HR Vancomycin HCl 250 ml @ 125 mls/hr Q8H6 IV 07/15/24 14:00 07/15/24 06:33 DC Vancomycin HCl 250 ml @ 167 mls/hr Q12H IV 07/06/24 01:00 07/07/24 12:31 DC 07/07/24 01:11 167 MLS/HR Vancomycin HCl (Vancomycin 750mg) 750 mg ONCE IVPB 07/14/24 21:00 07/14/24 23:59 DC 07/14/24 20:45 750 MG Vancomycin HCl (Vancomycin Protocol) 1 each AD IV 07/05/24 14:30 07/10/24 20:22 DC Vancomycin HCl (Vancomycin Protocol) 1 each AD IV 07/10/24 21:00 07/24/24 20:59 DIAGNOSTICS / RADIOLOGY: [ ] ASSESSMENT: Right Leg cellulitis with abscess right inner thigh POA Hyperglycemia secondary to uncontrolled diabetes mellitus type 2 last A1C 15.5, POA Foot ulcer of the 1st toe of the right foot, MRSA and Enterofaecalis, POA Hyponatremia secondary to hyperglycemia Dehydration, resolved Obesity BMI 53.1 Suspected RUTH/OHS undiagnosed and untreated POA Acute hypoxemic resp failure not POA Suspected acute heart failure not POA Well's score for PE 6 points ( Moderate) PLAN: -patient remains admitted to the medical floor - continue the patient on broad-spectrum IV antibiotics -schedule to go to the OR for I&D -continue to follow surgical input and recommendations - infectious disease input noted and appreciated, patient is still pending insurance approval for outpatient IV antibiotics with [facility]. - Podiatry input noted and appreciated, continue with Medihoney dressing to both great toes. Patient to continue ambulation with surgical shoes. Once the patient is discharged he can follow up as an outpatient with the ped supervisor special effects for appropriate shoe gear with insoles to offload the great toe ulcer sites to his feet bilaterally. -continue the patient on supplemental oxygen via nasal cannula at 2 L to keep oxygen saturation greater than 94%, follow chest x-ray. -Pulmonary input noted, CT chest no PE, echocardiogram pending. NEURO: Minimize central acting medications as possible. Fall Precautions. Well lighted room through the day and minimize interruptions through the night to prevent acute delirium. PULMONARY: Supplemental 02 as needed BiPAP as necessary, for respiratory distress Titrate Fio2 to keep Spo2 > or = 90% DuoNeb�s and CPT as needed IS hourly while awake for pulmonary hygiene prn Out of bed to chair as tolerated Maintain aspiration precautions at all times CARDIOVASCULAR: Follow hemodynamics. Vital signs per facility protocol GI & NUTRITION: Continue nutritional support Aspirations precautions Prokinetic agents and laxatives as needed KIDNEYS & ELECTROLYTES: Strict monitoring of intake and output Daily weights Avoid nephrotoxic agents Monitor electrolytes and replace as needed Goal urine output of 30mL/hr or 0.5mL/kg/hr Medications to be dosed according to renal function. Avoid contrast if possible ENDOCRINE: Maintain blood glucose between 100-180 at all times. Insulin sliding scale for blood glucose management Hypoglycemia and hyperglycemia protocol in place INFECTIOUS DISEASE: Trend temperature, WBC and procalcitonin level Follow cultures, deescalate antibiotics as soon as possible. Panculture if new onset fever HEMATOLOGY & COAGULATION: Monitor H&H. Keep Hgb > 7 Transfuse 1 unit of PRBC for Hgb < 7 Transfuse 1 pack of platelets of platelets < 20, 000 Watch for any signs and symptoms of bleeding SKIN: Pressure ulcer prevention per facility protocol Specialty mattress as needed ORTHO/REHAB Continue PT/OT PRN: MEDICATIONS Tylenol 650 mg po every 4 hrs for fever zofran 4 mg IV every 6 hrs for n/v Hydralazine 5 mg IV every 4 hrs systolic pressure > 160 bowel regiment: lactulose 20 gm PO BID PRN constipation Supportive measures: Continue GI and DVT prophylaxis Disposition: Pending improvement in clinical condition All questions answered time spent: > 35 min FANNIE RAMÍREZ MD July 16, 2024 12:44
--- NOTE | 2024-07-16 14:04 | PN ---
INFECTIOUS DISEASE PROGRESS NOTE Date of Service: July 15, 2024 SUBJECTIVE: This is a 24 year old male patient who was seen and examined at bedside in room 328. Patient is awake, alert and oriented x 3. Patient has an abscess to the right inner thigh. Patient is afebrile, temperature is 98.4�. We will obtain General surgery consult with Dr. Estevez for evaluation. Continues on cefepime and vancomycin. Patient was been placed on oxygen via nasal cannula this morning due to experiencing shortness of breath earlier today PHYSICAL EXAM EYES: Anicteric. Pupils equal and reactive. HENT: No oral thrush seen, moist Oral mucosa. NECK: Supple, no JVD or thyromegaly. LUNGS: Good air entry. No rales, no rhonchi. CARDIOVASCULAR: S1, S2 regular. No murmur heard. ABDOMEN: Soft, non tender, bowel sounds present, no organomegaly. CENTRAL NERVOUS SYSTEM: Awake, alert, oriented x 3. SKIN: No rashes, no swelling. LYMPHATICS: No peripheral lymphadenopathy MUSCULOSKELETAL: No joint swelling, erythema or tenderness. EXTREMITIES: Right great toe diabetic ulcer with abscess. Left great toe callus. Right inner thigh abscess. BACK: No deformity, no pressure ulcer. GENITOURINARY: No dysuria or hematuria. Vital Sign (Last 12 Hours) 07/16/24 07/16/24 07/16/24 07/16/24 03:59 08:00 08:11 10:55 Temp 98.2 98.8 98.6 Pulse 88 76 90 87 Resp 20 20 20 17 B/P (MAP) 126/76 139/79 121/82 Pulse Ox 93 93 96 O2 Delivery Nasal Cannula Room Air N/A Room Air Room Air O2 Flow Rate 2.0 FiO2 21 21 07/16/24 07/16/24 07/16/24 07/16/24 12:06 12:11 12:16 12:21 Temp 97.5 Pulse 76 74 77 76 Resp 15 14 14 13 B/P (MAP) 105/59 103/57 108/61 107/65 Pulse Ox 96 97 97 97 O2 Delivery Nasal Cannula Nasal Cannula Nasal Cannula Nasal Cannula O2 Flow Rate 3.0 3.0 3.0 2.0 07/16/24 07/16/24 07/16/24 07/16/24 12:26 12:31 12:36 12:41 Pulse 73 72 76 77 Resp 14 14 15 15 B/P (MAP) 111/65 105/65 114/63 105/66 Pulse Ox 97 96 96 95 O2 Delivery Nasal Cannula Room Air Room Air Room Air O2 Flow Rate 2.0 07/16/24 07/16/24 12:46 12:51 Temp 97.3 Pulse 75 78 Resp 15 15 B/P (MAP) 111/66 108/66 Pulse Ox 94 96 O2 Delivery Room Air Room Air Intake & Output (last 24hrs) 0 07/15/24 07/15/24 07/16/24 15:00 23:00 07:00 Intake Total 400 ml 900.0 ml 300.0 ml Balance 400 ml 900.0 ml 300.0 ml LABS: Laboratory: Test 07/16/24 12:29 07/16/24 08:05 07/15/24 15:06 07/15/24 12:08 Range/Units Whole Blood Glucose 159 H 70-110 MG/DL Vancomycin Level Trough 11.5 10.0-20.0 UG/ML D-Dimer Quantitative (PE/DVT) 996 *H 0-500 ng/mL Potassium Level 3.5 3.5-5.1 mmol/L B-Type Natriuretic Peptide 875 H 0-100 pg/mL Blood Gas Specimen Type Arterial Arterial Blood pH 7.445 7.350-7.450 Arterial Blood Partial Pressure CO2 35 35-48 mmHg Arterial Blood Partial Pressure O2 58.9 L 83.0-108.0 mmHg Arterial Blood HCO3 23.4 21.0-28.0 mmol/L Arterial Blood Oxygen Saturation 91.8 L 94.0-98.0 % Arterial Blood Base Excess -0.1 -2.0-3.0 mmol/L Blood Gas Temperature 37.0 35.5-37.0 CELSIUS Blood Gas Vent Mode RA ROOM AIR FiO2 21.0 % Blood Gas Specimen Comment RR, GERARDO,PORTFOLIO ANALYST Test 07/15/24 03:06 Range/Units White Blood Count 9.3 4.8-10.8 K/uL Red Blood Count 5.14 4.50-6.20 MIL/uL Hemoglobin 13.1 L 14.0-18.0 g/dL Hematocrit 38.5 L 42-54 % Mean Corpuscular Volume 74.9 L 79-99 fL Mean Corpuscular Hemoglobin 25.5 L 27.0-33.0 pg Mean Corpuscular Hemoglobin Concent 34.0 32.0-36.0 g/dL Red Cell Distribution Width 13.3 11.0-15.5 % Platelet Count 436 H 130-400 K/uL Mean Platelet Volume 8.4 7.5-10.5 fL Nucleated Red Blood Cells 0.0 0.0-0.19 % Sodium Level 143 136-145 mmol/L Chloride Level 107 101-111 mmol/L Carbon Dioxide Level 28 21-32 mmol/L Blood Urea Nitrogen 6 L 7-18 mg/dL Creatinine 0.7 0.5-1.3 mg/dL Glomerular Filtration Rate Calc 133 >90 mL/min Random Glucose 239 #H 70-105 mg/dL Total Calcium 8.3 L 8.5-10.1 mg/dL Magnesium Level 2.40 1.80-2.40 mg/dL Total Bilirubin 0.2 # 0.2-1.0 mg/dL Aspartate Amino Transf (AST/SGOT) 15 10-37 U/L Alanine Aminotransferase (ALT/SGPT) 16 12-78 U/L Alkaline Phosphatase 73 50-136 U/L Total Protein 6.9 6.0-8.3 g/dL Albumin 2.3 L 3.5-5.0 g/dL ASSESSMENT: Right foot diabetic ulcer with abscess. Infection with methicillin-resistant Staphylococcus aureus. Right thigh abscess. Right foot cellulitis, resolving. Leukocytosis, resolved. Poorly controlled Diabetes mellitus with hemoglobin A1c of 15.4. Morbid obesity. PLAN: Obtain General surgery consult with Dr. Estevez. Continue cefepime. Continue vancomycin per pharmacy protocol. Continue wound care. Continue antidiabetics. Patient is pending insurance approval to [facility] for outpatient IV antibiotics for 4 weeks. This case was reviewed and discussed with my supervising physician and the above assessment and plan was formulated and agreed upon. ATTESTATION BY PHYSICIAN I have seen and examined the patient. I reviewed the documentation, medical decision making, and treatment plan as noted by the mid-level provider above. I agree with the findings and plan of care. ALTON LEÓN MD, [facility] July 16, 2024 14:04
--- NOTE | 2024-07-16 14:09 | PN ---
INFECTIOUS DISEASE PROGRESS NOTE Date of Service: July 16, 2024 SUBJECTIVE: This is a 24 year old male patient who was seen and examined at bedside in room 328. Patient will be undergoing an incision and drainage of the right thigh abscess today. Patient is afebrile, temperature is 97.5�. We will continue on cefepime and vancomycin. No other issues reported by nursing. PHYSICAL EXAM EYES: Anicteric. Pupils equal and reactive. HENT: No oral thrush seen, moist Oral mucosa. NECK: Supple, no JVD or thyromegaly. LUNGS: Good air entry. No rales, no rhonchi. CARDIOVASCULAR: S1, S2 regular. No murmur heard. ABDOMEN: Soft, non tender, bowel sounds present, no organomegaly. CENTRAL NERVOUS SYSTEM: Awake, alert, oriented x 3. SKIN: No rashes, no swelling. LYMPHATICS: No peripheral lymphadenopathy MUSCULOSKELETAL: No joint swelling, erythema or tenderness. EXTREMITIES: Right great toe diabetic ulcer with abscess. Left great toe callus. Right inner thigh abscess. BACK: No deformity, no pressure ulcer. GENITOURINARY: No dysuria or hematuria. Vital Sign (Last 12 Hours) 07/16/24 07/16/24 07/16/24 07/16/24 03:59 08:00 08:11 10:55 Temp 98.2 98.8 98.6 Pulse 88 76 90 87 Resp 20 20 20 17 B/P (MAP) 126/76 139/79 121/82 Pulse Ox 93 93 96 O2 Delivery Nasal Cannula Room Air N/A Room Air Room Air O2 Flow Rate 2.0 FiO2 21 21 07/16/24 07/16/24 07/16/24 07/16/24 12:06 12:11 12:16 12:21 Temp 97.5 Pulse 76 74 77 76 Resp 15 14 14 13 B/P (MAP) 105/59 103/57 108/61 107/65 Pulse Ox 96 97 97 97 O2 Delivery Nasal Cannula Nasal Cannula Nasal Cannula Nasal Cannula O2 Flow Rate 3.0 3.0 3.0 2.0 07/16/24 07/16/24 07/16/24 07/16/24 12:26 12:31 12:36 12:41 Pulse 73 72 76 77 Resp 14 14 15 15 B/P (MAP) 111/65 105/65 114/63 105/66 Pulse Ox 97 96 96 95 O2 Delivery Nasal Cannula Room Air Room Air Room Air O2 Flow Rate 2.0 07/16/24 07/16/24 12:46 12:51 Temp 97.3 Pulse 75 78 Resp 15 15 B/P (MAP) 111/66 108/66 Pulse Ox 94 96 O2 Delivery Room Air Room Air Intake & Output (last 24hrs) 07/15/24 07/15/24 07/16/24 15:00 23:00 07:00 Intake Total 400 ml 900.0 ml 300.0 ml Balance 400 ml 900.0 ml 300.0 ml LABS: Laboratory: Test 07/16/24 12:29 07/16/24 08:05 07/15/24 15:06 07/15/24 12:08 Range/Units Whole Blood Glucose 159 H 70-110 MG/DL Vancomycin Level Trough 11.5 10.0-20.0 UG/ML D-Dimer Quantitative (PE/DVT) 996 *H 0-500 ng/mL Potassium Level 3.5 3.5-5.1 mmol/L B-Type Natriuretic Peptide 875 H 0-100 pg/mL Blood Gas Specimen Type Arterial Arterial Blood pH 7.445 7.350-7.450 Arterial Blood Partial Pressure CO2 35 35-48 mmHg Arterial Blood Partial Pressure O2 58.9 L 83.0-108.0 mmHg Arterial Blood HCO3 23.4 21.0-28.0 mmol/L Arterial Blood Oxygen Saturation 91.8 L 94.0-98.0 % Arterial Blood Base Excess -0.1 -2.0-3.0 mmol/L Blood Gas Temperature 37.0 35.5-37.0 CELSIUS Blood Gas Vent Mode RA ROOM AIR FiO2 21.0 % Blood Gas Specimen Comment RR, GERARDO,PATIENT ACCOUNT ANALYST Test 07/15/24 03:06 Range/Units White Blood Count 9.3 4.8-10.8 K/uL Red Blood Count 5.14 4.50-6.20 MIL/uL Hemoglobin 13.1 L 14.0-18.0 g/dL Hematocrit 38.5 L 42-54 % Mean Corpuscular Volume 74.9 L 79-99 fL Mean Corpuscular Hemoglobin 25.5 L 27.0-33.0 pg Mean Corpuscular Hemoglobin Concent 34.0 32.0-36.0 g/dL Red Cell Distribution Width 13.3 11.0-15.5 % Platelet Count 436 H 130-400 K/uL Mean Platelet Volume 8.4 7.5-10.5 fL Nucleated Red Blood Cells 0.0 0.0-0.19 % Sodium Level 143 136-145 mmol/L Chloride Level 107 101-111 mmol/L Carbon Dioxide Level 28 21-32 mmol/L Blood Urea Nitrogen 6 L 7-18 mg/dL Creatinine 0.7 0.5-1.3 mg/dL Glomerular Filtration Rate Calc 133 >90 mL/min Random Glucose 239 #H 70-105 mg/dL Total Calcium 8.3 L 8.5-10.1 mg/dL Magnesium Level 2.40 1.80-2.40 mg/dL Total Bilirubin 0.2 # 0.2-1.0 mg/dL Aspartate Amino Transf (AST/SGOT) 15 10-37 U/L Alanine Aminotransferase (ALT/SGPT) 16 12-78 U/L Alkaline Phosphatase 73 50-136 U/L Total Protein 6.9 6.0-8.3 g/dL Albumin 2.3 L 3.5-5.0 g/dL ASSESSMENT: Right foot diabetic ulcer with abscess. Infection with methicillin-resistant Staphylococcus aureus. Right thigh abscess. Right foot cellulitis, resolving. Leukocytosis, resolved. Poorly controlled Diabetes mellitus with hemoglobin A1c of 15.4. Morbid obesity. PLAN: Continue cefepime. Continue vancomycin per pharmacy protocol. Continue wound care. Continue antidiabetics. [facility]. Patient has been evaluated by General surgery and pending an I&D of the right thigh today. This case was reviewed and discussed with my supervising physician and the above assessment and plan was formulated and agreed upon. ATTESTATION BY PHYSICIAN I have seen and examined the patient. I reviewed the documentation, medical deci izaiah making, and treatment plan as noted by the mid-level provider above. I agree with the findings and plan of care. ALTON LEÓN MD, [facility] July 16, 2024 14:09
--- NOTE | 2024-07-16 21:18 | HMCSR ---
APPROVED REPORT EXAM: Two-dimensional and M-mode echocardiogram with Doppler and color Doppler. INDICATION ICD: elevated bnp 2D Dimensions RVDd4.5 cmLVEF(%)20.5 (>50%)LVED Vol(simp.)206.0 mL IVSd0.6 (0.7-1.1cm)FS(%)10 %LVES Vol(simp.)148.0 mL LVDd7.2 (3.8-5.6cm)LA (2D)4.8 (1.6-4.0cm)LVEF(%, simp.)28 % PWd1.4 (0.7-1.1cm)Ao Root(2D)3.6 (2.0-3.7cm)LA ESV INDEX (BP)28.39 mL/m2 LVDs6.5 (2.5-4.0cm)LVOT diam2.3 (1.8-2.4cm) IVC diam1.6 cm Deformation Strain Apical 4-11.9 % Apical 2-8.2 % Apical 3-10.7 % Global Strain-10.2 % M-Mode Dimensions EPSS3.2 cm LA (MM)5.4 (1.6-4.0cm) Ao Root(MM)3.2 (2.0-3.7cm) Aortic Valve AoV Vmax0.9 m/Miroslava Peak GR3.0 mmHgLVOT Vmax0.9 m/s AoV VTI0.2 mAo Mean GR1.8 mmHgLVOT VTI0.18 m RICHIE (VMAX)4.59 cm2AVA (VTI) 4.6 cm2 Mitral Valve MV E Vmax89.2 cm/sDECEL Naoe402 ms MV A Vmax69.6 cm/sP 1/2 T61 ms E/A ratio1.3MVA (PHT)3.6 cm2 TDI E/E' Jvuoxz05.2E/E' Fgmbtbh59.6 Medial E' Peak V5.20 cm/sLateral E' Peak V7.07 cm/s Tricuspid Valve TR Vmax2.7 m/sRVSP28.8 mmHg TR Peak GR30.1 mmHg Left Ventricle The left ventricle is severely dilated. LVIDd is 7.2 cm. GLPS is -10%. Severe global hypokinesis. The re is normal left ventricular wall thickness. LVEF is 25-30%. LVEF = 28% by Hammonds's. Indeterminate diastolic dysfunction. Right Ventricle The right ventricle is mildly dilated. The right ventricular systolic function is normal. Atria The left atrium size is normal. The right atrium is severely dilated. Aortic Valve The aortic valve is normal in structure and function. No aortic regurgitation is present. There is no aortic valvular stenosis. Mitral Valve Mitral valve leaflets open well. Mitral regurgitation is trace. There is no mitral valve stenosis. Tricuspid Valve The tricuspid valve leaflets appear normal. There is trivial tricuspid valve regurgitation noted. Pulmonic Valve The pulmonary valve is normal in structure and function. There is no pulmonic valvular regurgitation. Great Vessels The aortic root is normal in size. The IVC is normal in size and collapses >50% with inspiration. Pericardium No pericardial effusion. Conclusion The left ventricle is severely dilated. LVIDd is 7.2 cm. There is normal left ventricular wall thickness. LVEF is 25-30%. LVEF = 28% by Hammonds's. GLPS is -10%. Severe global hypokinesis. Indeterminate diastolic dysfunction. Mitral regurgitation is trace. No pericardial effusion.
--- NOTE | 2024-07-16 22:07 | PN ---
endocrinology progress note Date of Service: 07/16/2024 subjective: glucose are improving patient used to inject lantus and humalog but not injecting for many months. he does not check glucose at home. hba1c>15.0% right foot wound is positive for MRSA and Enterofaecalis, PAST MEDICAL HISTORY: History of foot ulcer in the 1st toe of the right foot PAST SURGICAL HISTORY: Denied any previous surgical history PAST SOCIAL HISTORY: Denied any smoking, alcohol, drug use FAMILY HISTORY: Denied any pertinent family history Coded Allergies: No Known Drug Allergies (Unverified Allergy, Unknown, 10/08/18) ASSESSMENT: Hyperglycemia secondary to uncontrolled diabetes mellitus type POA patient used to inject lantus and humalog but not injecting for many months. he does not check glucose at home. hba1c>15.0% talia-65 abs are negative, so likely type 2 dm. Right Leg cellulitis POA MRSA and Enterofaecalis, ID following Foot ulcer of the 1st toe of the right foot POA Hyponatremia secondary to hyperglycemia Dehydration Obesity BMI 53.1 PLAN: increase lantus to 60 units daily increase regular insulin to 20 units tid before meals for daytime hyperglycemia. continue medium dose insulin ssi monitor glucose qx6 hourly patient will need insulin at discharge Vitals/Labs Vital Signs Date Time Temp Pulse Resp B/P (MAP) Pulse Ox O2 Delivery O2 Flow Rate FiO2 07/16/24 20:00 98.4 86 20 138/63 93 Room Air 07/16/24 19:00 21 07/16/24 12:26 2.0 Medications Current Medications Ketorolac Tromethamine 15 mg ONCE ONCE IM Last administered on 07/05/24at 13:56; Start 07/05/24 at 11:00; Stop 07/05/24 at 11:03; Status DC Vancomycin HCl 1 gm ONCE ONCE IV Last administered on 07/05/24at 14:15; Start 07/05/24 at 13:00; Stop 07/05/24 at 13:01; Status DC Ceftriaxone Sodium 2 gm ONCE ONCE IVPB Last administered on 07/05/24at 13:55; Start 07/05/24 at 12:30; Stop 07/05/24 at 12:31; Status DC Sodium Chloride 1,000 ml @ 0 mls/hr ONCE ONCE IV Last administered on 07/05/24at 13:48; Start 07/05/24 at 12:30; Stop 07/05/24 at 12:31; Status DC Insulin Human Regular 5 unit ONCE ONCE IV Last administered on 07/05/24at 14:01; Start 07/05/24 at 12:30; Stop 07/05/24 at 12:31; Status DC Famotidine 20 mg BID IV Last administered on 07/16/24at 21:07; Start 07/05/24 at 21:00; Stop 08/04/24 at 20:59 Vancomycin HCl 1 each AD IV; Start 07/05/24 at 14:30; Stop 07/10/24 at 20:22; Status DC Piperacillin Sod/ Tazobactam Sod 3.375 gm Q8H IVPB Last administered on 07/10/24at 00:09; Start 07/05/24 at 14:30; Stop 07/10/24 at 03:41; Status DC Sodium Chloride 50 ml AD IV; Start 07/05/24 at 18:00; Stop 07/06/24 at 13:20; Status DC Insulin Human Regular INSULIN SLIDING SCAL... Q6H6 SQ Last administered on 07/05/24at 17:43; Start 07/05/24 at 18:00; Stop 07/05/24 at 21:19; Status DC Sodium Chloride 1,000 ml @ 100 mls/hr Q10H IV Last administered on 07/09/24at 15:24; Start 07/05/24 at 14:30; Stop 07/11/24 at 03:05; Status DC Insulin Glargine 15 units DAILY SQ Last administered on 07/07/24at 08:47; Start 07/05/24 at 15:00; Stop 07/07/24 at 22:00; Status DC Dextrose 50 ml AD PRN IV; Start 07/05/24 at 15:00; Stop 08/04/24 at 14:59 Glucagon 1 mg AD PRN IM; Start 07/05/24 at 15:00; Stop 08/04/24 at 14:59 Vancomycin HCl 250 ml @ 250 mls/hr ONCE ONCE IV Last administered on 07/05/24at 15:11; Start 07/05/24 at 15:00; Stop 07/05/24 at 15:59; Status DC Vancomycin HCl 250 ml @ 167 mls/hr Q12H IV Last administered on 07/07/24at 01:11; Start 07/06/24 at 01:00; Stop 07/07/24 at 12:31; Status DC Iohexol 75 ml STK-MED ONCE IV; Start 07/05/24 at 15:20; Stop 07/05/24 at 15:21; Status DC Ketorolac Tromethamine 15 mg Q6H PRN IV Last administered on 07/05/24at 21:03; Start 07/05/24 at 17:00; Stop 07/07/24 at 06:16; Status DC Morphine Sulfate 2 mg Q6H PRN IVP; Start 07/05/24 at 17:00; Stop 07/10/24 at 19:59; Status DC Insulin Human Regular 10 unit TIDAC SQ Last administered on 07/07/24at 17:19; Start 07/06/24 at 07:30; Stop 07/07/24 at 22:00; Status DC Insulin Human Regular INSULIN SLIDING SCAL... ACHS SQ Last administered on 07/16/24at 21:06; Start 07/06/24 at 07:30; Stop 08/05/24 at 07:29 Enoxaparin Sodium 30 mg DAILY SQ Last administered on 07/15/24at 09:34; Start 07/06/24 at 09:00; Stop 07/15/24 at 14:28; Status DC Acetaminophen 650 mg Q6H PRN PO Last administered on 07/07/24at 14:01; Start 07/06/24 at 13:30; Stop 08/05/24 at 13:29 Acetaminophen/ Hydrocodone Bitart 1 tab Q6H PRN PO Last administered on 07/10/24at 19:19; Start 07/06/24 at 13:30; Stop 07/11/24 at 13:29; Status DC Leptospermum Honey 1 APPLICATION DAILY TP Last administered on 07/16/24at 09:41; Start 07/07/24 at 09:00; Stop 08/06/24 at 08:59 Potassium Chloride 100 ml @ 100 mls/hr AD PRN IV Last administered on 07/14/24at 14:24; Start 07/07/24 at 10:00; Stop 08/06/24 at 09:59 Potassium Chloride 20 meq AD PRN PO; Start 07/07/24 at 10:00; Stop 08/06/24 at 09:59 Potassium Chloride 20 meq AD PRN PO Last administered on 07/15/24at 20:36; Start 07/07/24 at 10:00; Stop 08/06/24 at 09:59 Magnesium Sulfate 50 ml @ 0 mls/hr PROTOCOL PRN IV Last administered on 07/14/24at 15:22; Start 07/07/24 at 10:00; Stop 08/06/24 at 09:59 Vancomycin HCl 250 ml @ 125 mls/hr Q8H IV Last administered on 07/09/24at 04:38; Start 07/07/24 at 13:00; Stop 07/09/24 at 12:53; Status DC Insulin Glargine 40 units DAILY07 SQ Last administered on 07/08/24at 07:54; Start 07/08/24 at 07:00; Stop 07/08/24 at 21:03; Status DC Insulin Human Regular 16 unit TIDAC SQ Last administered on 07/08/24at 17:33; Start 07/08/24 at 07:30; Stop 07/08/24 at 21:03; Status DC Insulin Glargine 60 units DAILY07 SQ Last administered on 07/13/24at 06:17; Start 07/09/24 at 07:00; Stop 07/13/24 at 06:18; Status DC Insulin Human Regular 22 unit TIDAC SQ Last administered on 07/09/24at 17:44; Start 07/09/24 at 07:30; Stop 07/09/24 at 21:14; Status DC Vancomycin HCl 250 ml @ 125 mls/hr Q8H IV Last administered on 07/09/24at 21:43; Start 07/09/24 at 21:00; Stop 07/10/24 at 09:45; Status DC Vancomycin HCl 500 ml @ 250 mls/hr ONCE ONCE IV Last administered on 07/09/24at 15:24; Start 07/09/24 at 13:00; Stop 07/09/24 at 14:59; Status DC Insulin Human Regular 25 unit TIDAC SQ Last administered on 07/10/24at 19:13; Start 07/10/24 at 07:30; Stop 07/13/24 at 06:18; Status DC Piperacillin Sod/ Tazobactam Sod 3.375 gm Q8H IVPB; Start 07/10/24 at 08:00; Stop 07/10/24 at 09:45; Status DC Vancomycin HCl 1 each AD IV; Start 07/10/24 at 21:00; Stop 07/24/24 at 20:59 Vancomycin HCl 250 ml @ 125 mls/hr Q6H IV Last administered on 07/13/24at 17:42; Start 07/10/24 at 21:00; Stop 07/15/24 at 06:33; Status DC Piperacillin Sod/ Tazobactam Sod 3.375 gm Q8H IV Last administered on 07/12/24at 08:51; Start 07/11/24 at 00:00; Stop 07/12/24 at 11:46; Status DC Cefepime HCl 1 gm Q8H IVPB Last administered on 07/16/24at 19:44; Start 07/12/24 at 12:00; Stop 07/22/24 at 11:59 Alteplase, Recombinant 1 mg ONCE IVCATH Last administered on 07/12/24at 18:20; Start 07/12/24 at 13:30; Stop 07/13/24 at 19:09; Status DC Insulin Glargine 50 units DAILY07 SQ Last administered on 07/16/24at 06:37; Start 07/13/24 at 07:00; Stop 07/16/24 at 07:20; Status DC Insulin Human Regular 10 unit TIDAC SQ Last administered on 07/15/24at 17:09; Start 07/13/24 at 07:30; Stop 07/15/24 at 21:41; Status DC Vancomycin HCl 250 ml @ 125 mls/hr Q6H IV Last administered on 07/14/24at 19:38; Start 07/14/24 at 00:00; Stop 07/14/24 at 20:29; Status DC Potassium Chloride 40 meq ONCE ONCE PO Last administered on 07/14/24at 13:48; Start 07/14/24 at 13:00; Stop 07/14/24 at 13:02; Status DC Potassium Chloride 100 ml @ 50 mls/hr ONCE ONCE IV; Start 07/14/24 at 13:00; Stop 07/14/24 at 14:59; Status DC Vancomycin HCl 250 ml @ 125 mls/hr Q8H6 IV; Start 07/14/24 at 22:00; Stop 07/14/24 at 19:24; Status DC Vancomycin HCl 250 ml @ 125 mls/hr Q8H6 IV Last administered on 07/15/24at 06:00; Start 07/15/24 at 06:00; Stop 07/15/24 at 06:29; Status DC Vancomycin HCl 750 mg ONCE IVPB Last administered on 07/14/24at 20:45; Start 07/14/24 at 21:00; Stop 07/14/24 at 23:59; Status DC Sodium Chloride 250 ml @ 125 mls/hr AD IV Last administered on 07/14/24at 20:46; Start 07/14/24 at 21:00; Stop 07/14/24 at 23:59; Status DC Vancomycin HCl 250 ml @ 125 mls/hr Q8H6 IV; Start 07/15/24 at 14:00; Stop 07/15/24 at 06:33; Status DC Vancomycin HCl 250 ml @ 125 mls/hr Q6H IV Last administered on 07/15/24at 20:34; Start 07/15/24 at 12:00; Stop 07/15/24 at 20:48; Status DC Furosemide 40 mg ONCE ONCE IV Last administered on 07/15/24at 14:00; Start 07/15/24 at 14:00; Stop 07/15/24 at 14:01; Status DC Enoxaparin Sodium 40 mg BID SQ Last administered on 07/16/24at 21:08; Start 07/15/24 at 21:00; Stop 08/05/24 at 08:59 Iohexol 50 ml STK-MED ONCE IV; Start 07/15/24 at 16:25; Stop 07/15/24 at 16:25; Status DC Iohexol 75 ml STK-MED ONCE IV; Start 07/15/24 at 16:25; Stop 07/15/24 at 16:25; Status DC Methylprednisolone Sodium Succinate 80 mg ONCE STAT IVP Last administered on 07/15/24at 16:52; Start 07/15/24 at 16:42; Stop 07/15/24 at 16:47; Status DC Diphenhydramine HCl 25 mg ONCE STAT IV Last administered on 07/15/24at 16:52; Start 07/15/24 at 16:42; Stop 07/15/24 at 16:47; Status DC Methylprednisolone Sodium Succinate 40 mg STK-MED ONCE .ROUTE; Start 07/15/24 at 16:46; Stop 07/15/24 at 16:46; Status DC Diphenhydramine HCl 50 mg STK-MED ONCE .ROUTE; Start 07/15/24 at 16:46; Stop 07/15/24 at 16:47; Status DC Vancomycin HCl 250 ml @ 125 mls/hr Q6H IV Last administered on 07/16/24at 21:07; Start 07/16/24 at 03:00; Stop 07/26/24 at 02:59 Insulin Human Regular 15 unit TIDAC SQ Last administered on 07/16/24at 17:34; Start 07/16/24 at 07:30; Stop 08/15/24 at 07:29 Insulin Glargine 60 units DAILY07 SQ; Start 07/17/24 at 07:00; Stop 08/16/24 at 06:59 Lidocaine HCl 100 mg STK-MED ONCE .ROUTE; Start 07/16/24 at 11:05; Stop 07/16/24 at 11:06; Status DC Midazolam HCl 2 mg STK-MED ONCE .ROUTE; Start 07/16/24 at 11:09; Stop 07/16/24 at 11:09; Status DC Ondansetron HCl 4 mg STK-MED ONCE .ROUTE; Start 07/16/24 at 11:09; Stop 07/16/24 at 11:09; Status DC Glycopyrrolate 1 mg STK-MED ONCE .ROUTE; Start 07/16/24 at 11:09; Stop 07/16/24 at 11:09; Status DC Propofol 200 mg STK-MED ONCE IV; Start 07/16/24 at 11:09; Stop 07/16/24 at 11:09; Status DC Neostigmine Methylsulfate 10 mg STK-MED ONCE IV; Start 07/16/24 at 11:09; Stop 07/16/24 at 11:10; Status DC Succinylcholine Chloride 200 mg STK-MED ONCE .ROUTE; Start 07/16/24 at 11:10; Stop 07/16/24 at 11:10; Status DC Rocuronium Mart 50 mg STK-MED ONCE .ROUTE; Start 07/16/24 at 11:10; Stop 07/16/24 at 11:10; Status DC Fentanyl Citrate 100 mcg STK-MED ONCE .ROUTE; Start 07/16/24 at 11:10; Stop 07/16/24 at 11:10; Status DC Bupivacaine HCl 5 mg STK-MED ONCE .ROUTE; Start 07/16/24 at 11:47; Stop 07/16/24 at 11:48; Status DC Bupivacaine HCl 150 mg STK-MED ONCE INJ Last administered on 07/16/24at 11:50; S tart 07/16/24 at 11:50; Stop 07/16/24 at 12:47; Status DC JOSE CASTILLO MD July 16, 2024 22:07
--- NOTE | 2024-07-16 23:23 | PN ---
SUBJECTIVE: The patient is a very pleasant 24-year-old male. He went to surgery today for incision, drainage and debridement of an abscess to the knee area on the right. He has been followed for bilateral great toe ulcers. He complains of having pain to the right knee surgical site. He is remaining afebrile. He has been receiving vancomycin and cefepime. He has been receiving Medihoney dressings of both great toe ulcers. REVIEW OF SYSTEMS: CONSTITUTIONAL: No chills, no fevers, no night sweats. No nausea or vomiting. No diarrhea. HEENT: No problems with eyes, ears, nose and throat. CARDIOVASCULAR: He has no current chest pain. He has had abnormal arterial Doppler studies, but strongly palpable pedal pulses to his feet. GENITOURINARY: No dysuria. GASTROINTESTINAL: No dysphagia. ENDOCRINE: Diabetes uncontrolled, being followed by Endocrinology. PSYCHIATRIC: Denied any depression. MUSCULOSKELETAL: Bunions and hammertoe deformities. He has morbid obesity INTEGUMENT: He has an ulcer at the plantar aspects of both great toes. MRIs could not be done. Bone scan was negative for osteomyelitis of both great toes. He has been followed for ulcers to the right great toe and ulcer to the left great toe, each approximately 3 x 3 x 1 mm. On examination today, ulcers of both great toes plantarly 3 x 3 x 1 mm. They are clean and granular. No signs of infection present. ASSESSMENT: A 24-year-old male morbid obesity, BMI of 55, uncontrolled diabetes, ulcers plantar aspect of both great toes status post incision, drainage, and debridement of a knee abscess on the right performed today. The patient's cultures are growing back Enterococcus faecalis and MRSA, receiving vancomycin and cefepime for infectious disease. PLAN: We will continue Medihoney dressings, offloading mattress, surgical interventions and the IV antibiotics. Continue to follow the patient closely while in-house. TID: [id number] RECEIPT: [id number]
[2024-07-17 00:04] VITALS: BP 122/75; PULSE 87; RESP 19; TEMP 98.1
[2024-07-17 03:19] LABS: HEMATOCRIT 37.6 % (42-54); MEAN CORPUSCULAR HEMOGLOBIN 25.6 pg (27.0-33.0); MEAN CORPUSCULAR HGB CONC 34.3 g/dL (32.0-36.0); MEAN CORPUSCULAR VOLUME 74.8 fL (79-99); RED BLOOD CELL COUNT(AUTO) 5.03 MIL/uL (4.50-6.20); RED CELL DISTRIBUTION WIDTH 13.4 % (11.0-15.5); WHITE BLOOD COUNT (AUTO) 8.7 K/uL (4.8-10.8)
[2024-07-17 03:32] LABS: ALBUMIN 2.4 g/dL (3.5-5.0); BILIRUBIN,TOTAL 0.3 mg/dL (0.2-1.0); CREATININE 0.7 mg/dL (0.5-1.3); MAGNESIUM 1.7 mg/dL (1.80-2.40); POTASSIUM 3.2 mmol/L (3.5-5.1); TOTAL PROTEIN, SERUM 6.5 g/dL (6.0-8.3)
[2024-07-17 04:00] VITALS: BP 111/57; PULSE 85; RESP 19; TEMP 98.4
--- NOTE | 2024-07-17 07:15 | PN ---
SUBJECTIVE: The patient is a 24-year-old diabetic [place] male who is followed up for bilateral great toe ulcers, uncontrolled diabetes, status post incision, drainage and debridement, diabetic ulcer abscess to his medial knee on the right side. Afebrile. White count 8.7, H and H 12.9 and 37.6. Albumin 2.4. BUN and creatinine 8 and 0.7. Wound cultures, Enterococcus faecalis, and Staph aureus MRSA. The patient is currently receiving IV vancomycin, IV cefepime. The patient is being followed by Infectious Disease. He is receiving Medihoney dressings to the great toes bilaterally. REVIEW OF SYSTEMS: EXTREMITIES: Has pain to the right knee surgical site. CONSTITUTIONAL: No constitutional symptoms. HEENT: No problems with eyes, ears, nose, or throat. CARDIOVASCULAR: No current chest pain. He has abnormal arterial Doppler studies with strongly palpable pedal pulses to his feet. GENITOURINARY: No dysuria. GASTROINTESTINAL: No dysphagia. ENDOCRINE: Diabetes. PSYCHIATRIC: Denied any depression. MUSCULOSKELETAL: He has morbid obesity, BMI of 55. Bunions and hammertoe deformities. INTEGUMENTARY: Bilateral great toe ulcers plantarly, each 3 x 3 x 1 mm. OBJECTIVE: Examination today ulcers 3 x 3 x 1 mm. Palpable pedal pulses to his feet. ASSESSMENT: The patient is a 24-year-old male with morbid obesity, BMI of 55, uncontrolled diabetes, status post incision and debridement and debridement of medial knee ulcer abscess, bilateral plantar great toe ulcers. Cultures, Enterococcus faecalis, and MRSA. He received cefepime and vancomycin. The patient's bone scan is negative for osteomyelitis of the bilateral great toes. PLAN: We will continue Medihoney dressings, offloading measures. He is status post surgical intervention to the right knee. Continue with the IV vancomycin and IV cefepime. Follow the patient closely while in-house. TID: [id number] RECEIPT: [id number]
[2024-07-17] MEDS: INSULIN humuLIN R 100 UNIT/ML 3ML SQ SCH (07:30)
[2024-07-17 07:54] VITALS: BP 117/68; PULSE 83; RESP 20; TEMP 98.8
[2024-07-17] MEDS: INSULIN GLARgine 100 UNITS/ML 10 ML VIAL SQ SCH (09:07)
[2024-07-17 10:40] LABS: CHOLESTEROL 155 mg/dL (<200); HDL CHOLESTEROL 41 mg/dL (29-71); LDL DIRECT 102 mg/dL (0-99); TRIGLYCERIDES 69 mg/dL (30-200)
--- NOTE | 2024-07-17 11:50 | PN ---
[facility] PROGRESS NOTE Date of Service: July 17, 2024 Time of Service: 11:45 SUBJECTIVE: 07/06 patient seen at bedside, no acute events overnight. He has been afebrile, hemodynamically stable saturating well on room air. His only complaint is pain when he is ambulating, his right lower extremity proximal to the knee joint on the medial aspect has erythema induration, no fluctuance noted and is tender to palpation. There is no crepitus noted. Outlined the margins of the lesion and we will continue with broad-spectrum antibiotics. WBC improved from 13.9 down to 12.9, blood sugars still quite elevated, diabetic medications have been adju sted by malter operator, appreciate their assistance. A1c pending, we will follow up. Podiatry recommendations regarding diabetic foot ulcer on the 1st great toe are still pending. 07/07 patient seen at bedside, no acute events overnight. He has been afebrile, hemodynamically stable saturating well on room air. Area of cellulitis appears to be improved in color and swelling is diminished. Foot x-ray showing possible retained foreign body. Podiatry recommending a bone scan has MRI is contraindicated with foreign body, to assess for osteomyelitis. We will follow up with Endocrinology recommendations. 07/08 bone scan pending today, we will follow up postprocedure. Wound cultures are still pending, we will continue to follow. Patient has cellulitis in his right medial thigh continues to improve, swelling and erythema have retracted significantly. Labs are relatively unremarkable. Insulin adjusted by endocrinology, appreciate recommendations. 07/09 patient seen at bedside, no acute events overnight. Sensitivities are growing out Enterococcus and MRSA, infectious disease consulted for this discharge antibiotics. Patient counseled extensively on the importance of glycemic control. 07/10 infectious Disease recommending PICC line with follow up at [facility] for outpatient IV antibiotics. Once this is completed patient will be good candidate for discharge 5/ patient seen at bedside, no acute events overnight. PICC line has been successfully placed, still pending acceptance to [facility]. Once he was acc eptance will be good candidate for discharge. 5/ patient seen at bedside, no acute events overnight. Still pending acceptance to [facility]. Once he was acceptance will be good candidate for discharge. 07/13 patient seen at bedside, no acute events overnight. Still pending acceptance to [facility]. Once he was acceptance will be good candidate for discharge. 07/14 patient seen at bedside, no acute events overnight. Pending outpatient arrangements at [facility]. 07/15 patient is seen and examined at bedside, no acute events overnight, at the time of my visit, the patient has been started on supplemental oxygen via nasal cannula at 2 L, he is saturating 92-93%, he feels mild short of breath but denied chest pain, not actively coughing. He is getting IV antibiotics during my visit, no family members at bedside. 07/16 Patient seen and examined at bedside, no acute events overnight, getting iv antibiotics, NPO, schedule to go to the OR for I&D right lower extremity abscess. 07/17 patient is seen and examined at bedside, case discussed with the RN, no acute events overnight, patient getting IV antibiotics during my visit, comfortably in bed, following commands, saturating normal on room air, hemodynamically stable. Grandmother is at bedside during my visit, updated, all questions answered. Patient underwent incision and drainage of right thigh abscess yesterday, tolerated the procedure well. Currently getting good pain control with current medical management. REVIEW OF SYSTEMS 12 point review of systems negative unless noted in HPI PHYSICAL EXAM GENERAL APPEARANCE: The patient is awake, alert, and oriented, in no acute cardiopulmonary distress. Patient is obese NEUROLOGICAL: Cranial nerves II-XII grossly intact. Motor is 5/5 in bilateral upper and lower extremities proximal to distal. No sensory deficits. HEENT: Face is symmetric. Pupils are equal and reactive. Extraocular movements are intact. NECK: Supple. No JVD. No thyromegaly. No submental, submandibular, pre- /postauricular, occipital or supraclavicular lymphadenopathy. CHEST: Normal chest expansion. No Telemetry. LUNGS: Absence of any rales, rhonchi or any wheezing. CARDIOVASCULAR: Regular. S1 and S2 normal. No appreciable rubs, murmurs or gallops. ABDOMEN: Soft, nontender, and nondistended. There is no rebound, voluntary guarding, or rigidity. : Deferred. No Harden. EXTREMITIES: Patient has erythema on the posterior aspect of the leg involving the knee. He has redness traveling down to the leg to the foot. He has swelling noted. Area is tender to palpation. Additionally he has a ulcer noted in the 1st toe of the right foot. He has blackish discoloration with possible eschar noted SKIN: No skin breakdown. Vital Signs (last 8hr) Date Time Temp Pulse Resp B/P (MAP) Pulse Ox O2 Delivery O2 Flow Rate FiO2 07/17/24 07:54 98.8 83 20 117/68 98 Nasal Cannula 2.0 07/17/24 04:00 98.4 85 19 111/57 96 Nasal Cannula 2.0 LABS: Laboratory: Test 07/17/24 11:29 07/17/24 09:56 07/17/24 03:15 07/16/24 08:05 Range/Units Whole Blood Glucose 109 70-110 MG/DL Triglycerides Level 69 30-200 mg/dL Cholesterol Level 155 <200 mg/dL LDL Cholesterol 102 H 0-99 mg/dL HDL Cholesterol 41 29-71 mg/dL Vitamin B12 Level 520 193-986 pg/mL White Blood Count 8.7 4.8-10.8 K/uL Red Blood Count 5.03 4.50-6.20 MIL/uL Hemoglobin 12.9 L 14.0-18.0 g/dL Hematocrit 37.6 L 42-54 % Mean Corpuscular Volume 74.8 L 79-99 fL Mean Corpuscular Hemoglobin 25.6 L 27.0-33.0 pg Mean Corpuscular Hemoglobin Concent 34.3 32.0-36.0 g/dL Red Cell Distribution Width 13.4 11.0-15.5 % Platelet Count 404 H 130-400 K/uL Mean Platelet Volume 8.4 7.5-10.5 fL Nucleated Red Blood Cells 0.0 0.0-0.19 % Sodium Level 143 136-145 mmol/L Potassium Level 3.2 L 3.5-5.1 mmol/L Chloride Level 108 101-111 mmol/L Carbon Dioxide Level 30 21-32 mmol/L Blood Urea Nitrogen 8 7-18 mg/dL Creatinine 0.7 0.5-1.3 mg/dL Glomerular Filtration Rate Calc 133 >90 mL/min Random Glucose 74 70-105 mg/dL Total Calcium 8.1 L 8.5-10.1 mg/dL Magnesium Level 1.70 L 1.80-2.40 mg/dL Total Bilirubin 0.3 0.2-1.0 mg/dL Aspartate Amino Transf (AST/SGOT) 16 10-37 U/L Alanine Aminotransferase (ALT/SGPT) 20 12-78 U/L Alkaline Phosphatase 62 50-136 U/L Total Protein 6.5 6.0-8.3 g/dL Albumin 2.4 L 3.5-5.0 g/dL Vancomycin Level Trough 11.5 10.0-20.0 UG/ML Test 07/15/24 15:06 07/15/24 12:08 Range/Units D-Dimer Quantitative (PE/DVT) 996 *H 0-500 ng/mL B-Type Natriuretic Peptide 875 H 0-100 pg/mL Blood Gas Specimen Type Arterial Arterial Blood pH 7.445 7.350-7.450 Arterial Blood Partial Pressure CO2 35 35-48 mmHg Arterial Blood Partial Pressure O2 58.9 L 83.0-108.0 mmHg Arterial Blood HCO3 23.4 21.0-28.0 mmol/L Arterial Blood Oxygen Saturation 91.8 L 94.0-98.0 % Arterial Blood Base Excess -0.1 -2.0-3.0 mmol/L Blood Gas Temperature 37.0 35.5-37.0 CELSIUS Blood Gas Vent Mode RA ROOM AIR FiO2 21.0 % Blood Gas Specimen Comment RR, GERARDO,HUMAN RESOURCES ADMINISTRATOR Current Medications Medications (Trade) Dose Ordered Sig/Morales Route PRN Reason Start Time Stop Time Status Last Admin Dose Admin Acetaminophen (TYLenol 325MG TAB) 650 mg Q6H PRN PO MILD PAIN (1-3) 07/06/24 13:30 08/05/24 13:29 07/07/24 14:01 650 MG Acetaminophen/ Hydrocodone Bitart (NORco 5/325MG) 1 tab Q6H PRN PO MODERATE PAIN (4-6) 07/06/24 13:30 07/11/24 13:29 DC 07/10/24 19:19 1 TAB Alteplase, Recombinant (CathFLO 2MG VIAL) 1 mg ONCE IVCATH 07/12/24 13:30 07/13/24 19:09 DC 07/12/24 18:20 1 MG Cefepime HCl (MAXipime 1 GM vial) 1 gm Q8H IVPB 07/12/24 12:00 07/22/24 11:59 07/17/24 04:01 1 GM Dextrose (D50w) 50 ml AD PRN IV HYPOGLYCEMIA PROTOCOL 07/05/24 15:00 08/04/24 14:59 Diphenhydramine HCl (BENAdryl INJ) 25 mg ONCE STAT IV 07/15/24 16:42 07/15/24 16:47 DC 07/15/24 16:52 25 MG Enoxaparin Sodium (Lovenox) 30 mg DAILY SQ 07/06/24 09:00 07/15/24 14:28 DC 07/15/24 09:34 30 MG Enoxaparin Sodium (Lovenox) 40 mg BID SQ 07/15/24 21:00 08/05/24 08:59 07/17/24 09:01 40 MG Famotidine (Pepcid 20mg Vial) 20 mg BID IV 07/05/24 21:00 08/04/24 20:59 07/17/24 09:00 20 MG Glucagon (Glucagon 1mg Kit) 1 mg AD PRN IM HYPOGLYCEMIA PROTOCOL 07/05/24 15:00 08/04/24 14:59 Insulin Glargine (LANtus 100 UNITS/ML 10 ML VIAL) 15 units DAILY SQ 07/05/24 15:00 07/07/24 22:00 DC 07/07/24 08:47 15 UNITS Insulin Glargine (LANtus 100 UNITS/ML 10 ML VIAL) 40 units DAILY07 SQ 07/08/24 07:00 07/08/24 21:03 DC 07/08/24 07:54 40 UNITS Insulin Glargine (LANtus 100 UNITS/ML 10 ML VIAL) 50 units DAILY07 SQ 07/13/24 07:00 07/16/24 07:20 DC 07/16/24 06:37 50 UNITS Insulin Glargine (LANtus 100 UNITS/ML 10 ML VIAL) 60 units DAILY07 SQ 07/09/24 07:00 07/13/24 06:18 DC 07/13/24 06:17 60 UNITS Insulin Glargine (LANtus 100 UNITS/ML 10 ML VIAL) 60 units DAILY07 SQ 07/17/24 07:00 08/16/24 06:59 07/17/24 09:07 60 UNITS Insulin Human Regular (humuLIN R 100 UNIT/ML 3ML) 10 unit TIDAC SQ 07/06/24 07:30 07/07/24 22:00 DC 07/07/24 17:19 10 UNIT Insulin Human Regular (humuLIN R 100 UNIT/ML 3ML) 10 unit TIDAC SQ 07/13/24 07:30 07/15/24 21:41 DC 07/15/24 17:09 10 UNIT Insulin Human Regular (humuLIN R 100 UNIT/ML 3ML) 15 unit TIDAC SQ 07/16/24 07:30 07/16/24 22:08 DC 07/16/24 17:34 15 UNIT Insulin Human Regular (humuLIN R 100 UNIT/ML 3ML) 16 unit TIDAC SQ 07/08/24 07:30 07/08/24 21:03 DC 07/08/24 17:33 16 UNIT Insulin Human Regular (humuLIN R 100 UNIT/ML 3ML) 20 unit TIDAC SQ 07/17/24 07:30 08/16/24 07:29 Insulin Human Regular (humuLIN R 100 UNIT/ML 3ML) 22 unit TIDAC SQ 07/09/24 07:30 07/09/24 21:14 DC 07/09/24 17:44 22 UNIT Insulin Human Regular (humuLIN R 100 UNIT/ML 3ML) 25 unit TIDAC SQ 07/10/24 07:30 07/13/24 06:18 DC 07/10/24 19:13 25 UNIT Insulin Human Regular (humuLIN R 100 UNIT/ML 3ML) INSULIN SLIDING SCAL... ACHS SQ 07/06/24 07:30 08/05/24 07:29 07/16/24 21:06 6 UNIT Insulin Human Regular (humuLIN R 100 UNIT/ML 3ML) INSULIN SLIDING SCAL... Q6H6 SQ 07/05/24 18:00 07/05/24 21:19 DC 07/05/24 17:43 8 UNIT Ketorolac Tromethamine (toRADol) 15 mg Q6H PRN IV MODERATE PAIN (4-6) 07/05/24 17:00 07/07/24 06:16 DC 07/05/24 21:03 15 MG Leptospermum Honey (Medihoney) 1 APPLICATION DAILY TP 07/07/24 09:00 08/06/24 08:59 07/16/24 09:41 1 APPL Magnesium Sulfate 50 ml @ 0 mls/hr PROTOCOL PRN IV low magnesium 07/07/24 10:00 08/06/24 09:59 07/17/24 05:37 25 MLS/HR Methylprednisolone Sodium Succinate (Solu-medROL 125MG) 80 mg ONCE STAT IVP 07/15/24 16:42 07/15/24 16:47 DC 07/15/24 16:52 80 MG Morphine Sulfate (morPHINE 2MG SYG) 2 mg Q6H PRN IVP SEVERE PAIN (7-10) 07/05/24 17:00 07/10/24 19:59 DC Piperacillin Sod/ Tazobactam Sod (Zosyn 3.375gm+NS 50ml) 3.375 gm Q8H IV 07/11/24 00:00 07/12/24 11:46 DC 07/12/24 08:51 3.375 GM Piperacillin Sod/ Tazobactam Sod (Zosyn 3.375gm+NS 50ml) 3.375 gm Q8H IVPB 07/05/24 14:30 07/10/24 03:41 DC 07/10/24 00:09 3.375 GM Piperacillin Sod/ Tazobactam Sod (Zosyn 3.375gm+NS 50ml) 3.375 gm Q8H IVPB 07/10/24 08:00 07/10/24 09:45 DC Potassium Chloride 100 ml @ 100 mls/hr AD PRN IV POTASSIUM PROTOCOL 07/07/24 10:00 08/06/24 09:59 07/14/24 14:24 100 MLS/HR Potassium Chloride (K-Dur/Klor-Con 20meq) 20 meq AD PRN PO POTASSIUM PROTOCOL 07/07/24 10:00 08/06/24 09:59 07/17/24 04:21 20 MEQ Potassium Chloride (KCl 10% Elixir 20meq/15ml) 20 meq AD PRN PO POTASSIUM PROTOCOL 07/07/24 10:00 08/06/24 09:59 Sodium Chloride 250 ml @ 125 mls/hr AD IV 07/14/24 21:00 07/14/24 23:59 DC 07/14/24 20:46 125 MLS/HR Sodium Chloride 1,000 ml @ 100 mls/hr Q10H IV 07/05/24 14:30 07/11/24 03:05 DC 07/09/24 15:24 100 MLS/HR Sodium Chloride (NS 50ml) 50 ml AD IV 07/05/24 18:00 07/06/24 13:20 DC Vancomycin HCl 250 ml @ 125 mls/hr Q6H IV 07/10/24 21:00 07/15/24 06:33 DC 07/13/24 17:42 125 MLS/HR Vancomycin HCl 250 ml @ 125 mls/hr Q6H IV 07/14/24 00:00 07/14/24 20:29 DC 07/14/24 19:38 125 MLS/HR Vancomycin HCl 250 ml @ 125 mls/hr Q6H IV 07/15/24 12:00 07/15/24 20:48 DC 07/15/24 20:34 125 MLS/HR Vancomycin HCl 250 ml @ 125 mls/hr Q6H IV 07/16/24 03:00 07/26/24 02:59 07/17/24 09:00 125 MLS/HR Vancomycin HCl 250 ml @ 125 mls/hr Q8H IV 07/07/24 13:00 07/09/24 12:53 DC 07/09/24 04:38 125 MLS/HR Vancomycin HCl 250 ml @ 125 mls/hr Q8H IV 07/09/24 21:00 07/10/24 09:45 DC 07/09/24 21:43 125 MLS/HR Vancomycin HCl 250 ml @ 125 mls/hr Q8H6 IV 07/14/24 22:00 07/14/24 19:24 DC Vancomycin HCl 250 ml @ 125 mls/hr Q8H6 IV 07/15/24 06:00 07/15/24 06:29 DC 07/15/24 06:00 125 MLS/HR Vancomycin HCl 250 ml @ 125 mls/hr Q8H6 IV 07/15/24 14:00 07/15/24 06:33 DC Vancomycin HCl 250 ml @ 167 mls/hr Q12H IV 07/06/24 01:00 07/07/24 12:31 DC 07/07/24 01:11 167 MLS/HR Vancomycin HCl (Vancomycin 750mg) 750 mg ONCE IVPB 07/14/24 21:00 07/14/24 23:59 DC 07/14/24 20:45 750 MG Vancomycin HCl (Vancomycin Protocol) 1 each AD IV 07/05/24 14:30 07/10/24 20:22 DC Vancomycin HCl (Vancomycin Protocol) 1 each AD IV 07/10/24 21:00 07/24/24 20:59 DIAGNOSTICS / RADIOLOGY: [ ] ASSESSMENT: Right Leg cellulitis with abscess right inner thigh POA Status post incision and drainage 07/16/24 Hyperglycemia secondary to uncontrolled diabetes mellitus type 2 last A1C 15.5, POA Foot ulcer of the 1st toe of the right foot, MRSA and Enterofaecalis, POA Hyponatremia secondary to hyperglycemia Dehydration, resolved Obesity BMI 53.1 Suspected RUTH/OHS undiagnosed and untreated POA Acute hypoxemic resp failure not POA Acute on chronic combined congestive heart failure not POA Well's score for PE 6 points ( Moderate) PLAN: -patient remains admitted to the medical floor - continue the patient on broad-spectrum IV antibiotics -Patient underwent incision and drainage of right thigh abscess yesterday, tolerated the procedure well. Currently getting good pain control with current medical management. -continue to follow surgical input and recommendations, continue dressing changes - follow results of cultures, adjust antibiotics accordingly, continue to follow infectious disease input and recommendations. - Podiatry input noted and appreciated, continue with Medihoney dressing to both great toes. Patient to continue ambulation with surgical shoes. Once the patient is discharged he can follow up as an outpatient with the ped contracts officer for appropriate shoe gear with insoles to offload the great toe ulcer sites to his feet bilaterally. -patient currently saturating normal on room air, CT chest PE protocol negative, continue to follow Pulmonary input and recommendation. -echocardiogram showing LVEF 25-30%. Severe global hypokinesis. We will request Cardiology consultation. NEURO: Minimize central acting medications as possible. Fall Precautions. Well lighted room through the day and minimize interruptions through the night to prevent acute delirium. PULMONARY: Supplemental 02 as needed BiPAP as necessary, for respiratory distress Titrate Fio2 to keep Spo2 > or = 90% DuoNeb�s and CPT as needed IS hourly while awake for pulmonary hygiene prn Out of bed to chair as tolerated Maintain aspiration precautions at all times CARDIOVASCULAR: Follow hemodynamics. Vital signs per facility protocol GI & NUTRITION: Continue nutritional support Aspirations precautions Prokinetic agents and laxatives as needed KIDNEYS & ELECTROLYTES: Strict monitoring of intake and output Daily weights Avoid nephrotoxic agents Monitor electrolytes and replace as needed Goal urine output of 30mL/hr or 0.5mL/kg/hr Medications to be dosed according to renal function. Avoid contrast if possible ENDOCRINE: Maintain blood glucose between 100-180 at all times. Insulin sliding scale for blood glucose management Hypoglycemia and hyperglycemia protocol in place INFECTIOUS DISEASE: Trend temperature, WBC and procalcitonin level Follow cultures, deescalate antibiotics as soon as possible. Panculture if new onset fever HEMATOLOGY & COAGULATION: Monitor H&H. Keep Hgb > 7 Transfuse 1 unit of PRBC for Hgb < 7 Transfuse 1 pack of platelets of platelets < 20, 000 Watch for any signs and symptoms of bleeding SKIN: Pressure ulcer prevention per facility protocol Specialty mattress as needed ORTHO/REHAB Continue PT/OT PRN: MEDICATIONS Tylenol 650 mg po every 4 hrs for fever zofran 4 mg IV every 6 hrs for n/v Hydralazine 5 mg IV every 4 hrs systolic pressure > 160 bowel regiment: lactulose 20 gm PO BID PRN constipation Supportive measures: Continue GI and DVT prophylaxis Disposition: Pending improvement in clinical condition All questions answered time spent: > 35 min FANNIE RAMÍREZ MD July 17, 2024 11:50
[2024-07-17 12:00] VITALS: BP 136/53; PULSE 84; RESP 18; TEMP 98.4
--- NOTE | 2024-07-17 12:21 | PN ---
[facility] PROGRESS NOTE Date Patient Seen: July 17, 2024 Time of Visit: 12:21 Supervising Physician: [Dr. Pena] Primary Care Physician: Magno. Billy Villarreal MD Outpatient Specialists: Inpatient Consults: DR Moy Kincaid, DR Reyes , Dr Estevez , Dr Gilbert Carrillo and Dr Toure Attending: Dr Paulette Moore MD PROBLEM LIST: Acute hypoxemic resp failure not POA Acute on chronic combined congestive heart failure, POA EF 25-30% per echo Right Leg cellulitis, improving POA s/p I/D 07/[address] Estevez Hyperglycemia secondary to uncontrolled diabetes mellitus type 2 last A1C 15.5, POA Foot ulcer of the 1st toe of the right foot, MRSA and Enterofaecalis, POA Hyponatremia secondary to hyperglycemia Dehydration, resolved Morbidly Obesity BMI 53.1 Suspected RUTH/OHS undiagnosed and untreated POA INTERVAL HISTORY: [Patient is pending I and D of right lower extremity today by General surgery. His CTA of the chest was negative for PE. BNP is elevated at 875, pending echocardiogram. ABG shows some hypoxia, likely underlying OHS. He continues on vancomycin and cefepime for treatment of wound infection per ID. Has PICC line in place, pending continued IV antibiotics at [facility] upon discharge.] 07/17 Patient is evaluated at bedside. He is in no respiratory distress, cur rently on room air. His echocardiogram was resulted showing reduced systolic ejection fraction of 25-30%, which is contributing to his shortness of breath. He is s/p I&D of RLE yesterday by Dr. Estevez. Continues on IV antibiotics. Wound care dressing change at bedside with nursing staff. Patient is discharge for continued IV antibiotics per ID recommendation. REVIEW OF SYSTEMS: 12 point ROS reviewed with patient. Pertinent positives mentioned above. Otherwise negative. PHYSICAL EXAM: GENERAL: alert, weak, awake oriented x 3, morbidly obese HEENT: EOMI, Sclera non icteric, moist mucosa NECK: Supple, no JVD, trachea midline LUNGS: Diminished breath sounds bilaterally. No wheezes HEART: Sinus Tachy rate and rhythm. Normal S1 and S2, without murmurs ABD: Morbidly obese. Abdomen soft, nontender. Bowel sounds present EXT: No clubbing cyanosis or edema. tyesha great toe wounds, rt knee redness /cellulitis s/p ID with dressing on, no active bleed or drainage NEURO: Alert and oriented to person, follows commands Vital Signs (last 8hr) Date Time Temp Pulse Resp B/P (MAP) Pulse Ox O2 Delivery O2 Flow Rate FiO2 07/17/24 07:54 98.8 83 20 117/68 98 Nasal Cannula 2.0 LABS: Hematology Labs: Test 07/17/24 03:15 Range/Units White Blood Count 8.7 4.8-10.8 K/uL Red Blood Count 5.03 4.50-6.20 MIL/uL Hemoglobin 12.9 L 14.0-18.0 g/dL Hematocrit 37.6 L 42-54 % Mean Corpuscular Volume 74.8 L 79-99 fL Mean Corpuscular Hemoglobin 25.6 L 27.0-33.0 pg Mean Corpuscular Hemoglobin Concent 34.3 32.0-36.0 g/dL Red Cell Distribution Width 13.4 11.0-15.5 % Platelet Count 404 H 130-400 K/uL Mean Platelet Volume 8.4 7.5-10.5 fL Nucleated Red Blood Cells 0.0 0.0-0.19 % Chemistry Labs: Test 07/17/24 11:29 07/17/24 09:56 07/17/24 03:15 07/15/24 15:06 Range/Units Whole Blood Glucose 109 70-110 MG/DL Triglycerides Level 69 30-200 mg/dL Cholesterol Level 155 <200 mg/dL LDL Cholesterol 102 H 0-99 mg/dL HDL Cholesterol 41 29-71 mg/dL Vitamin B12 Level 520 193-986 pg/mL Sodium Level 143 136-145 mmol/L Potassium Level 3.2 L 3.5-5.1 mmol/L Chloride Level 108 101-111 mmol/L Carbon Dioxide Level 30 21-32 mmol/L Blood Urea Nitrogen 8 7-18 mg/dL Creatinine 0.7 0.5-1.3 mg/dL Glomerular Filtration Rate Calc 133 >90 mL/min Random Glucose 74 70-105 mg/dL Total Calcium 8.1 L 8.5-10.1 mg/dL Magnesium Level 1.70 L 1.80-2.40 mg/dL Total Bilirubin 0.3 0.2-1.0 mg/dL Aspartate Amino Transf (AST/SGOT) 16 10-37 U/L Alanine Aminotransferase (ALT/SGPT) 20 12-78 U/L Alkaline Phosphatase 62 50-136 U/L Total Protein 6.5 6.0-8.3 g/dL Albumin 2.4 L 3.5-5.0 g/dL B-Type Natriuretic Peptide 875 H 0-100 pg/mL Coagulation Labs: Test 07/15/24 15:06 Range/Units D-Dimer Quantitative (PE/DVT) 996 *H 0-500 ng/mL DIAGNOSTICS / RADIOLOGY RESULTS: [ ] PLAN Recommend cardiac evaluation Start lasix and aldactone, monitor labs Order COVID/flu PE (-) per CTA BNP- 875 Echo-EF 25-30% wean o2 as possible. Pt to eval and treat continue Lovenox 40mg sq BID dose for DVT PPX for BMI > 40 Wound care per surgeon NEURO: Minimize central acting medications as possible. Maintain fall precautions, adequate lighting during the day PULMONARY: Supplemental 02 as needed. Maintain aspiration precautions at all times CARDIOVASCULAR: Follow hemodynamics. Vital signs per facility protocol GI & NUTRITION: Continue with nutritional support. Continue stool softeners and laxatives as needed. KIDNEYS & ELECTROLYTES: Strict monitoring of intake, output and overall fluid balance. Avoid nephrotoxic medications to the extent possible. Medications to be dosed according to renal function. Monitor electrolytes and replace as needed ENDOCRINE: Maintain blood glucose between 100-180 at all times. Hypoglycemia protocol in place INFECTIOUS DISEASE: Trend temperature, WBC and procalcitonin level Follow cultures, deescalate antibiotics as soon as possible. Panculture if new onset fever ONCOLOGY/HEMATOLOGY/COAGULATION: Monitor for s/s of bleeding Monitor hemoglobin, coagulation studies as needed SKIN: Pressure ulcer prevention per facility protocol Specialty mattress ORTHO/REHAB: Continue PT/OT Prophylaxis: Continue GI and DVT prophylaxis Code Status: Full Resuscitation Disposition: TBD Other: Total patient care time exceeds 35 minutes excluding all procedures. OMER BLACK July 17, 2024 12:21
--- NOTE | 2024-07-17 12:45 | PN ---
INFECTIOUS DISEASE PROGRESS NOTE Date of Service: July 17, 2024 SUBJECTIVE: This is a 24 year old male patient who was seen and examined at bedside in room 328. Patient is s/p incision and drainage of the right thigh abscess day # 1. There is erythema to the right lower extremity. No fever this morning, temperature is 98.8� and the WBC is 8.7. We will continue on cefepime and vancomycin. Patient will need to follow up with his PCP once discharged for referral to [facility] for outpatient IV antibiotics for 4 weeks. PHYSICAL EXAM EYES: Anicteric. Pupils equal and reactive. HENT: No oral thrush seen, moist Oral mucosa. NECK: Supple, no JVD or thyromegaly. LUNGS: Good air entry. No rales, no rhonchi. CARDIOVASCULAR: S1, S2 regular. No murmur heard. ABDOMEN: Soft, non tender, bowel sounds present, no organomegaly. CENTRAL NERVOUS SYSTEM: Awake, alert, oriented x 3. SKIN: No rashes, no swelling. LYMPHATICS: No peripheral lymphadenopathy MUSCULOSKELETAL: No joint swelling, erythema or tenderness. EXTREMITIES: Right great toe diabetic ulcer with abscess. Left great toe callus. Right inner thigh abscess, s/p I&D. BACK: No deformity, no pressure ulcer. GENITOURINARY: No dysuria or hematuria. Vital Sign (Last 12 Hours) 07/17/24 07/17/24 07/17/24 04:00 07:54 12:00 Temp 98.4 98.8 98.4 Pulse 85 83 84 Resp 19 20 18 B/P (MAP) 111/57 117/68 136/53 Pulse Ox 96 98 95 O2 Delivery Nasal Cannula Nasal Cannula Room Air O2 Flow Rate 2.0 2.0 FiO2 21 Intake & Output (last 24hrs) 07/16/24 07/16/24 07/17/24 15:00 23:00 07:00 Intake Total 2050.0 ml 780.0 ml Balance 2050.0 ml 780.0 ml LABS: Laboratory: Test 07/17/24 11:29 07/17/24 09:56 07/17/24 03:15 07/16/24 08:05 Range/Units Whole Blood Glucose 109 70-110 MG/DL Triglycerides Level 69 30-200 mg/dL Cholesterol Level 155 <200 mg/dL LDL Cholesterol 102 H 0-99 mg/dL HDL Cholesterol 41 29-71 mg/dL Vitamin B12 Level 520 193-986 pg/mL White Blood Count 8.7 4.8-10.8 K/uL Red Blood Count 5.03 4.50-6.20 MIL/uL Hemoglobin 12.9 L 14.0-18.0 g/dL Hematocrit 37.6 L 42-54 % Mean Corpuscular Volume 74.8 L 79-99 fL Mean Corpuscular Hemoglobin 25.6 L 27.0-33.0 pg Mean Corpuscular Hemoglobin Concent 34.3 32.0-36.0 g/dL Red Cell Distribution Width 13.4 11.0-15.5 % Platelet Count 404 H 130-400 K/uL Mean Platelet Volume 8.4 7.5-10.5 fL Nucleated Red Blood Cells 0.0 0.0-0.19 % Sodium Level 143 136-145 mmol/L Potassium Level 3.2 L 3.5-5.1 mmol/L Chloride Level 108 101-111 mmol/L Carbon Dioxide Level 30 21-32 mmol/L Blood Urea Nitrogen 8 7-18 mg/dL Creatinine 0.7 0.5-1.3 mg/dL Glomerular Filtration Rate Calc 133 >90 mL/min Random Glucose 74 70-105 mg/dL Total Calcium 8.1 L 8.5-10.1 mg/dL Magnesium Level 1.70 L 1.80-2.40 mg/dL Total Bilirubin 0.3 0.2-1.0 mg/dL Aspartate Amino Transf (AST/SGOT) 16 10-37 U/L Alanine Aminotransferase (ALT/SGPT) 20 12-78 U/L Alkaline Phosphatase 62 50-136 U/L Total Protein 6.5 6.0-8.3 g/dL Albumin 2.4 L 3.5-5.0 g/dL Vancomycin Level Trough 11.5 10.0-20.0 UG/ML Test 07/15/24 15:06 Range/Units D-Dimer Quantitative (PE/DVT) 996 *H 0-500 ng/mL B-Type Natriuretic Peptide 875 H 0-100 pg/mL ASSESSMENT: Right thigh abscess, status post I&D. Right lower extremity cellulitis. Right foot diabetic ulcer with abscess. Infection with methicillin-resistant Staphylococcus aureus. Poorly controlled Diabetes mellitus with hemoglobin A1c of 15.4. Morbid obesity. PLAN: We will follow up on the intraoperative wound cultures. Continue cefepime. Continue vancomycin per pharmacy protocol. Continue wound care as recommended by General surgery. Continue antidiabetics. Patient will need to follow up with his PCP once discharged for referral to [facility] for outpatient IV antibiotics for 4 weeks. This case was reviewed and discussed with my supervising physician and the above assessment and plan was formulated and agreed upon. ATTESTATION BY PHYSICIAN I have seen and examined the patient. I reviewed the documentation, medical decision making, and treatment plan as noted by the mid-level provider above. I agree with the findings and plan of care. ALTON LEÓN MD, [facility] July 17, 2024 12:45
[2024-07-17] MEDS ORDERED: ketOROlac 15MG/ML VIAL (15MG/ML) IM PRN (13:30)
--- NOTE | 2024-07-17 14:09 | CONS ---
Cardiology Consult Note Cardiology Attending: Olga Rogers Consulting Physician: Dr. Patterson Date of Service: 07/17/24 Reason for Consult: Acute systolic congestive heart failure HPI: This is a 24-year-old male with a past medical history of morbid obesity and DM2 (hemoglobin A1c: 15) who was initially admitted on 07/05/2024 were then infection affecting the 1st digit of the right foot. He was started on antibiotics to address the infection. He was subsequently found to have an abscess in his right thigh and underwent successful IND on 07/16/2024. While in the inpatient service the patient developed shortness of breath while receiving IV fluids and underwent echocardiogram which identified global hypokinesis, and severely depressed left ventricle systolic function, estimated LVEF 25-30%. IV fluids were stopped and he was started on supplemental oxygen and his symptoms resolved. Cardiology was consulted because of the abnormal echocardiogram findings. At the time of my evaluation the patient denied any headache, dizziness, syncope, chest pain, chest pressure, palpitations, recurrent shortness of breath, PND, orthopnea, abdominal pain, or significant lower extremity swelling/edema. 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 He denies any recent viral infections and denies any recent travel. He acknowledges a family history of a "enlarged heart" but does not know specifics. PMH: Listed above PSH: Listed above FH: Significant for CAD, HTN, and DMII. SH: Denies alcohol, tobacco, or illicit drug use. Allergies: Coded Allergies: No Known Drug Allergies (Unverified Allergy, Unknown, 10/08/18) Review of systems: General: Denies fever or chills HEENT: Denies changes in vision, earache or sore throat Neck: Denies pain or stiffness Cardio: As per the HPI Pulm: Denies SOB, coughing or wheezing GI: Denies abdominal pain, nausea, vomiting, diarrhea, or constipation. MSK: Denies muscle or back pain. Heme: Denies anemia, easy bruising, or bleeding. Neuro: Denies headache, dizziness, or syncope. Skin: As per the HPI Psych: Denies anxiety, depression, or suicide ideations. Physical Exam: Vital Signs Date Time Temp Pulse Resp B/P (MAP) Pulse Ox O2 Delivery O2 Flow Rate FiO2 07/17/24 12:00 98.4 84 18 136/53 95 Room Air 21 07/17/24 07:54 2.0 General: Alert and oriented x 3. NAD HEENT: NC/AT. Oral mucosa is moist. Neck: No masses, JVD, or carotid bruits Lungs: NRD. SCM. B/L air entry noted. No obvious wheezing, rales or rhonchi. Cardio: Rate @ 77bpm. Normal S1 and S2. +S3. PMI was displaced laterally. Abdomen: Soft. NT. ND. Normal active bowel sounds x 4 quadrants. Extremities: No edema, clubbing or cyanosis. The right thigh is wrapped in a bandage. Neuro: CN II-XII were grossly intact. No focal deficits. Labs: Laboratory Tests Test 07/16/24 15:55 07/16/24 19:11 07/17/24 03:15 07/17/24 05:17 Range/Units Whole Blood Glucose 253 #H 235 H 82 # 70-110 MG/DL White Blood Count 8.7 4.8-10.8 K/uL Red Blood Count 5.03 4.50-6.20 MIL/uL Hemoglobin 12.9 L 14.0-18.0 g/dL Hematocrit 37.6 L 42-54 % Mean Corpuscular Volume 74.8 L 79-99 fL Mean Corpuscular Hemoglobin 25.6 L 27.0-33.0 pg Mean Corpuscular Hemoglobin Concent 34.3 32.0-36.0 g/dL Red Cell Distribution Width 13.4 11.0-15.5 % Platelet Count 404 H 130-400 K/uL Mean Platelet Volume 8.4 7.5-10.5 fL Nucleated Red Blood Cells 0.0 0.0-0.19 % Sodium Level 143 136-145 mmol/L Potassium Level 3.2 L 3.5-5.1 mmol/L Chloride Level 108 101-111 mmol/L Carbon Dioxide Level 30 21-32 mmol/L Blood Urea Nitrogen 8 7-18 mg/dL Creatinine 0.7 0.5-1.3 mg/dL Glomerular Filtration Rate Calc 133 >90 mL/min Random Glucose 74 70-105 mg/dL Total Calcium 8.1 L 8.5-10.1 mg/dL Magnesium Level 1.70 L 1.80-2.40 mg/dL Total Bilirubin 0.3 0.2-1.0 mg/dL Aspartate Amino Transf (AST/SGOT) 16 10-37 U/L Alanine Aminotransferase (ALT/SGPT) 20 12-78 U/L Alkaline Phosphatase 62 50-136 U/L Total Protein 6.5 6.0-8.3 g/dL Albumin 2.4 L 3.5-5.0 g/dL Test 07/17/24 09:56 07/17/24 11:29 Range/Units Triglycerides Level 69 30-200 mg/dL Cholesterol Level 155 <200 mg/dL LDL Cholesterol 102 H 0-99 mg/dL HDL Cholesterol 41 29-71 mg/dL Vitamin B12 Level 520 193-986 pg/mL Whole Blood Glucose 109 70-110 MG/DL Echocardiogram 07/16/2024: The left atrium is dilated. The right atrium is d ilated. The left ventricle is severely dilated. There is global hypokinesis of the left ventricle. Left ventricular systolic function is severely depressed, estimated LVEF 25-30%. Indeterminate diastolic function. Trace MR and TR by color-flow Doppler. No pericardial effusion. Assessment: 1. Diabetic foot ulcer 2. Right thigh abscess status post incision and drainage done on 07/16/2024 3. DM2, poorly controlled 4. Acute systolic congestive heart failure (LVEF 25-30% by echocardiogram done on 07/16/2024 Plan: 1. Acute systolic congestive heart failure -stable -current weight: Unknown, dry weight: Unknown -ins/outs: Inaccurate -PE: +S3. Bilateral air entry noted. No wheezing, rales, or rhonchi noted. No significant edema seen in the lower extremities -laboratory data BUN 8, creatinine 0.7, BNP done on 07/15/2024: 875 -echocardiogram 07/16/2024: The left ventricle is severely dilated. There is global hypokinesis of the left ventricle. Left ventricle systolic function is severely depressed, estimated LVEF is 25-30%. Indeterminate diastolic function. -the patient initially presented on 07/05/2024 with a diabetic foot ulcer affecting the 1st digit in the right foot. He was started on antibiotics to address the infection. He was subsequently found to have a right thigh abscess and has since undergone incision and drainage of the abscess. While on the inpatient service he developed shortness of breath while receiving IV fluids. The fluids were stopped and he was placed on supplemental oxygen and underwent the above-mentioned echocardiogram which identified severely depressed left ventricle systolic function -the etiology behind the acute systolic congestive heart failure is unknown, differentials include viral myocarditis, idiopathic cardiomyopathy, poorly controlled diabetes induced cardiomyopathy. Because of the patient's age, CAD if the bottom of our differential this. In order to further evaluate this issue we will order a viral myocarditis panel (HIV, CMV, EBV, Coxsackie a and b, hepatitis panel). Additionally we recommend that the patient undergo an FDG PET scan (as an outpatient). In order to address the acute systolic congestive heart failure we will start the patient metoprolol succinate 12.5 mg daily and Entresto 24/26 mg BID. We will await the results of the viral serologies before recommending further treatment. Thank you for this interesting consult and allowing us to participate in the care of your patient. OLGA ROGERS MD July 17, 2024 14:08
--- NOTE | 2024-07-17 14:50 | NUR ---
Nutrition consult per LOS >7 Reviewed labs, notes, and medications. Pt with foot ulcer 1st toe of the right foot, s/p incision and drainage, on N.C, on 75 gm cho, IV abx, IV fluids, insulin, K 3.2 (L), Ca 8.1 (L), Mg 1.70(L) per chart review. Wt via standing scale, last BM 07/15/24, no edema, well nourished, PICC line in place, 1600 ml balance 07/16/24 per nursing. Pt reported NKFA, no MVI QD, has PCP, works, rarely sees PCP. RD reviewed labs, MNT for T2DM, pending additional labs, Pt verbalized understanding.Per research low vitamin D may contribute to insulin resistance + vit. D deficiency may impair wound healing. Pt with BMI of 53.2. Recommendations -Provide 75 gm cho + HH diet -Monitor PO intake -Monitor BM -If no BM >3 days consider stool softener -Monitor electrolytes -Replenish electrolytes per protocol -Monitor wts -Reweigh as able -Order Vit D, vit b-12 labs to rule out deficiencies -Order lipid panel -Provide b-complex QD, vit. C 500 mg BID, zinc 220 mg QD to aid in wound healing -Recommend Pt to follow up with PCP -Monitor goals of care RD to follow + available for consult per protocol Addendum: 07/17/24 at [address] Amended: Links added.
[2024-07-17 16:00] VITALS: BP 128/77; PULSE 86; RESP 18; TEMP 97.9
[2024-07-17 16:14] LABS: HIV 1&2 ANTIBODY Non-Reactive (Negative); HIV-1 p24 Antigen Non-Reactive (Negative)
[2024-07-17] MEDS: metOPROLol sucCINATE 25 MG TAB.SR.24H PO SCH (17:50)
[2024-07-17] MEDS: furoSEMIDE 20MG VIAL IV SCH (17:50)
[2024-07-17 18:46] LABS: SARS-CoV-2, RNA, NAAT NEGATIVE SARS CoV-2 (NEGATIVE)
[2024-07-17 18:52] LABS: INFLUENZA TYPE A Negative For Type A (NEGATIVE); INFLUENZA TYPE B Negative For Type B (NEGATIVE)
[2024-07-17 20:00] VITALS: BP 140/81; PULSE 87; RESP 20; TEMP 98.1; O2SAT 90
--- NOTE | 2024-07-17 20:57 | PN ---
endocrinology progress note Date of Service: 07/17/2024 subjective: glucose are improving patient used to inject lantus and humalog but not injecting for many months. he does not check glucose at home. hba1c>15.0% right foot wound is positive for MRSA and Enterofaecalis, right medial thigh abscess I&D PAST MEDICAL HISTORY: History of foot ulcer in the 1st toe of the right foot PAST SURGICAL HISTORY: Denied any previous surgical history PAST SOCIAL HISTORY: Denied any smoking, alcohol, drug use FAMILY HISTORY: Denied any pertinent family history Coded Allergies: No Known Drug Allergies (Unverified Allergy, Unknown, 10/08/18) ASSESSMENT: Hyperglycemia secondary to uncontrolled diabetes mellitus type POA patient used to inject lantus and humalog but not injecting for many months. he does not check glucose at home. hba1c>15.0% talia-65 abs are negative, so likely type 2 dm. patient was eating bag full of fries and other high carbs food today. Right Leg cellulitis POA MRSA and Enterofaecalis, ID following right medial thigh abscess I&D Foot ulcer of the 1st toe of the right foot POA Hyponatremia secondary to hyperglycemia Dehydration Obesity BMI 53.1 PLAN: increase lantus 60 units daily continue regular insulin 20 units tid before meals for daytime hyperglycemia. continue medium dose insulin ssi monitor glucose qx6 hourly patient will need insulin at discharge Vitals/Labs Vital Signs Date Time Temp Pulse Resp B/P (MAP) Pulse Ox O2 Delivery O2 Flow Rate FiO2 07/17/24 19:33 Room Air* 0 21 07/17/24 16:00 97.9 86 18 128/77 95 Laboratory Tests 07/17/24 03:15 Medications Current Medications Ketorolac Tromethamine 15 mg ONCE ONCE IM Last administered on 07/05/24at 13:56; Start 07/05/24 at 11:00; Stop 07/05/24 at 11:03; Status DC Vancomycin HCl 1 gm ONCE ONCE IV Last administered on 07/05/24at 14:15; Start 07/05/24 at 13:00; Stop 07/05/24 at 13:01; Status DC Ceftriaxone Sodium 2 gm ONCE ONCE IVPB Last administered on 07/05/24at 13:55; Start 07/05/24 at 12:30; Stop 07/05/24 at 12:31; Status DC Sodium Chloride 1,000 ml @ 0 mls/hr ONCE ONCE IV Last administered on 07/05/24at 13:48; Start 07/05/24 at 12:30; Stop 07/05/24 at 12:31; Status DC Insulin Human Regular 5 unit ONCE ONCE IV Last administered on 07/05/24at 14:01; Start 07/05/24 at 12:30; Stop 07/05/24 at 12:31; Status DC Famotidine 20 mg BID IV Last administered on 07/17/24at 09:00; Start 07/05/24 at 21:00; Stop 08/04/24 at 20:59 Vancomycin HCl 1 each AD IV; Start 07/05/24 at 14:30; Stop 07/10/24 at 20:22; Status DC Piperacillin Sod/ Tazobactam Sod 3.375 gm Q8H IVPB Last administered on 07/10/24at 00:09; Start 07/05/24 at 14:30; Stop 07/10/24 at 03:41; Status DC Sodium Chloride 50 ml AD IV; Start 07/05/24 at 18:00; Stop 07/06/24 at 13:20; Status DC Insulin Human Regular INSULIN SLIDING SCAL... Q6H6 SQ Last administered on 07/05/24at 17:43; Start 07/05/24 at 18:00; Stop 07/05/24 at 21:19; Status DC Sodium Chloride 1,000 ml @ 100 mls/hr Q10H IV Last administered on 07/09/24at 15:24; Start 07/05/24 at 14:30; Stop 07/11/24 at 03:05; Status DC Insulin Glargine 15 units DAILY SQ Last administered on 07/07/24at 08:47; Start 07/05/24 at 15:00; Stop 07/07/24 at 22:00; Status DC Dextrose 50 ml AD PRN IV; Start 07/05/24 at 15:00; Stop 08/04/24 at 14:59 Glucagon 1 mg AD PRN IM; Start 07/05/24 at 15:00; Stop 08/04/24 at 14:59 Vancomycin HCl 250 ml @ 250 mls/hr ONCE ONCE IV Last administered on 07/05/24at 15:11; Start 07/05/24 at 15:00; Stop 07/05/24 at 15:59; Status DC Vancomycin HCl 250 ml @ 167 mls/hr Q12H IV Last administered on 07/07/24at 01:11; Start 07/06/24 at 01:00; Stop 07/07/24 at 12:31; Status DC Iohexol 75 ml STK-MED ONCE IV; Start 07/05/24 at 15:20; Stop 07/05/24 at 15:21; Status DC Ketorolac Tromethamine 15 mg Q6H PRN IV Last administered on 07/05/24at 21:03; Start 07/05/24 at 17:00; Stop 07/07/24 at 06:16; Status DC Morphine Sulfate 2 mg Q6H PRN IVP; Start 07/05/24 at 17:00; Stop 07/10/24 at 19:59; Status DC Insulin Human Regular 10 unit TIDAC SQ Last administered on 07/07/24at 17:19; Start 07/06/24 at 07:30; Stop 07/07/24 at 22:00; Status DC Insulin Human Regular INSULIN SLIDING SCAL... ACHS SQ Last administered on 07/16/24at 21:06; Start 07/06/24 at 07:30; Stop 08/05/24 at 07:29 Enoxaparin Sodium 30 mg DAILY SQ Last administered on 07/15/24at 09:34; Start 07/06/24 at 09:00; Stop 07/15/24 at 14:28; Status DC Acetaminophen 650 mg Q6H PRN PO Last administered on 07/07/24at 14:01; Start 07/06/24 at 13:30; Stop 08/05/24 at 13:29 Acetaminophen/ Hydrocodone Bitart 1 tab Q6H PRN PO Last administered on 07/10/24at 19:19; Start 07/06/24 at 13:30; Stop 07/11/24 at 13:29; Status DC Leptospermum Honey 1 APPLICATION DAILY TP Last administered on 07/16/24at 09:41; Start 07/07/24 at 09:00; Stop 08/06/24 at 08:59 Potassium Chloride 100 ml @ 100 mls/hr AD PRN IV Last administered on 07/14/24at 14:24; Start 07/07/24 at 10:00; Stop 08/06/24 at 09:59 Potassium Chloride 20 meq AD PRN PO; Start 07/07/24 at 10:00; Stop 08/06/24 at 09:59 Potassium Chloride 20 meq AD PRN PO Last administered on 07/17/24at 04:21; Start 07/07/24 at 10:00; Stop 08/06/24 at 09:59 Magnesium Sulfate 50 ml @ 0 mls/hr PROTOCOL PRN IV Last administered on 07/17/24at 05:37; Start 07/07/24 at 10:00; Stop 08/06/24 at 09:59 Vancomycin HCl 250 ml @ 125 mls/hr Q8H IV Last administered on 07/09/24at 04:38; Start 07/07/24 at 13:00; Stop 07/09/24 at 12:53; Status DC Insulin Glargine 40 units DAILY07 SQ Last administered on 07/08/24at 07:54; Start 07/08/24 at 07:00; Stop 07/08/24 at 21:03; Status DC Insulin Human Regular 16 unit TIDAC SQ Last administered on 07/08/24at 17:33; Start 07/08/24 at 07:30; Stop 07/08/24 at 21:03; Status DC Insulin Glargine 60 units DAILY07 SQ Last administered on 07/13/24at 06:17; Start 07/09/24 at 07:00; Stop 07/13/24 at 06:18; Status DC Insulin Human Regular 22 unit TIDAC SQ Last administered on 07/09/24at 17:44; Start 07/09/24 at 07:30; Stop 07/09/24 at 21:14; Status DC Vancomycin HCl 250 ml @ 125 mls/hr Q8H IV Last administered on 07/09/24at 21:43; Start 07/09/24 at 21:00; Stop 07/10/24 at 09:45; Status DC Vancomycin HCl 500 ml @ 250 mls/hr ONCE ONCE IV Last administered on 07/09/24at 15:24; Start 07/09/24 at 13:00; Stop 07/09/24 at 14:59; Status DC Insulin Human Regular 25 unit TIDAC SQ Last administered on 07/10/24at 19:13; Start 07/10/24 at 07:30; Stop 07/13/24 at 06:18; Status DC Piperacillin Sod/ Tazobactam Sod 3.375 gm Q8H IVPB; Start 07/10/24 at 08:00; Stop 07/10/24 at 09:45; Status DC Vancomycin HCl 1 each AD IV; Start 07/10/24 at 21:00; Stop 07/24/24 at 20:59 Vancomycin HCl 250 ml @ 125 mls/hr Q6H IV Last administered on 07/13/24at 17:42; Start 07/10/24 at 21:00; Stop 07/15/24 at 06:33; Status DC Piperacillin Sod/ Tazobactam Sod 3.375 gm Q8H IV Last administered on 07/12/24at 08:51; Start 07/11/24 at 00:00; Stop 07/12/24 at 11:46; Status DC Cefepime HCl 1 gm Q8H IVPB Last administered on 07/17/24at 12:24; Start 07/12/24 at 12:00; Stop 07/22/24 at 11:59 Alteplase, Recombinant 1 mg ONCE IVCATH Last administered on 07/12/24at 18:20; Start 07/12/24 at 13:30; Stop 07/13/24 at 19:09; Status DC Insulin Glargine 50 units DAILY07 SQ Last administered on 07/16/24at 06:37; Start 07/13/24 at 07:00; Stop 07/16/24 at 07:20; Status DC Insulin Human Regular 10 unit TIDAC SQ Last administered on 07/15/24at 17:09; Start 07/13/24 at 07:30; Stop 07/15/24 at 21:41; Status DC Vancomycin HCl 250 ml @ 125 mls/hr Q6H IV Last administered on 07/14/24at 19:38; Start 07/14/24 at 00:00; Stop 07/14/24 at 20:29; Status DC Potassium Chloride 40 meq ONCE ONCE PO Last administered on 07/14/24at 13:48; Start 07/14/24 at 13:00; Stop 07/14/24 at 13:02; Status DC Potassium Chloride 100 ml @ 50 mls/hr ONCE ONCE IV; Start 07/14/24 at 13:00; Stop 07/14/24 at 14:59; Status DC Vancomycin HCl 250 ml @ 125 mls/hr Q8H6 IV; Start 07/14/24 at 22:00; Stop 07/14/24 at 19:24; Status DC Vancomycin HCl 250 ml @ 125 mls/hr Q8H6 IV Last administered on 07/15/24at 06:00; Start 07/15/24 at 06:00; Stop 07/15/24 at 06:29; Status DC Vancomycin HCl 750 mg ONCE IVPB Last administered on 07/14/24at 20:45; Start 07/14/24 at 21:00; Stop 07/14/24 at 23:59; Status DC Sodium Chloride 250 ml @ 125 mls/hr AD IV Last administered on 07/14/24at 20:46; Start 07/14/24 at 21:00; Stop 07/14/24 at 23:59; Status DC Vancomycin HCl 250 ml @ 125 mls/hr Q8H6 IV; Start 07/15/24 at 14:00; Stop 07/15/24 at 06:33; Status DC Vancomycin HCl 250 ml @ 125 mls/hr Q6H IV Last administered on 07/15/24at 20:34; Start 07/15/24 at 12:00; Stop 07/15/24 at 20:48; Status DC Furosemide 40 mg ONCE ONCE IV Last administered on 07/15/24at 14:00; Start 07/15/24 at 14:00; Stop 07/15/24 at 14:01; Status DC Enoxaparin Sodium 40 mg BID SQ Last administered on 07/17/24at 09:01; Start 07/15/24 at 21:00; Stop 08/05/24 at 08:59 Iohexol 50 ml STK-MED ONCE IV; Start 07/15/24 at 16:25; Stop 07/15/24 at 16:25; Status DC Iohexol 75 ml STK-MED ONCE IV; Start 07/15/24 at 16:25; Stop 07/15/24 at 16:25; Status DC Methylprednisolone Sodium Succinate 80 mg ONCE STAT IVP Last administered on 07/15/24at 16:52; Start 07/15/24 at 16:42; Stop 07/15/24 at 16:47; Status DC Diphenhydramine HCl 25 mg ONCE STAT IV Last administered on 07/15/24at 16:52; Start 07/15/24 at 16:42; Stop 07/15/24 at 16:47; Status DC Methylprednisolone Sodium Succinate 40 mg STK-MED ONCE .ROUTE; Start 07/15/24 at 16:46; Stop 07/15/24 at 16:46; Status DC Diphenhydramine HCl 50 mg STK-MED ONCE .ROUTE; Start 07/15/24 at 16:46; Stop 07/15/24 at 16:47; Status DC Vancomycin HCl 250 ml @ 125 mls/hr Q6H IV Last administered on 07/17/24at 17:50; Start 07/16/24 at 03:00; Stop 07/26/24 at 02:59 Insulin Human Regular 15 unit TIDAC SQ Last administered on 07/16/24at 17:34; Start 07/16/24 at 07:30; Stop 07/16/24 at 22:08; Status DC Insulin Glargine 60 units DAILY07 SQ Last administered on 07/17/24at 09:07; Start 07/17/24 at 07:00; Stop 08/16/24 at 06:59 Lidocaine HCl 100 mg STK-MED ONCE .ROUTE; Start 07/16/24 at 11:05; Stop 07/16/24 at 11:06; Status DC Midazolam HCl 2 mg STK-MED ONCE .ROUTE; Start 07/16/24 at 11:09; Stop 07/16/24 at 11:09; Status DC Ondansetron HCl 4 mg STK-MED ONCE .ROUTE; Start 07/16/24 at 11:09; Stop 07/16/24 at 11:09; Status DC Glycopyrrolate 1 mg STK-MED ONCE .ROUTE; Start 07/16/24 at 11:09; Stop 07/16/24 at 11:09; Status DC Propofol 200 mg STK-MED ONCE IV; Start 07/16/24 at 11:09; Stop 07/16/24 at 11:09; Status DC Neostigmine Methylsulfate 10 mg STK-MED ONCE IV; Start 07/16/24 at 11:09; Stop 07/16/24 at 11:10; Status DC Succinylcholine Chloride 200 mg STK-MED ONCE .ROUTE; Start 07/16/24 at 11:10; Stop 07/16/24 at 11:10; Status DC Rocuronium [place] 50 mg STK-MED ONCE .ROUTE; Start 07/16/24 at 11:10; Stop 07/16/24 at 11:10; Status DC Fentanyl Citrate 100 mcg STK-MED ONCE .ROUTE; Start 07/16/24 at 11:10; Stop 07/16/24 at 11:10; Status DC Bupivacaine HCl 5 mg STK-MED ONCE .ROUTE; Start 07/16/24 at 11:47; Stop 07/16/24 at 11:48; Status DC Bupivacaine HCl 150 mg STK-MED ONCE INJ Last administered on 07/16/24at 11:50; Start 07/16/24 at 11:50; Stop 07/16/24 at 12:47; Status DC Insulin Human Regular 20 unit TIDAC SQ Last administered on 07/17/24at 12:26; Start 07/17/24 at 07:30; Stop 08/16/24 at 07:29 Ketorolac Tromethamine 15 mg Q6H PRN IM; Start 07/17/24 at 13:30; Stop 07/22/24 at 13:29 Metoprolol Succinate 12.5 mg DAILY PO Last administered on 07/17/24at 17:50; Start 07/17/24 at 14:00; Stop 08/16/24 at 13:59 Sacubitril/ Valsartan 1 each BID PO; Start 07/17/24 at 21:00; Stop 08/16/24 at 20:59 Furosemide 20 mg Q12H IV Last administered on 07/17/24at 17:50; Start 07/17/24 at 16:30; Stop 08/16/24 at 16:29 Spironolactone 25 mg BID PO; Start 07/17/24 at 21:00; Stop 08/16/24 at 20:59 JOSE CASTILLO MD July 17, 2024 20:57
[2024-07-17] MEDS: SACUBITRIL/VALSARTAN 1 EACH TABLET PO SCH (21:20)
[2024-07-17] MEDS: SPIRONOLACTONE 25 MG TAB PO SCH (21:20)
[2024-07-18] VITALS (8 sets, daily range): BP systolic 109–136; BP diastolic 70–92; PULSE 89–95; RESP 17–20; TEMP 97.6–98.7; O2SAT 92–94
[2024-07-18 04:13] LABS: HEPATITIS A IGM ANTIBODY Non-Reactive (Nonreactive); HEPATITIS B CORE IGM ANTIBODY Non-Reactive (Negative); HEPATITIS B SURFACE ANTIGEN Non-Reactive (Nonreactive); HEPATITIS C ANTIBODY Non-Reactive (Nonreactive)
[2024-07-18] MEDS: VANCOMYCIN 1G/250ML KIT 250 ML IV SCH (06:06)
--- NOTE | 2024-07-18 06:16 | PN ---
SUBJECTIVE: The patient is a very pleasant 24-year-old diabetic, Latin-[place] male who is followed up for bilateral great toe ulcers. He is status post incision, drainage, and debridement of a right knee abscess. He is currently receiving IV vancomycin, IV cefepime. He has had wound cultures, Enterococcus faecalis, Staphylococcus aureus, MRSA, being followed by Infectious Disease. REVIEW OF SYSTEMS: GENERAL: Having pain to the right knee surgical site. HEENT: No problems with eyes, ears, nose, or throat. CARDIOVASCULAR: He is having no current chest pain. He has had abnormal arterial Doppler studies, but strongly palpable pedal pulses to his feet. GENITOURINARY: No dysuria. GASTROINTESTINAL: No dysphagia. ENDOCRINE: Diabetes. PSYCHIATRIC: Denied any depression. MUSCULOSKELETAL: Morbid obesity, BMI of 55. Bunions and hammertoes. INTEGUMENTARY: Bilateral great toe ulcers, each approximately 3 x 3 x 1 mm. OBJECTIVE: Exam today shows he has ulcers that are 3 x 3 x 1 mm bilateral plantar hallux. ASSESSMENT: A 24-year-old male with morbid obesity status post incision, drainage, and debridement of right knee ulcer, abscess. Cultures have grown back Enterococcus faecalis and MRSA, for which he receives cefepime and vancomycin. The patient's bone scan was negative for osteomyelitis to bilateral great toes. PLAN: The patient may ambulate with his surgical shoes. Continue with Medihoney dressings. Continue with the vancomycin and cefepime. From my standpoint, the patient will be discharged. Medihoney dressings daily to his right great toes. Follow up in the office as an outpatient. Follow up with the head leisure travel agent for appropriate shoe gear. TID: [id number] RECEIPT: [id number]
--- NOTE | 2024-07-18 11:30 | PN ---
[facility] PROGRESS NOTE Date of Service: July 18, 2024 Time of Service: 11:26 SUBJECTIVE: 07/06 patient seen at bedside, no acute events overnight. He has been afebrile, hemodynamically stable saturating well on room air. His only complaint is pain when he is ambulating, his right lower extremity proximal to the knee joint on the medial aspect has erythema induration, no fluctuance noted and is tender to palpation. There is no crepitus noted. Outlined the margins of the lesion and we will continue with broad-spectrum antibiotics. WBC improved from 13.9 down to 12.9, blood sugars still quite elevated, diabetic medications have been adju sted by hand spray operator, appreciate their assistance. A1c pending, we will follow up. Podiatry recommendations regarding diabetic foot ulcer on the 1st great toe are still pending. 07/07 patient seen at bedside, no acute events overnight. He has been afebrile, hemodynamically stable saturating well on room air. Area of cellulitis appears to be improved in color and swelling is diminished. Foot x-ray showing possible retained foreign body. Podiatry recommending a bone scan has MRI is contraindicated with foreign body, to assess for osteomyelitis. We will follow up with Endocrinology recommendations. 07/08 bone scan pending today, we will follow up postprocedure. Wound cultures are still pending, we will continue to follow. Patient has cellulitis in his right medial thigh continues to improve, swelling and erythema have retracted significantly. Labs are relatively unremarkable. Insulin adjusted by endocrinology, appreciate recommendations. 07/09 patient seen at bedside, no acute events overnight. Sensitivities are growing out Enterococcus and MRSA, infectious disease consulted for this discharge antibiotics. Patient counseled extensively on the importance of glycemic control. 07/10 infectious Disease recommending PICC line with follow up at [facility] for outpatient IV antibiotics. Once this is completed patient will be good candidate for discharge 5/ patient seen at bedside, no acute events overnight. PICC line has been successfully placed, still pending acceptance to [facility]. Once he was acc eptance will be good candidate for discharge. 5/ patient seen at bedside, no acute events overnight. Still pending acceptance to [facility]. Once he was acceptance will be good candidate for discharge. 07/13 patient seen at bedside, no acute events overnight. Still pending acceptance to [facility]. Once he was acceptance will be good candidate for discharge. 07/14 patient seen at bedside, no acute events overnight. Pending outpatient arrangements at [facility]. 07/15 patient is seen and examined at bedside, no acute events overnight, at the time of my visit, the patient has been started on supplemental oxygen via nasal cannula at 2 L, he is saturating 92-93%, he feels mild short of breath but denied chest pain, not actively coughing. He is getting IV antibiotics during my visit, no family members at bedside. 07/16 Patient seen and examined at bedside, no acute events overnight, getting iv antibiotics, NPO, schedule to go to the OR for I&D right lower extremity abscess. 07/17 patient is seen and examined at bedside, case discussed with the RN, no acute events overnight, patient getting IV antibiotics during my visit, comfortably in bed, following commands, saturating normal on room air, hemodynamically stable. Grandmother is at bedside during my visit, updated, all questions answered. Patient underwent incision and drainage of right thigh abscess yesterday, tolerated the procedure well. Currently getting good pain control with current medical management. 07/18 patient is seen and examined at bedside, case discussed with the RN, no acute events overnight, patient is sitting comfortable in the bed, saturating normal on room air, denies chest pain. He is getting broad-spectrum IV antibiotics. No family at bedside during my visit. REVIEW OF SYSTEMS 12 point review of systems negative unless noted in HPI PHYSICAL EXAM GENERAL APPEARANCE: The patient is awake, alert, and oriented, in no acute cardiopulmonary distress. Patient is obese NEUROLOGICAL: Cranial nerves II-XII grossly intact. Motor is 5/5 in bilateral upper and lower extremities proximal to distal. No sensory deficits. HEENT: Face is symmetric. Pupils are equal and reactive. Extraocular movements are intact. NECK: Supple. No JVD. No thyromegaly. No submental, submandibular, pre- /postauricular, occipital or supraclavicular lymphadenopathy. CHEST: Normal chest expansion. No Telemetry. LUNGS: Absence of any rales, rhonchi or any wheezing. CARDIOVASCULAR: Regular. S1 and S2 normal. No appreciable rubs, murmurs or gallops. ABDOMEN: Soft, nontender, and nondistended. There is no rebound, voluntary guarding, or rigidity. : Deferred. No Harden. EXTREMITIES: Patient has erythema on the posterior aspect of the leg involving the knee. He has redness traveling down to the leg to the foot. He has swelling noted. Area is tender to palpation. Additionally he has a ulcer noted in the 1st toe of the right foot. He has blackish discoloration with possible eschar noted SKIN: No skin breakdown. Vital Signs (last 8hr) Date Time Temp Pulse Resp B/P (MAP) Pulse Ox O2 Delivery O2 Flow Rate FiO2 07/18/24 08:05 98.4 91 17 126/70 94 Room Air 07/18/24 04:42 97.5 90 18 110/75 93 Room Air LABS: Laboratory: Test 07/18/24 11:20 07/18/24 10:41 07/17/24 18:20 07/17/24 15:00 Range/Units Whole Blood Glucose 177 H 70-110 MG/DL Vancomycin Level Trough 12.3 10.0-20.0 UG/ML Influenza Type A Antigen Negative For Type A NEGATIVE Influenza Type B Antigen Negative For Type B NEGATIVE SARS-CoV-2, RNA, NAAT NEGATIVE SARS CoV-2 NEGATIVE Hepatitis A IgM Antibody Non-Reactive Nonreactive Hepatitis B Surface Antigen. Non-Reactive Nonreactive Hepatitis B Core IgM Antibody Non-Reactive Negative Hepatitis C Antibody Non-Reactive Nonreactive HIV (1&2) Antibody Non-Reactive Negative HIV P24 Antigen, Qualitative Non-Reactive Negative Test 07/17/24 09:56 07/17/24 03:15 Range/Units Triglycerides Level 69 30-200 mg/dL Cholesterol Level 155 <200 mg/dL LDL Cholesterol 102 H 0-99 mg/dL HDL Cholesterol 41 29-71 mg/dL Vitamin B12 Level 520 193-986 pg/mL Vitamin D 25-Hydroxy 7.9 30.0-100.0 ng/mL White Blood Count 8.7 4.8-10.8 K/uL Red Blood Count 5.03 4.50-6.20 MIL/uL Hemoglobin 12.9 L 14.0-18.0 g/dL Hematocrit 37.6 L 42-54 % Mean Corpuscular Volume 74.8 L 79-99 fL Mean Corpuscular Hemoglobin 25.6 L 27.0-33.0 pg Mean Corpuscular Hemoglobin Concent 34.3 32.0-36.0 g/dL Red Cell Distribution Width 13.4 11.0-15.5 % Platelet Count 404 H 130-400 K/uL Mean Platelet Volume 8.4 7.5-10.5 fL Nucleated Red Blood Cells 0.0 0.0-0.19 % Sodium Level 143 136-145 mmol/L Potassium Level 3.2 L 3.5-5.1 mmol/L Chloride Level 108 101-111 mmol/L Carbon Dioxide Level 30 21-32 mmol/L Blood Urea Nitrogen 8 7-18 mg/dL Creatinine 0.7 0.5-1.3 mg/dL Glomerular Filtration Rate Calc 133 >90 mL/min Random Glucose 74 70-105 mg/dL Total Calcium 8.1 L 8.5-10.1 mg/dL Magnesium Level 1.70 L 1.80-2.40 mg/dL Total Bilirubin 0.3 0.2-1.0 mg/dL Aspartate Amino Transf (AST/SGOT) 16 10-37 U/L Alanine Aminotransferase (ALT/SGPT) 20 12-78 U/L Alkaline Phosphatase 62 50-136 U/L Total Protein 6.5 6.0-8.3 g/dL Albumin 2.4 L 3.5-5.0 g/dL Current Medications Medications (Trade) Dose Ordered Sig/Morales Route PRN Reason Start Time Stop Time Status Last Admin Dose Admin Acetaminophen (TYLenol 325MG TAB) 650 mg Q6H PRN PO MILD PAIN (1-3) 07/06/24 13:30 08/05/24 13:29 07/07/24 14:01 650 MG Acetaminophen/ Hydrocodone Bitart (NORco 5/325MG) 1 tab Q6H PRN PO MODERATE PAIN (4-6) 07/06/24 13:30 07/11/24 13:29 DC 07/10/24 19:19 1 TAB Alteplase, Recombinant (CathFLO 2MG VIAL) 1 mg ONCE IVCATH 07/12/24 13:30 07/13/24 19:09 DC 07/12/24 18:20 1 MG Cefepime HCl (MAXipime 1 GM vial) 1 gm Q8H IVPB 07/12/24 12:00 07/22/24 11:59 07/18/24 05:08 1 GM Dextrose (D50w) 50 ml AD PRN IV HYPOGLYCEMIA PROTOCOL 07/05/24 15:00 08/04/24 14:59 Diphenhydramine HCl (BENAdryl INJ) 25 mg ONCE STAT IV 07/15/24 16:42 07/15/24 16:47 DC 07/15/24 16:52 25 MG Enoxaparin Sodium (Lovenox) 30 mg DAILY SQ 07/06/24 09:00 07/15/24 14:28 DC 07/15/24 09:34 30 MG Enoxaparin Sodium (Lovenox) 40 mg BID SQ 07/15/24 21:00 08/05/24 08:59 07/18/24 09:59 40 MG Famotidine (Pepcid 20mg Vial) 20 mg BID IV 07/05/24 21:00 08/04/24 20:59 07/18/24 09:59 20 MG Furosemide (LASix 20MG VIAL) 20 mg Q12H IV 07/17/24 16:30 08/16/24 16:29 07/18/24 05:08 20 MG Glucagon (Glucagon 1mg Kit) 1 mg AD PRN IM HYPOGLYCEMIA PROTOCOL 07/05/24 15:00 08/04/24 14:59 Insulin Glargine (LANtus 100 UNITS/ML 10 ML VIAL) 15 units DAILY SQ 07/05/24 15:00 07/07/24 22:00 DC 07/07/24 08:47 15 UNITS Insulin Glargine (LANtus 100 UNITS/ML 10 ML VIAL) 40 units DAILY07 07/08/24 07:00 07/08/24 21:03 DC 07/08/24 07:54 40 UNITS Insulin Glargine (LANtus 100 UNITS/ML 10 ML VIAL) 50 units DAILY07 07/13/24 07:00 07/16/24 07:20 DC 07/16/24 06:37 50 UNITS Insulin Glargine (LANtus 100 UNITS/ML 10 ML VIAL) 60 units DAILY07 07/09/24 07:00 07/13/24 06:18 DC 07/13/24 06:17 60 UNITS Insulin Glargine (LANtus 100 UNITS/ML 10 ML VIAL) 60 units DAILY07 07/17/24 07:00 08/16/24 06:59 07/18/24 06:50 60 UNITS Insulin Human Regular (humuLIN R 100 UNIT/ML 3ML) 10 unit TIDAC SQ 07/06/24 07:30 07/07/24 22:00 DC 07/07/24 17:19 10 UNIT Insulin Human Regular (humuLIN R 100 UNIT/ML 3ML) 10 unit TIDAC SQ 07/13/24 07:30 07/15/24 21:41 DC 07/15/24 17:09 10 UNIT Insulin Human Regular (humuLIN R 100 UNIT/ML 3ML) 15 unit TIDAC SQ 07/16/24 07:30 07/16/24 22:08 DC 07/16/24 17:34 15 UNIT Insulin Human Regular (humuLIN R 100 UNIT/ML 3ML) 16 unit TIDAC SQ 07/08/24 07:30 07/08/24 21:03 DC 07/08/24 17:33 16 UNIT Insulin Human Regular (humuLIN R 100 UNIT/ML 3ML) 20 unit TIDAC SQ 07/17/24 07:30 08/16/24 07:29 07/18/24 06:51 20 UNIT Insulin Human Regular (humuLIN R 100 UNIT/ML 3ML) 22 unit TIDAC SQ 07/09/24 07:30 07/09/24 21:14 DC 07/09/24 17:44 22 UNIT Insulin Human Regular (humuLIN R 100 UNIT/ML 3ML) 25 unit TIDAC SQ 07/10/24 07:30 07/13/24 06:18 DC 07/10/24 19:13 25 UNIT Insulin Human Regular (humuLIN R 100 UNIT/ML 3ML) INSULIN SLIDING SCAL... ACHS SQ 07/06/24 07:30 08/05/24 07:29 07/18/24 06:49 2 UNIT Insulin Human Regular (humuLIN R 100 UNIT/ML 3ML) INSULIN SLIDING SCAL... Q6H6 SQ 07/05/24 18:00 07/05/24 21:19 DC 07/05/24 17:43 8 UNIT Ketorolac Tromethamine (toRADol) 15 mg Q6H PRN IM MODERATE PAIN (4-6) 07/17/24 13:30 07/22/24 13:29 Ketorolac Tromethamine (toRADol) 15 mg Q6H PRN IV MODERATE PAIN (4-6) 07/05/24 17:00 07/07/24 06:16 DC 07/05/24 21:03 15 MG Leptospermum Honey (Medihoney) 1 APPLICATION DAILY TP 07/07/24 09:00 08/06/24 08:59 07/16/24 09:41 1 APPL Magnesium Sulfate 50 ml @ 0 mls/hr PROTOCOL PRN IV low magnesium 07/07/24 10:00 08/06/24 09:59 07/17/24 05:37 25 MLS/HR Methylprednisolone Sodium Succinate (Solu-medROL 125MG) 80 mg ONCE STAT IVP 07/15/24 16:42 07/15/24 16:47 DC 07/15/24 16:52 80 MG Metoprolol Succinate (TopROL XL) 12.5 mg DAILY PO 07/17/24 14:00 08/16/24 13:59 07/18/24 09:59 12.5 MG Morphine Sulfate (morPHINE 2MG SYG) 2 mg Q6H PRN IVP SEVERE PAIN (7-10) 07/05/24 17:00 07/10/24 19:59 DC Piperacillin Sod/ Tazobactam Sod (Zosyn 3.375gm+NS 50ml) 3.375 gm Q8H IV 07/11/24 00:00 07/12/24 11:46 DC 07/12/24 08:51 3.375 GM Piperacillin Sod/ Tazobactam Sod (Zosyn 3.375gm+NS 50ml) 3.375 gm Q8H IVPB 07/05/24 14:30 07/10/24 03:41 DC 07/10/24 00:09 3.375 GM Piperacillin Sod/ Tazobactam Sod (Zosyn 3.375gm+NS 50ml) 3.375 gm Q8H IVPB 07/10/24 08:00 07/10/24 09:45 DC Potassium Chloride 100 ml @ 100 mls/hr AD PRN IV POTASSIUM PROTOCOL 07/07/24 10:00 08/06/24 09:59 07/14/24 14:24 100 MLS/HR Potassium Chloride (K-Dur/Klor-Con 20meq) 20 meq AD PRN PO POTASSIUM PROTOCOL 07/07/24 10:00 08/06/24 09:59 07/17/24 04:21 20 MEQ Potassium Chloride (KCl 10% Elixir 20meq/15ml) 20 meq AD PRN PO POTASSIUM PROTOCOL 07/07/24 10:00 08/06/24 09:59 Sacubitril/ Valsartan (Entresto 24 Mg-26 Mg Tablet) 1 each BID PO 07/17/24 21:00 08/16/24 20:59 07/18/24 09:59 1 EACH Sodium Chloride 250 ml @ 125 mls/hr AD IV 07/14/24 21:00 07/14/24 23:59 DC 07/14/24 20:46 125 MLS/HR Sodium Chloride 1,000 ml @ 100 mls/hr Q10H IV 07/05/24 14:30 07/11/24 03:05 DC 07/09/24 15:24 100 MLS/HR Sodium Chloride (NS 50ml) 50 ml AD IV 07/05/24 18:00 07/06/24 13:20 DC Spironolactone (Aldactone 25mg) 25 mg BID PO 07/17/24 21:00 08/16/24 20:59 07/18/24 09:59 25 MG Vancomycin HCl 250 ml @ 125 mls/hr Q6H IV 07/10/24 21:00 07/15/24 06:33 DC 07/13/24 17:42 125 MLS/HR Vancomycin HCl 250 ml @ 125 mls/hr Q6H IV 07/14/24 00:00 07/14/24 20:29 DC 07/14/24 19:38 125 MLS/HR Vancomycin HCl 250 ml @ 125 mls/hr Q6H IV 07/15/24 12:00 07/15/24 20:48 DC 07/15/24 20:34 125 MLS/HR Vancomycin HCl 250 ml @ 125 mls/hr Q6H IV 07/16/24 03:00 07/18/24 00:47 DC 07/18/24 00:09 125 MLS/HR Vancomycin HCl 250 ml @ 125 mls/hr Q6H IV 07/18/24 06:00 07/28/24 05:59 07/18/24 06:06 125 MLS/HR Vancomycin HCl 250 ml @ 125 mls/hr Q8H IV 07/07/24 13:00 07/09/24 12:53 DC 07/09/24 04:38 125 MLS/HR Vancomycin HCl 250 ml @ 125 mls/hr Q8H IV 07/09/24 21:00 07/10/24 09:45 DC 07/09/24 21:43 125 MLS/HR Vancomycin HCl 250 ml @ 125 mls/hr Q8H6 IV 07/14/24 22:00 07/14/24 19:24 DC Vancomycin HCl 250 ml @ 125 mls/hr Q8H6 IV 07/15/24 06:00 07/15/24 06:29 DC 07/15/24 06:00 125 MLS/HR Vancomycin HCl 250 ml @ 125 mls/hr Q8H6 IV 07/15/24 14:00 07/15/24 06:33 DC Vancomycin HCl 250 ml @ 167 mls/hr Q12H IV 07/06/24 01:00 07/07/24 12:31 DC 07/07/24 01:11 167 MLS/HR Vancomycin HCl (Vancomycin 750mg) 750 mg ONCE IVPB 07/14/24 21:00 07/14/24 23:59 DC 07/14/24 20:45 750 MG Vancomycin HCl (Vancomycin Protocol) 1 each AD IV 07/05/24 14:30 07/10/24 20:22 DC Vancomycin HCl (Vancomycin Protocol) 1 each AD IV 07/10/24 21:00 07/24/24 20:59 DIAGNOSTICS / RADIOLOGY: [ ] ASSESSMENT: Right Leg cellulitis with abscess right inner thigh POA Status post incision and drainage 07/16/24 Hyperglycemia secondary to uncontrolled diabetes mellitus type 2 last A1C 15.5, POA Foot ulcer of the 1st toe of the right foot, MRSA and Enterofaecalis, POA Hyponatremia secondary to hyperglycemia Dehydration, resolved Obesity BMI 53.1 Suspected RUTH/OHS undiagnosed and untreated POA Acute hypoxemic resp failure not POA Acute systolic congestive heart failure not POA Well's score for PE 6 points ( Moderate) PLAN: -patient remains admitted to the medical floor - continue the patient on broad-spectrum IV antibiotics -Patient underwent incision and drainage of right thigh abscess 07/16/24, results of culture positive for Staphylococcus aureus-MRSA. -continue to follow surgical input and recommendations, continue dressing changes - continue to follow infectious disease input and recommendations, currently the patient on vancomycin and cefepime IV. - Podiatry input noted and appreciated, continue with Medihoney dressing to both great toes. Patient to continue ambulation with surgical shoes. Once the patient is discharged he can follow up as an outpatient with the ped track layer head for appropriate shoe gear with insoles to offload the great toe ulcer sites to his feet bilaterally. -patient currently saturating normal on room air, CT chest PE protocol negative, continue to follow Pulmonary input and recommendation. -echocardiogram showing LVEF 25-30%. Severe global hypokinesis. Case discussed with rib knitter, etiology behind acute systolic CHF remains unknown, differentials include viral myocarditis, idiopathic cardiomyopathy, poorly- controlled diabetes induced cardiomyopathy. Because of the patient's age, CAD is the bottom of the differential. Requested viral myocarditis panel (HIV, CMV, EBV, Coxsackie a and b, hepatitis panel). Per rib knitter, also recommended that the patient undergo an FDG PET scan (as an outpatient). Patient is started on metoprolol succinate 12.5 mg p.o. daily and Entresto 24/26 mg tablet one tablet p.o. b.i.d.. NEURO: Minimize central acting medications as possible. Fall Precautions. Well lighted room through the day and minimize interruptions through the night to prevent acute delirium. PULMONARY: Supplemental 02 as needed BiPAP as necessary, for respiratory distress Titrate Fio2 to keep Spo2 > or = 90% DuoNeb�s and CPT as needed IS hourly while awake for pulmonary hygiene prn Out of bed to chair as tolerated Maintain aspiration precautions at all times CARDIOVASCULAR: Follow hemodynamics. Vital signs per facility protocol GI & NUTRITION: Continue nutritional support Aspirations precautions Prokinetic agents and laxatives as needed KIDNEYS & ELECTROLYTES: Strict monitoring of intake and output Daily weights Avoid nephrotoxic agents Monitor electrolytes and replace as needed Goal urine output of 30mL/hr or 0.5mL/kg/hr Medications to be dosed according to renal function. Avoid contrast if possible ENDOCRINE: Maintain blood glucose between 100-180 at all times. Insulin sliding scale for blood glucose management Hypoglycemia and hyperglycemia protocol in place INFECTIOUS DISEASE: Trend temperature, WBC and procalcitonin level Follow cultures, deescalate antibiotics as soon as possible. Panculture if new onset fever HEMATOLOGY & COAGULATION: Monitor H&H. Keep Hgb > 7 Transfuse 1 unit of PRBC for Hgb < 7 Transfuse 1 pack of platelets of platelets < 20, 000 Watch for any signs and symptoms of bleeding SKIN: Pressure ulcer prevention per facility protocol Specialty mattress as needed ORTHO/REHAB Continue PT/OT PRN: MEDICATIONS Tylenol 650 mg po every 4 hrs for fever zofran 4 mg IV every 6 hrs for n/v Hydralazine 5 mg IV every 4 hrs systolic pressure > 160 bowel regiment: lactulose 20 gm PO BID PRN constipation Supportive measures: Continue GI and DVT prophylaxis Disposition: Pending improvement in clinical condition All questions answered time spent: > 35 min FANNIE RAMÍREZ MD July 18, 2024 11:30
--- NOTE | 2024-07-18 13:46 | PN ---
[facility] PROGRESS NOTE Date Patient Seen: July 18, 2024 Time of Visit: 13:45 Supervising Physician: Dr. Gilma Pena Primary Care Physician: Magno. Billy Villarreal MD Outpatient Specialists: Inpatient Consults: DR Moy Kincaid, DR Reyes , Dr Estevez , Dr Gilbert Carrillo and Dr Toure Attending: Dr Paulette Moore MD PROBLEM LIST: Acute hypoxemic resp failure not POA Acute on chronic combined congestive heart failure, POA EF 25-30% per echo Right Leg cellulitis, improving POA s/p I/D 07/[address] Estevez Hyperglycemia secondary to uncontrolled diabetes mellitus type 2 last A1C 15.5, POA Foot ulcer of the 1st toe of the right foot, MRSA and Enterofaecalis, POA Hyponatremia secondary to hyperglycemia Dehydration, resolved Morbidly Obesity BMI 53.1 Suspected RUTH/OHS undiagnosed and untreated POA INTERVAL HISTORY: Patient evaluated at bedside today, no acute distress on examination. Patient continues on cefepime and vancomycin, wound on right lower extremity is returned positive for MRSA however patient's current infections have susceptibilities to oral medications, pending viral panel and further instructions from Infectious Disease for patient's indication for outpatient antibiotics. Disposition per primary. REVIEW OF SYSTEMS: 12 point ROS reviewed with patient. Pertinent positives mentioned above. Otherwise negative. PHYSICAL EXAM: GENERAL: alert, weak, awake oriented x 3, morbidly obese HEENT: EOMI, Sclera non icteric, moist mucosa NECK: Supple, no JVD, trachea midline LUNGS: Diminished breath sounds bilaterally. No wheezes HEART: Sinus Tachy rate and rhythm. Normal S1 and S2, without murmurs ABD: Morbidly obese. Abdomen soft, nontender. Bowel sounds present EXT: No clubbing cyanosis or edema. tyesha great toe wounds, rt knee redness /cellulitis s/p ID with dressing on, no active bleed or drainage NEURO: Alert and oriented to person, follows commands Vital Signs (last 8hr) Date Time Temp Pulse Resp B/P (MAP) Pulse Ox O2 Delivery O2 Flow Rate FiO2 07/18/24 11:54 98.1 89 20 136/92 91 Room Air 07/18/24 08:05 98.4 91 17 126/70 94 Room Air LABS: Hematology Labs: Test 07/17/24 03:15 Range/Units White Blood Count 8.7 4.8-10.8 K/uL Red Blood Count 5.03 4.50-6.20 MIL/uL Hemoglobin 12.9 L 14.0-18.0 g/dL Hematocrit 37.6 L 42-54 % Mean Corpuscular Volume 74.8 L 79-99 fL Mean Corpuscular Hemoglobin 25.6 L 27.0-33.0 pg Mean Corpuscular Hemoglobin Concent 34.3 32.0-36.0 g/dL Red Cell Distribution Width 13.4 11.0-15.5 % Platelet Count 404 H 130-400 K/uL Mean Platelet Volume 8.4 7.5-10.5 fL Nucleated Red Blood Cells 0.0 0.0-0.19 % Chemistry Labs: Test 07/18/24 11:20 07/17/24 09:56 07/17/24 03:15 Range/Units Whole Blood Glucose 177 H 70-110 MG/DL Triglycerides Level 69 30-200 mg/dL Cholesterol Level 155 <200 mg/dL LDL Cholesterol 102 H 0-99 mg/dL HDL Cholesterol 41 29-71 mg/dL Vitamin B12 Level 520 193-986 pg/mL Vitamin D 25-Hydroxy 7.9 30.0-100.0 ng/mL Sodium Level 143 136-145 mmol/L Potassium Level 3.2 L 3.5-5.1 mmol/L Chloride Level 108 101-111 mmol/L Carbon Dioxide Level 30 21-32 mmol/L Blood Urea Nitrogen 8 7-18 mg/dL Creatinine 0.7 0.5-1.3 mg/dL Glomerular Filtration Rate Calc 133 >90 mL/min Random Glucose 74 70-105 mg/dL Total Calcium 8.1 L 8.5-10.1 mg/dL Magnesium Level 1.70 L 1.80-2.40 mg/dL Total Bilirubin 0.3 0.2-1.0 mg/dL Aspartate Amino Transf (AST/SGOT) 16 10-37 U/L Alanine Aminotransferase (ALT/SGPT) 20 12-78 U/L Alkaline Phosphatase 62 50-136 U/L Total Protein 6.5 6.0-8.3 g/dL Albumin 2.4 L 3.5-5.0 g/dL DIAGNOSTICS / RADIOLOGY RESULTS: [ ] PLAN Recommend cardiac evaluation Start lasix and aldactone, monitor labs Order COVID/flu PE (-) per CTA BNP- 875 Echo-EF 25-30% wean o2 as possible. Pt to eval and treat continue Lovenox 40mg sq BID dose for DVT PPX for BMI > 40 Wound care per surgeon NEURO: Minimize central acting medications as possible. Maintain fall precautions, adequate lighting during the day PULMONARY: Supplemental 02 as needed. Maintain aspiration precautions at all times CARDIOVASCULAR: Follow hemodynamics. Vital signs per facility protocol GI & NUTRITION: Continue with nutritional support. Continue stool softeners and laxatives as needed. KIDNEYS & ELECTROLYTES: Strict monitoring of intake, output and overall fluid balance. Avoid nephrotoxic medications to the extent possible. Medications to be dosed according to renal function. Monitor electrolytes and replace as needed ENDOCRINE: Maintain blood glucose between 100-180 at all times. Hypoglycemia protocol in place INFECTIOUS DISEASE: Trend temperature, WBC and procalcitonin level Follow cultures, deescalate antibiotics as soon as possible. Panculture if new onset fever ONCOLOGY/HEMATOLOGY/COAGULATION: Monitor for s/s of bleeding Monitor hemoglobin, coagulation studies as needed SKIN: Pressure ulcer prevention per facility protocol Specialty mattress ORTHO/REHAB: Continue PT/OT Prophylaxis: Continue GI and DVT prophylaxis Code Status: Full Resuscitation Disposition: TBD Other: Total patient care time exceeds 35 minutes excluding all procedures. SHAHID VALDERRAMA July 18, 2024 13:46
--- NOTE | 2024-07-18 16:17 | PN ---
INFECTIOUS DISEASE PROGRESS NOTE Date of Service: July 18, 2024 SUBJECTIVE: This 24 year old male patient is being seen today at bedside. Denies chest pain or shortness of breath. Patient is laying in bed. No nausea or vomiting. Continues with wound care to right thigh. States he feels good. No acute events over night, he remains on antibiotics. No acute events over night. PHYSICAL EXAM EYES: Anicteric. Pupils equal and reactive. HENT: No oral thrush seen, moist Oral mucosa. NECK: Supple, no JVD or thyromegaly. LUNGS: Good air entry. No rales, no rhonchi. CARDIOVASCULAR: S1, S2 regular. No murmur heard. ABDOMEN: Soft, non tender, bowel sounds present, no organomegaly. CENTRAL NERVOUS SYSTEM: Awake, alert, oriented x 3. SKIN: No rashes, no swelling. LYMPHATICS: No peripheral lymphadenopathy MUSCULOSKELETAL: No joint swelling, erythema or tenderness. EXTREMITIES: Right great toe diabetic ulcer with abscess. Left great toe callus. Right inner thigh abscess, s/p I&D. BACK: No deformity, no pressure ulcer. GENITOURINARY: No dysuria or hematuria. Vital Sign (Last 12 Hours) 07/18/24 07/18/24 07/18/24 04:42 08:05 11:54 Temp 97.5 98.4 98.1 Pulse 90 91 89 Resp 18 17 20 B/P (MAP) 110/75 126/70 136/92 Pulse Ox 93 94 91 O2 Delivery Room Air Room Air Room Air Intake & Output (last 24hrs) 07/17/24 07/17/24 07/18/24 15:00 23:00 07:00 Intake Total 1850.0 ml 550.0 ml Balance 1850.0 ml 550.0 ml LABS: Laboratory: Test 07/18/24 11:20 07/18/24 10:41 07/17/24 18:20 07/17/24 15:00 Range/Units Whole Blood Glucose 177 H 70-110 MG/DL Vancomycin Level Trough 12.3 10.0-20.0 UG/ML Influenza Type A Antigen Negative For Type A NEGATIVE Influenza Type B Antigen Negative For Type B NEGATIVE SARS-CoV-2, RNA, NAAT NEGATIVE SARS CoV-2 NEGATIVE Hepatitis A IgM Antibody Non-Reactive Nonreactive Hepatitis B Surface Antigen. Non-Reactive Nonreactive Hepatitis B Core IgM Antibody Non-Reactive Negative Hepatitis C Antibody Non-Reactive Nonreactive HIV (1&2) Antibody Non-Reactive Negative HIV P24 Antigen, Qualitative Non-Reactive Negative Test 07/17/24 09:56 07/17/24 03:15 Range/Units Triglycerides Level 69 30-200 mg/dL Cholesterol Level 155 <200 mg/dL LDL Cholesterol 102 H 0-99 mg/dL HDL Cholesterol 41 29-71 mg/dL Vitamin B12 Level 520 193-986 pg/mL Vitamin D 25-Hydroxy 7.9 30.0-100.0 ng/mL White Blood Count 8.7 4.8-10.8 K/uL Red Blood Count 5.03 4.50-6.20 MIL/uL Hemoglobin 12.9 L 14.0-18.0 g/dL Hematocrit 37.6 L 42-54 % Mean Corpuscular Volume 74.8 L 79-99 fL Mean Corpuscular Hemoglobin 25.6 L 27.0-33.0 pg Mean Corpuscular Hemoglobin Concent 34.3 32.0-36.0 g/dL Red Cell Distribution Width 13.4 11.0-15.5 % Platelet Count 404 H 130-400 K/uL Mean Platelet Volume 8.4 7.5-10.5 fL Nucleated Red Blood Cells 0.0 0.0-0.19 % Sodium Level 143 136-145 mmol/L Potassium Level 3.2 L 3.5-5.1 mmol/L Chloride Level 108 101-111 mmol/L Carbon Dioxide Level 30 21-32 mmol/L Blood Urea Nitrogen 8 7-18 mg/dL Creatinine 0.7 0.5-1.3 mg/dL Glomerular Filtration Rate Calc 133 >90 mL/min Random Glucose 74 70-105 mg/dL Total Calcium 8.1 L 8.5-10.1 mg/dL Magnesium Level 1.70 L 1.80-2.40 mg/dL Total Bilirubin 0.3 0.2-1.0 mg/dL Aspartate Amino Transf (AST/SGOT) 16 10-37 U/L Alanine Aminotransferase (ALT/SGPT) 20 12-78 U/L Alkaline Phosphatase 62 50-136 U/L Total Protein 6.5 6.0-8.3 g/dL Albumin 2.4 L 3.5-5.0 g/dL ASSESSMENT: Right thigh abscess, status post I&D. Right lower extremity cellulitis. Right foot diabetic ulcer with abscess. Infection with methicillin-resistant Staphylococcus aureus. Poorly controlled Diabetes mellitus with hemoglobin A1c of 15.4. Morbid obesity. PLAN: We will follow up on the intraoperative wound cultures. Continue cefepime. Continue vancomycin per pharmacy protocol. Continue wound care as recommended by General surgery. Continue antidiabetics. Patient will need to follow up with his PCP once discharged for referral to [facility] for outpatient IV antibiotics for 4 weeks. This case was reviewed and discussed with my supervising physician and the above assessment and plan was formulated and agreed upon. TREVOR CASTRO July 18, 2024 16:17
--- NOTE | 2024-07-18 17:55 | PN ---
Cardiology Progress Note Date of Service: 07/19/2023 Attending Plate Mill Hand: Dr. Zay Rogers Reason for Consult: HFrEF Problem List: -Leukocytosis -Right thigh abscess (MRSA) s/p I&D done on 07/16/2024 -Bilateral diabetic foot ulcers (MRSA and Enterococcus) -Elevated D Dimer, negative for DVT/PE -HFrEF (LVEF: 25-30% by echo done 07/16/2024) -Dilated cardiomyopathy -Uncontrolled DM2 -HTN -Morbid obesity Subjective: This is a 24y/o male who was seen and evaluated at the bedside today. The patient denies any active complaints including chest pain, chest pressure, palpitations, or shortness of breath. As per the nurse, there were no overnight events. Vitals/Labs Vital Signs Date Time Temp Pulse Resp B/P (MAP) Pulse Ox O2 Delivery O2 Flow Rate FiO2 07/18/24 16:00 98.2 95 17 109/75 85 Room Air 07/18/24 01:30 3.0 07/17/24 20:00 21 General: Awake and alert. No acute distress. HEENT: Normocephalic, atraumatic. EOMI. Oral mucosa was moist. Neck: No masses, JVD, or carotid bruits. Lungs: No respiratory distress. SCM. Bilateral air entry. Diminished breath sounds noted to the bilateral lower lung antunez. Cardio: Regular rate. Normal S1 and S2, +4. No obvious murmurs, rubs, or gallops. Abdomen: Obese abdomen. Soft, nontender, nondistended. No organomegaly. Normoactive bowel sounds x 4 quadrants. Extremities. No edema, clubbing, or cyanosis. +2 pulses noted throughout. Dres sing noted to the right medial knee. Neuro: Cranial nerves II through XII are grossly intact. No focal deficits identified. Assessment: -Leukocytosis -Right thigh abscess (MRSA) s/p I&D done on 07/16/2024 -Bilateral diabetic foot ulcers (MRSA and Enterococcus) -Elevated D Dimer, negative for DVT/PE -HFrEF (LVEF: 25-30% by echo done 07/16/2024) -Dilated cardiomyopathy -Uncontrolled DM2 -HTN -Morbid obesity Plan: 1. HFrEF (LVEF: 25-30% by echo done 07/16/2024) -We will transition the patient from IV to oral furosemide 20 mg BID and he will continue on metoprolol succinate 12.5 mg daily, Entresto 24/26 mg BID, and spironolactone 25 mg BID. -The etiology behind the patient's LV systolic function remains unknown. The complete viral panel is pending, and we will refer the patient for a FDG PET scan as an outpatient. -Please record strict I/O's, daily weights, and restrict fluids to less than 2.0L/day. We will be signing off of the case. Please have the patient follow up with Cardiology, Dr. Zay Rogers, 1-2 weeks after discharge. This case was discussed with my Supervising Physician, Dr. Zay Rogers, and the above mentioned plan was formulated and agreed upon. -Progress Note written by Sintia Moe, MSN, [employer], AGACNP-BC SINTIA MOE NP July 18, 2024 17:55
--- NOTE | 2024-07-18 22:36 | PN ---
endocrinology progress note Date of Service: 07/18/2024 subjective: glucose are improving patient used to inject lantus and humalog but not injecting for many months. he does not check glucose at home. hba1c>15.0% right foot wound is positive for MRSA and Enterofaecalis, right medial thigh abscess I&D PAST MEDICAL HISTORY: History of foot ulcer in the 1st toe of the right foot PAST SURGICAL HISTORY: Denied any previous surgical history PAST SOCIAL HISTORY: Denied any smoking, alcohol, drug use FAMILY HISTORY: Denied any pertinent family history Coded Allergies: No Known Drug Allergies (Unverified Allergy, Unknown, 10/08/18) ASSESSMENT: Hyperglycemia secondary to uncontrolled diabetes mellitus type POA patient used to inject lantus and humalog but not injecting for many months. he does not check glucose at home. hba1c>15.0% talia-65 abs are negative, so likely type 2 dm. patient was eating bag full of fries and other high carbs food today. Right Leg cellulitis POA MRSA and Enterofaecalis, ID following right medial thigh abscess I&D Foot ulcer of the 1st toe of the right foot POA Hyponatremia secondary to hyperglycemia Dehydration Obesity BMI 53.1 PLAN: increase lantus 60 units daily continue regular insulin 20 units tid before meals for daytime hyperglycemia. continue medium dose insulin ssi monitor glucose qx6 hourly patient will need insulin at discharge Vitals/Labs Vital Signs Date Time Temp Pulse Resp B/P (MAP) Pulse Ox O2 Delivery O2 Flow Rate FiO2 07/18/24 20:21 98.2 89 20 125/76 92 Room Air 07/18/24 10:15 0 21 Medications Current Medications Ketorolac Tromethamine 15 mg ONCE ONCE IM Last administered on 07/05/24at 13:56; Start 07/05/24 at 11:00; Stop 07/05/24 at 11:03; Status DC Vancomycin HCl 1 gm ONCE ONCE IV Last administered on 07/05/24at 14:15; Start 07/05/24 at 13:00; Stop 07/05/24 at 13:01; Status DC Ceftriaxone Sodium 2 gm ONCE ONCE IVPB Last administered on 07/05/24at 13:55; Start 07/05/24 at 12:30; Stop 07/05/24 at 12:31; Status DC Sodium Chloride 1,000 ml @ 0 mls/hr ONCE ONCE IV Last administered on 07/05/24at 13:48; Start 07/05/24 at 12:30; Stop 07/05/24 at 12:31; Status DC Insulin Human Regular 5 unit ONCE ONCE IV Last administered on 07/05/24at 14:01; Start 07/05/24 at 12:30; Stop 07/05/24 at 12:31; Status DC Famotidine 20 mg BID IV Last administered on 07/18/24at 20:30; Start 07/05/24 at 21:00; Stop 08/04/24 at 20:59 Vancomycin HCl 1 each AD IV; Start 07/05/24 at 14:30; Stop 07/10/24 at 20:22; S tatus DC Piperacillin Sod/ Tazobactam Sod 3.375 gm Q8H IVPB Last administered on 07/10/24at 00:09; Start 07/05/24 at 14:30; Stop 07/10/24 at 03:41; Status DC Sodium Chloride 50 ml AD IV; Start 07/05/24 at 18:00; Stop 07/06/24 at 13:20; Status DC Insulin Human Regular INSULIN SLIDING SCAL... Q6H6 SQ Last administered on 07/05/24at 17:43; Start 07/05/24 at 18:00; Stop 07/05/24 at 21:19; Status DC Sodium Chloride 1,000 ml @ 100 mls/hr Q10H IV Last administered on 07/09/24at 15:24; Start 07/05/24 at 14:30; Stop 07/11/24 at 03:05; Status DC Insulin Glargine 15 units DAILY SQ Last administered on 07/07/24at 08:47; Start 07/05/24 at 15:00; Stop 07/07/24 at 22:00; Status DC Dextrose 50 ml AD PRN IV; Start 07/05/24 at 15:00; Stop 08/04/24 at 14:59 Glucagon 1 mg AD PRN IM; Start 07/05/24 at 15:00; Stop 08/04/24 at 14:59 Vancomycin HCl 250 ml @ 250 mls/hr ONCE ONCE IV Last administered on 07/05/24at 15:11; Start 07/05/24 at 15:00; Stop 07/05/24 at 15:59; Status DC Vancomycin HCl 250 ml @ 167 mls/hr Q12H IV Last administered on 07/07/24at 01:11; Start 07/06/24 at 01:00; Stop 07/07/24 at 12:31; Status DC Iohexol 75 ml STK-MED ONCE IV; Start 07/05/24 at 15:20; Stop 07/05/24 at 15:21; Status DC Ketorolac Tromethamine 15 mg Q6H PRN IV Last administered on 07/05/24at 21:03; Start 07/05/24 at 17:00; Stop 07/07/24 at 06:16; Status DC Morphine Sulfate 2 mg Q6H PRN IVP; Start 07/05/24 at 17:00; Stop 07/10/24 at 19:59; Status DC Insulin Human Regular 10 unit TIDAC SQ Last administered on 07/07/24at 17:19; Start 07/06/24 at 07:30; Stop 07/07/24 at 22:00; Status DC Insulin Human Regular INSULIN SLIDING SCAL... ACHS SQ Last administered on 07/18/24at 20:33; Start 07/06/24 at 07:30; Stop 08/05/24 at 07:29 Enoxaparin Sodium 30 mg DAILY SQ Last administered on 07/15/24at 09:34; Start at 09:00; Stop 07/15/24 at 14:28; Status DC Acetaminophen 650 mg Q6H PRN PO Last administered on 07/07/24at 14:01; Start 07/06/24 at 13:30; Stop 08/05/24 at 13:29 Acetaminophen/ Hydrocodone Bitart 1 tab Q6H PRN PO Last administered on 07/10/24at 19:19; Start 07/06/24 at 13:30; Stop 07/11/24 at 13:29; Status DC Leptospermum Honey 1 APPLICATION DAILY TP Last administered on 07/18/24at 17:15; Start 07/07/24 at 09:00; Stop 08/06/24 at 08:59 Potassium Chloride 100 ml @ 100 mls/hr AD PRN IV Last administered on 07/14/24at 14:24; Start 07/07/24 at 10:00; Stop 08/06/24 at 09:59 Potassium Chloride 20 meq AD PRN PO; Start 07/07/24 at 10:00; Stop 08/06/24 at 09:59 Potassium Chloride 20 meq AD PRN PO Last administered on 07/17/24at 04:21; Start 07/07/24 at 10:00; Stop 08/06/24 at 09:59 Magnesium Sulfate 50 ml @ 0 mls/hr PROTOCOL PRN IV Last administered on 07/17/24at 05:37; Start 07/07/24 at 10:00; Stop 08/06/24 at 09:59 Vancomycin HCl 250 ml @ 125 mls/hr Q8H IV Last administered on 07/09/24at 04:38; Start 07/07/24 at 13:00; Stop 07/09/24 at 12:53; Status DC Insulin Glargine 40 units DAILY07 SQ Last administered on 07/08/24at 07:54; Start 07/08/24 at 07:00; Stop 07/08/24 at 21:03; Status DC Insulin Human Regular 16 unit TIDAC SQ Last administered on 07/08/24at 17:33; Start 07/08/24 at 07:30; Stop 07/08/24 at 21:03; Status DC Insulin Glargine 60 units DAILY07 SQ Last administered on 07/13/24at 06:17; Start 07/09/24 at 07:00; Stop 07/13/24 at 06:18; Status DC Insulin Human Regular 22 unit TIDAC SQ Last administered on 07/09/24at 17:44; Start 07/09/24 at 07:30; Stop 07/09/24 at 21:14; Status DC Vancomycin HCl 250 ml @ 125 mls/hr Q8H IV Last administered on 07/09/24at 21:43; Start 07/09/24 at 21:00; Stop 07/10/24 at 09:45; Status DC Vancomycin HCl 500 ml @ 250 mls/hr ONCE ONCE IV Last administered on 07/09/24at 15:24; Start 07/09/24 at 13:00; Stop 07/09/24 at 14:59; Status DC Insulin Human Regular 25 unit TIDAC SQ Last administered on 07/10/24at 19:13; Start 07/10/24 at 07:30; Stop 07/13/24 at 06:18; Status DC Piperacillin Sod/ Tazobactam Sod 3.375 gm Q8H IVPB; Start 07/10/24 at 08:00; Stop 07/10/24 at 09:45; Status DC Vancomycin HCl 1 each AD IV; Start 07/10/24 at 21:00; Stop 07/24/24 at 20:59 Vancomycin HCl 250 ml @ 125 mls/hr Q6H IV Last administered on 07/13/24at 17:42; Start 07/10/24 at 21:00; Stop 07/15/24 at 06:33; Status DC Piperacillin Sod/ Tazobactam Sod 3.375 gm Q8H IV Last administered on 07/12/24at 08:51; Start 07/11/24 at 00:00; Stop 07/12/24 at 11:46; Status DC Cefepime HCl 1 gm Q8H IVPB Last administered on 07/18/24at 20:30; Start 07/12/24 at 12:00; Stop 07/22/24 at 11:59 Alteplase, Recombinant 1 mg ONCE IVCATH Last administered on 07/12/24at 18:20; Start 07/12/24 at 13:30; Stop 07/13/24 at 19:09; Status DC Insulin Glargine 50 units DAILY07 SQ Last administered on 07/16/24at 06:37; Start 07/13/24 at 07:00; Stop 07/16/24 at 07:20; Status DC Insulin Human Regular 10 unit TIDAC SQ Last administered on 07/15/24at 17:09; Start 07/13/24 at 07:30; Stop 07/15/24 at 21:41; Status DC Vancomycin HCl 250 ml @ 125 mls/hr Q6H IV Last administered on 07/14/24at 19:38; Start 07/14/24 at 00:00; Stop 07/14/24 at 20:29; Status DC Potassium Chloride 40 meq ONCE ONCE PO Last administered on 07/14/24at 13:48; Start 07/14/24 at 13:00; Stop 07/14/24 at 13:02; Status DC Potassium Chloride 100 ml @ 50 mls/hr ONCE ONCE IV; Start 07/14/24 at 13:00; Stop 07/14/24 at 14:59; Status DC Vancomycin HCl 250 ml @ 125 mls/hr Q8H6 IV; Start 07/14/24 at 22:00; Stop 07/14/24 at 19:24; Status DC Vancomycin HCl 250 ml @ 125 mls/hr Q8H6 IV Last administered on 07/15/24at 06:00; Start 07/15/24 at 06:00; Stop 07/15/24 at 06:29; Status DC Vancomycin HCl 750 mg ONCE IVPB Last administered on 07/14/24at 20:45; Start 07/14/24 at 21:00; Stop 07/14/24 at 23:59; Status DC Sodium Chloride 250 ml @ 125 mls/hr AD IV Last administered on 07/14/24at 20:46; Start 07/14/24 at 21:00; Stop 07/14/24 at 23:59; Status DC Vancomycin HCl 250 ml @ 125 mls/hr Q8H6 IV; Start 07/15/24 at 14:00; Stop 07/15/24 at 06:33; Status DC Vancomycin HCl 250 ml @ 125 mls/hr Q6H IV Last administered on 07/15/24at 20:34; Start 07/15/24 at 12:00; Stop 07/15/24 at 20:48; Status DC Furosemide 40 mg ONCE ONCE IV Last administered on 07/15/24at 14:00; Start at 14:00; Stop 07/15/24 at 14:01; Status DC Enoxaparin Sodium 40 mg BID SQ Last administered on 07/18/24at 20:31; Start 07/15/24 at 21:00; Stop 08/05/24 at 08:59 Iohexol 50 ml STK-MED ONCE IV; Start 07/15/24 at 16:25; Stop 07/15/24 at 16:25; Status DC Iohexol 75 ml STK-MED ONCE IV; Start 07/15/24 at 16:25; Stop 07/15/24 at 16:25; Status DC Methylprednisolone Sodium Succinate 80 mg ONCE STAT IVP Last administered on 07/15/24at 16:52; Start 07/15/24 at 16:42; Stop 07/15/24 at 16:47; Status DC Diphenhydramine HCl 25 mg ONCE STAT IV Last administered on 07/15/24at 16:52; Start 07/15/24 at 16:42; Stop 07/15/24 at 16:47; Status DC Methylprednisolone Sodium Succinate 40 mg STK-MED ONCE .ROUTE; Start 07/15/24 at 16:46; Stop 07/15/24 at 16:46; Status DC Diphenhydramine HCl 50 mg STK-MED ONCE .ROUTE; Start 07/15/24 at 16:46; Stop 07/15/24 at 16:47; Status DC Vancomycin HCl 250 ml @ 125 mls/hr Q6H IV Last administered on 07/18/24at 00:09; Start 07/16/24 at 03:00; Stop 07/18/24 at 00:47; Status DC Insulin Human Regular 15 unit TIDAC SQ Last administered on 07/16/24at 17:34; Start 07/16/24 at 07:30; Stop 07/16/24 at 22:08; Status DC Insulin Glargine 60 units DAILY07 SQ Last administered on 07/18/24at 06:50; Start 07/17/24 at 07:00; Stop 08/16/24 at 06:59 Lidocaine HCl 100 mg STK-MED ONCE .ROUTE; Start 07/16/24 at 11:05; Stop 07/16/24 at 11:06; Status DC Midazolam HCl 2 mg STK-MED ONCE .ROUTE; Start 07/16/24 at 11:09; Stop 07/16/24 at 11:09; Status DC Ondansetron HCl 4 mg STK-MED ONCE .ROUTE; Start 07/16/24 at 11:09; Stop 07/16/24 at 11:09; Status DC Glycopyrrolate 1 mg STK-MED ONCE .ROUTE; Start 07/16/24 at 11:09; Stop 07/16/24 at 11:09; Status DC Propofol 200 mg STK-MED ONCE IV; Start 07/16/24 at 11:09; Stop 07/16/24 at 11:09; Status DC Neostigmine Methylsulfate 10 mg STK-MED ONCE IV; Start 07/16/24 at 11:09; Stop 07/16/24 at 11:10; Status DC Succinylcholine Chloride 200 mg STK-MED ONCE .ROUTE; Start 07/16/24 at 11:10; Stop 07/16/24 at 11:10; Status DC Rocuronium Nelson 50 mg STK-MED ONCE .ROUTE; Start 07/16/24 at 11:10; Stop 07/16/24 at 11:10; Status DC Fentanyl Citrate 100 mcg STK-MED ONCE .ROUTE; Start 07/16/24 at 11:10; Stop 07/16/24 at 11:10; Status DC Bupivacaine HCl 5 mg STK-MED ONCE .ROUTE; Start 07/16/24 at 11:47; Stop 07/16/24 at 11:48; Status DC Bupivacaine HCl 150 mg STK-MED ONCE INJ Last administered on 07/16/24at 11:50; Start 07/16/24 at 11:50; Stop 07/16/24 at 12:47; Status DC Insulin Human Regular 20 unit TIDAC SQ Last administered on 07/18/24at 17:16; Start 07/17/24 at 07:30; Stop 08/16/24 at 07:29 Ketorolac Tromethamine 15 mg Q6H PRN IM; Start 07/17/24 at 13:30; Stop 07/22/24 at 13:29 Metoprolol Succinate 12.5 mg DAILY PO Last administered on 07/18/24at 09:59; Start 07/17/24 at 14:00; Stop 08/16/24 at 13:59 Sacubitril/ Valsartan 1 each BID PO Last administered on 07/18/24at 20:31; Start 07/17/24 at 21:00; Stop 08/16/24 at 20:59 Furosemide 20 mg Q12H IV Last administered on 07/18/24at 17:15; Start 07/17/24 at 16:30; Stop 07/18/24 at 22:21; Status DC Spironolactone 25 mg BID PO Last administered on 07/18/24at 20:31; Start 07/17/24 at 21:00; Stop 08/16/24 at 20:59 Vancomycin HCl 250 ml @ 125 mls/hr Q6H IV Last administered on 07/18/24at 18:43; Start 07/18/24 at 06:00; Stop 07/28/24 at 05:59 Furosemide 20 mg BID@09,17 PO; Start 07/19/24 at 09:00; Stop 08/18/24 at 08:59 JOSE CASTILLO MD July 18, 2024:36
[2024-07-19] VITALS (8 sets, daily range): BP systolic 119–164; BP diastolic 65–99; PULSE 64–95; RESP 18–22; TEMP 98–98.5; O2SAT 93–96
[2024-07-19 05:26] LABS: HEMATOCRIT 43.4 % (42-54); MEAN CORPUSCULAR HEMOGLOBIN 25.1 pg (27.0-33.0); MEAN CORPUSCULAR HGB CONC 33.6 g/dL (32.0-36.0); MEAN CORPUSCULAR VOLUME 74.6 fL (79-99); RED BLOOD CELL COUNT(AUTO) 5.82 MIL/uL (4.50-6.20); RED CELL DISTRIBUTION WIDTH 13.3 % (11.0-15.5)
[2024-07-19 05:48] LABS: ALBUMIN 2.7 g/dL (3.5-5.0); BILIRUBIN,TOTAL 0.4 mg/dL (0.2-1.0); CREATININE 0.6 mg/dL (0.5-1.3); MAGNESIUM 1.7 mg/dL (1.80-2.40); POTASSIUM 3.4 mmol/L (3.5-5.1); TOTAL PROTEIN, SERUM 7.2 g/dL (6.0-8.3); VANCOMYCIN TROUGH 11.1 UG/ML (10.0-20.0)
[2024-07-19] MEDS: furoSEMIDE 20 MG TABLET PO SCH (09:38)
[2024-07-19] MEDS: PoTASSium chloRIDE 20MEQ ER 20 MEQ ERTAB PO ONE (10:50)
--- NOTE | 2024-07-19 11:17 | PN ---
[facility] PROGRESS NOTE Date of Service: July 19, 2024 Time of Service: 11:16 SUBJECTIVE: 07/06 patient seen at bedside, no acute events overnight. He has been afebrile, hemodynamically stable saturating well on room air. His only complaint is pain when he is ambulating, his right lower extremity proximal to the knee joint on the medial aspect has erythema induration, no fluctuance noted and is tender to palpation. There is no crepitus noted. Outlined the margins of the lesion and we will continue with broad-spectrum antibiotics. WBC improved from 13.9 down to 12.9, blood sugars still quite elevated, diabetic medications have been adj usted by clinical rehab specialist, appreciate their assistance. A1c pending, we will follow up. Podiatry recommendations regarding diabetic foot ulcer on the 1st great toe are still pending. 07/07 patient seen at bedside, no acute events overnight. He has been afebrile, hemodynamically stable saturating well on room air. Area of cellulitis appears to be improved in color and swelling is diminished. Foot x-ray showing possible retained foreign body. Podiatry recommending a bone scan has MRI is contraindicated with foreign body, to assess for osteomyelitis. We will follow up with Endocrinology recommendations. 07/08 bone scan pending today, we will follow up postprocedure. Wound cultures are still pending, we will continue to follow. Patient has cellulitis in his right medial thigh continues to improve, swelling and erythema have retracted significantly. Labs are relatively unremarkable. Insulin adjusted by endocrinology, appreciate recommendations. 07/09 patient seen at bedside, no acute events overnight. Sensitivities are growing out Enterococcus and MRSA, infectious disease consulted for this discharge antibiotics. Patient counseled extensively on the importance of glycemic control. 07/10 infectious Disease recommending PICC line with follow up at [facility] for outpatient IV antibiotics. Once this is completed patient will be good candidate for discharge 5 patient seen at bedside, no acute events overnight. PICC line has been successfully placed, still pending acceptance to [facility]. Once he was ac ceptance will be good candidate for discharge. 07/12 patient seen at bedside, no acute events overnight. Still pending acceptanc e to [facility]. Once he was acceptance will be good candidate for discharge. 07/13 patient seen at bedside, no acute events overnight. Still pending acceptance to [facility]. Once he was acceptance will be good candidate for discharge. 07/14 patient seen at bedside, no acute events overnight. Pending outpatient arrangements at [facility]. 07/15 patient is seen and examined at bedside, no acute events overnight, at the time of my visit, the patient has been started on supplemental oxygen via nasal cannula at 2 L, he is saturating 92-93%, he feels mild short of breath but denied chest pain, not actively coughing. He is getting IV antibiotics during my visit, no family members at bedside. 07/16 Patient seen and examined at bedside, no acute events overnight, getting iv antibiotics, NPO, schedule to go to the OR for I&D right lower extremity abscess. 07/17 patient is seen and examined at bedside, case discussed with the RN, no acute events overnight, patient getting IV antibiotics during my visit, comfortably in bed, following commands, saturating normal on room air, hemodynamically stable. Grandmother is at bedside during my visit, updated, all questions answered. Patient underwent incision and drainage of right thigh abscess yesterday, tolerated the procedure well. Currently getting good pain control with current medical management. 07/18 patient is seen and examined at bedside, case discussed with the RN, no acute events overnight, patient is sitting comfortable in the bed, saturating normal on room air, denies chest pain. He is getting broad-spectrum IV antibiotics. No family at bedside during my visit. 07/19 patient is seen and examined at bedside, case discussed with the RN, no acute events overnight, during my visit the patient is alert and oriented x3, following commands, comfortably in bed, hemodynamically stable, denied chest pain, he denied shortness a breath, no nausea, no vomiting, no family members at bedside during my visit. Serology tests requested by senior architect/design manager so far negative. REVIEW OF SYSTEMS 12 point review of systems negative unless noted in HPI PHYSICAL EXAM GENERAL APPEARANCE: The patient is awake, alert, and oriented, in no acute cardiopulmonary distress. Patient is obese NEUROLOGICAL: Cranial nerves II-XII grossly intact. Motor is 5/5 in bilateral upper and lower extremities proximal to distal. No sensory deficits. HEENT: Face is symmetric. Pupils are equal and reactive. Extraocular movements are intact. NECK: Supple. No JVD. No thyromegaly. No submental, submandibular, pre- /postauricular, occipital or supraclavicular lymphadenopathy. CHEST: Normal chest expansion. No Telemetry. LUNGS: Absence of any rales, rhonchi or any wheezing. CARDIOVASCULAR: Regular. S1 and S2 normal. No appreciable rubs, murmurs or gallops. ABDOMEN: Soft, nontender, and nondistended. There is no rebound, voluntary guarding, or rigidity. : Deferred. No Harden. EXTREMITIES: Patient has erythema on the posterior aspect of the leg involving the knee. He has redness traveling down to the leg to the foot. He has swelling noted. Area is tender to palpation. Additionally he has a ulcer noted in the 1st toe of the right foot. He has blackish discoloration with possible eschar noted SKIN: No skin breakdown. Vital Signs (last 8hr) Date Time Temp Pulse Resp B/P (MAP) Pulse Ox O2 Delivery O2 Flow Rate FiO2 07/19/24 07:36 98.4 84 20 133/94 91 Room Air 21 07/19/24 04:20 98.1 95 22 126/99 97 Room Air LABS: Laboratory: Test 07/19/24 05:16 07/18/24 19:58 07/17/24 18:20 07/17/24 15:00 Range/Units White Blood Count 7.0 4.8-10.8 K/uL Red Blood Count 5.82 4.50-6.20 MIL/uL Hemoglobin 14.6 14.0-18.0 g/dL Hematocrit 43.4 42-54 % Mean Corpuscular Volume 74.6 L 79-99 fL Mean Corpuscular Hemoglobin 25.1 L 27.0-33.0 pg Mean Corpuscular Hemoglobin Concent 33.6 32.0-36.0 g/dL Red Cell Distribution Width 13.3 11.0-15.5 % Platelet Count 428 H 130-400 K/uL Mean Platelet Volume 8.3 7.5-10.5 fL Nucleated Red Blood Cells 0.0 0.0-0.19 % Sodium Level 141 136-145 mmol/L Potassium Level 3.4 L 3.5-5.1 mmol/L Chloride Level 103 101-111 mmol/L Carbon Dioxide Level 29 21-32 mmol/L Blood Urea Nitrogen 6 L 7-18 mg/dL Creatinine 0.6 0.5-1.3 mg/dL Glomerular Filtration Rate Calc 139 >90 mL/min Random Glucose 119 H 70-105 mg/dL Total Calcium 8.4 L 8.5-10.1 mg/dL Magnesium Level 1.70 L 1.80-2.40 mg/dL Total Bilirubin 0.4 0.2-1.0 mg/dL Aspartate Amino Transf (AST/SGOT) 14 10-37 U/L Alanine Aminotransferase (ALT/SGPT) 21 12-78 U/L Alkaline Phosphatase 69 50-136 U/L B-Type Natriuretic Peptide 805 H 0-100 pg/mL Total Protein 7.2 6.0-8.3 g/dL Albumin 2.7 L 3.5-5.0 g/dL Vancomycin Level Trough 11.1 10.0-20.0 UG/ML Whole Blood Glucose 244 H 70-110 MG/DL Influenza Type A Antigen Negative For Type A NEGATIVE Influenza Type B Antigen Negative For Type B NEGATIVE SARS-CoV-2, RNA, NAAT NEGATIVE SARS CoV-2 NEGATIVE Cytomegalovirus IgG Antibody <0.60 0.00-0.59 U/mL Horacio-Buitrago Virus IgG Ab Titer <18.0 0.0-17.9 U/mL Horacio-Buitrago Virus Capsid Ag IgG Ab <18.0 0.0-17.9 U/mL Horacio-Buitrago Virus Capsid Ag IgM Ab <36.0 0.0-35.9 U/mL Horacio-Buitrago Virus Interpretation Comment . Hepatitis A IgM Antibody Non-Reactive Nonreactive Hepatitis B Surface Antigen. Non-Reactive Nonreactive Hepatitis B Core IgM Antibody Non-Reactive Negative Hepatitis C Antibody Non-Reactive Nonreactive HIV (1&2) Antibody Non-Reactive Negative HIV P24 Antigen, Qualitative Non-Reactive Negative Current Medications Medications (Trade) Dose Ordered Sig/Morales Route PRN Reason Start Time Stop Time Status Last Admin Dose Admin Acetaminophen (TYLenol 325MG TAB) 650 mg Q6H PRN PO MILD PAIN (1-3) 07/06/24 13:30 08/05/24 13:29 07/07/24 14:01 650 MG Acetaminophen/ Hydrocodone Bitart (NORco 5/325MG) 1 tab Q6H PRN PO MODERATE PAIN (4-6) 07/06/24 13:30 07/11/24 13:29 DC 07/10/24 19:19 1 TAB Alteplase, Recombinant (CathFLO 2MG VIAL) 1 mg ONCE IVCATH 07/12/24 13:30 07/13/24 19:09 DC 07/12/24 18:20 1 MG Cefepime HCl (MAXipime 1 GM vial) 1 gm Q8H IVPB 07/12/24 12:00 07/22/24 11:59 07/19/24 05:34 1 GM Dextrose (D50w) 50 ml AD PRN IV HYPOGLYCEMIA PROTOCOL 07/05/24 15:00 08/04/24 14:59 Diphenhydramine HCl (BENAdryl INJ) 25 mg ONCE STAT IV 07/15/24 16:42 07/15/24 16:47 DC 07/15/24 16:52 25 MG Enoxaparin Sodium (Lovenox) 30 mg DAILY SQ 07/06/24 09:00 07/15/24 14:28 DC 07/15/24 09:34 30 MG Enoxaparin Sodium (Lovenox) 40 mg BID SQ 07/15/24 21:00 08/05/24 08:59 07/19/24 09:38 40 MG Famotidine (Pepcid 20mg Vial) 20 mg BID IV 07/05/24 21:00 08/04/24 20:59 07/19/24 09:38 20 MG Furosemide (LASix 20MG TAB) 20 mg BID@09,17 PO 07/19/24 09:00 08/18/24 08:59 07/19/24 09:38 20 MG Furosemide (LASix 20MG VIAL) 20 mg Q12H IV 07/17/24 16:30 07/18/24 22:21 DC 07/18/24 17:15 20 MG Glucagon (Glucagon 1mg Kit) 1 mg AD PRN IM HYPOGLYCEMIA PROTOCOL 07/05/24 15:00 08/04/24 14:59 Insulin Glargine (LANtus 100 UNITS/ML 10 ML VIAL) 15 units DAILY SQ 07/05/24 15:00 07/07/24 22:00 DC 07/07/24 08:47 15 UNITS Insulin Glargine (LANtus 100 UNITS/ML 10 ML VIAL) 40 units DAILY07 SQ 07/08/24 07:00 07/08/24 21:03 DC 07/08/24 07:54 40 UNITS Insulin Glargine (LANtus 100 UNITS/ML 10 ML VIAL) 50 units DAILY07 SQ 07/13/24 07:00 07/16/24 07:20 DC 07/16/24 06:37 50 UNITS Insulin Glargine (LANtus 100 UNITS/ML 10 ML VIAL) 60 units DAILY07 07/09/24 07:00 07/13/24 06:18 DC 07/13/24 06:17 60 UNITS Insulin Glargine (LANtus 100 UNITS/ML 10 ML VIAL) 60 units DAILY07 07/17/24 07:00 08/16/24 06:59 07/19/24 06:28 60 UNITS Insulin Human Regular (humuLIN R 100 UNIT/ML 3ML) 10 unit TIDAC SQ 07/06/24 07:30 07/07/24 22:00 DC 07/07/24 17:19 10 UNIT Insulin Human Regular (humuLIN R 100 UNIT/ML 3ML) 10 unit TIDAC SQ 07/13/24 07:30 07/15/24 21:41 DC 07/15/24 17:09 10 UNIT Insulin Human Regular (humuLIN R 100 UNIT/ML 3ML) 15 unit TIDAC SQ 07/16/24 07:30 07/16/24 22:08 DC 07/16/24 17:34 15 UNIT Insulin Human Regular (humuLIN R 100 UNIT/ML 3ML) 16 unit TIDAC SQ 07/08/24 07:30 07/08/24 21:03 DC 07/08/24 17:33 16 UNIT Insulin Human Regular (humuLIN R 100 UNIT/ML 3ML) 20 unit TIDAC SQ 07/17/24 07:30 08/16/24 07:29 07/19/24 06:29 20 UNIT Insulin Human Regular (humuLIN R 100 UNIT/ML 3ML) 22 unit TIDAC SQ 07/09/24 07:30 07/09/24 21:14 DC 07/09/24 17:44 22 UNIT Insulin Human Regular (humuLIN R 100 UNIT/ML 3ML) 25 unit TIDAC SQ 07/10/24 07:30 07/13/24 06:18 DC 07/10/24 19:13 25 UNIT Insulin Human Regular (humuLIN R 100 UNIT/ML 3ML) INSULIN SLIDING SCAL... ACHS SQ 07/06/24 07:30 08/05/24 07:29 07/18/24 20:33 6 UNIT Insulin Human Regular (humuLIN R 100 UNIT/ML 3ML) INSULIN SLIDING SCAL... Q6H6 SQ 07/05/24 18:00 07/05/24 21:19 DC 07/05/24 17:43 8 UNIT Ketorolac Tromethamine (toRADol) 15 mg Q6H PRN IM MODERATE PAIN (4-6) 07/17/24 13:30 07/22/24 13:29 Ketorolac Tromethamine (toRADol) 15 mg Q6H PRN IV MODERATE PAIN (4-6) 07/05/24 17:00 07/07/24 06:16 DC 07/05/24 21:03 15 MG Leptospermum Honey (Medihoney) 1 APPLICATION DAILY TP 07/07/24 09:00 08/06/24 08:59 07/19/24 09:43 1 APPL Magnesium Sulfate 50 ml @ 0 mls/hr PROTOCOL IV 07/19/24 10:00 08/18/24 09:59 Magnesium Sulfate 50 ml @ 0 mls/hr PROTOCOL PRN IV low magnesium 07/07/24 10:00 07/19/24 09:55 DC 07/19/24 09:43 25 MLS/HR Methylprednisolone Sodium Succinate (Solu-medROL 125MG) 80 mg ONCE STAT IVP 07/15/24 16:42 07/15/24 16:47 DC 07/15/24 16:52 80 MG Metoprolol Succinate (TopROL XL) 12.5 mg DAILY PO 07/17/24 14:00 08/16/24 13:59 07/19/24 09:38 12.5 MG Morphine Sulfate (morPHINE 2MG SYG) 2 mg Q6H PRN IVP SEVERE PAIN (7-10) 07/05/24 17:00 07/10/24 19:59 DC Piperacillin Sod/ Tazobactam Sod (Zosyn 3.375gm+NS 50ml) 3.375 gm Q8H IV 07/11/24 00:00 07/12/24 11:46 DC 07/12/24 08:51 3.375 GM Piperacillin Sod/ Tazobactam Sod (Zosyn 3.375gm+NS 50ml) 3.375 gm Q8H IVPB 07/05/24 14:30 07/10/24 03:41 DC 07/10/24 00:09 3.375 GM Piperacillin Sod/ Tazobactam Sod (Zosyn 3.375gm+NS 50ml) 3.375 gm Q8H IVPB 07/10/24 08:00 07/10/24 09:45 DC Potassium Chloride 100 ml @ 100 mls/hr AD PRN IV POTASSIUM PROTOCOL 07/07/24 10:00 08/06/24 09:59 07/14/24 14:24 100 MLS/HR Potassium Chloride (K-Dur/Klor-Con 20meq) 20 meq AD PRN PO POTASSIUM PROTOCOL 07/07/24 10:00 08/06/24 09:59 07/17/24 04:21 20 MEQ Potassium Chloride (KCl 10% Elixir 20meq/15ml) 20 meq AD PRN PO POTASSIUM PROTOCOL 07/07/24 10:00 08/06/24 09:59 Sacubitril/ Valsartan (Entresto 24 Mg-26 Mg Tablet) 1 each BID PO 07/17/24 21:00 08/16/24 20:59 07/19/24 09:38 1 EACH Sodium Chloride 250 ml @ 125 mls/hr AD IV 07/14/24 21:00 07/14/24 23:59 DC 07/14/24 20:46 125 MLS/HR Sodium Chloride 1,000 ml @ 100 mls/hr Q10H IV 07/05/24 14:30 07/11/24 03:05 DC 07/09/24 15:24 100 MLS/HR Sodium Chloride (NS 50ml) 50 ml AD IV 07/05/24 18:00 07/06/24 13:20 DC Spironolactone (Aldactone 25mg) 25 mg BID PO 07/17/24 21:00 08/16/24 20:59 07/19/24 09:37 25 MG Vancomycin HCl 250 ml @ 125 mls/hr Q6H IV 07/10/24 21:00 07/15/24 06:33 DC 07/13/24 17:42 125 MLS/HR Vancomycin HCl 250 ml @ 125 mls/hr Q6H IV 07/14/24 00:00 07/14/24 20:29 DC 07/14/24 19:38 125 MLS/HR Vancomycin HCl 250 ml @ 125 mls/hr Q6H IV 07/15/24 12:00 07/15/24 20:48 DC 07/15/24 20:34 125 MLS/HR Vancomycin HCl 250 ml @ 125 mls/hr Q6H IV 07/16/24 03:00 07/18/24 00:47 DC 07/18/24 00:09 125 MLS/HR Vancomycin HCl 250 ml @ 125 mls/hr Q6H IV 07/18/24 06:00 07/28/24 05:59 07/19/24 06:08 125 MLS/HR Vancomycin HCl 250 ml @ 125 mls/hr Q8H IV 07/07/24 13:00 07/09/24 12:53 DC 07/09/24 04:38 125 MLS/HR Vancomycin HCl 250 ml @ 125 mls/hr Q8H IV 07/09/24 21:00 07/10/24 09:45 DC 07/09/24 21:43 125 MLS/HR Vancomycin HCl 250 ml @ 125 mls/hr Q8H6 IV 07/14/24 22:00 07/14/24 19:24 DC Vancomycin HCl 250 ml @ 125 mls/hr Q8H6 IV 07/15/24 06:00 07/15/24 06:29 DC 07/15/24 06:00 125 MLS/HR Vancomycin HCl 250 ml @ 125 mls/hr Q8H6 IV 07/15/24 14:00 07/15/24 06:33 DC Vancomycin HCl 250 ml @ 167 mls/hr Q12H IV 07/06/24 01:00 07/07/24 12:31 DC 07/07/24 01:11 167 MLS/HR Vancomycin HCl (Vancomycin 750mg) 750 mg ONCE IVPB 07/14/24 21:00 07/14/24 23:59 DC 07/14/24 20:45 750 MG Vancomycin HCl (Vancomycin Protocol) 1 each AD IV 07/05/24 14:30 07/10/24 20:22 DC Vancomycin HCl (Vancomycin Protocol) 1 each AD IV 07/10/24 21:00 07/24/24 20:59 DIAGNOSTICS / RADIOLOGY: [ ] ASSESSMENT: Right Leg cellulitis with abscess right inner thigh POA Status post incision and drainage 07/16/24 Hyperglycemia secondary to uncontrolled diabetes mellitus type 2 last A1C 15.5, POA Foot ulcer of the 1st toe of the right foot, MRSA and Enterofaecalis, POA Hyponatremia secondary to hyperglycemia Dehydration, resolved Obesity BMI 53.1 Suspected RUTH/OHS undiagnosed and untreated POA Acute hypoxemic resp failure not POA Acute systolic congestive heart failure not POA Well's score for PE 6 points ( Moderate) PLAN: -patient remains admitted to the medical floor - continue the patient on broad-spectrum IV antibiotics -Patient underwent incision and drainage of right thigh abscess 07/16/24, results of culture positive for Staphylococcus aureus-MRSA. -continue to follow surgical input and recommendations, continue dressing changes - continue to follow infectious disease input and recommendations, currently the patient on vancomycin and cefepime IV. - Podiatry input noted and appreciated, continue with Medihoney dressing to both great toes. Patient to continue ambulation with surgical shoes. Once the patient is discharged he can follow up as an outpatient with the ped print line feeder for appropriate shoe gear with insoles to offload the great toe ulcer sites to his feet bilaterally. -patient currently saturating normal on room air, CT chest PE protocol negative, continue to follow Pulmonary input and recommendation. -echocardiogram showing LVEF 25-30%. Severe global hypokinesis. Case discussed with senior architect/design manager, etiology behind acute systolic CHF remains unknown, differentials include viral myocarditis, idiopathic cardiomyopathy, poorly- controlled diabetes induced cardiomyopathy. Because of the patient's age, CAD is the bottom of the differential. Requested viral myocarditis panel (HIV, CMV, EBV, Coxsackie a and b, hepatitis panel). Serology tests so far negative. Per senior architect/design manager, also recommended that the patient undergo an FDG PET scan (as an outpatient). Patient is started on metoprolol succinate 12.5 mg p.o. daily and Entresto 24/26 mg tablet one tablet p.o. b.i.d.. NEURO: Minimize central acting medications as possible. Fall Precautions. Well lighted room through the day and minimize interruptions through the night to prevent acute delirium. PULMONARY: Supplemental 02 as needed BiPAP as necessary, for respiratory distress Titrate Fio2 to keep Spo2 > or = 90% DuoNeb�s and CPT as needed IS hourly while awake for pulmonary hygiene prn Out of bed to chair as tolerated Maintain aspiration precautions at all times CARDIOVASCULAR: Follow hemodynamics. Vital signs per facility protocol GI & NUTRITION: Continue nutritional support Aspirations precautions Prokinetic agents and laxatives as needed KIDNEYS & ELECTROLYTES: Strict monitoring of intake and output Daily weights Avoid nephrotoxic agents Monitor electrolytes and replace as needed Goal urine output of 30mL/hr or 0.5mL/kg/hr Medications to be dosed according to renal function. Avoid contrast if possible ENDOCRINE: Maintain blood glucose between 100-180 at all times. Insulin sliding scale for blood glucose management Hypoglycemia and hyperglycemia protocol in place INFECTIOUS DISEASE: Trend temperature, WBC and procalcitonin level Follow cultures, deescalate antibiotics as soon as possible. Panculture if new onset fever HEMATOLOGY & COAGULATION: Monitor H&H. Keep Hgb > 7 Transfuse 1 unit of PRBC for Hgb < 7 Transfuse 1 pack of platelets of platelets < 20, 000 Watch for any signs and symptoms of bleeding SKIN: Pressure ulcer prevention per facility protocol Specialty mattress as needed ORTHO/REHAB Continue PT/OT PRN: MEDICATIONS Tylenol 650 mg po every 4 hrs for fever zofran 4 mg IV every 6 hrs for n/v Hydralazine 5 mg IV every 4 hrs systolic pressure > 160 bowel regiment: lactulose 20 gm PO BID PRN constipation Supportive measures: Continue GI and DVT prophylaxis Disposition: Pending improvement in clinical condition All questions answered time spent: > 35 min FANNIE RAMÍREZ MD July 19, 2024 11:17
--- NOTE | 2024-07-19 11:29 | PN ---
SUBJECTIVE: The patient is a 24-year-old diabetic [place] male, hemoglobin A1c greater than 15, right foot wound positive for MRSA and Enterococcus faecalis. He is status post right medial thigh I and D. He is being followed by Cardiology for dilated cardiomyopathy and heart failure. He is currently afebrile, 97.0. He has an H and H of 14.6 and 43.4, platelets 428, potassium 3.4, albumin 2.7 currently. The patient is receiving IV vancomycin, IV cefepime. The patient states he has been accepted for outpatient IV antibiotics. REVIEW OF SYSTEMS: GENERAL: Having pain to his right knee, right thigh surgical site area. HEENT: Denied any problems with eyes, ears, nose, or throat. CONSTITUTIONAL: No chills. No fevers. No night sweats. GASTROINTESTINAL: No nausea or vomiting. No diarrhea. CARDIOVASCULAR: He is having no current chest pain. He has had abnormal arterial Doppler studies with strongly palpable pedal pulses. He is being followed by the Cardiology Service for an ejection fraction of 25-30% and dilated cardiomyopathy. GENITOURINARY: No dysuria. BUN and creatinine levels 6 and 0.6. PSYCHIATRIC: Denied any depression. MUSCULOSKELETAL: Morbid obesity, BMI of 55. He has bunions and hammertoe deformities. INTEGUMENTARY: Bilateral great toe ulcers, each approximately 3 x 3 x 1 mm. OBJECTIVE: Examination today shows he has ulcers that are 3 x 3 x 1 mm bilaterally on the plantar aspects of the great toes. He has palpable pedal pulses. ASSESSMENT: This is a 24-year-old male with morbid obesity, heart failure, cardiomyopathy, status post incision, drainage, debridement right knee, right thigh abscess. Cultures have grown back Enterococcus faecalis and MRSA. He is receiving cefepime and vancomycin. Bone scan was negative for osteomyelitis to his great toes bilaterally. PLAN: We will ambulate with the surgical shoes. Continue with Medihoney dressings. Continue with vancomycin and cefepime. Follow the patient closely while in-house. TID: [id number] RECEIPT: [id number]
--- NOTE | 2024-07-19 13:05 | PN ---
[facility] PROGRESS NOTE Date Patient Seen: July 19, 2024 Time of Visit: 13:04 Supervising Physician: Dr. Sonal Watts Primary Care Physician: Magno. Billy Villarreal MD Outpatient Specialists: Inpatient Consults: DR Moy Kincaid, DR Reyes , Dr Estevez , Dr Gilbert Carrillo and Dr Toure Attending: Dr Paulette Moore MD PROBLEM LIST: Acute hypoxemic resp failure not POA Acute on chronic combined congestive heart failure, POA EF 25-30% per echo Right Leg cellulitis, improving POA s/p I/D 07/[address] Estevez Hyperglycemia secondary to uncontrolled diabetes mellitus type 2 last A1C 15.5, POA Foot ulcer of the 1st toe of the right foot, MRSA and Enterofaecalis, POA Hyponatremia secondary to hyperglycemia Dehydration, resolved Morbidly Obesity BMI 53.1 Suspected RUTH undiagnosed and untreated POA INTERVAL HISTORY: Patient evaluated today with his mother present, currently sitting up in his bed, not using supplemental O2. Patient's saturations are 98% on room air. He denies any shortness of breath or chest pain today, white count is 7.0. Patient's echocardiogram from 07/16 shows an ejection fraction of 25-30%, unknown etiology, workup continues with Cardiology at this time. From a pulmonary aspect patient is cleared, recommended continued diuresis and heart failure management to improve breathing symptoms. Due to the patient's advanced heart failure it is imperative that the patient receives polysomnography in the clinic as he is at high risk of obstructive sleep apnea and increased risk of exacerbation heart failure. Recommendation for in clinic polysomnography and against empiric CPAP therapy at this time as he is at risk for treatment induced central apnea. REVIEW OF SYSTEMS: 12 point ROS reviewed with patient. Pertinent positives mentioned above. Otherwise negative. PHYSICAL EXAM: GENERAL: alert, weak, awake oriented x 3, morbidly obese HEENT: EOMI, Sclera non icteric, moist mucosa NECK: Supple, no JVD, trachea midline LUNGS: Diminished breath sounds bilaterally. No wheezes HEART: Sinus Tachy rate and rhythm. Normal S1 and S2, without murmurs ABD: Morbidly obese. Abdomen soft, nontender. Bowel sounds present EXT: No clubbing cyanosis or edema. tyesha great toe wounds, rt knee redness /cellulitis s/p ID with dressing on, no active bleed or drainage NEURO: Alert and oriented to person, follows commands Vital Signs (last 8hr) Date Time Temp Pulse Resp B/P (MAP) Pulse Ox O2 Delivery O2 Flow Rate FiO2 07/19/24 11:37 98.1 64 20 164/77 96 Room Air 21 07/19/24 07:36 98.4 84 20 133/94 91 Room Air 21 LABS: Hematology Labs: Test 07/19/24 05:16 Range/Units White Blood Count 7.0 4.8-10.8 K/uL Red Blood Count 5.82 4.50-6.20 MIL/uL Hemoglobin 14.6 14.0-18.0 g/dL Hematocrit 43.4 42-54 % Mean Corpuscular Volume 74.6 L 79-99 fL Mean Corpuscular Hemoglobin 25.1 L 27.0-33.0 pg Mean Corpuscular Hemoglobin Concent 33.6 32.0-36.0 g/dL Red Cell Distribution Width 13.3 11.0-15.5 % Platelet Count 428 H 130-400 K/uL Mean Platelet Volume 8.3 7.5-10.5 fL Nucleated Red Blood Cells 0.0 0.0-0.19 % Chemistry Labs: Test 07/19/24 11:26 07/19/24 05:16 Range/Units Whole Blood Glucose 83 # 70-110 MG/DL Sodium Level 141 136-145 mmol/L Potassium Level 3.4 L 3.5-5.1 mmol/L Chloride Level 103 101-111 mmol/L Carbon Dioxide Level 29 21-32 mmol/L Blood Urea Nitrogen 6 L 7-18 mg/dL Creatinine 0.6 0.5-1.3 mg/dL Glomerular Filtration Rate Calc 139 >90 mL/min Random Glucose 119 H 70-105 mg/dL Total Calcium 8.4 L 8.5-10.1 mg/dL Magnesium Level 1.70 L 1.80-2.40 mg/dL Total Bilirubin 0.4 0.2-1.0 mg/dL Aspartate Amino Transf (AST/SGOT) 14 10-37 U/L Alanine Aminotransferase (ALT/SGPT) 21 12-78 U/L Alkaline Phosphatase 69 50-136 U/L B-Type Natriuretic Peptide 805 H 0-100 pg/mL Total Protein 7.2 6.0-8.3 g/dL Albumin 2.7 L 3.5-5.0 g/dL DIAGNOSTICS / RADIOLOGY RESULTS: [ ] PLAN Recommend cardiac evaluation Start lasix and aldactone, monitor labs Order COVID/flu PE (-) per CTA BNP- 875 Echo-EF 25-30% wean o2 as possible. Pt to eval and treat continue Lovenox 40mg sq BID dose for DVT PPX for BMI > 40 Wound care per surgeon NEURO: Minimize central acting medications as possible. Maintain fall precautions, adequate lighting during the day PULMONARY: Supplemental 02 as needed. Maintain aspiration precautions at all times CARDIOVASCULAR: Follow hemodynamics. Vital signs per facility protocol GI & NUTRITION: Continue with nutritional support. Continue stool softeners and laxatives as needed. KIDNEYS & ELECTROLYTES: Strict monitoring of intake, output and overall fluid balance. Avoid nephrotoxic medications to the extent possible. Medications to be dosed according to renal function. Monitor electrolytes and replace as needed ENDOCRINE: Maintain blood glucose between 100-180 at all times. Hypoglycemia protocol in place INFECTIOUS DISEASE: Trend temperature, WBC and procalcitonin level Follow cultures, deescalate antibiotics as soon as possible. Panculture if new onset fever ONCOLOGY/HEMATOLOGY/COAGULATION: Monitor for s/s of bleeding Monitor hemoglobin, coagulation studies as needed SKIN: Pressure ulcer prevention per facility protocol Specialty mattress ORTHO/REHAB: Continue PT/OT Prophylaxis: Continue GI and DVT prophylaxis Code Status: Full Resuscitation Disposition: TBD Other: Total patient care time exceeds 35 minutes excluding all procedures. SHAHID VALDERRAMA July 19, 2024 13:05 SONAL WATTS MD July 20, 2024 15:17
--- NOTE | 2024-07-19 22:14 | PN ---
endocrinology progress note Date of Service: 07/19/2024 subjective: glucose are improving patient used to inject lantus and humalog but not injecting for many months. he does not check glucose at home. hba1c>15.0% right foot wound is positive for MRSA and Enterofaecalis, right medial thigh abscess I&D PAST MEDICAL HISTORY: History of foot ulcer in the 1st toe of the right foot PAST SURGICAL HISTORY: Denied any previous surgical history PAST SOCIAL HISTORY: Denied any smoking, alcohol, drug use FAMILY HISTORY: Denied any pertinent family history Coded Allergies: No Known Drug Allergies (Unverified Allergy, Unknown, 10/08/18) ASSESSMENT: Hyperglycemia secondary to uncontrolled diabetes mellitus type POA patient used to inject lantus and humalog but not injecting for many months. he does not check glucose at home. hba1c>15.0% talia-65 abs are negative, so likely type 2 dm. Right Leg cellulitis POA MRSA and Enterofaecalis, ID following right medial thigh abscess I&D Foot ulcer of the 1st toe of the right foot POA Hyponatremia secondary to hyperglycemia Dehydration Obesity BMI 53.1 PLAN: increase lantus 60 units daily continue regular insulin 20 units tid before meals for daytime hyperglycemia. continue medium dose insulin ssi monitor glucose qx6 hourly patient will need insulin at discharge Vitals/Labs Vital Signs Date Time Temp Pulse Resp B/P (MAP) Pulse Ox O2 Delivery O2 Flow Rate FiO2 07/19/24 20:00 98.1 86 20 130/77 96 Room Air 07/19/24 15:42 21 07/19/24 09:40 0 Laboratory Tests 07/19/24 05:16 Medications Current Medications Ketorolac Tromethamine 15 mg ONCE ONCE IM Last administered on 07/05/24at 13:56; Start 07/05/24 at 11:00; Stop 07/05/24 at 11:03; Status DC Vancomycin HCl 1 gm ONCE ONCE IV Last administered on 07/05/24at 14:15; Start 07/05/24 at 13:00; Stop 07/05/24 at 13:01; Status DC Ceftriaxone Sodium 2 gm ONCE ONCE IVPB Last administered on 07/05/24at 13:55; Start 07/05/24 at 12:30; Stop 07/05/24 at 12:31; Status DC Sodium Chloride 1,000 ml @ 0 mls/hr ONCE ONCE IV Last administered on 07/05/24at 13:48; Start 07/05/24 at 12:30; Stop 07/05/24 at 12:31; Status DC Insulin Human Regular 5 unit ONCE ONCE IV Last administered on 07/05/24at 14:01; Start 07/05/24 at 12:30; Stop 07/05/24 at 12:31; Status DC Famotidine 20 mg BID IV Last administered on 07/19/24at 21:50; Start 07/05/24 at 21:00; Stop 08/04/24 at 20:59 Vancomycin HCl 1 each AD IV; Start 07/05/24 at 14:30; Stop 07/10/24 at 20:22; Status DC Piperacillin Sod/ Tazobactam Sod 3.375 gm Q8H IVPB Last administered on 07/10/24at 00:09; Start 07/05/24 at 14:30; Stop 07/10/24 at 03:41; Status DC Sodium Chloride 50 ml AD IV; Start 07/05/24 at 18:00; Stop 07/06/24 at 13:20; Status DC Insulin Human Regular INSULIN SLIDING SCAL... Q6H6 SQ Last administered on 07/05/24at 17:43; Start 07/05/24 at 18:00; Stop 07/05/24 at 21:19; Status DC Sodium Chloride 1,000 ml @ 100 mls/hr Q10H IV Last administered on 07/09/24at 15:24; Start 07/05/24 at 14:30; Stop 07/11/24 at 03:05; Status DC Insulin Glargine 15 units DAILY SQ Last administered on 07/07/24at 08:47; Start 07/05/24 at 15:00; Stop 07/07/24 at 22:00; Status DC Dextrose 50 ml AD PRN IV; Start 07/05/24 at 15:00; Stop 08/04/24 at 14:59 Glucagon 1 mg AD PRN IM; Start 07/05/24 at 15:00; Stop 08/04/24 at 14:59 Vancomycin HCl 250 ml @ 250 mls/hr ONCE ONCE IV Last administered on 07/05/24at 15:11; Start 07/05/24 at 15:00; Stop 07/05/24 at 15:59; Status DC Vancomycin HCl 250 ml @ 167 mls/hr Q12H IV Last administered on 07/07/24at 01:11; Start 07/06/24 at 01:00; Stop 07/07/24 at 12:31; Status DC Iohexol 75 ml STK-MED ONCE IV; Start 07/05/24 at 15:20; Stop 07/05/24 at 15:21; Status DC Ketorolac Tromethamine 15 mg Q6H PRN IV Last administered on 07/05/24at 21:03; Start 07/05/24 at 17:00; Stop 07/07/24 at 06:16; Status DC Morphine Sulfate 2 mg Q6H PRN IVP; Start 07/05/24 at 17:00; Stop 07/10/24 at 19:59; Status DC Insulin Human Regular 10 unit TIDAC SQ Last administered on 07/07/24at 17:19; Start 07/06/24 at 07:30; Stop 07/07/24 at 22:00; Status DC Insulin Human Regular INSULIN SLIDING SCAL... ACHS SQ Last administered on 07/19/24at 21:52; Start 07/06/24 at 07:30; Stop 08/05/24 at 07:29 Enoxaparin Sodium 30 mg DAILY SQ Last administered on 07/15/24at 09:34; Start 07/06/24 at 09:00; Stop 07/15/24 at 14:28; Status DC Acetaminophen 650 mg Q6H PRN PO Last administered on 07/07/24at 14:01; Start 07/06/24 at 13:30; Stop 08/05/24 at 13:29 Acetaminophen/ Hydrocodone Bitart 1 tab Q6H PRN PO Last administered on 07/10/24at 19:19; Start 07/06/24 at 13:30; Stop 07/11/24 at 13:29; Status DC Leptospermum Honey 1 APPLICATION DAILY TP Last administered on 07/19/24at 09:43; Start 07/07/24 at 09:00; Stop 08/06/24 at 08:59 Potassium Chloride 100 ml @ 100 mls/hr AD PRN IV Last administered on 07/14/24at 14:24; Start 07/07/24 at 10:00; Stop 08/06/24 at 09:59 Potassium Chloride 20 meq AD PRN PO; Start 07/07/24 at 10:00; Stop 08/06/24 at 09:59 Potassium Chloride 20 meq AD PRN PO Last administered on 07/17/24at 04:21; Start 07/07/24 at 10:00; Stop 08/06/24 at 09:59 Magnesium Sulfate 50 ml @ 0 mls/hr PROTOCOL PRN IV Last administered on 07/19/24at 09:43; Start 07/07/24 at 10:00; Stop 07/19/24 at 09:55; Status DC Vancomycin HCl 250 ml @ 125 mls/hr Q8H IV Last administered on 07/09/24at 04:38; Start 07/07/24 at 13:00; Stop 07/09/24 at 12:53; Status DC Insulin Glargine 40 units DAILY07 SQ Last administered on 07/08/24at 07:54; Start 07/08/24 at 07:00; Stop 07/08/24 at 21:03; Status DC Insulin Human Regular 16 unit TIDAC SQ Last administered on 07/08/24at 17:33; Start 07/08/24 at 07:30; Stop 07/08/24 at 21:03; Status DC Insulin Glargine 60 units DAILY07 SQ Last administered on 07/13/24at 06:17; Start 07/09/24 at 07:00; Stop 07/13/24 at 06:18; Status DC Insulin Human Regular 22 unit TIDAC SQ Last administered on 07/09/24at 17:44; Start 07/09/24 at 07:30; Stop 07/09/24 at 21:14; Status DC Vancomycin HCl 250 ml @ 125 mls/hr Q8H IV Last administered on 07/09/24at 21:43; Start 07/09/24 at 21:00; Stop 07/10/24 at 09:45; Status DC Vancomycin HCl 500 ml @ 250 mls/hr ONCE ONCE IV Last administered on 07/09/24at 15:24; Start 07/09/24 at 13:00; Stop 07/09/24 at 14:59; Status DC Insulin Human Regular 25 unit TIDAC SQ Last administered on 07/10/24at 19:13; Start 07/10/24 at 07:30; Stop 07/13/24 at 06:18; Status DC Piperacillin Sod/ Tazobactam Sod 3.375 gm Q8H IVPB; Start 07/10/24 at 08:00; Stop 07/10/24 at 09:45; Status DC Vancomycin HCl 1 each AD IV; Start 07/10/24 at 21:00; Stop 07/24/24 at 20:59 Vancomycin HCl 250 ml @ 125 mls/hr Q6H IV Last administered on 07/13/24at 17:42; Start 07/10/24 at 21:00; Stop 07/15/24 at 06:33; Status DC Piperacillin Sod/ Tazobactam Sod 3.375 gm Q8H IV Last administered on 07/12/24at 08:51; Start 07/11/24 at 00:00; Stop 07/12/24 at 11:46; Status DC Cefepime HCl 1 gm Q8H IVPB Last administered on 07/19/24at 21:50; Start 07/12/24 at 12:00; Stop 07/22/24 at 11:59 Alteplase, Recombinant 1 mg ONCE IVCATH Last administered on 07/12/24at 18:20; Start 07/12/24 at 13:30; Stop 07/13/24 at 19:09; Status DC Insulin Glargine 50 units DAILY07 SQ Last administered on 07/16/24at 06:37; Start 07/13/24 at 07:00; Stop 07/16/24 at 07:20; Status DC Insulin Human Regular 10 unit TIDAC SQ Last administered on 07/15/24at 17:09; Start 07/13/24 at 07:30; Stop 07/15/24 at 21:41; Status DC Vancomycin HCl 250 ml @ 125 mls/hr Q6H IV Last administered on 07/14/24at 19:38; Start 07/14/24 at 00:00; Stop 07/14/24 at 20:29; Status DC Potassium Chloride 40 meq ONCE ONCE PO Last administered on 07/14/24at 13:48; Start 07/14/24 at 13:00; Stop 07/14/24 at 13:02; Status DC Potassium Chloride 100 ml @ 50 mls/hr ONCE ONCE IV; Start 07/14/24 at 13:00; Stop 07/14/24 at 14:59; Status DC Vancomycin HCl 250 ml @ 125 mls/hr Q8H6 IV; Start 07/14/24 at 22:00; Stop 07/14/24 at 19:24; Status DC Vancomycin HCl 250 ml @ 125 mls/hr Q8H6 IV Last administered on 07/15/24at 06:00; Start 07/15/24 at 06:00; Stop 07/15/24 at 06:29; Status DC Vancomycin HCl 750 mg ONCE IVPB Last administered on 07/14/24at 20:45; Start 07/14/24 at 21:00; Stop 07/14/24 at 23:59; Status DC Sodium Chloride 250 ml @ 125 mls/hr AD IV Last administered on 07/14/24at 20:46; Start 07/14/24 at 21:00; Stop 07/14/24 at 23:59; Status DC Vancomycin HCl 250 ml @ 125 mls/hr Q8H6 IV; Start 07/15/24 at 14:00; Stop 07/15/24 at 06:33; Status DC Vancomycin HCl 250 ml @ 125 mls/hr Q6H IV Last administered on 07/15/24at 20:34; Start 07/15/24 at 12:00; Stop 07/15/24 at 20:48; Status DC Furosemide 40 mg ONCE ONCE IV Last administered on 07/15/24at 14:00; Start 07/15/24 at 14:00; Stop 07/15/24 at 14:01; Status DC Enoxaparin Sodium 40 mg BID SQ Last administered on 07/19/24at 21:49; Start 07/15/24 at 21:00; Stop 08/05/24 at 08:59 Iohexol 50 ml STK-MED ONCE IV; Start 07/15/24 at 16:25; Stop 07/15/24 at 16:25; Status DC Iohexol 75 ml STK-MED ONCE IV; Start 07/15/24 at 16:25; Stop 07/15/24 at 16:25; Status DC Methylprednisolone Sodium Succinate 80 mg ONCE STAT IVP Last administered on 07/15/24at 16:52; Start 07/15/24 at 16:42; Stop 07/15/24 at 16:47; Status DC Diphenhydramine HCl 25 mg ONCE STAT IV Last administered on 07/15/24at 16:52; Start 07/15/24 at 16:42; Stop 07/15/24 at 16:47; Status DC Methylprednisolone Sodium Succinate 40 mg STK-MED ONCE .ROUTE; Start 07/15/24 at 16:46; Stop 07/15/24 at 16:46; Status DC Diphenhydramine HCl 50 mg STK-MED ONCE .ROUTE; Start 07/15/24 at 16:46; Stop 07/15/24 at 16:47; Status DC Vancomycin HCl 250 ml @ 125 mls/hr Q6H IV Last administered on 07/18/24at 00:09; Start 07/16/24 at 03:00; Stop 07/18/24 at 00:47; Status DC Insulin Human Regular 15 unit TIDAC SQ Last administered on 07/16/24at 17:34; Start 07/16/24 at 07:30; Stop 07/16/24 at 22:08; Status DC Insulin Glargine 60 units DAILY07 SQ Last administered on 07/19/24at 06:28; Start 07/17/24 at 07:00; Stop 08/16/24 at 06:59 Lidocaine HCl 100 mg STK-MED ONCE .ROUTE; Start 07/16/24 at 11:05; Stop 07/16/24 at 11:06; Status DC Midazolam HCl 2 mg STK-MED ONCE .ROUTE; Start 07/16/24 at 11:09; Stop 07/16/24 at 11:09; Status DC Ondansetron HCl 4 mg STK-MED ONCE .ROUTE; Start 07/16/24 at 11:09; Stop 07/16/24 at 11:09; Status DC Glycopyrrolate 1 mg STK-MED ONCE .ROUTE; Start 07/16/24 at 11:09; Stop 07/16/24 at 11:09; Status DC Propofol 200 mg STK-MED ONCE IV; Start 07/16/24 at 11:09; Stop 07/16/24 at 11:09; Status DC Neostigmine Methylsulfate 10 mg STK-MED ONCE IV; Start 07/16/24 at 11:09; Stop 07/16/24 at 11:10; Status DC Succinylcholine Chloride 200 mg STK-MED ONCE .ROUTE; Start 07/16/24 at 11:10; Stop 07/16/24 at 11:10; Status DC Rocuronium [place] 50 mg STK-MED ONCE .ROUTE; Start 07/16/24 at 11:10; Stop 07/16/24 at 11:10; Status DC Fentanyl Citrate 100 mcg STK-MED ONCE .ROUTE; Start 07/16/24 at 11:10; Stop 07/16/24 at 11:10; Status DC Bupivacaine HCl 5 mg STK-MED ONCE .ROUTE; Start 07/16/24 at 11:47; Stop 07/16/24 at 11:48; Status DC Bupivacaine HCl 150 mg STK-MED ONCE INJ Last administered on 07/16/24at 11:50; Start 07/16/24 at 11:50; Stop 07/16/24 at 12:47; Status DC Insulin Human Regular 20 unit TIDAC SQ Last administered on 07/19/24at 06:29; Start 07/17/24 at 07:30; Stop 08/16/24 at 07:29 Ketorolac Tromethamine 15 mg Q6H PRN IM; Start 07/17/24 at 13:30; Stop 07/22/24 at 13:29 Metoprolol Succinate 12.5 mg DAILY PO Last administered on 07/19/24at 09:38; Start 07/17/24 at 14:00; Stop 08/16/24 at 13:59 Sacubitril/ Valsartan 1 each BID PO Last administered on 07/19/24at 21:49; Start 07/17/24 at 21:00; Stop 08/16/24 at 20:59 Furosemide 20 mg Q12H IV Last administered on 07/18/24at 17:15; Start 07/17/24 at 16:30; Stop 07/18/24 at 22:21; Status DC Spironolactone 25 mg BID PO Last administered on 07/19/24at 21:49; Start 07/17/24 at 21:00; Stop 08/16/24 at 20:59 Vancomycin HCl 250 ml @ 125 mls/hr Q6H IV Last administered on 07/19/24at 18:16; Start 07/18/24 at 06:00; Stop 07/28/24 at 05:59 Furosemide 20 mg BID@09,17 PO Last administered on 07/19/24at 18:13; Start 07/19/24 at 09:00; Stop 08/18/24 at 08:59 Potassium Chloride 40 meq ONCE ONCE PO Last administered on 07/19/24at 10:50; Start 07/19/24 at 10:00; Stop 07/19/24 at 10:01; Status DC Magnesium Sulfate 50 ml @ 0 mls/hr PROTOCOL IV; Start 07/19/24 at 10:00; Stop 08/18/24 at 09:59 JOSE CASTILLO MD July 19, 2024 22:14
[2024-07-20] VITALS (7 sets, daily range): BP systolic 96–133; BP diastolic 62–74; PULSE 76–85; RESP 20; TEMP 97.9–98.4; O2SAT 93–98
[2024-07-20 04:35] LABS: HEMATOCRIT 42.9 % (42-54); MEAN CORPUSCULAR HEMOGLOBIN 25.1 pg (27.0-33.0); MEAN CORPUSCULAR HGB CONC 33.8 g/dL (32.0-36.0); MEAN CORPUSCULAR VOLUME 74.2 fL (79-99); RED BLOOD CELL COUNT(AUTO) 5.78 MIL/uL (4.50-6.20); RED CELL DISTRIBUTION WIDTH 13.5 % (11.0-15.5); WHITE BLOOD COUNT (AUTO) 5.7 K/uL (4.8-10.8)
--- NOTE | 2024-07-20 09:48 | PN ---
[facility] PROGRESS NOTE Date of Service: July 20, 2024 Time of Service: 09:46 SUBJECTIVE: 07/06 patient seen at bedside, no acute events overnight. He has been afebrile, hemodynamically stable saturating well on room air. His only complaint is pain when he is ambulating, his right lower extremity proximal to the knee joint on the medial aspect has erythema induration, no fluctuance noted and is tender to palpation. There is no crepitus noted. Outlined the margins of the lesion and we will continue with broad-spectrum antibiotics. WBC improved from 13.9 down to 12.9, blood sugars still quite elevated, diabetic medications have been adj usted by rn trauma, appreciate their assistance. A1c pending, we will follow up. Podiatry recommendations regarding diabetic foot ulcer on the 1st great toe are still pending. 07/07 patient seen at bedside, no acute events overnight. He has been afebrile, hemodynamically stable saturating well on room air. Area of cellulitis appears to be improved in color and swelling is diminished. Foot x-ray showing possible retained foreign body. Podiatry recommending a bone scan has MRI is contraindicated with foreign body, to assess for osteomyelitis. We will follow up with Endocrinology recommendations. 07/08 bone scan pending today, we will follow up postprocedure. Wound cultures are still pending, we will continue to follow. Patient has cellulitis in his right medial thigh continues to improve, swelling and erythema have retracted significantly. Labs are relatively unremarkable. Insulin adjusted by endocrinology, appreciate recommendations. 07/09 patient seen at bedside, no acute events overnight. Sensitivities are growing out Enterococcus and MRSA, infectious disease consulted for this discharge antibiotics. Patient counseled extensively on the importance of glycemic control. 07/10 infectious Disease recommending PICC line with follow up at [facility] for outpatient IV antibiotics. Once this is completed patient will be good candidate for discharge 5 patient seen at bedside, no acute events overnight. PICC line has been successfully placed, still pending acceptance to [facility]. Once he was ac ceptance will be good candidate for discharge. 07/12 patient seen at bedside, no acute events overnight. Still pending acceptanc e to [facility]. Once he was acceptance will be good candidate for discharge. 07/13 patient seen at bedside, no acute events overnight. Still pending acceptance to [facility]. Once he was acceptance will be good candidate for discharge. 07/14 patient seen at bedside, no acute events overnight. Pending outpatient arrangements at [facility]. 07/15 patient is seen and examined at bedside, no acute events overnight, at the time of my visit, the patient has been started on supplemental oxygen via nasal cannula at 2 L, he is saturating 92-93%, he feels mild short of breath but denied chest pain, not actively coughing. He is getting IV antibiotics during my visit, no family members at bedside. 07/16 Patient seen and examined at bedside, no acute events overnight, getting iv antibiotics, NPO, schedule to go to the OR for I&D right lower extremity abscess. 07/17 patient is seen and examined at bedside, case discussed with the RN, no acute events overnight, patient getting IV antibiotics during my visit, comfortably in bed, following commands, saturating normal on room air, hemodynamically stable. Grandmother is at bedside during my visit, updated, all questions answered. Patient underwent incision and drainage of right thigh abscess yesterday, tolerated the procedure well. Currently getting good pain control with current medical management. 07/18 patient is seen and examined at bedside, case discussed with the RN, no acute events overnight, patient is sitting comfortable in the bed, saturating normal on room air, denies chest pain. He is getting broad-spectrum IV antibiotics. No family at bedside during my visit. 07/19 patient is seen and examined at bedside, case discussed with the RN, no acute events overnight, during my visit the patient is alert and oriented x3, following commands, comfortably in bed, hemodynamically stable, denied chest pain, he denied shortness a breath, no nausea, no vomiting, no family members at bedside during my visit. Serology tests requested by application infrastructure engineer so far negative. 07/20 patient is seen and examined at bedside, case discussed with the RN, no acute events overnight, patient getting IV antibiotics during my visit, comfortably in bed, following commands, saturating normal on room air, hemodynamically stable. No family at bedside. Status post incision and drainage 07/16/24. Culture positive for Enterococcus faecalis, Staphylococcus aureus/MRSA. Continue IV antibiotics per ID recommendations. Patient also morbidly obese, echocardiogram shows ejection fraction 20%, continue to follow Cardiology input and recommendations. Serology tests for myocarditis so far negative. REVIEW OF SYSTEMS 12 point review of systems negative unless noted in HPI PHYSICAL EXAM GENERAL APPEARANCE: The patient is awake, alert, and oriented, in no acute cardiopulmonary distress. Patient is obese NEUROLOGICAL: Cranial nerves II-XII grossly intact. Motor is 5/5 in bilateral upper and lower extremities proximal to distal. No sensory deficits. HEENT: Face is symmetric. Pupils are equal and reactive. Extraocular movements are intact. NECK: Supple. No JVD. No thyromegaly. No submental, submandibular, pre- /postauricular, occipital or supraclavicular lymphadenopathy. CHEST: Normal chest expansion. No Telemetry. LUNGS: Absence of any rales, rhonchi or any wheezing. CARDIOVASCULAR: Regular. S1 and S2 normal. No appreciable rubs, murmurs or gallops. ABDOMEN: Soft, nontender, and nondistended. There is no rebound, voluntary guarding, or rigidity. : Deferred. No Harden. EXTREMITIES: Patient has erythema on the posterior aspect of the leg involving the knee. He has redness traveling down to the leg to the foot. He has swelling noted. Area is tender to palpation. Additionally he has a ulcer noted in the 1st toe of the right foot. He has blackish discoloration with possible eschar noted SKIN: No skin breakdown. Vital Signs (last 8hr) Date Time Temp Pulse Resp B/P (MAP) Pulse Ox O2 Delivery O2 Flow Rate FiO2 07/20/24 07:46 98.1 80 20 112/72 93 Room Air 21 07/20/24 04:00 98.2 76 20 133/66 98 Room Air LABS: Laboratory: Test 07/20/24 05:28 07/20/24 04:08 07/19/24 23:16 07/19/24 05:16 Range/Units Whole Blood Glucose 143 H 70-110 MG/DL White Blood Count 5.7 4.8-10.8 K/uL Red Blood Count 5.78 4.50-6.20 MIL/uL Hemoglobin 14.5 14.0-18.0 g/dL Hematocrit 42.9 42-54 % Mean Corpuscular Volume 74.2 L 79-99 fL Mean Corpuscular Hemoglobin 25.1 L 27.0-33.0 pg Mean Corpuscular Hemoglobin Concent 33.8 32.0-36.0 g/dL Red Cell Distribution Width 13.5 11.0-15.5 % Platelet Count 452 H 130-400 K/uL Mean Platelet Volume 8.6 7.5-10.5 fL Nucleated Red Blood Cells 0.0 0.0-0.19 % Magnesium Level 1.80 1.80-2.40 mg/dL Vancomycin Level Trough 14.7 # 10.0-20.0 UG/ML Sodium Level 141 136-145 mmol/L Potassium Level 3.4 L 3.5-5.1 mmol/L Chloride Level 103 101-111 mmol/L Carbon Dioxide Level 29 21-32 mmol/L Blood Urea Nitrogen 6 L 7-18 mg/dL Creatinine 0.6 0.5-1.3 mg/dL Glomerular Filtration Rate Calc 139 >90 mL/min Random Glucose 119 H 70-105 mg/dL Total Calcium 8.4 L 8.5-10.1 mg/dL Total Bilirubin 0.4 0.2-1.0 mg/dL Aspartate Amino Transf (AST/SGOT) 14 10-37 U/L Alanine Aminotransferase (ALT/SGPT) 21 12-78 U/L Alkaline Phosphatase 69 50-136 U/L B-Type Natriuretic Peptide 805 H 0-100 pg/mL Total Protein 7.2 6.0-8.3 g/dL Albumin 2.7 L 3.5-5.0 g/dL Current Medications Medications (Trade) Dose Ordered Sig/Morales Route PRN Reason Start Time Stop Time Status Last Admin Dose Admin Acetaminophen (TYLenol 325MG TAB) 650 mg Q6H PRN PO MILD PAIN (1-3) 07/06/24 13:30 08/05/24 13:29 07/07/24 14:01 650 MG Acetaminophen/ Hydrocodone Bitart (NORco 5/325MG) 1 tab Q6H PRN PO MODERATE PAIN (4-6) 07/06/24 13:30 07/11/24 13:29 DC 07/10/24 19:19 1 TAB Alteplase, Recombinant (CathFLO 2MG VIAL) 1 mg ONCE IVCATH 07/12/24 13:30 07/13/24 19:09 DC 07/12/24 18:20 1 MG Cefepime HCl (MAXipime 1 GM vial) 1 gm Q8H IVPB 07/12/24 12:00 07/22/24 11:59 07/20/24 05:09 1 GM Dextrose (D50w) 50 ml AD PRN IV HYPOGLYCEMIA PROTOCOL 07/05/24 15:00 08/04/24 14:59 Diphenhydramine HCl (BENAdryl INJ) 25 mg ONCE STAT IV 07/15/24 16:42 07/15/24 16:47 DC 07/15/24 16:52 25 MG Enoxaparin Sodium (Lovenox) 30 mg DAILY SQ 07/06/24 09:00 07/15/24 14:28 DC 07/15/24 09:34 30 MG Enoxaparin Sodium (Lovenox) 40 mg BID SQ 07/15/24 21:00 08/05/24 08:59 07/20/24 09:30 40 MG Famotidine (Pepcid 20mg Vial) 20 mg BID IV 07/05/24 21:00 08/04/24 20:59 07/20/24 09:30 20 MG Furosemide (LASix 20MG TAB) 20 mg BID@09,17 PO 07/19/24 09:00 08/18/24 08:59 07/20/24 09:30 20 MG Furosemide (LASix 20MG VIAL) 20 mg Q12H IV 07/17/24 16:30 07/18/24 22:21 DC 07/18/24 17:15 20 MG Glucagon (Glucagon 1mg Kit) 1 mg AD PRN IM HYPOGLYCEMIA PROTOCOL 07/05/24 15:00 08/04/24 14:59 Insulin Glargine (LANtus 100 UNITS/ML 10 ML VIAL) 15 units DAILY SQ 07/05/24 15:00 07/07/24 22:00 DC 07/07/24 08:47 15 UNITS Insulin Glargine (LANtus 100 UNITS/ML 10 ML VIAL) 40 units DAILY07 SQ 07/08/24 07:00 07/08/24 21:03 DC 07/08/24 07:54 40 UNITS Insulin Glargine (LANtus 100 UNITS/ML 10 ML VIAL) 50 units DAILY07 SQ 07/13/24 07:00 07/16/24 07:20 DC 07/16/24 06:37 50 UNITS Insulin Glargine (LANtus 100 UNITS/ML 10 ML VIAL) 60 units DAILY07 SQ 07/09/24 07:00 07/13/24 06:18 DC 07/13/24 06:17 60 UNITS Insulin Glargine (LANtus 100 UNITS/ML 10 ML VIAL) 60 units DAILY07 SQ 07/17/24 07:00 08/16/24 06:59 07/20/24 06:22 60 UNITS Insulin Human Regular (humuLIN R 100 UNIT/ML 3ML) 10 unit TIDAC SQ 07/06/24 07:30 07/07/24 22:00 DC 07/07/24 17:19 10 UNIT Insulin Human Regular (humuLIN R 100 UNIT/ML 3ML) 10 unit TIDAC SQ 07/13/24 07:30 07/15/24 21:41 DC 07/15/24 17:09 10 UNIT Insulin Human Regular (humuLIN R 100 UNIT/ML 3ML) 15 unit TIDAC SQ 07/16/24 07:30 07/16/24 22:08 DC 07/16/24 17:34 15 UNIT Insulin Human Regular (humuLIN R 100 UNIT/ML 3ML) 16 unit TIDAC SQ 07/08/24 07:30 07/08/24 21:03 DC 07/08/24 17:33 16 UNIT Insulin Human Regular (humuLIN R 100 UNIT/ML 3ML) 20 unit TIDAC SQ 07/17/24 07:30 08/16/24 07:29 07/19/24 06:29 20 UNIT Insulin Human Regular (humuLIN R 100 UNIT/ML 3ML) 22 unit TIDAC SQ 07/09/24 07:30 07/09/24 21:14 DC 07/09/24 17:44 22 UNIT Insulin Human Regular (humuLIN R 100 UNIT/ML 3ML) 25 unit TIDAC SQ 07/10/24 07:30 07/13/24 06:18 DC 07/10/24 19:13 25 UNIT Insulin Human Regular (humuLIN R 100 UNIT/ML 3ML) INSULIN SLIDING SCAL... ACHS SQ 07/06/24 07:30 08/05/24 07:29 07/19/24 21:52 2 UNIT Insulin Human Regular (humuLIN R 100 UNIT/ML 3ML) INSULIN SLIDING SCAL... Q6H6 SQ 07/05/24 18:00 07/05/24 21:19 DC 07/05/24 17:43 8 UNIT Ketorolac Tromethamine (toRADol) 15 mg Q6H PRN IM MODERATE PAIN (4-6) 07/17/24 13:30 07/22/24 13:29 Ketorolac Tromethamine (toRADol) 15 mg Q6H PRN IV MODERATE PAIN (4-6) 07/05/24 17:00 07/07/24 06:16 DC 07/05/24 21:03 15 MG Leptospermum Honey (Medihoney) 1 APPLICATION DAILY TP 07/07/24 09:00 08/06/24 08:59 07/20/24 09:31 1 APPL Magnesium Sulfate 50 ml @ 0 mls/hr PROTOCOL IV 07/19/24 10:00 08/18/24 09:59 Magnesium Sulfate 50 ml @ 0 mls/hr PROTOCOL PRN IV low magnesium 07/07/24 10:00 07/19/24 09:55 DC 07/19/24 09:43 25 MLS/HR Methylprednisolone Sodium Succinate (Solu-medROL 125MG) 80 mg ONCE STAT IVP 07/15/24 16:42 07/15/24 16:47 DC 07/15/24 16:52 80 MG Metoprolol Succinate (TopROL XL) 12.5 mg DAILY PO 07/17/24 14:00 08/16/24 13:59 07/20/24 09:31 12.5 MG Morphine Sulfate (morPHINE 2MG SYG) 2 mg Q6H PRN IVP SEVERE PAIN (7-10) 07/05/24 17:00 07/10/24 19:59 DC Piperacillin Sod/ Tazobactam Sod (Zosyn 3.375gm+NS 50ml) 3.375 gm Q8H IV 07/11/24 00:00 07/12/24 11:46 DC 07/12/24 08:51 3.375 GM Piperacillin Sod/ Tazobactam Sod (Zosyn 3.375gm+NS 50ml) 3.375 gm Q8H IVPB 07/05/24 14:30 07/10/24 03:41 DC 07/10/24 00:09 3.375 GM Piperacillin Sod/ Tazobactam Sod (Zosyn 3.375gm+NS 50ml) 3.375 gm Q8H IVPB 07/10/24 08:00 07/10/24 09:45 DC Potassium Chloride 100 ml @ 100 mls/hr AD PRN IV POTASSIUM PROTOCOL 07/07/24 10:00 08/06/24 09:59 07/14/24 14:24 100 MLS/HR Potassium Chloride (K-Dur/Klor-Con 20meq) 20 meq AD PRN PO POTASSIUM PROTOCOL 07/07/24 10:00 08/06/24 09:59 07/17/24 04:21 20 MEQ Potassium Chloride (KCl 10% Elixir 20meq/15ml) 20 meq AD PRN PO POTASSIUM PROTOCOL 07/07/24 10:00 08/06/24 09:59 Sacubitril/ Valsartan (Entresto 24 Mg-26 Mg Tablet) 1 each BID PO 07/17/24 21:00 08/16/24 20:59 07/20/24 09:30 1 EACH Sodium Chloride 250 ml @ 125 mls/hr AD IV 07/14/24 21:00 07/14/24 23:59 DC 07/14/24 20:46 125 MLS/HR Sodium Chloride 1,000 ml @ 100 mls/hr Q10H IV 07/05/24 14:30 07/11/24 03:05 DC 07/09/24 15:24 100 MLS/HR Sodium Chloride (NS 50ml) 50 ml AD IV 07/05/24 18:00 07/06/24 13:20 DC Spironolactone (Aldactone 25mg) 25 mg BID PO 07/17/24 21:00 08/16/24 20:59 07/20/24 09:30 25 MG Vancomycin HCl 250 ml @ 125 mls/hr Q6H IV 07/10/24 21:00 07/15/24 06:33 IA 07/13/24 17:42 125 MLS/HR Vancomycin HCl 250 ml @ 125 mls/hr Q6H IV 07/14/24 00:00 07/14/24 20:29 IA 07/14/24 19:38 125 MLS/HR Vancomycin HCl 250 ml @ 125 mls/hr Q6H IV 07/15/24 12:00 07/15/24 20:48 DC 07/15/24 20:34 125 MLS/HR Vancomycin HCl 250 ml @ 125 mls/hr Q6H IV 07/16/24 03:00 07/18/24 00:47 DC 07/18/24 00:09 125 MLS/HR Vancomycin HCl 250 ml @ 125 mls/hr Q6H IV 07/18/24 06:00 07/28/24 05:59 07/20/24 06:21 125 MLS/HR Vancomycin HCl 250 ml @ 125 mls/hr Q8H IV 07/07/24 13:00 07/09/24 12:53 DC 07/09/24 04:38 125 MLS/HR Vancomycin HCl 250 ml @ 125 mls/hr Q8H IV 07/09/24 21:00 07/10/24 09:45 DC 07/09/24 21:43 125 MLS/HR Vancomycin HCl 250 ml @ 125 mls/hr Q8H6 IV 07/14/24 22:00 07/14/24 19:24 DC Vancomycin HCl 250 ml @ 125 mls/hr Q8H6 IV 07/15/24 06:00 07/15/24 06:29 DC 07/15/24 06:00 125 MLS/HR Vancomycin HCl 250 ml @ 125 mls/hr Q8H6 IV 07/15/24 14:00 07/15/24 06:33 DC Vancomycin HCl 250 ml @ 167 mls/hr Q12H IV 07/06/24 01:00 07/07/24 12:31 DC 07/07/24 01:11 167 MLS/HR Vancomycin HCl (Vancomycin 750mg) 750 mg ONCE IVPB 07/14/24 21:00 07/14/24 23:59 DC 07/14/24 20:45 750 MG Vancomycin HCl (Vancomycin Protocol) 1 each AD IV 07/05/24 14:30 07/10/24 20:22 DC Vancomycin HCl (Vancomycin Protocol) 1 each AD IV 07/10/24 21:00 07/24/24 20:59 DIAGNOSTICS / RADIOLOGY: [ ] ASSESSMENT: Right Leg cellulitis with abscess right inner thigh POA Status post incision and drainage 07/16/24 Culture positive for Enterococcus faecalis, Staphylococcus aureus/MRSA. Hyperglycemia secondary to uncontrolled diabetes mellitus type 2 last A1C 15.5, POA Foot ulcer of the 1st toe of the right foot, MRSA and Enterofaecalis, POA Hyponatremia secondary to hyperglycemia Dehydration, resolved Obesity BMI 53.1 Suspected RUTH/OHS undiagnosed and untreated POA Acute hypoxemic resp failure not POA Acute systolic congestive heart failure not POA Well's score for PE 6 points ( Moderate) PLAN: -patient remains admitted to the medical floor - continue the patient on broad-spectrum IV antibiotics -Patient underwent incision and drainage of right thigh abscess 07/16/24, results of culture positive for Staphylococcus aureus-MRSA. -continue to follow surgical input and recommendations, continue dressing changes - continue to follow infectious disease input and recommendations, currently the patient on vancomycin and cefepime IV. - Podiatry input noted and appreciated, continue with Medihoney dressing to both great toes. Patient to continue ambulation with surgical shoes. Once the patient is discharged he can follow up as an outpatient with the ped supervisor network control operators for appropriate shoe gear with insoles to offload the great toe ulcer sites to his feet bilaterally. -patient currently saturating normal on room air, CT chest PE protocol negative, continue to follow Pulmonary input and recommendation. -echocardiogram showing LVEF 25-30%. Severe global hypokinesis. Case discussed with application infrastructure engineer, etiology behind acute systolic CHF remains unknown, differentials include viral myocarditis, idiopathic cardiomyopathy, poorly- controlled diabetes induced cardiomyopathy. Because of the patient's age, CAD is the bottom of the differential. Requested viral myocarditis panel (HIV, CMV, EBV, Coxsackie a and b, hepatitis panel). Serology tests so far negative. Per application infrastructure engineer, also recommended that the patient undergo an FDG PET scan (as an outpatient). Patient is started on metoprolol succinate 12.5 mg p.o. daily and Entresto 24/26 mg tablet one tablet p.o. b.i.d.. NEURO: Minimize central acting medications as possible. Fall Precautions. Well lighted room through the day and minimize interruptions through the night to prevent acute delirium. PULMONARY: Supplemental 02 as needed BiPAP as necessary, for respiratory distress Titrate Fio2 to keep Spo2 > or = 90% DuoNeb�s and CPT as needed IS hourly while awake for pulmonary hygiene prn Out of bed to chair as tolerated Maintain aspiration precautions at all times CARDIOVASCULAR: Follow hemodynamics. Vital signs per facility protocol GI & NUTRITION: Continue nutritional support Aspirations precautions Prokinetic agents and laxatives as needed KIDNEYS & ELECTROLYTES: Strict monitoring of intake and output Daily weights Avoid nephrotoxic agents Monitor electrolytes and replace as needed Goal urine output of 30mL/hr or 0.5mL/kg/hr Medications to be dosed according to renal function. Avoid contrast if possible ENDOCRINE: Maintain blood glucose between 100-180 at all times. Insulin sliding scale for blood glucose management Hypoglycemia and hyperglycemia protocol in place INFECTIOUS DISEASE: Trend temperature, WBC and procalcitonin level Follow cultures, deescalate antibiotics as soon as possible. Panculture if new onset fever HEMATOLOGY & COAGULATION: Monitor H&H. Keep Hgb > 7 Transfuse 1 unit of PRBC for Hgb < 7 Transfuse 1 pack of platelets of platelets < 20, 000 Watch for any signs and symptoms of bleeding SKIN: Pressure ulcer prevention per facility protocol Specialty mattress as needed ORTHO/REHAB Continue PT/OT PRN: MEDICATIONS Tylenol 650 mg po every 4 hrs for fever zofran 4 mg IV every 6 hrs for n/v Hydralazine 5 mg IV every 4 hrs systolic pressure > 160 bowel regiment: lactulose 20 gm PO BID PRN constipation Supportive measures: Continue GI and DVT prophylaxis Disposition: Pending improvement in clinical condition All questions answered time spent: > 35 min FANNIE RAMÍREZ MD July 20, 2024 09:48
[2024-07-20 10:26] LABS: MAGNESIUM 1.8 mg/dL (1.80-2.40); POTASSIUM 3.5 mmol/L (3.5-5.1)
--- NOTE | 2024-07-20 14:02 | PN ---
[facility] PROGRESS NOTE Date Patient Seen: July 20, 2024 Time of Visit: 13:59 Supervising Physician: [ ] Supervising Physician: Dr. Puneet Watts Primary Care Physician: Magno. Billy Villarreal MD Outpatient Specialists: Inpatient Consults: DR Moy Kincaid, DR Reyes , Dr Estevez , Dr Gilbert Carrillo and Dr Toure Attending: Dr Paulette Moore MD PROBLEM LIST: Acute hypoxemic resp failure not POA Acute on chronic combined congestive heart failure, POA EF 25-30% per echo Right Leg cellulitis, improving POA s/p I/D 07/[address] Estevez Hyperglycemia secondary to uncontrolled diabetes mellitus type 2 last A1C 15.5, POA Foot ulcer of the 1st toe of the right foot, MRSA and Enterofaecalis, POA Hyponatremia secondary to hyperglycemia Dehydration, resolved Morbidly Obesity BMI 53.1 Suspected RUTH undiagnosed and untreated POA INTERVAL HISTORY: Patient evaluated at bedside with mother present. He remains on room air at this time, denies any shortness of breath or chest pain. Patient has been tolerating his diet, working with physical therapy. Currently being treated for lower extremity cellulitis by primary. Being seen by Cardiology regarding the patient's heart failure. Current prognosis was discussed with the patient and mother, advised that pulmonary nares concerns were secondary to his cardiac situation, advised to follow up with [facility] as outpatient for outpatient polysomnography. REVIEW OF SYSTEMS: 12 point ROS reviewed with patient. Pertinent positives mentioned above. Otherwise negative. PHYSICAL EXAM: GENERAL: alert, weak, awake oriented x 3, morbidly obese HEENT: EOMI, Sclera non icteric, moist mucosa NECK: Supple, no JVD, trachea midline LUNGS: Diminished breath sounds bilaterally. No wheezes HEART: Sinus Tachy rate and rhythm. Normal S1 and S2, without murmurs ABD: Morbidly obese. Abdomen soft, nontender. Bowel sounds present EXT: No clubbing cyanosis or edema. tyesha great toe wounds, rt knee redness /cellulitis s/p ID with dressing on, no active bleed or drainage NEURO: Alert and oriented to person, follows commands Vital Signs (last 8hr) Date Time Temp Pulse Resp B/P (MAP) Pulse Ox O2 Delivery O2 Flow Rate FiO2 07/20/24 11:52 97.9 84 20 116/71 98 Room Air 21 07/20/24 07:46 98.1 80 20 112/72 93 Room Air 21 LABS: Hematology Labs: Test 07/20/24 04:08 Range/Units White Blood Count 5.7 4.8-10.8 K/uL Red Blood Count 5.78 4.50-6.20 MIL/uL Hemoglobin 14.5 14.0-18.0 g/dL Hematocrit 42.9 42-54 % Mean Corpuscular Volume 74.2 L 79-99 fL Mean Corpuscular Hemoglobin 25.1 L 27.0-33.0 pg Mean Corpuscular Hemoglobin Concent 33.8 32.0-36.0 g/dL Red Cell Distribution Width 13.5 11.0-15.5 % Platelet Count 452 H 130-400 K/uL Mean Platelet Volume 8.6 7.5-10.5 fL Nucleated Red Blood Cells 0.0 0.0-0.19 % Chemistry Labs: Test 07/20/24 11:37 07/20/24 10:12 07/19/24 05:16 Range/Units Whole Blood Glucose 108 70-110 MG/DL Potassium Level 3.5 3.5-5.1 mmol/L Magnesium Level 1.80 1.80-2.40 mg/dL Sodium Level 141 136-145 mmol/L Chloride Level 103 101-111 mmol/L Carbon Dioxide Level 29 21-32 mmol/L Blood Urea Nitrogen 6 L 7-18 mg/dL Creatinine 0.6 0.5-1.3 mg/dL Glomerular Filtration Rate Calc 139 >90 mL/min Random Glucose 119 H 70-105 mg/dL Total Calcium 8.4 L 8.5-10.1 mg/dL Total Bilirubin 0.4 0.2-1.0 mg/dL Aspartate Amino Transf (AST/SGOT) 14 10-37 U/L Alanine Aminotransferase (ALT/SGPT) 21 12-78 U/L Alkaline Phosphatase 69 50-136 U/L B-Type Natriuretic Peptide 805 H 0-100 pg/mL Total Protein 7.2 6.0-8.3 g/dL Albumin 2.7 L 3.5-5.0 g/dL DIAGNOSTICS / RADIOLOGY RESULTS: [ ] PLAN Recommend cardiac evaluation Start lasix and aldactone, monitor labs Order COVID/flu PE (-) per CTA BNP- 875 Echo-EF 25-30% wean o2 as possible. Pt to eval and treat continue Lovenox 40mg sq BID dose for DVT PPX for BMI > 40 Wound care per surgeon NEURO: Minimize central acting medications as possible. Maintain fall precautions, adequate lighting during the day PULMONARY: Supplemental 02 as needed. Maintain aspiration precautions at all times CARDIOVASCULAR: Follow hemodynamics. Vital signs per facility protocol GI & NUTRITION: Continue with nutritional support. Continue stool softeners and laxatives as needed. KIDNEYS & ELECTROLYTES: Strict monitoring of intake, output and overall fluid balance. Avoid nephrotoxic medications to the extent possible. Medications to be dosed according to renal function. Monitor electrolytes and replace as needed ENDOCRINE: Maintain blood glucose between 100-180 at all times. Hypoglycemia protocol in place INFECTIOUS DISEASE: Trend temperature, WBC and procalcitonin level Follow cultures, deescalate antibiotics as soon as possible. Panculture if new onset fever ONCOLOGY/HEMATOLOGY/COAGULATION: Monitor for s/s of bleeding Monitor hemoglobin, coagulation studies as needed SKIN: Pressure ulcer prevention per facility protocol Specialty mattress ORTHO/REHAB: Continue PT/OT Prophylaxis: Continue GI and DVT prophylaxis Code Status: Full Resuscitation Disposition: TBD Other: Total patient care time exceeds 35 minutes excluding all procedures. SHAHID VALDERRAMA July 20, 2024 14:02
[2024-07-20] MEDS: ALTEplase 2MG VIAL 2 MG/VIAL VIAL IVCATH ONE (16:39)
--- NOTE | 2024-07-20 16:45 | NUR ---
ADMINISTER CATHFLO TO PICC LINE DUE TO 2 PORTS NO BLOOD RETURN; TOLERATED WELL. WILL RETURN IN 30 MINUTES TO ASSESS BLOOD RETURN.
--- NOTE | 2024-07-20 17:30 | NUR ---
ASSESS PICC LINE PORTS INSTRUCTED AND NO BLOOD RETURN IS SEEN. WILL REASSESS IN 120 MINUTES INSTRUCTED IN INSTRUCTIONS.
[2024-07-20] MEDS: MAGNESIUM 2GM PREMIX 50ML 50 ML IV SCH (19:58)
--- NOTE | 2024-07-20 20:14 | NUR ---
PER Wan TAMEZ, CREDIT ASSISTANT OK TO USE PICC LINE POST CATHFLO ADMINISTRATION AND NO BLOOD RETURN. BOTH PORTS PATENT, DENIES ANY PAIN OR DISCOMFORT. DULCE MARIA GARCIA PRESENT TO VERIFY BOTH PORT FLUSH WELL BUT NO BLOOD RETURN IS SEEN. WILL CONTINUE TO ASSESS AND REPORT GIVEN TO PRASHANTH REY.
--- NOTE | 2024-07-20 21:40 | PN ---
endocrinology progress note Date of Service: 07/20/2024 subjective: glucose are improving patient used to inject lantus and humalog but not injecting for many months. he does not check glucose at home. hba1c>15.0% right foot wound is positive for MRSA and Enterofaecalis, right medial thigh abscess I&D PAST MEDICAL HISTORY: History of foot ulcer in the 1st toe of the right foot PAST SURGICAL HISTORY: Denied any previous surgical history PAST SOCIAL HISTORY: Denied any smoking, alcohol, drug use FAMILY HISTORY: Denied any pertinent family history Coded Allergies: No Known Drug Allergies (Unverified Allergy, Unknown, 10/08/18) ASSESSMENT: Hyperglycemia secondary to uncontrolled diabetes mellitus type POA patient used to inject lantus and humalog but not injecting for many months. he does not check glucose at home. hba1c>15.0% talia-65 abs are negative, so likely type 2 dm. Right Leg cellulitis POA MRSA and Enterofaecalis, ID following right medial thigh abscess I&D Foot ulcer of the 1st toe of the right foot POA Hyponatremia secondary to hyperglycemia Dehydration Obesity BMI 53.1 PLAN: continue lantus 60 units daily continue regular insulin 20 units tid before meals for daytime hyperglycemia. continue medium dose insulin ssi monitor glucose qx6 hourly patient will need insulin at discharge Vitals/Labs Vital Signs Date Time Temp Pulse Resp B/P (MAP) Pulse Ox O2 Delivery O2 Flow Rate FiO2 07/20/24 20:00 98.1 85 20 96/62 98 Room Air 07/20/24 16:00 21 07/20/24 09:45 0 Laboratory Tests 07/20/24 04:08 07/20/24 10:12 Medications Current Medications Ketorolac Tromethamine 15 mg ONCE ONCE IM Last administered on 07/05/24at 13:56; Start 07/05/24 at 11:00; Stop 07/05/24 at 11:03; Status DC Vancomycin HCl 1 gm ONCE ONCE IV Last administered on 07/05/24at 14:15; Start 07/05/24 at 13:00; Stop 07/05/24 at 13:01; Status DC Ceftriaxone Sodium 2 gm ONCE ONCE IVPB Last administered on 07/05/24at 13:55; Start 07/05/24 at 12:30; Stop 07/05/24 at 12:31; Status DC Sodium Chloride 1,000 ml @ 0 mls/hr ONCE ONCE IV Last administered on 07/05/24at 13:48; Start 07/05/24 at 12:30; Stop 07/05/24 at 12:31; Status DC Insulin Human Regular 5 unit ONCE ONCE IV Last administered on 07/05/24at 14:01; Start 07/05/24 at 12:30; Stop 07/05/24 at 12:31; Status DC Famotidine 20 mg BID IV Last administered on 07/20/24at 21:21; Start 07/05/24 at 21:00; Stop 08/04/24 at 20:59 Vancomycin HCl 1 each AD IV; Start 07/05/24 at 14:30; Stop 07/10/24 at 20:22; Status DC Piperacillin Sod/ Tazobactam Sod 3.375 gm Q8H IVPB Last administered on 07/10/24at 00:09; Start 07/05/24 at 14:30; Stop 07/10/24 at 03:41; Status DC Sodium Chloride 50 ml AD IV; Start 07/05/24 at 18:00; Stop 07/06/24 at 13:20; Status DC Insulin Human Regular INSULIN SLIDING SCAL... Q6H6 SQ Last administered on 07/05/24at 17:43; Start 07/05/24 at 18:00; Stop 07/05/24 at 21:19; Status DC Sodium Chloride 1,000 ml @ 100 mls/hr Q10H IV Last administered on 07/09/24at 15:24; Start 07/05/24 at 14:30; Stop 07/11/24 at 03:05; Status DC Insulin Glargine 15 units DAILY SQ Last administered on 07/07/24at 08:47; Start 07/05/24 at 15:00; Stop 07/07/24 at 22:00; Status DC Dextrose 50 ml AD PRN IV; Start 07/05/24 at 15:00; Stop 08/04/24 at 14:59 Glucagon 1 mg AD PRN IM; Start 07/05/24 at 15:00; Stop 08/04/24 at 14:59 Vancomycin HCl 250 ml @ 250 mls/hr ONCE ONCE IV Last administered on 07/05/24at 15:11; Start 07/05/24 at 15:00; Stop 07/05/24 at 15:59; Status DC Vancomycin HCl 250 ml @ 167 mls/hr Q12H IV Last administered on 07/07/24at 01:11; Start 07/06/24 at 01:00; Stop 07/07/24 at 12:31; Status DC Iohexol 75 ml STK-MED ONCE IV; Start 07/05/24 at 15:20; Stop 07/05/24 at 15:21; Status DC Ketorolac Tromethamine 15 mg Q6H PRN IV Last administered on 07/05/24at 21:03; Start 07/05/24 at 17:00; Stop 07/07/24 at 06:16; Status DC Morphine Sulfate 2 mg Q6H PRN IVP; Start 07/05/24 at 17:00; Stop 07/10/24 at 19:59; Status DC Insulin Human Regular 10 unit TIDAC SQ Last administered on 07/07/24at 17:19; Start 07/06/24 at 07:30; Stop 07/07/24 at 22:00; Status DC Insulin Human Regular INSULIN SLIDING SCAL... ACHS SQ Last administered on 07/20/24at 21:29; Start 07/06/24 at 07:30; Stop 08/05/24 at 07:29 Enoxaparin Sodium 30 mg DAILY SQ Last administered on 07/15/24at 09:34; Start 07/06/24 at 09:00; Stop 07/15/24 at 14:28; Status DC Acetaminophen 650 mg Q6H PRN PO Last administered on 07/07/24at 14:01; Start 07/06/24 at 13:30; Stop 08/05/24 at 13:29 Acetaminophen/ Hydrocodone Bitart 1 tab Q6H PRN PO Last administered on 07/10/24at 19:19; Start 07/06/24 at 13:30; Stop 07/11/24 at 13:29; Status DC Leptospermum Honey 1 APPLICATION DAILY TP Last administered on 07/20/24at 09:31; Start 07/07/24 at 09:00; Stop 08/06/24 at 08:59 Potassium Chloride 100 ml @ 100 mls/hr AD PRN IV Last administered on 07/14/24at 14:24; Start 07/07/24 at 10:00; Stop 08/06/24 at 09:59 Potassium Chloride 20 meq AD PRN PO; Start 07/07/24 at 10:00; Stop 08/06/24 at 09:59 Potassium Chloride 20 meq AD PRN PO Last administered on 07/20/24at 19:07; Start 07/07/24 at 10:00; Stop 08/06/24 at 09:59 Magnesium Sulfate 50 ml @ 0 mls/hr PROTOCOL PRN IV Last administered on 07/19/24at 09:43; Start 07/07/24 at 10:00; Stop 07/19/24 at 09:55; Status DC Vancomycin HCl 250 ml @ 125 mls/hr Q8H IV Last administered on 07/09/24at 04:38; Start 07/07/24 at 13:00; Stop 07/09/24 at 12:53; Status DC Insulin Glargine 40 units DAILY07 SQ Last administered on 07/08/24at 07:54; Start 07/08/24 at 07:00; Stop 07/08/24 at 21:03; Status DC Insulin Human Regular 16 unit TIDAC SQ Last administered on 07/08/24at 17:33; Start 07/08/24 at 07:30; Stop 07/08/24 at 21:03; Status DC Insulin Glargine 60 units DAILY07 SQ Last administered on 07/13/24at 06:17; Start 07/09/24 at 07:00; Stop 07/13/24 at 06:18; Status DC Insulin Human Regular 22 unit TIDAC SQ Last administered on 07/09/24at 17:44; Start 07/09/24 at 07:30; Stop 07/09/24 at 21:14; Status DC Vancomycin HCl 250 ml @ 125 mls/hr Q8H IV Last administered on 07/09/24at 21:43; Start 07/09/24 at 21:00; Stop 07/10/24 at 09:45; Status DC Vancomycin HCl 500 ml @ 250 mls/hr ONCE ONCE IV Last administered on 07/09/24at 15:24; Start 07/09/24 at 13:00; Stop 07/09/24 at 14:59; Status DC Insulin Human Regular 25 unit TIDAC SQ Last administered on 07/10/24at 19:13; Start 07/10/24 at 07:30; Stop 07/13/24 at 06:18; Status DC Piperacillin Sod/ Tazobactam Sod 3.375 gm Q8H IVPB; Start 07/10/24 at 08:00; Stop 07/10/24 at 09:45; Status DC Vancomycin HCl 1 each AD IV; Start 07/10/24 at 21:00; Stop 07/24/24 at 20:59 Vancomycin HCl 250 ml @ 125 mls/hr Q6H IV Last administered on 07/13/24at 17:42; Start 07/10/24 at 21:00; Stop 07/15/24 at 06:33; Status DC Piperacillin Sod/ Tazobactam Sod 3.375 gm Q8H IV Last administered on 07/12/24at 08:51; Start 07/11/24 at 00:00; Stop 07/12/24 at 11:46; Status DC Cefepime HCl 1 gm Q8H IVPB Last administered on 07/20/24at 12:53; Start 07/12/24 at 12:00; Stop 07/22/24 at 11:59 Alteplase, Recombinant 1 mg ONCE IVCATH Last administered on 07/12/24at 18:20; Start 07/12/24 at 13:30; Stop 07/13/24 at 19:09; Status DC Insulin Glargine 50 units DAILY07 SQ Last administered on 07/16/24at 06:37; Start 07/13/24 at 07:00; Stop 07/16/24 at 07:20; Status DC Insulin Human Regular 10 unit TIDAC SQ Last administered on 07/15/24at 17:09; Start 07/13/24 at 07:30; Stop 07/15/24 at 21:41; Status DC Vancomycin HCl 250 ml @ 125 mls/hr Q6H IV Last administered on 07/14/24at 19:38; Start 07/14/24 at 00:00; Stop 07/14/24 at 20:29; Status DC Potassium Chloride 40 meq ONCE ONCE PO Last administered on 07/14/24at 13:48; Start 07/14/24 at 13:00; Stop 07/14/24 at 13:02; Status DC Potassium Chloride 100 ml @ 50 mls/hr ONCE ONCE IV; Start 07/14/24 at 13:00; Stop 07/14/24 at 14:59; Status DC Vancomycin HCl 250 ml @ 125 mls/hr Q8H6 IV; Start 07/14/24 at 22:00; Stop 07/14/24 at 19:24; Status DC Vancomycin HCl 250 ml @ 125 mls/hr Q8H6 IV Last administered on 07/15/24at 06:00; Start 07/15/24 at 06:00; Stop 07/15/24 at 06:29; Status DC Vancomycin HCl 750 mg ONCE IVPB Last administered on 07/14/24at 20:45; Start 07/14/24 at 21:00; Stop 07/14/24 at 23:59; Status DC Sodium Chloride 250 ml @ 125 mls/hr AD IV Last administered on 07/14/24at 20:46; Start 07/14/24 at 21:00; Stop 07/14/24 at 23:59; Status DC Vancomycin HCl 250 ml @ 125 mls/hr Q8H6 IV; Start 07/15/24 at 14:00; Stop 07/15/24 at 06:33; Status DC Vancomycin HCl 250 ml @ 125 mls/hr Q6H IV Last administered on 07/15/24at 20:34; Start 07/15/24 at 12:00; Stop 07/15/24 at 20:48; Status DC Furosemide 40 mg ONCE ONCE IV Last administered on 07/15/24at 14:00; Start 07/15/24 at 14:00; Stop 07/15/24 at 14:01; Status DC Enoxaparin Sodium 40 mg BID SQ Last administered on 07/20/24at 21:21; Start 07/15/24 at 21:00; Stop 08/05/24 at 08:59 Iohexol 50 ml STK-MED ONCE IV; Start 07/15/24 at 16:25; Stop 07/15/24 at 16:25; Status DC Iohexol 75 ml STK-MED ONCE IV; Start 07/15/24 at 16:25; Stop 07/15/24 at 16:25; Status DC Methylprednisolone Sodium Succinate 80 mg ONCE STAT IVP Last administered on 07/15/24at 16:52; Start 07/15/24 at 16:42; Stop 07/15/24 at 16:47; Status DC Diphenhydramine HCl 25 mg ONCE STAT IV Last administered on 07/15/24at 16:52; Start 07/15/24 at 16:42; Stop 07/15/24 at 16:47; Status DC Methylprednisolone Sodium Succinate 40 mg STK-MED ONCE .ROUTE; Start 07/15/24 at 16:46; Stop 07/15/24 at 16:46; Status DC Diphenhydramine HCl 50 mg STK-MED ONCE .ROUTE; Start 07/15/24 at 16:46; Stop 07/15/24 at 16:47; Status DC Vancomycin HCl 250 ml @ 125 mls/hr Q6H IV Last administered on 07/18/24at 00:09; Start 07/16/24 at 03:00; Stop 07/18/24 at 00:47; Status DC Insulin Human Regular 15 unit TIDAC SQ Last administered on 07/16/24at 17:34; Start 07/16/24 at 07:30; Stop 07/16/24 at 22:08; Status DC Insulin Glargine 60 units DAILY07 SQ Last administered on 07/20/24at 06:22; Start 07/17/24 at 07:00; Stop 08/16/24 at 06:59 Lidocaine HCl 100 mg STK-MED ONCE .ROUTE; Start 07/16/24 at 11:05; Stop 07/16/24 at 11:06; Status DC Midazolam HCl 2 mg STK-MED ONCE .ROUTE; Start 07/16/24 at 11:09; Stop 07/16/24 at 11:09; Status DC Ondansetron HCl 4 mg STK-MED ONCE .ROUTE; Start 07/16/24 at 11:09; Stop 07/16/24 at 11:09; Status DC Glycopyrrolate 1 mg STK-MED ONCE .ROUTE; Start 07/16/24 at 11:09; Stop 07/16/24 at 11:09; Status DC Propofol 200 mg STK-MED ONCE IV; Start 07/16/24 at 11:09; Stop 07/16/24 at 11:09; Status DC Neostigmine Methylsulfate 10 mg STK-MED ONCE IV; Start 07/16/24 at 11:09; Stop 07/16/24 at 11:10; Status DC Succinylcholine Chloride 200 mg STK-MED ONCE .ROUTE; Start 07/16/24 at 11:10; Stop 07/16/24 at 11:10; Status DC Rocuronium [place] 50 mg STK-MED ONCE .ROUTE; Start 07/16/24 at 11:10; Stop 07/16/24 at 11:10; Status DC Fentanyl Citrate 100 mcg STK-MED ONCE .ROUTE; Start 07/16/24 at 11:10; Stop 07/16/24 at 11:10; Status DC Bupivacaine HCl 5 mg STK-MED ONCE .ROUTE; Start 07/16/24 at 11:47; Stop 07/16/24 at 11:48; Status DC Bupivacaine HCl 150 mg STK-MED ONCE INJ Last administered on 07/16/24at 11:50; Start 07/16/24 at 11:50; Stop 07/16/24 at 12:47; Status DC Insulin Human Regular 20 unit TIDAC SQ Last administered on 07/20/24at 18:10; Start 07/17/24 at 07:30; Stop 08/16/24 at 07:29 Ketorolac Tromethamine 15 mg Q6H PRN IM; Start 07/17/24 at 13:30; Stop 07/22/24 at 13:29 Metoprolol Succinate 12.5 mg DAILY PO Last administered on 07/20/24at 09:31; Start 07/17/24 at 14:00; Stop 08/16/24 at 13:59 Sacubitril/ Valsartan 1 each BID PO Last administered on 07/20/24at 21:21; Start 07/17/24 at 21:00; Stop 08/16/24 at 20:59 Furosemide 20 mg Q12H IV Last administered on 07/18/24at 17:15; Start 07/17/24 at 16:30; Stop 07/18/24 at 22:21; Status DC Spironolactone 25 mg BID PO Last administered on 07/20/24at 21:21; Start 07/17/24 at 21:00; Stop 08/16/24 at 20:59 Vancomycin HCl 250 ml @ 125 mls/hr Q6H IV Last administered on 07/20/24at 19:58; Start 07/18/24 at 06:00; Stop 07/28/24 at 05:59 Furosemide 20 mg BID@09,17 PO Last administered on 07/20/24at 17:27; Start 07/19/24 at 09:00; Stop 08/18/24 at 08:59 Potassium Chloride 40 meq ONCE ONCE PO Last administered on 07/19/24at 10:50; Start 07/19/24 at 10:00; Stop 07/19/24 at 10:01; Status DC Magnesium Sulfate 50 ml @ 0 mls/hr PROTOCOL IV Last administered on 07/20/24at 19:58; Start 07/19/24 at 10:00; Stop 08/18/24 at 09:59 Alteplase, Recombinant 4 mg ONCE ONCE IVCATH Last administered on 07/20/24at 16:39; Start 07/20/24 at 10:30; Stop 07/20/24 at 10:31; Status DC Sterile Water 10 ml STK-MED ONCE .ROUTE Last administered on 07/20/24at 16:39; Start 07/20/24 at 16:33; Stop 07/20/24 at 16:35; Status DC JOSE CASTILLO MD July 20, 2024 21:40
[2024-07-21] VITALS (8 sets, daily range): BP systolic 100–142; BP diastolic 59–71; PULSE 55–93; RESP 17–20; TEMP 97.5–98.8; O2SAT 94–100
--- NOTE | 2024-07-21 02:24 | PN ---
INFECTIOUS DISEASE FOLLOWUP NOTE DATE OF SERVICE: 07/19/2024 SUBJECTIVE: The patient is seen and examined at bedside. No fever, no chills. controlled. No bleeding tendency, no rashes or itchiness. . No depression, no suicidal ideation. PHYSICAL EXAMINATION: VITAL SIGNS: Temperature 98.3. EYES: No icterus. Pupils are equal and reactive. HENT: No oral thrush seen. Moist oral mucosa. NECK: Supple. No JVD or thyromegaly. LUNGS: Good air entry. No rales. No rhonchi. CARDIOVASCULAR: S1 and S2 regular. No murmur heard. ABDOMEN: Full, soft, nontender. Bowel sound is present. . No organomegaly. CENTRAL NERVOUS SYSTEM: The patient is awake, alert, oriented x 3. No focal deficits. SKIN: No rashes. No itchiness. LYMPHATIC: There is right inguinal lymphadenopathy. BACK: No deformity. No pressure ulcer. EXTREMITIES: . ASSESSMENT: A 24-year-old male with multiple problems including: * Right lower extremity cellulitis and sepsis. * Right foot abscess, status post incision and drainage. * MRSA. * Morbid obesity. * Newly diagnosed diabetes mellitus. PLAN: * Continue wound care. * Continue vancomycin. * Continue nutritional support. * Continue DVT prophylaxis. * Continue GI prophylaxis. * Monitor electrolyte. * Continue pain management. TID: [id number] RECEIPT: [id number]
[2024-07-21 04:24] LABS: MEAN CORPUSCULAR HEMOGLOBIN 24.9 pg (27.0-33.0); MEAN CORPUSCULAR HGB CONC 33.6 g/dL (32.0-36.0); MEAN CORPUSCULAR VOLUME 74.2 fL (79-99); PLATELET COUNT (AUTO) 425 K/uL (130-400); RED BLOOD CELL COUNT(AUTO) 5.66 MIL/uL (4.50-6.20); RED CELL DISTRIBUTION WIDTH 13.3 % (11.0-15.5); WHITE BLOOD COUNT (AUTO) 4.6 K/uL (4.8-10.8)
--- NOTE | 2024-07-21 04:35 | PN ---
INFECTIOUS DISEASE FOLLOWUP NOTE DATE OF SERVICE: 07/20/2024 SUBJECTIVE: The patient is seen at my bedside today. The patient has no fever, no chills. No nausea. No vomiting. No abdominal pain. No bleeding tendencies. No palpitations. No orthopnea. Denies depression. No suicidal ideation. No dysuria or hematuria. PHYSICAL EXAMINATION: VITAL SIGNS: Temperature today is 98.5. EYES: No icterus. Pupils are equal and reactive. HENT: No oral thrush seen. Moist oral mucosa. NECK: Supple. No JVD or thyromegaly. LUNGS: Good air entry. No rales. No rhonchi seen. CARDIOVASCULAR: S1 and S2 regular. No murmur heard. ABDOMEN: Soft, nontender. Bowel sounds are present. EXTREMITIES: Wound involving the right lower thigh. BACK:. No rashes. ASSESSMENT: A 24-year-old male with multiple problems including: * Sepsis. * Right lower thigh abscess. * Right lower leg cellulitis. * Obesity. * Hypertension. * Diabetes mellitus. * Debility. PLAN: * We will continue wound care. * Continue pain management. * Continue nutritional support. * Continue antidiabetic. * Continue vancomycin. * Monitor electrolytes. TID: [id number] RECEIPT: [id number]
[2024-07-21 04:49] LABS: ALBUMIN 2.6 g/dL (3.5-5.0); BILIRUBIN,TOTAL 0.3 mg/dL (0.2-1.0); CREATININE 0.7 mg/dL (0.5-1.3); MAGNESIUM 2.4 mg/dL (1.80-2.40); POTASSIUM 3.8 mmol/L (3.5-5.1); TOTAL PROTEIN, SERUM 6.8 g/dL (6.0-8.3)
--- NOTE | 2024-07-21 05:36 | PN ---
SUBJECTIVE: The patient is a very pleasant 24-year-old diabetic, morbidly obese, Latin-[place] male, followed up for an incision, drainage, and debridement medial calf and knee area on the right. Concern of pain to that area. Followed up for bilateral great toe ulcers. The patient is ambulating with surgical shoes, receiving Medihoney dressings both great toe ulcers. Continues to be afebrile at 98.1, blood pressure 116/71, pulse 84, respirations 20. White count 5.7, H and H 14.5/42.9, platelets 252. The patient is currently receiving vancomycin, cefepime. Cultures, Enterococcus faecalis, methicillin-resistant Staph aureus from both his right thigh and his right big toe. REVIEW OF SYSTEMS: CONSTITUTIONAL: No chills, no fever, no night sweats. No nausea, vomiting. No diarrhea. Pain to the right thigh at the surgical site. GENITOURINARY: No dysuria. BUN and creatinine 6 and 0.6. GASTROINTESTINAL: No dysphagia. ENDOCRINE: Diabetes. CARDIOVASCULAR: He is being followed by the [facility] for dilated cardiomyopathy and the ejection fraction 25% to 30%, severely dilated left ventricle, severe global hypokinesis. Mitral regurgitation is trace. No pericardial effusion. PSYCHIATRIC: Denied any depression. MUSCULOSKELETAL: Morbid obesity, BMI of 55. He has bunions, hammertoes. INTEGUMENTARY: Bilateral great toe ulcers. Left great toe ulcer is completely healed. Right great toe ulcer plantarly has a hemorrhagic scar base, pre-debridement 3 x 3 x 1 mm, post debridement 5 x 6 x 3 mm. OBJECTIVE: Examination today shows the ulcer healed left, ulcer right pre-debridement 3 x 3 x 1, post debridement 5 x 6 x 3. He has palpable pedal pulses. ASSESSMENT: A 24-year-old diabetic male with morbid obesity, heart failure, cardiomyopathy status post incision, drainage and debridement of his right knee, right thigh, bilateral great toe ulcers healed on the left, 3 x 3 x 1 on the right, post debridement 5 x 6 x 3 on the right, both the thigh and the great toe have grown back Enterococcus faecalis and MRSA. He is receiving cefepime and vancomycin. Bone scan was negative for osteomyelitis to his great toes bilaterally. PLAN: With the patient , I blocked the right great toe and cleaned the area with NSF spray. I blocked it with 3 mL of 1% lidocaine plain and with a #15 scalpel blade and forceps, I performed a sharp excisional debridement. I debrided the slough, fiber and necrotic fiber and skin and subcutaneous tissue down to including the level of the subcutaneous tissue in the area that measured pre-debridement 3 x 3 x 1 and post-debridement 5 x 6 x 3 for a total area of sharp excision and debridement of 0.3 cm. Good bleeding. Estimated blood loss less than 1 mL. Hemostasis obtained with pressure gauze and . The wound was dressed with Medihoney and Hydrofera blue. Continue with Medihoney and Hydrofera dressings. Continue to follow the patient closely while in-house. Continue with IV vancomycin and the IV cefepime. The patient may ambulate with surgical shoes bilateral feet with crutches or a walker. TID: [id number] RECEIPT: [id number]
--- NOTE | 2024-07-21 06:17 | PN ---
SUBJECTIVE: The patient is a very pleasant 24-year-old diabetic, Latin-[place] male followed up for incision, drainage, and debridement medial thigh, medial ankle right, concerned of pain to the area. He is also followed up for ulcers to bilateral great toes. The ulcers resolved on the left. He has had bone scan negative for osteomyelitis of the great toes. He has had cultures of both the medial thigh, medial knee, and great toes that have grown back Enterococcus faecalis and MRSA. The patient is currently receiving IV vancomycin, IV cefepime, concern of pain to the medial thigh and medial knee on the right. REVIEW OF SYSTEMS: CONSTITUTIONAL: No chills, no fevers, no night sweats. No nausea or vomiting, no diarrhea. HEENT: No problems with his eyes, ears, nose, or throat. CARDIOVASCULAR: He has an enlarged heart and a low ejection fraction of 25-30%. He is being followed by the Cardiology Service. Clinically, he has strong palpable pedal pulses to his feet. PSYCHIATRIC: Denied any depression. MUSCULOSKELETAL: Morbid obesity, BMI 55. Bunions and hammertoe deformities. INTEGUMENT: He has an ulcer to the right great toe. The ulcer to the left great toe is completely healed. The ulcer to the right great toe is 5 x 6 x 2 mm. OBJECTIVE: An ulcer to the right great toe 5 x 6 x 2 mm, ulcer healed to the left great toe. Palpable pedal pulses. No abscesses or ascending cellulitis to his great toes. ASSESSMENT: A 24-year-old male with morbid obesity, heart failure, cardiomyopathy, status post incision, drainage, and debridement of his right knee, right thigh, bilateral great toe ulcers healed on the left, 5 x 6 x 2 mm on the right. Wound cultures from his thigh and from his toes, enterococcus faecalis and MRSA, receiving vancomycin and cefepime. PLAN: We will continue with the IV vancomycin and the IV cefepime. Continue with Medihoney dressings to his great toes. Continue offloading measures with surgical shoes. Continue to follow the patient closely while in-house. TID: [id number] RECEIPT: [id number]
[2024-07-21] MEDS: ALTEplase 2MG VIAL 2 MG/VIAL VIAL IVCATH ONE ×2 (11:48)
--- NOTE | 2024-07-21 13:54 | PN ---
[facility] PROGRESS NOTE Date Patient Seen: July 21, 2024 Time of Visit: 13:54 Supervising Physician: Dr. Puneet Watts Primary Care Physician: Magno. Billy Villarreal MD Outpatient Specialists: Inpatient Consults: DR Moy Kincaid, DR Reyes , Dr Estevez , Dr Gilbert Carrillo and Dr Toure Attending: Dr Paulette Moore MD PROBLEM LIST: Acute hypoxemic resp failure not POA Acute on chronic combined congestive heart failure, POA EF 25-30% per echo Right Leg cellulitis, improving POA s/p I/D 07/[address] Estevez Hyperglycemia secondary to uncontrolled diabetes mellitus type 2 last A1C 15.5, POA Foot ulcer of the 1st toe of the right foot, MRSA and Enterofaecalis, POA Hyponatremia secondary to hyperglycemia Dehydration, resolved Morbidly Obesity BMI 53.1 Suspected RUTH undiagnosed and untreated POA INTERVAL HISTORY: Patient evaluated at bedside, mother present for the evaluation. Status has remained stable over the last 24 hours, questions answered regarding the patient's prognosis from a pulmonary standpoint, once again advised to follow up at [facility] for outpatient polysomnography for evaluation of sleep apnea and indication for CPAP use, we continue to recommend against empiric CPAP use due to the risk of exacerbating current heart failure status. REVIEW OF SYSTEMS: 12 point ROS reviewed with patient. Pertinent positives mentioned above. Otherwise negative. PHYSICAL EXAM: GENERAL: alert, weak, awake oriented x 3, morbidly obese HEENT: EOMI, Sclera non icteric, moist mucosa NECK: Supple, no JVD, trachea midline LUNGS: Diminished breath sounds bilaterally. No wheezes HEART: Sinus Tachy rate and rhythm. Normal S1 and S2, without murmurs ABD: Morbidly obese. Abdomen soft, nontender. Bowel sounds present EXT: No clubbing cyanosis or edema. tyesha great toe wounds, rt knee redness /cellulitis s/p ID with dressing on, no active bleed or drainage NEURO: Alert and oriented to person, follows commands Vital Signs (last 8hr) Date Time Temp Pulse Resp B/P (MAP) Pulse Ox O2 Delivery O2 Flow Rate FiO2 07/21/24 12:00 98.8 83 19 107/70 96 Room Air 07/21/24 08:00 98.2 55 18 125/59 100 Room Air LABS: Hematology Labs: Test 07/21/24 03:50 Range/Units White Blood Count 4.6 L 4.8-10.8 K/uL Red Blood Count 5.66 4.50-6.20 MIL/uL Hemoglobin 14.1 14.0-18.0 g/dL Hematocrit 42.0 42-54 % Mean Corpuscular Volume 74.2 L 79-99 fL Mean Corpuscular Hemoglobin 24.9 L 27.0-33.0 pg Mean Corpuscular Hemoglobin Concent 33.6 32.0-36.0 g/dL Red Cell Distribution Width 13.3 11.0-15.5 % Platelet Count 425 H 130-400 K/uL Mean Platelet Volume 8.5 7.5-10.5 fL Nucleated Red Blood Cells 0.0 0.0-0.19 % Red Blood Cell Morphology See comments Chemistry Labs: Test 07/21/24 12:04 07/21/24 03:50 Range/Units Whole Blood Glucose 170 H 70-110 MG/DL Sodium Level 139 136-145 mmol/L Potassium Level 3.8 3.5-5.1 mmol/L Chloride Level 104 101-111 mmol/L Carbon Dioxide Level 28 21-32 mmol/L Blood Urea Nitrogen 7 7-18 mg/dL Creatinine 0.7 0.5-1.3 mg/dL Glomerular Filtration Rate Calc 133 >90 mL/min Random Glucose 96 70-105 mg/dL Total Calcium 8.9 8.5-10.1 mg/dL Magnesium Level 2.40 1.80-2.40 mg/dL Total Bilirubin 0.3 0.2-1.0 mg/dL Aspartate Amino Transf (AST/SGOT) 13 10-37 U/L Alanine Aminotransferase (ALT/SGPT) 13 12-78 U/L Alkaline Phosphatase 61 50-136 U/L Total Protein 6.8 6.0-8.3 g/dL Albumin 2.6 L 3.5-5.0 g/dL DIAGNOSTICS / RADIOLOGY RESULTS: [ ] PLAN Recommend cardiac evaluation Start lasix and aldactone, monitor labs Order COVID/flu PE (-) per CTA BNP- 875 Echo-EF 25-30% wean o2 as possible. Pt to eval and treat continue Lovenox 40mg sq BID dose for DVT PPX for BMI > 40 Wound care per surgeon NEURO: Minimize central acting medications as possible. Maintain fall precautions, adequate lighting during the day PULMONARY: Supplemental 02 as needed. Maintain aspiration precautions at all times CARDIOVASCULAR: Follow hemodynamics. Vital signs per facility protocol GI & NUTRITION: Continue with nutritional support. Continue stool softeners and laxatives as needed. KIDNEYS & ELECTROLYTES: Strict monitoring of intake, output and overall fluid balance. Avoid nephrotoxic medications to the extent possible. Medications to be dosed according to renal function. Monitor electrolytes and replace as needed ENDOCRINE: Maintain blood glucose between 100-180 at all times. Hypoglycemia protocol in place INFECTIOUS DISEASE: Trend temperature, WBC and procalcitonin level Follow cultures, deescalate antibiotics as soon as possible. Panculture if new onset fever ONCOLOGY/HEMATOLOGY/COAGULATION: Monitor for s/s of bleeding Monitor hemoglobin, coagulation studies as needed SKIN: Pressure ulcer prevention per facility protocol Specialty mattress ORTHO/REHAB: Continue PT/OT Prophylaxis: Continue GI and DVT prophylaxis Code Status: Full Resuscitation Disposition: TBD Other: Total patient care time exceeds 35 minutes excluding all procedures. SHAHID VALDERRAMA July 21, 2024 13:54
--- NOTE | 2024-07-21 14:11 | NUR ---
cm note spoke to Anna primary nurse and state Dr. Toure has given rx for po antibiotics. no more IV antibiotics needed. also states will instruct pt's mother on wound care needed for pt. will work on this this afternoon with pt's mother.
--- NOTE | 2024-07-21 16:17 | NUR ---
[facility] Consult: Patient assessed by wound healing team. See wound assessment. Assessment and recommendations provided to primary nurse. Education provided. Wound care done. Addendum: 07/22/24 at 1100 by KENYATTA FRANCISCO RN RN/ Amended: Links added.
--- NOTE | 2024-07-21 17:10 | PN ---
INFECTIOUS DISEASE PROGRESS NOTE Date of Service: July 21, 2024 SUBJECTIVE: This 24 year old male patient who was seen and examined at bedside in room 328. Patient is status post I&D and debridement of to right thigh abscess on 07/16/2024. Patient is afebrile, temperature is 98.8�. From Infectious Disease standpoint patient can be discharged on amoxicillin 500 mg p.o. t.i.d. and doxycycline 100 mg p.o. b.i.d. x 10 days when ready to discharge. Prescription was written. PHYSICAL EXAM EYES: Anicteric. Pupils equal and reactive. HENT: No oral thrush seen, moist Oral mucosa. NECK: Supple, no JVD or thyromegaly. LUNGS: Good air entry. No rales, no rhonchi. CARDIOVASCULAR: S1, S2 regular. No murmur heard. ABDOMEN: Soft, non tender, bowel sounds present, no organomegaly. CENTRAL NERVOUS SYSTEM: Awake, alert, oriented x 3. SKIN: No rashes, no swelling. LYMPHATICS: No peripheral lymphadenopathy MUSCULOSKELETAL: No joint swelling, erythema or tenderness. EXTREMITIES: Right great toe diabetic ulcer with abscess. Left great toe callus. Right inner thigh abscess, s/p I&D and debridement. BACK: No deformity, no pressure ulcer. GENITOURINARY: No dysuria or hematuria. Vital Sign (Last 12 Hours) 07/21/24 07/21/24 07/21/24 08:00 12:00 16:00 Temp 98.2 98.8 98.8 Pulse 55 83 93 Resp 18 19 17 B/P (MAP) 125/59 107/70 100/61 Pulse Ox 100 96 85 O2 Delivery Room Air Room Air Room Air Intake & Output (last 24hrs) 07/20/24 07/20/24 07/21/24 15:00 23:00 07:00 Intake Total 1500 ml Balance 1500 ml LABS: Laboratory: Test 07/21/24 15:52 07/21/24 03:50 07/20/24 16:56 Range/Units Whole Blood Glucose 214 H 70-110 MG/DL White Blood Count 4.6 L 4.8-10.8 K/uL Red Blood Count 5.66 4.50-6.20 MIL/uL Hemoglobin 14.1 14.0-18.0 g/dL Hematocrit 42.0 42-54 % Mean Corpuscular Volume 74.2 L 79-99 fL Mean Corpuscular Hemoglobin 24.9 L 27.0-33.0 pg Mean Corpuscular Hemoglobin Concent 33.6 32.0-36.0 g/dL Red Cell Distribution Width 13.3 11.0-15.5 % Platelet Count 425 H 130-400 K/uL Mean Platelet Volume 8.5 7.5-10.5 fL Nucleated Red Blood Cells 0.0 0.0-0.19 % Red Blood Cell Morphology See comments Sodium Level 139 136-145 mmol/L Potassium Level 3.8 3.5-5.1 mmol/L Chloride Level 104 101-111 mmol/L Carbon Dioxide Level 28 21-32 mmol/L Blood Urea Nitrogen 7 7-18 mg/dL Creatinine 0.7 0.5-1.3 mg/dL Glomerular Filtration Rate Calc 133 >90 mL/min Random Glucose 96 70-105 mg/dL Total Calcium 8.9 8.5-10.1 mg/dL Magnesium Level 2.40 1.80-2.40 mg/dL Total Bilirubin 0.3 0.2-1.0 mg/dL Aspartate Amino Transf (AST/SGOT) 13 10-37 U/L Alanine Aminotransferase (ALT/SGPT) 13 12-78 U/L Alkaline Phosphatase 61 50-136 U/L Total Protein 6.8 6.0-8.3 g/dL Albumin 2.6 L 3.5-5.0 g/dL Vancomycin Level Trough 18.5 # 10.0-20.0 UG/ML ASSESSMENT: Right thigh abscess, status post I&D and debridement. Right lower extremity cellulitis. Right foot diabetic ulcer with abscess. Infection with methicillin-resistant Staphylococcus aureus. Poorly controlled Diabetes mellitus with hemoglobin A1c of 15.4. Morbid obesity. PLAN: From Infectious Disease standpoint patient can be discharged on amoxicillin 500 mg p.o. t.i.d. and doxycycline 100 mg p.o. b.i.d. x 10 days when ready to discharge. Prescription was written. This case was reviewed and discussed with my supervising physician and the above assessment and plan was formulated and agreed upon. ATTESTATION BY PHYSICIAN I have seen and examined the patient. I reviewed the documentation, medical decision making, and treatment plan as noted by the mid-level provider above. I agree with the findings and plan of care. ROMELIAALTON ROSARIO MD, [facility] July 21, 2024 17:10
[2024-07-21 17:11] LABS: COXSACKIE A16 IGG Negative titer (Neg:<1:100); COXSACKIE A16 IGM Negative titer (Neg:<1:10); COXSACKIE A24 IGG Negative titer (Neg:<1:100); COXSACKIE A24 IGM Negative titer (Neg:<1:10); COXSACKIE A7 IGG Negative titer (Neg:<1:100); COXSACKIE A7 IGM Negative titer (Neg:<1:10); COXSACKIE A9 IGM Negative titer (Neg:<1:10)
--- NOTE | 2024-07-21 19:15 | PN ---
[facility] PROGRESS NOTE Date of Service: July 21, 2024 Time of Service: 19:11 SUBJECTIVE: 07/06 patient seen at bedside, no acute events overnight. He has been afebrile, hemodynamically stable saturating well on room air. His only complaint is pain when he is ambulating, his right lower extremity proximal to the knee joint on the medial aspect has erythema induration, no fluctuance noted and is tender to palpation. There is no crepitus noted. Outlined the margins of the lesion and we will continue with broad-spectrum antibiotics. WBC improved from 13.9 down to 12.9, blood sugars still quite elevated, diabetic medications have been adj usted by slab lifting supervisor, appreciate their assistance. A1c pending, we will follow up. Podiatry recommendations regarding diabetic foot ulcer on the 1st great toe are still pending. 07/07 patient seen at bedside, no acute events overnight. He has been afebrile, hemodynamically stable saturating well on room air. Area of cellulitis appears to be improved in color and swelling is diminished. Foot x-ray showing possible retained foreign body. Podiatry recommending a bone scan has MRI is contraindicated with foreign body, to assess for osteomyelitis. We will follow up with Endocrinology recommendations. 07/08 bone scan pending today, we will follow up postprocedure. Wound cultures are still pending, we will continue to follow. Patient has cellulitis in his right medial thigh continues to improve, swelling and erythema have retracted significantly. Labs are relatively unremarkable. Insulin adjusted by endocrinology, appreciate recommendations. 07/09 patient seen at bedside, no acute events overnight. Sensitivities are growing out Enterococcus and MRSA, infectious disease consulted for this discharge antibiotics. Patient counseled extensively on the importance of glycemic control. 07/10 infectious Disease recommending PICC line with follow up at [facility] for outpatient IV antibiotics. Once this is completed patient will be good candidate for discharge 5 patient seen at bedside, no acute events overnight. PICC line has been successfully placed, still pending acceptance to [facility]. Once he was ac ceptance will be good candidate for discharge. 07/12 patient seen at bedside, no acute events overnight. Still pending acceptanc e to [facility]. Once he was acceptance will be good candidate for discharge. 07/13 patient seen at bedside, no acute events overnight. Still pending acceptance to [facility]. Once he was acceptance will be good candidate for discharge. 07/14 patient seen at bedside, no acute events overnight. [facility]15 patient is seen and examined at bedside, no acute events overnight, at the time of my visit, the patient has been started on supplemental oxygen via nasal cannula at 2 L, he is saturating 92-93%, he feels mild short of breath but denied chest pain, not actively coughing. He is getting IV antibiotics during my visit, no family members at bedside. 07/16 Patient seen and examined at bedside, no acute events overnight, getting iv antibiotics, NPO, schedule to go to the OR for I&D right lower extremity abscess. 07/17 patient is seen and examined at bedside, case discussed with the RN, no acute events overnight, patient getting IV antibiotics during my visit, comfortably in bed, following commands, saturating normal on room air, hemodynamically stable. Grandmother is at bedside during my visit, updated, all questions answered. Patient underwent incision and drainage of right thigh abscess yesterday, tolerated the procedure well. Currently getting good pain control with current medical management. 07/18 patient is seen and examined at bedside, case discussed with the RN, no acute events overnight, patient is sitting comfortable in the bed, saturating normal on room air, denies chest pain. He is getting broad-spectrum IV antibiotics. No family at bedside during my visit. 07/19 patient is seen and examined at bedside, case discussed with the RN, no acute events overnight, during my visit the patient is alert and oriented x3, following commands, comfortably in bed, hemodynamically stable, denied chest pain, he denied shortness a breath, no nausea, no vomiting, no family members at bedside during my visit. Serology tests requested by silicator so far negative. 07/20 patient is seen and examined at bedside, case discussed with the RN, no acute events overnight, patient getting IV antibiotics during my visit, comfortably in bed, following commands, saturating normal on room air, hemodynamically stable. No family at bedside. Status post incision and drainage 07/16/24. Culture positive for Enterococcus faecalis, Staphylococcus aureus/MRSA. Continue IV antibiotics per ID recommendations. Patient also morbidly obese, echocardiogram shows ejection fraction 20%, continue to follow Cardiology input and recommendations. Serology tests for myocarditis so far negative. 07/21 seen at bedside, no acute events overnight. Patient likely to get p.o. antibiotics per Infectious Disease, Wound Care draining family at bedside, patient will be good candidate for discharge tomorrow once she displays adequate wound care. REVIEW OF SYSTEMS 12 point review of systems negative unless noted in HPI PHYSICAL EXAM GENERAL APPEARANCE: The patient is awake, alert, and oriented, in no acute cardiopulmonary distress. Patient is obese NEUROLOGICAL: Cranial nerves II-XII grossly intact. Motor is 5/5 in bilateral upper and lower extremities proximal to distal. No sensory deficits. HEENT: Face is symmetric. Pupils are equal and reactive. Extraocular movements are intact. NECK: Supple. No JVD. No thyromegaly. No submental, submandibular, pre- /postauricular, occipital or supraclavicular lymphadenopathy. CHEST: Normal chest expansion. No Telemetry. LUNGS: Absence of any rales, rhonchi or any wheezing. CARDIOVASCULAR: Regular. S1 and S2 normal. No appreciable rubs, murmurs or gallops. ABDOMEN: Soft, nontender, and nondistended. There is no rebound, voluntary guarding, or rigidity. : Deferred. No Harden. EXTREMITIES: Patient has erythema on the posterior aspect of the leg involving the knee. He has redness traveling down to the leg to the foot. He has swelling noted. Area is tender to palpation. Additionally he has a ulcer noted in the 1st toe of the right foot. He has blackish discoloration with possible eschar noted SKIN: No skin breakdown. Vital Signs (last 8hr) Date Time Temp Pulse Resp B/P (MAP) Pulse Ox O2 Delivery O2 Flow Rate FiO2 07/21/24 16:00 98.8 93 17 100/61 85 Room Air 07/21/24 12:00 98.8 83 19 107/70 96 Room Air LABS: Laboratory: Test 07/21/24 17:08 07/21/24 15:52 07/21/24 03:50 Range/Units Vancomycin Level Trough 17.0 10.0-20.0 UG/ML Whole Blood Glucose 214 H 70-110 MG/DL White Blood Count 4.6 L 4.8-10.8 K/uL Red Blood Count 5.66 4.50-6.20 MIL/uL Hemoglobin 14.1 14.0-18.0 g/dL Hematocrit 42.0 42-54 % Mean Corpuscular Volume 74.2 L 79-99 fL Mean Corpuscular Hemoglobin 24.9 L 27.0-33.0 pg Mean Corpuscular Hemoglobin Concent 33.6 32.0-36.0 g/dL Red Cell Distribution Width 13.3 11.0-15.5 % Platelet Count 425 H 130-400 K/uL Mean Platelet Volume 8.5 7.5-10.5 fL Nucleated Red Blood Cells 0.0 0.0-0.19 % Red Blood Cell Morphology See comments Sodium Level 139 136-145 mmol/L Potassium Level 3.8 3.5-5.1 mmol/L Chloride Level 104 101-111 mmol/L Carbon Dioxide Level 28 21-32 mmol/L Blood Urea Nitrogen 7 7-18 mg/dL Creatinine 0.7 0.5-1.3 mg/dL Glomerular Filtration Rate Calc 133 >90 mL/min Random Glucose 96 70-105 mg/dL Total Calcium 8.9 8.5-10.1 mg/dL Magnesium Level 2.40 1.80-2.40 mg/dL Total Bilirubin 0.3 0.2-1.0 mg/dL Aspartate Amino Transf (AST/SGOT) 13 10-37 U/L Alanine Aminotransferase (ALT/SGPT) 13 12-78 U/L Alkaline Phosphatase 61 50-136 U/L Total Protein 6.8 6.0-8.3 g/dL Albumin 2.6 L 3.5-5.0 g/dL Current Medications Medications (Trade) Dose Ordered Sig/Morales Route PRN Reason Start Time Stop Time Status Last Admin Dose Admin Acetaminophen (TYLenol 325MG TAB) 650 mg Q6H PRN PO MILD PAIN (1-3) 07/06/24 13:30 08/05/24 13:29 07/07/24 14:01 650 MG Acetaminophen/ Hydrocodone Bitart (NORco 5/325MG) 1 tab Q6H PRN PO MODERATE PAIN (4-6) 07/06/24 13:30 07/11/24 13:29 DC 07/10/24 19:19 1 TAB Alteplase, Recombinant (CathFLO 2MG VIAL) 1 mg ONCE IVCATH 07/12/24 13:30 07/13/24 19:09 DC 07/12/24 18:20 1 MG Cefepime HCl (MAXipime 1 GM vial) 1 gm Q8H IVPB 07/12/24 12:00 07/22/24 11:59 07/21/24 13:27 1 GM Dextrose (D50w) 50 ml AD PRN IV HYPOGLYCEMIA PROTOCOL 07/05/24 15:00 08/04/24 14:59 Diphenhydramine HCl (BENAdryl INJ) 25 mg ONCE STAT IV 07/15/24 16:42 07/15/24 16:47 DC 07/15/24 16:52 25 MG Enoxaparin Sodium (Lovenox) 30 mg DAILY SQ 07/06/24 09:00 07/15/24 14:28 DC 07/15/24 09:34 30 MG Enoxaparin Sodium (Lovenox) 40 mg BID SQ 07/15/24 21:00 08/05/24 08:59 07/21/24 09:48 40 MG Famotidine (Pepcid 20mg Vial) 20 mg BID IV 07/05/24 21:00 08/04/24 20:59 07/21/24 09:48 20 MG Furosemide (LASix 20MG TAB) 20 mg BID@09,17 PO 07/19/24 09:00 08/18/24 08:59 07/21/24 17:37 20 MG Furosemide (LASix 20MG VIAL) 20 mg Q12H IV 07/17/24 16:30 07/18/24 22:21 DC 07/18/24 17:15 20 MG Glucagon (Glucagon 1mg Kit) 1 mg AD PRN IM HYPOGLYCEMIA PROTOCOL 07/05/24 15:00 08/04/24 14:59 Insulin Glargine (LANtus 100 UNITS/ML 10 ML VIAL) 15 units DAILY SQ 07/05/24 15:00 07/07/24 22:00 DC 07/07/24 08:47 15 UNITS Insulin Glargine (LANtus 100 UNITS/ML 10 ML VIAL) 40 units DAILY07 SQ 07/08/24 07:00 07/08/24 21:03 DC 07/08/24 07:54 40 UNITS Insulin Glargine (LANtus 100 UNITS/ML 10 ML VIAL) 50 units DAILY07 SQ 07/13/24 07:00 07/16/24 07:20 DC 07/16/24 06:37 50 UNITS Insulin Glargine (LANtus 100 UNITS/ML 10 ML VIAL) 60 units DAILY07 SQ 07/09/24 07:00 07/13/24 06:18 DC 07/13/24 06:17 60 UNITS Insulin Glargine (LANtus 100 UNITS/ML 10 ML VIAL) 60 units DAILY07 07/17/24 07:00 08/16/24 06:59 07/21/24 06:29 60 UNITS Insulin Human Regular (humuLIN R 100 UNIT/ML 3ML) 10 unit TIDAC SQ 07/06/24 07:30 07/07/24 22:00 DC 07/07/24 17:19 10 UNIT Insulin Human Regular (humuLIN R 100 UNIT/ML 3ML) 10 unit TIDAC SQ 07/13/24 07:30 07/15/24 21:41 DC 07/15/24 17:09 10 UNIT Insulin Human Regular (humuLIN R 100 UNIT/ML 3ML) 15 unit TIDAC SQ 07/16/24 07:30 07/16/24 22:08 DC 07/16/24 17:34 15 UNIT Insulin Human Regular (humuLIN R 100 UNIT/ML 3ML) 16 unit TIDAC SQ 07/08/24 07:30 07/08/24 21:03 DC 07/08/24 17:33 16 UNIT Insulin Human Regular (humuLIN R 100 UNIT/ML 3ML) 20 unit TIDAC SQ 07/17/24 07:30 08/16/24 07:29 07/21/24 17:40 20 UNIT Insulin Human Regular (humuLIN R 100 UNIT/ML 3ML) 22 unit TIDAC SQ 07/09/24 07:30 07/09/24 21:14 DC 07/09/24 17:44 22 UNIT Insulin Human Regular (humuLIN R 100 UNIT/ML 3ML) 25 unit TIDAC SQ 07/10/24 07:30 07/13/24 06:18 DC 07/10/24 19:13 25 UNIT Insulin Human Regular (humuLIN R 100 UNIT/ML 3ML) INSULIN SLIDING SCAL... ACHS 07/06/24 07:30 08/05/24 07:29 07/21/24 17:39 4 UNIT Insulin Human Regular (humuLIN R 100 UNIT/ML 3ML) INSULIN SLIDING SCAL... Q6H6 07/05/24 18:00 07/05/24 21:19 DC 07/05/24 17:43 8 UNIT Ketorolac Tromethamine (toRADol) 15 mg Q6H PRN IM MODERATE PAIN (4-6) 07/17/24 13:30 07/22/24 13:29 Ketorolac Tromethamine (toRADol) 15 mg Q6H PRN IV MODERATE PAIN (4-6) 07/05/24 17:00 07/07/24 06:16 DC 07/05/24 21:03 15 MG Leptospermum Honey (Medihoney) 1 APPLICATION DAILY TP 07/07/24 09:00 08/06/24 08:59 07/21/24 09:49 1 APPL Magnesium Sulfate 50 ml @ 0 mls/hr PROTOCOL IV 07/19/24 10:00 08/18/24 09:59 07/20/24 19:58 25 MLS/HR Magnesium Sulfate 50 ml @ 0 mls/hr PROTOCOL PRN IV low magnesium 07/07/24 10:00 07/19/24 09:55 DC 07/19/24 09:43 25 MLS/HR Methylprednisolone Sodium Succinate (Solu-medROL 125MG) 80 mg ONCE STAT IVP 07/15/24 16:42 07/15/24 16:47 DC 07/15/24 16:52 80 MG Metoprolol Succinate (TopROL XL) 12.5 mg DAILY PO 07/17/24 14:00 08/16/24 13:59 07/21/24 09:49 12.5 MG Morphine Sulfate (morPHINE 2MG SYG) 2 mg Q6H PRN IVP SEVERE PAIN (7-10) 07/05/24 17:00 07/10/24 19:59 DC Piperacillin Sod/ Tazobactam Sod (Zosyn 3.375gm+NS 50ml) 3.375 gm Q8H IV 07/11/24 00:00 07/12/24 11:46 DC 07/12/24 08:51 3.375 GM Piperacillin Sod/ Tazobactam Sod (Zosyn 3.375gm+NS 50ml) 3.375 gm Q8H IVPB 07/05/24 14:30 07/10/24 03:41 DC 07/10/24 00:09 3.375 GM Piperacillin Sod/ Tazobactam Sod (Zosyn 3.375gm+NS 50ml) 3.375 gm Q8H IVPB 07/10/24 08:00 07/10/24 09:45 DC Potassium Chloride 100 ml @ 100 mls/hr AD PRN IV POTASSIUM PROTOCOL 07/07/24 10:00 08/06/24 09:59 07/14/24 14:24 100 MLS/HR Potassium Chloride (K-Dur/Klor-Con 20meq) 20 meq AD PRN PO POTASSIUM PROTOCOL 07/07/24 10:00 08/06/24 09:59 07/21/24 17:44 20 MEQ Potassium Chloride (KCl 10% Elixir 20meq/15ml) 20 meq AD PRN PO POTASSIUM PROTOCOL 07/07/24 10:00 08/06/24 09:59 Sacubitril/ Valsartan (Entresto 24 Mg-26 Mg Tablet) 1 each BID PO 07/17/24 21:00 08/16/24 20:59 07/21/24 09:49 1 EACH Sodium Chloride 250 ml @ 125 mls/hr AD IV 07/14/24 21:00 07/14/24 23:59 DC 07/14/24 20:46 125 MLS/HR Sodium Chloride 1,000 ml @ 100 mls/hr Q10H IV 07/05/24 14:30 07/11/24 03:05 DC 07/09/24 15:24 100 MLS/HR Sodium Chloride (NS 50ml) 50 ml AD IV 07/05/24 18:00 07/06/24 13:20 DC Spironolactone (Aldactone 25mg) 25 mg BID PO 07/17/24 21:00 08/16/24 20:59 07/21/24 09:49 25 MG Vancomycin HCl 250 ml @ 125 mls/hr Q6H IV 07/10/24 21:00 07/15/24 06:33 DC 07/13/24 17:42 125 MLS/HR Vancomycin HCl 250 ml @ 125 mls/hr Q6H IV 07/14/24 00:00 07/14/24 20:29 DC 07/14/24 19:38 125 MLS/HR Vancomycin HCl 250 ml @ 125 mls/hr Q6H IV 07/15/24 12:00 07/15/24 20:48 DC 07/15/24 20:34 125 MLS/HR Vancomycin HCl 250 ml @ 125 mls/hr Q6H IV 07/16/24 03:00 07/18/24 00:47 DC 07/18/24 00:09 125 MLS/HR Vancomycin HCl 250 ml @ 125 mls/hr Q6H IV 07/18/24 06:00 07/28/24 05:59 07/21/24 17:55 125 MLS/HR Vancomycin HCl 250 ml @ 125 mls/hr Q8H IV 07/07/24 13:00 07/09/24 12:53 DC 07/09/24 04:38 125 MLS/HR Vancomycin HCl 250 ml @ 125 mls/hr Q8H IV 07/09/24 21:00 07/10/24 09:45 DC 07/09/24 21:43 125 MLS/HR Vancomycin HCl 250 ml @ 125 mls/hr Q8H6 IV 07/14/24 22:00 07/14/24 19:24 DC Vancomycin HCl 250 ml @ 125 mls/hr Q8H6 IV 07/15/24 06:00 07/15/24 06:29 DC 07/15/24 06:00 125 MLS/HR Vancomycin HCl 250 ml @ 125 mls/hr Q8H6 IV 07/15/24 14:00 07/15/24 06:33 DC Vancomycin HCl 250 ml @ 167 mls/hr Q12H IV 07/06/24 01:00 07/07/24 12:31 DC 07/07/24 01:11 167 MLS/HR Vancomycin HCl (Vancomycin 750mg) 750 mg ONCE IVPB 07/14/24 21:00 07/14/24 23:59 DC 07/14/24 20:45 750 MG Vancomycin HCl (Vancomycin Protocol) 1 each AD IV 07/05/24 14:30 07/10/24 20:22 DC Vancomycin HCl (Vancomycin Protocol) 1 each AD IV 07/10/24 21:00 07/24/24 20:59 DIAGNOSTICS / RADIOLOGY: [ ] ASSESSMENT: Right Leg cellulitis with abscess right inner thigh POA Status post incision and drainage 07/16/24 Culture positive for Enterococcus faecalis, Staphylococcus aureus/MRSA. Hyperglycemia secondary to uncontrolled diabetes mellitus type 2 last A1C 15.5, POA Foot ulcer of the 1st toe of the right foot, MRSA and Enterofaecalis, POA Hyponatremia secondary to hyperglycemia Dehydration, resolved Obesity BMI 53.1 Suspected RUTH/OHS undiagnosed and untreated POA Acute hypoxemic resp failure not POA Acute systolic congestive heart failure not POA Well's score for PE 6 points ( Moderate) PLAN: -patient remains admitted to the medical floor - continue the patient on broad-spectrum IV antibiotics -Patient underwent incision and drainage of right thigh abscess 07/16/24, results of culture positive for Staphylococcus aureus-MRSA. -continue to follow surgical input and recommendations, continue dressing changes - continue to follow infectious disease input and recommendations, currently the patient on vancomycin and cefepime IV. - Podiatry input noted and appreciated, continue with Medihoney dressing to both great toes. Patient to continue ambulation with surgical shoes. Once the patient is discharged he can follow up as an outpatient with the ped rn building for appropriate shoe gear with insoles to offload the great toe ulcer sites to his feet bilaterally. -patient currently saturating normal on room air, CT chest PE protocol negative, continue to follow Pulmonary input and recommendation. -echocardiogram showing LVEF 25-30%. Severe global hypokinesis. Case discussed with silicator, etiology behind acute systolic CHF remains unknown, differentials include viral myocarditis, idiopathic cardiomyopathy, poorly- controlled diabetes induced cardiomyopathy. Because of the patient's age, CAD is the bottom of the differential. Requested viral myocarditis panel (HIV, CMV, EBV, Coxsackie a and b, hepatitis panel). Serology tests so far negative. Per silicator, also recommended that the patient undergo an FDG PET scan (as an outpatient). Patient is started on metoprolol succinate 12.5 mg p.o. daily and Entresto 24/26 mg tablet one tablet p.o. b.i.d.. NEURO: Minimize central acting medications as possible. Fall Precautions. Well lighted room through the day and minimize interruptions through the night to prevent acute delirium. PULMONARY: Supplemental 02 as needed BiPAP as necessary, for respiratory distress Titrate Fio2 to keep Spo2 > or = 90% DuoNeb�s and CPT as needed IS hourly while awake for pulmonary hygiene prn Out of bed to chair as tolerated Maintain aspiration precautions at all times CARDIOVASCULAR: Follow hemodynamics. Vital signs per facility protocol GI & NUTRITION: Continue nutritional support Aspirations precautions Prokinetic agents and laxatives as needed KIDNEYS & ELECTROLYTES: Strict monitoring of intake and output Daily weights Avoid nephrotoxic agents Monitor electrolytes and replace as needed Goal urine output of 30mL/hr or 0.5mL/kg/hr Medications to be dosed according to renal function. Avoid contrast if possible ENDOCRINE: Maintain blood glucose between 100-180 at all times. Insulin sliding scale for blood glucose management Hypoglycemia and hyperglycemia protocol in place INFECTIOUS DISEASE: Trend temperature, WBC and procalcitonin level Follow cultures, deescalate antibiotics as soon as possible. Panculture if new onset fever HEMATOLOGY & COAGULATION: Monitor H&H. Keep Hgb > 7 Transfuse 1 unit of PRBC for Hgb < 7 Transfuse 1 pack of platelets of platelets < 20, 000 Watch for any signs and symptoms of bleeding SKIN: Pressure ulcer prevention per facility protocol Specialty mattress as needed ORTHO/REHAB Continue PT/OT PRN: MEDICATIONS Tylenol 650 mg po every 4 hrs for fever zofran 4 mg IV every 6 hrs for n/v Hydralazine 5 mg IV every 4 hrs systolic pressure > 160 bowel regiment: lactulose 20 gm PO BID PRN constipation Supportive measures: Continue GI and DVT prophylaxis Disposition: Pending improvement in clinical condition All questions answered time spent: > 35 min MARICARMEN MCDANIELS MD July 21, 2024 19:15
--- NOTE | 2024-07-21 19:53 | PN ---
endocrinology progress note Date of Service: 07/21/2024 subjective: glucose are improving patient used to inject lantus and humalog but not injecting for many months. he does not check glucose at home. hba1c>15.0% right foot wound is positive for MRSA and Enterofaecalis, right medial thigh abscess I&D PAST MEDICAL HISTORY: History of foot ulcer in the 1st toe of the right foot PAST SURGICAL HISTORY: Denied any previous surgical history PAST SOCIAL HISTORY: Denied any smoking, alcohol, drug use FAMILY HISTORY: Denied any pertinent family history Coded Allergies: No Known Drug Allergies (Unverified Allergy, Unknown, 10/08/18) ASSESSMENT: Hyperglycemia secondary to uncontrolled diabetes mellitus type POA patient used to inject lantus and humalog but not injecting for many months. he does not check glucose at home. hba1c>15.0% talia-65 abs are negative, so likely type 2 dm. Right Leg cellulitis POA MRSA and Enterofaecalis, ID following right medial thigh abscess I&D Foot ulcer of the 1st toe of the right foot POA Hyponatremia secondary to hyperglycemia Dehydration Obesity BMI 53.1 PLAN: continue lantus 60 units daily continue regular insulin 20 units tid before meals for daytime hyperglycemia. continue medium dose insulin ssi monitor glucose qx6 hourly patient will need insulin at discharge Vitals/Labs Vital Signs Date Time Temp Pulse Resp B/P (MAP) Pulse Ox O2 Delivery O2 Flow Rate FiO2 07/21/24 16:00 98.8 93 17 100/61 85 Room Air 07/20/24 20:00 0 21 Laboratory Tests 07/21/24 03:50 Medications Current Medications Ketorolac Tromethamine 15 mg ONCE ONCE IM Last administered on 07/05/24at 13:56; Start 07/05/24 at 11:00; Stop 07/05/24 at 11:03; Status DC Vancomycin HCl 1 gm ONCE ONCE IV Last administered on 07/05/24at 14:15; Start 07/05/24 at 13:00; Stop 07/05/24 at 13:01; Status DC Ceftriaxone Sodium 2 gm ONCE ONCE IVPB Last administered on 07/05/24at 13:55; Start 07/05/24 at 12:30; Stop 07/05/24 at 12:31; Status DC Sodium Chloride 1,000 ml @ 0 mls/hr ONCE ONCE IV Last administered on 07/05/24at 13:48; Start 07/05/24 at 12:30; Stop 07/05/24 at 12:31; Status DC Insulin Human Regular 5 unit ONCE ONCE IV Last administered on 07/05/24at 14:01; Start 07/05/24 at 12:30; Stop 07/05/24 at 12:31; Status DC Famotidine 20 mg BID IV Last administered on 07/21/24at 09:48; Start 07/05/24 at 21:00; Stop 08/04/24 at 20:59 Vancomycin HCl 1 each AD IV; Start 07/05/24 at 14:30; Stop 07/10/24 at 20:22; Status DC Piperacillin Sod/ Tazobactam Sod 3.375 gm Q8H IVPB Last administered on 07/10/24at 00:09; Start 07/05/24 at 14:30; Stop 07/10/24 at 03:41; Status DC Sodium Chloride 50 ml AD IV; Start 07/05/24 at 18:00; Stop 07/06/24 at 13:20; Status DC Insulin Human Regular INSULIN SLIDING SCAL... Q6H6 SQ Last administered on 07/05/24at 17:43; Start 07/05/24 at 18:00; Stop 07/05/24 at 21:19; Status DC Sodium Chloride 1,000 ml @ 100 mls/hr Q10H IV Last administered on 07/09/24at 15:24; Start 07/05/24 at 14:30; Stop 07/11/24 at 03:05; Status DC Insulin Glargine 15 units DAILY SQ Last administered on 07/07/24at 08:47; Start 07/05/24 at 15:00; Stop 07/07/24 at 22:00; Status DC Dextrose 50 ml AD PRN IV; Start 07/05/24 at 15:00; Stop 08/04/24 at 14:59 Glucagon 1 mg AD PRN IM; Start 07/05/24 at 15:00; Stop 08/04/24 at 14:59 Vancomycin HCl 250 ml @ 250 mls/hr ONCE ONCE IV Last administered on 07/05/24at 15:11; Start 07/05/24 at 15:00; Stop 07/05/24 at 15:59; Status DC Vancomycin HCl 250 ml @ 167 mls/hr Q12H IV Last administered on 07/07/24at 01:11; Start 07/06/24 at 01:00; Stop 07/07/24 at 12:31; Status DC Iohexol 75 ml STK-MED ONCE IV; Start 07/05/24 at 15:20; Stop 07/05/24 at 15:21; Status DC Ketorolac Tromethamine 15 mg Q6H PRN IV Last administered on 07/05/24at 21:03; Start 07/05/24 at 17:00; Stop 07/07/24 at 06:16; Status DC Morphine Sulfate 2 mg Q6H PRN IVP; Start 07/05/24 at 17:00; Stop 07/10/24 at 19:59; Status DC Insulin Human Regular 10 unit TIDAC SQ Last administered on 07/07/24at 17:19; Start 07/06/24 at 07:30; Stop 07/07/24 at 22:00; Status DC Insulin Human Regular INSULIN SLIDING SCAL... ACHS SQ Last administered on 07/21/24at 17:39; Start 07/06/24 at 07:30; Stop 08/05/24 at 07:29 Enoxaparin Sodium 30 mg DAILY SQ Last administered on 07/15/24at 09:34; Start 07/06/24 at 09:00; Stop 07/15/24 at 14:28; Status DC Acetaminophen 650 mg Q6H PRN PO Last administered on 07/07/24at 14:01; Start 07/06/24 at 13:30; Stop 08/05/24 at 13:29 Acetaminophen/ Hydrocodone Bitart 1 tab Q6H PRN PO Last administered on 07/10/24at 19:19; Start 07/06/24 at 13:30; Stop 07/11/24 at 13:29; Status DC Leptospermum Honey 1 APPLICATION DAILY TP Last administered on 07/21/24at 09:49; Start 07/07/24 at 09:00; Stop 08/06/24 at 08:59 Potassium Chloride 100 ml @ 100 mls/hr AD PRN IV Last administered on 07/14/24at 14:24; Start 07/07/24 at 10:00; Stop 08/06/24 at 09:59 Potassium Chloride 20 meq AD PRN PO; Start 07/07/24 at 10:00; Stop 08/06/24 at 09:59 Potassium Chloride 20 meq AD PRN PO Last administered on 07/21/24at 17:44; Start 07/07/24 at 10:00; Stop 08/06/24 at 09:59 Magnesium Sulfate 50 ml @ 0 mls/hr PROTOCOL PRN IV Last administered on 07/19/24at 09:43; Start 07/07/24 at 10:00; Stop 07/19/24 at 09:55; Status DC Vancomycin HCl 250 ml @ 125 mls/hr Q8H IV Last administered on 07/09/24at 04:38; Start 07/07/24 at 13:00; Stop 07/09/24 at 12:53; Status DC Insulin Glargine 40 units DAILY07 SQ Last administered on 07/08/24at 07:54; Start 07/08/24 at 07:00; Stop 07/08/24 at 21:03; Status DC Insulin Human Regular 16 unit TIDAC SQ Last administered on 07/08/24at 17:33; Start 07/08/24 at 07:30; Stop 07/08/24 at 21:03; Status DC Insulin Glargine 60 units DAILY07 SQ Last administered on 07/13/24at 06:17; Start 07/09/24 at 07:00; Stop 07/13/24 at 06:18; Status DC Insulin Human Regular 22 unit TIDAC SQ Last administered on 07/09/24at 17:44; Start 07/09/24 at 07:30; Stop 07/09/24 at 21:14; Status DC Vancomycin HCl 250 ml @ 125 mls/hr Q8H IV Last administered on 07/09/24at 21:43; Start 07/09/24 at 21:00; Stop 07/10/24 at 09:45; Status DC Vancomycin HCl 500 ml @ 250 mls/hr ONCE ONCE IV Last administered on 07/09/24at 15:24; Start 07/09/24 at 13:00; Stop 07/09/24 at 14:59; Status DC Insulin Human Regular 25 unit TIDAC SQ Last administered on 07/10/24at 19:13; Start 07/10/24 at 07:30; Stop 07/13/24 at 06:18; Status DC Piperacillin Sod/ Tazobactam Sod 3.375 gm Q8H IVPB; Start 07/10/24 at 08:00; Stop 07/10/24 at 09:45; Status DC Vancomycin HCl 1 each AD IV; Start 07/10/24 at 21:00; Stop 07/24/24 at 20:59 Vancomycin HCl 250 ml @ 125 mls/hr Q6H IV Last administered on 07/13/24at 17:42; Start 07/10/24 at 21:00; Stop 07/15/24 at 06:33; Status DC Piperacillin Sod/ Tazobactam Sod 3.375 gm Q8H IV Last administered on 07/12/24at 08:51; Start 07/11/24 at 00:00; Stop 07/12/24 at 11:46; Status DC Cefepime HCl 1 gm Q8H IVPB Last administered on 07/21/24at 13:27; Start 07/12/24 at 12:00; Stop 07/22/24 at 11:59 Alteplase, Recombinant 1 mg ONCE IVCATH Last administered on 07/12/24at 18:20; Start 07/12/24 at 13:30; Stop 07/13/24 at 19:09; Status DC Insulin Glargine 50 units DAILY07 SQ Last administered on 07/16/24at 06:37; Start 07/13/24 at 07:00; Stop 07/16/24 at 07:20; Status DC Insulin Human Regular 10 unit TIDAC SQ Last administered on 07/15/24at 17:09; Start 07/13/24 at 07:30; Stop 07/15/24 at 21:41; Status DC Vancomycin HCl 250 ml @ 125 mls/hr Q6H IV Last administered on 07/14/24at 19:38; Start 07/14/24 at 00:00; Stop 07/14/24 at 20:29; Status DC Potassium Chloride 40 meq ONCE ONCE PO Last administered on 07/14/24at 13:48; Start 07/14/24 at 13:00; Stop 07/14/24 at 13:02; Status DC Potassium Chloride 100 ml @ 50 mls/hr ONCE ONCE IV; Start 07/14/24 at 13:00; Stop 07/14/24 at 14:59; Status DC Vancomycin HCl 250 ml @ 125 mls/hr Q8H6 IV; Start 07/14/24 at 22:00; Stop 07/14/24 at 19:24; Status DC Vancomycin HCl 250 ml @ 125 mls/hr Q8H6 IV Last administered on 07/15/24at 06:00; Start 07/15/24 at 06:00; Stop 07/15/24 at 06:29; Status DC Vancomycin HCl 750 mg ONCE IVPB Last administered on 07/14/24at 20:45; Start 07/14/24 at 21:00; Stop 07/14/24 at 23:59; Status DC Sodium Chloride 250 ml @ 125 mls/hr AD IV Last administered on 07/14/24at 20:46; Start 07/14/24 at 21:00; Stop 07/14/24 at 23:59; Status DC Vancomycin HCl 250 ml @ 125 mls/hr Q8H6 IV; Start 07/15/24 at 14:00; Stop 07/15/24 at 06:33; Status DC Vancomycin HCl 250 ml @ 125 mls/hr Q6H IV Last administered on 07/15/24at 20:34; Start 07/15/24 at 12:00; Stop 07/15/24 at 20:48; Status DC Furosemide 40 mg ONCE ONCE IV Last administered on 07/15/24at 14:00; Start 07/15/24 at 14:00; Stop 07/15/24 at 14:01; Status DC Enoxaparin Sodium 40 mg BID SQ Last administered on 07/21/24at 09:48; Start 07/15/24 at 21:00; Stop 08/05/24 at 08:59 Iohexol 50 ml STK-MED ONCE IV; Start 07/15/24 at 16:25; Stop 07/15/24 at 16:25; Status DC Iohexol 75 ml STK-MED ONCE IV; Start 07/15/24 at 16:25; Stop 07/15/24 at 16:25; Status DC Methylprednisolone Sodium Succinate 80 mg ONCE STAT IVP Last administered on 07/15/24at 16:52; Start 07/15/24 at 16:42; Stop 07/15/24 at 16:47; Status DC Diphenhydramine HCl 25 mg ONCE STAT IV Last administered on 07/15/24at 16:52; Start 07/15/24 at 16:42; Stop 07/15/24 at 16:47; Status DC Methylprednisolone Sodium Succinate 40 mg STK-MED ONCE .ROUTE; Start 07/15/24 at 16:46; Stop 07/15/24 at 16:46; Status DC Diphenhydramine HCl 50 mg STK-MED ONCE .ROUTE; Start 07/15/24 at 16:46; Stop 07/15/24 at 16:47; Status DC Vancomycin HCl 250 ml @ 125 mls/hr Q6H IV Last administered on 07/18/24at 00:09; Start 07/16/24 at 03:00; Stop 07/18/24 at 00:47; Status DC Insulin Human Regular 15 unit TIDAC SQ Last administered on 07/16/24at 17:34; Start 07/16/24 at 07:30; Stop 07/16/24 at 22:08; Status DC Insulin Glargine 60 units DAILY07 SQ Last administered on 07/21/24at 06:29; Start 07/17/24 at 07:00; Stop 08/16/24 at 06:59 Lidocaine HCl 100 mg STK-MED ONCE .ROUTE; Start 07/16/24 at 11:05; Stop 07/16/24 at 11:06; Status DC Midazolam HCl 2 mg STK-MED ONCE .ROUTE; Start 07/16/24 at 11:09; Stop 07/16/24 at 11:09; Status DC Ondansetron HCl 4 mg STK-MED ONCE .ROUTE; Start 07/16/24 at 11:09; Stop 07/16/24 at 11:09; Status DC Glycopyrrolate 1 mg STK-MED ONCE .ROUTE; Start 07/16/24 at 11:09; Stop 07/16/24 at 11:09; Status DC Propofol 200 mg STK-MED ONCE IV; Start 07/16/24 at 11:09; Stop 07/16/24 at 11:09; Status DC Neostigmine Methylsulfate 10 mg STK-MED ONCE IV; Start 07/16/24 at 11:09; Stop 07/16/24 at 11:10; Status DC Succinylcholine Chloride 200 mg STK-MED ONCE .ROUTE; Start 07/16/24 at 11:10; Stop 07/16/24 at 11:10; Status DC Rocuronium [place] 50 mg STK-MED ONCE .ROUTE; Start 07/16/24 at 11:10; Stop 07/16/24 at 11:10; Status DC Fentanyl Citrate 100 mcg STK-MED ONCE .ROUTE; Start 07/16/24 at 11:10; Stop 07/16/24 at 11:10; Status DC Bupivacaine HCl 5 mg STK-MED ONCE .ROUTE; Start 07/16/24 at 11:47; Stop 07/16/24 at 11:48; Status DC Bupivacaine HCl 150 mg STK-MED ONCE INJ Last administered on 07/16/24at 11:50; Start 07/16/24 at 11:50; Stop 07/16/24 at 12:47; Status DC Insulin Human Regular 20 unit TIDAC SQ Last administered on 07/21/24at 17:40; Start 07/17/24 at 07:30; Stop 08/16/24 at 07:29 Ketorolac Tromethamine 15 mg Q6H PRN IM; Start 07/17/24 at 13:30; Stop 07/22/24 at 13:29 Metoprolol Succinate 12.5 mg DAILY PO Last administered on 07/21/24at 09:49; Start 07/17/24 at 14:00; Stop 08/16/24 at 13:59 Sacubitril/ Valsartan 1 each BID PO Last administered on 07/21/24 09:49; Start 07/17/24 at 21:00; Stop 08/16/24 at 20:59 Furosemide 20 mg Q12H IV Last administered on 07/18/24 17:15; Start 07/17/24 at 16:30; Stop 07/18/24 at 22:21; Status DC Spironolactone 25 mg BID PO Last administered on 07/21/24 09:49; Start 07/17/24 at 21:00; Stop 08/16/24 at 20:59 Vancomycin HCl 250 ml @ 125 mls/hr Q6H IV Last administered on 07/21/24at 17:55; Start 07/18/24 at 06:00; Stop 07/28/24 at 05:59 Furosemide 20 mg BID@09,17 PO Last administered on 07/21/24at 17:37; Start 07/19/24 at 09:00; Stop 08/18/24 at 08:59 Potassium Chloride 40 meq ONCE ONCE PO Last administered on 07/19/24at 10:50; Start 07/19/24 at 10:00; Stop 07/19/24 at 10:01; Status DC Magnesium Sulfate 50 ml @ 0 mls/hr PROTOCOL IV Last administered on 07/20/24at 19:58; Start 07/19/24 at 10:00; Stop 08/18/24 at 09:59 Alteplase, Recombinant 4 mg ONCE ONCE IVCATH Last administered on 07/20/24at 16:39; Start 07/20/24 at 10:30; Stop 07/20/24 at 10:31; Status DC Sterile Water 10 ml STK-MED ONCE .ROUTE Last administered on 07/20/24at 16:39; Start 07/20/24 at 16:33; Stop 07/20/24 at 16:35; Status DC Alteplase, Recombinant 2 mg ONCE ONCE IVCATH Last administered on 07/21/24at 11:48; Start 07/21/24 at 11:30; Stop 07/21/24 at 11:31; Status DC Alteplase, Recombinant 2 mg ONCE ONCE IVCATH Last administered on 07/21/24at 11:48; Start 07/21/24 at 11:30; Stop 07/21/24 at 11:31; Status DC JOSE CASTILLO MD July 21, 2024 19:53
[2024-07-22 02:07] VITALS: BP 131/82; PULSE 91; RESP 19; TEMP 98.4
[2024-07-22 04:09] VITALS: BP 106/48; PULSE 87; RESP 19; TEMP 98.5
[2024-07-22 08:00] VITALS: BP 112/62; PULSE 67; RESP 18; TEMP 98.1
[2024-07-22 08:20] VITALS: O2SAT 96
[2024-07-22] MEDS ORDERED: INSLAN SQ (09:45)
[2024-07-22] MEDS ORDERED: METO25TA3 PO (09:45)
[2024-07-22] MEDS ORDERED: SACU1TAB PO (09:45)
[2024-07-22] MEDS ORDERED: FURO20TA6 PO (09:45)
[2024-07-22] MEDS ORDERED: SPIR25TA6 PO (09:45)
[2024-07-22] MEDS ORDERED: INSU100V3 SQ (09:45)
[2024-07-22 12:00] VITALS: BP 132/86; PULSE 87; RESP 20; TEMP 98
--- NOTE | 2024-07-22 13:55 | PN ---
[facility] PROGRESS NOTE Date Patient Seen: July 22, 2024 Time of Visit: 13:55 Supervising Physician: Dr. Gilma Pena Primary Care Physician: Magno. Billy Villarreal MD Outpatient Specialists: Inpatient Consults: DR Moy Kincaid, DR Reyes , Dr Estevez , Dr Gilbert Carrillo and Dr Toure Attending: Dr Paulette Moore MD PROBLEM LIST: Acute hypoxemic resp failure not POA Acute on chronic combined congestive heart failure, POA EF 25-30% per echo Right Leg cellulitis, improving POA s/p I/D 07/[address] Estevez Hyperglycemia secondary to uncontrolled diabetes mellitus type 2 last A1C 15.5, POA Foot ulcer of the 1st toe of the right foot, MRSA and Enterofaecalis, POA Hyponatremia secondary to hyperglycemia Dehydration, resolved Morbidly Obesity BMI 53.1 Suspected RUTH undiagnosed and untreated POA INTERVAL HISTORY: Patient evaluated at bedside with mother present, sitting up in bed, AAO x3, remains on room air. No nausea or vomiting reported, patient continues with antibiotic treatment at this time per Infectious Disease, as well as pending outpatient antibiotic therapy to be arranged. Patient continues to be followed by Cardiology. We maintain recommendations of outpatient polysomnography at [facility] [place], as well as recommendations to avoid empiric CPAP therapy to avoid inducing central sleep apnea. REVIEW OF SYSTEMS: 12 point ROS reviewed with patient. Pertinent positives mentioned above. Otherwise negative. PHYSICAL EXAM: GENERAL: alert, weak, awake oriented x 3, morbidly obese HEENT: EOMI, Sclera non icteric, moist mucosa NECK: Supple, no JVD, trachea midline LUNGS: Diminished breath sounds bilaterally. No wheezes HEART: Sinus Tachy rate and rhythm. Normal S1 and S2, without murmurs ABD: Morbidly obese. Abdomen soft, nontender. Bowel sounds present EXT: No clubbing cyanosis or edema. tyesha great toe wounds, rt knee redness /cellulitis s/p ID with dressing on, no active bleed or drainage NEURO: Alert and oriented to person, follows commands Vital Signs (last 8hr) Date Time Temp Pulse Resp B/P (MAP) Pulse Ox O2 Delivery O2 Flow Rate FiO2 07/22/24 12:00 98.1 87 20 132/86 96 Room Air 96 07/22/24 08:00 98.1 67 18 112/62 96 Room Air 21 LABS: Hematology Labs: Test 5/12/25 03:50 Range/Units White Blood Count 4.6 L 4.8-10.8 K/uL Red Blood Count 5.66 4.50-6.20 MIL/uL Hemoglobin 14.1 14.0-18.0 g/dL Hematocrit 42.0 42-54 % Mean Corpuscular Volume 74.2 L 79-99 fL Mean Corpuscular Hemoglobin 24.9 L 27.0-33.0 pg Mean Corpuscular Hemoglobin Concent 33.6 32.0-36.0 g/dL Red Cell Distribution Width 13.3 11.0-15.5 % Platelet Count 425 H 130-400 K/uL Mean Platelet Volume 8.5 7.5-10.5 fL Nucleated Red Blood Cells 0.0 0.0-0.19 % Red Blood Cell Morphology See comments Chemistry Labs: Test 07/22/24 11:23 07/21/24 03:50 Range/Units Whole Blood Glucose 147 H 70-110 MG/DL Sodium Level 139 136-145 mmol/L Potassium Level 3.8 3.5-5.1 mmol/L Chloride Level 104 101-111 mmol/L Carbon Dioxide Level 28 21-32 mmol/L Blood Urea Nitrogen 7 7-18 mg/dL Creatinine 0.7 0.5-1.3 mg/dL Glomerular Filtration Rate Calc 133 >90 mL/min Random Glucose 96 70-105 mg/dL Total Calcium 8.9 8.5-10.1 mg/dL Magnesium Level 2.40 1.80-2.40 mg/dL Total Bilirubin 0.3 0.2-1.0 mg/dL Aspartate Amino Transf (AST/SGOT) 13 10-37 U/L Alanine Aminotransferase (ALT/SGPT) 13 12-78 U/L Alkaline Phosphatase 61 50-136 U/L Total Protein 6.8 6.0-8.3 g/dL Albumin 2.6 L 3.5-5.0 g/dL DIAGNOSTICS / RADIOLOGY RESULTS: [ ] PLAN Recommend cardiac evaluation Start lasix and aldactone, monitor labs Order COVID/flu PE (-) per CTA BNP- 875 Echo-EF 25-30% wean o2 as possible. Pt to eval and treat continue Lovenox 40mg sq BID dose for DVT PPX for BMI > 40 Wound care per surgeon NEURO: Minimize central acting medications as possible. Maintain fall precautions, adequate lighting during the day PULMONARY: Supplemental 02 as needed. Maintain aspiration precautions at all times CARDIOVASCULAR: Follow hemodynamics. Vital signs per facility protocol GI & NUTRITION: Continue with nutritional support. Continue stool softeners and laxatives as needed. KIDNEYS & ELECTROLYTES: Strict monitoring of intake, output and overall fluid balance. Avoid nephrotoxic medications to the extent possible. Medications to be dosed according to renal function. Monitor electrolytes and replace as needed ENDOCRINE: Maintain blood glucose between 100-180 at all times. Hypoglycemia protocol in place INFECTIOUS DISEASE: Trend temperature, WBC and procalcitonin level Follow cultures, deescalate antibiotics as soon as possible. Panculture if new onset fever ONCOLOGY/HEMATOLOGY/COAGULATION: Monitor for s/s of bleeding Monitor hemoglobin, coagulation studies as needed SKIN: Pressure ulcer prevention per facility protocol Specialty mattress ORTHO/REHAB: Continue PT/OT Prophylaxis: Continue GI and DVT prophylaxis Code Status: Full Resuscitation Disposition: TBD Other: Total patient care time exceeds 35 minutes excluding all procedures. SHAHID VALDERRAMA July 22, 2024 13:55
--- NOTE | 2024-07-22 14:43 | NUR ---
DISCHARGE PICC LINE WAS REMOVED EARLIER TODAY WOUND CARE INSTRUCTIONS AND EDUCATION WAS PROVIDED TO THE PATIENT AND HIS GRANDMOTHER THE GRANDMOTHER PERFORMED WOUND CARE TO THIGH PATIENT AND GRANDMOTHER ARE AWARE OF ALL FOLLOW UP APPOINTMENTS THEY ARE AWARE OF PRIOR AUTHS REQUIRED ALL QUESTIONS ANSWERED PRIOR TO DISCHARGE
--- NOTE | 2024-07-22 18:54 | DS ---
Discharge Summary Hospital Course Summary: 23-year-old male with no significant past medical history who presented to the hospital secondary to pain in the right leg. Patient states he noted that he was having redness in the right leg which started yesterday. Redness was notable on the posterior aspect of the right knee and was traveling down to the leg. He also has a history of ulcer in the big hallux of the right foot. He has been followed at least for a year by Dr. Mason as outpatient. Patient currently does not use any dressing on the two. He denied any cuts or scrapes to the leg. Denied any fever, chills, chest pain, shortness of breath, abdominal pain, nausea, vomiting. Denied any history of diabetes mellitus. He currently denies taking any medications for diabetes. Denied any falls, syncopal episode. Patient was having 10/10 pain in the right lower extremity. Patient had a knee x-ray done which showed no evidence of fracture or dislocation. He had a venous Doppler done which showed no evidence of venous thrombosis. He was did and started on empiric antibiotics, the cellulitis began to improve afterwards. He was noted to be hyperglycemic, A1c was ordered and was noted to be elevated at 15.4 consistent with uncontrolled diabetes mellitus. Endocrinology was consulted in the patient's insulin was adjusted. Podiatry was consulted for management of the patient's foot ulcers, surgical shoes were ordered and Medihoney was applied to the wounds. Initially the plan was for patient to get outpatient IV antibiotics with good melissa however after several days the patient has cellulitis in the thigh consolidated from induration into an abscess and he became short of breath. General surgery was consulted for I&D. Cardiology was consulted and an echocardiogram was ordered showing a severely decreased ejection fraction of 25-30%, he was started on diuresis and his medications were optimized. He was taken to the OR for I and D where the wound grew Enterococcus faecalis and MRSA, infectious Disease adjusted his antibiotics. Serology tests were ordered for myocarditis. The patient had a deep wound and wound care was consulted for daily packing changes. The patient's grandmother was also instructed on wound care changes. Multiple long sessions of counseling regarding medical compliance was held with patient and his family, he seemed to express understanding and a desire to continue following up and taking his medications. By hospital day 17 he was evaluated as stable and ready for discharge home to continue on antibiotics. . Head Of Loss Prevention(s): Cardiology Infectious disease Podiatry General surgery Pulmonology Endocrinology Procedure(s): Echocardiogram Conclusion The left ventricle is severely dilated. LVIDd is 7.2 cm. There is normal left ventricular wall thickness. LVEF is 25-30%. LVEF = 28% by Hammonds's. GLPS is -10%. Severe global hypokinesis. Indeterminate diastolic dysfunction. Mitral regurgitation is trace. No pericardial effusion. CT angiogram chest CLINICAL INDICATION: rule out PE COMPARISON: None. CT Dose Index (CTDI): 113.50 mGy Dose Length Product (DLP): 1408.10 total mGy PROTOCOL: Contrast: 100 cc of Isovue-370, injected IV, no complications Examination is done at 2.5 millimeter volumetric acquisition after contrast administration. Photography is done at 5 millimeter thick intervals for the thorax. FINDINGS: There is no evidence of pulmonary embolism. The airway is intact. The trachea and major bronchi are unremarkable. No pulmonary infiltrates or mass lesions are seen. However, there is evidence of hypervolemia of the lungs, manifesting as interstitial and alveolar edema. Bilateral pleural effusions are seen, trace on the left, small on the right. The exam of the corky and mediastinum is unremarkable. No evidence of hilar enlargement is seen. The aorta shows no aneurysmal dilatation or significant atheromatous calcification. There is no thoracic aortic dissection. No significant brachiocephalic vascular abnormalities are seen. The heart is unremarkable. It is not enlarged. No significant coronary arterial calcifications are seen. There is a moderate pericardial effusion. The rib cage appears unremarkable. The soft tissues of the chest wall are unremarkable. The dorsal spine shows no significant abnormalities. Limited evaluation of the upper abdomen demonstrates no gross abnormalities. IMPRESSION: No evidence of pulmonary embolism. Hyperlipoidemia which may represent failure including interstitial and alveolar edema, pericardial effusion and bilateral pleural effusions. Exam Type: CHEST 1VW Clinical Information: sob Comparison: None Findings: RightPICC line is noted with tip within the distal superior vena cava and there are no other interval changes. IMPRESSION: Right PICC line as noted. NM BONE SCAN 3 PHASE REASON: Right great toe osteomyelitis. COMPARISON: None TECHNIQUE: 3 phase bone scan was performed with 25 mCi of technetium MDP through intravenous route. FINDINGS: Increased activities are seen involving the shoulders, knees and ankles consistent with degenerative changes. No scintigraphic evidence of bone metastases is seen. Specific attention is given to the right great toe. No definite decrease activity is seen. If needed, MRI may be helpful. IMPRESSION: Findings as described above. ULTRASOUND VENOUS DOPPLER LEFT LOWER EXTREMITY INDICATION: Pain and swelling. TECHNIQUE: Routine grayscale and color Doppler ultrasound of the left lower extremity veins performed. COMPARISON: None. FINDINGS: Examination is limited by patient body habitus. The demonstrated veins of the left lower extremity including the common femoral vein, femoral vein, and popliteal vein are associated with normal compressibility. IMPRESSION: No evidence for deep venous thrombosis. CT LOW EXT W/WO CONTRAST HISTORY: right leg cellulitis. Rule out out necrotizing infection TECHNIQUE: CT LOW EXT W/WO CONTRAST. Axial images of the right lower extremity were performed from the hip to the foot. Coronal and sagittal reformats were obtained. FINDINGS/IMPRESSION: The study is degraded due to large [id number] and motion. No displaced fracture or dislocation is seen. There is diffuse soft tissue swelling. No soft tissue gas is identified. No drainable fluid collection is seen. US ARTERIAL BILAT LOW EXT DUPL HISTORY: assess for PVD TECHNIQUE: Real-time arterial doppler ultrasound of the lower extremity was performed using B mode, color flow and spectral analysis. FINDINGS: RIGHT: Abnormal monophasic waveforms and anterior tibial and dorsalis pedis artery suggesting proximal flow-limiting stenosis. The remaining arteries demonstrate biphasic and triphasic waveforms. LEFT: Normal triphasic and biphasic waveforms seen in the evaluated arteries. IMPRESSION: RIGHT: Abnormal monophasic waveforms and anterior tibial and dorsalis pedis artery suggesting proximal flow-limiting stenosis. The remaining arteries demonstrate biphasic and triphasic waveforms. LEFT: Normal triphasic and biphasic waveforms seen in the evaluated arteries. RIGHT FOOT RADIOGRAPHS - 2 VIEWS INDICATION: Pain COMPARISON: None FINDINGS: AP, lateral views. Moderate dorsal soft tissue swelling. 3 mm linear radiopaque foreign body within the first web space closer to the second toe. No evidence for periosteal reaction, cortical erosive changes, or any abnormal subperiosteal bone resorption. No acute fracture or subluxation identified. Midfoot alignment is well maintained. Subcentimeter plantar calcaneal spur. No radiopaque foreign body noted. IMPRESSION: 3 mm linear radiopaque foreign body within the first web space closer to the second toe. No evidence for fracture or osteomyelitis. RIGHT KNEE RADIOGRAPHS - 3 VIEWS INDICATION: Pain COMPARISON: None FINDINGS: AP, lateral, and oblique views. No acute fracture or dislocation identified. No significant joint effusion is present. Overlying soft tissues appear normal. IMPRESSION: No evidence for fracture or dislocation. Assessment/Plan: ASSESSMENT: Right Leg cellulitis with abscess right inner thigh POA Status post incision and drainage 07/16/24 Culture positive for Enterococcus faecalis, Staphylococcus aureus/MRSA. Hyperglycemia secondary to uncontrolled diabetes mellitus type 2 last A1C 15.5, POA Foot ulcer of the 1st toe of the right foot, MRSA and Enterofaecalis, POA Hyponatremia secondary to hyperglycemia Dehydration, resolved Obesity BMI 53.1 Suspected RUTH/OHS undiagnosed and untreated POA Acute hypoxemic resp failure not POA Acute systolic congestive heart failure not POA Well's score for PE 6 points ( Moderate) PLAN: -patient remains admitted to the medical floor - continue the patient on broad-spectrum IV antibiotics -Patient underwent incision and drainage of right thigh abscess 07/16/24, results of culture positive for Staphylococcus aureus-MRSA. -continue to follow surgical input and recommendations, continue dressing changes - continue to follow infectious disease input and recommendations, currently the patient on vancomycin and cefepime IV. - Podiatry input noted and appreciated, continue with Medihoney dressing to both great toes. Patient to continue ambulation with surgical shoes. Once the patient is discharged he can follow up as an outpatient with the ped cipher expert for appropriate shoe gear with insoles to offload the great toe ulcer sites to his feet bilaterally. -patient currently saturating normal on room air, CT chest PE protocol negative, continue to follow Pulmonary input and recommendation. -echocardiogram showing LVEF 25-30%. Severe global hypokinesis. Case discussed with staff software engineer, etiology behind acute systolic CHF remains unknown, differentials include viral myocarditis, idiopathic cardiomyopathy, poorly- controlled diabetes induced cardiomyopathy. Because of the patient's age, CAD is the bottom of the differential. Requested viral myocarditis panel (HIV, CMV, EBV, Coxsackie a and b, hepatitis panel). Serology tests so far negative. Per staff software engineer, also recommended that the patient undergo an FDG PET scan (as an outpatient). Patient is started on metoprolol succinate 12.5 mg p.o. daily and Entresto 24/26 mg tablet one tablet p.o. b.i.d.. NEURO: Minimize central acting medications as possible. Fall Precautions. Well lighted room through the day and minimize interruptions through the night to prevent acute delirium. PULMONARY: Supplemental 02 as needed BiPAP as necessary, for respiratory distress Titrate Fio2 to keep Spo2 > or = 90% DuoNeb�s and CPT as needed IS hourly while awake for pulmonary hygiene prn Out of bed to chair as tolerated Maintain aspiration precautions at all times CARDIOVASCULAR: Follow hemodynamics. Vital signs per facility protocol GI & NUTRITION: Continue nutritional support Aspirations precautions Prokinetic agents and laxatives as needed KIDNEYS & ELECTROLYTES: Strict monitoring of intake and output Daily weights Avoid nephrotoxic agents Monitor electrolytes and replace as needed Goal urine output of 30mL/hr or 0.5mL/kg/hr Medications to be dosed according to renal function. Avoid contrast if possible ENDOCRINE: Maintain blood glucose between 100-180 at all times. Insulin sliding scale for blood glucose management Hypoglycemia and hyperglycemia protocol in place INFECTIOUS DISEASE: Trend temperature, WBC and procalcitonin level Follow cultures, deescalate antibiotics as soon as possible. Panculture if new onset fever HEMATOLOGY & COAGULATION: Monitor H&H. Keep Hgb > 7 Transfuse 1 unit of PRBC for Hgb < 7 Transfuse 1 pack of platelets of platelets < 20, 000 Watch for any signs and symptoms of bleeding SKIN: Pressure ulcer prevention per facility protocol Specialty mattress as needed ORTHO/REHAB Continue PT/OT PRN: MEDICATIONS Tylenol 650 mg po every 4 hrs for fever zofran 4 mg IV every 6 hrs for n/v Hydralazine 5 mg IV every 4 hrs systolic pressure > 160 bowel regiment: lactulose 20 gm PO BID PRN constipation Supportive measures: Continue GI and DVT prophylaxis Disposition: Pending improvement in clinical condition All questions answered time spent: > 35 min Discharge Instructions: Follow up with PCP in 3-7 days Follow up with wound care tomorrow Follow up with cardiology in 2 weeks for management of heart failure and further workup of underlying cause Follow up with solder leveler printed circuit boards in 1-2 weeks for management of diabetes Follow up with pulmonologyin 2-4 weeks for polysomnography Follow up with podiatry in 2 weeks Follow up with General Surgery in 2-3 weeks Home Medications: Active Scripts Spironolactone (Spironolactone) 25 Mg Tablet, 25 MG PO BID, #60 TAB 0 Refills Prov:MARICARMEN MCDANIELS MD 07/22/24 Sacubitril/Valsartan (Entresto 24 mg-26 mg Tablet) 24 Mg-26 Mg Tablet, 1 EACH PO BID, #60 TAB 0 Refills Prov:MARICARMEN MCDANIELS MD 07/22/24 Metoprolol Succinate (Toprol Xl) 25 Mg Tab.er.24h, 12.5 MG PO DAILY, #30 TAB 0 Refills Prov:MARICARMEN MCDANIELS MD 07/22/24 Insulin Regular, Human (Humulin R) 100 Unit/Ml Vial, 15 UNIT SQ TIDAC, #1 VIAL 2 Refills Prov:MARICARMEN MCDANIELS MD 07/22/24 Insulin Glargine,Hum.rec.anlog (Lantus) 100 Unit/Ml Inj, 60 UNITS SQ DAILY07, #10 ML 2 Refills Prov:MARICARMEN MCDANIELS MD 07/22/24 Furosemide (Lasix 20Mg Tab) 20 Mg Tablet, 20 MG PO BID@,17, #60 TAB 0 Refills Prov:MARICARMEN MCDANIELS MD 07/22/24 New Medications: Furosemide (Lasix 20Mg Tab) 20 Mg Tablet 20 MG PO BID@,17, #60 TAB 0 Refills Insulin Glargine,Hum.rec.anlog (Lantus) 100 Unit/Ml Inj 60 UNITS SQ DAILY07, #10 ML 2 Refills Insulin Regular, Human (Humulin R) 100 Unit/Ml Vial 15 UNIT SQ TIDAC, #1 VIAL 2 Refills Metoprolol Succinate (Toprol Xl) 25 Mg Tab.er.24h 12.5 MG PO DAILY, #30 TAB 0 Refills Sacubitril/Valsartan (Entresto 24 mg-26 mg Tablet) 24 Mg-26 Mg Tablet 1 EACH PO BID, #60 TAB 0 Refills Spironolactone (Spironolactone) 25 Mg Tablet 25 MG PO BID, #60 TAB 0 Refills Time spent arranging discharge: 31-60 minutes MARICARMEN MCDANIELS MD July 22, 2024 18:54
--- NOTE | 2024-07-22 19:48 | PN ---
endocrinology progress note Date of Service: 07/22/2024 subjective: glucose are improving patient used to inject lantus and humalog but not injecting for many months. he does not check glucose at home. hba1c>15.0% right foot wound is positive for MRSA and Enterofaecalis, right medial thigh abscess I&D PAST MEDICAL HISTORY: History of foot ulcer in the 1st toe of the right foot PAST SURGICAL HISTORY: Denied any previous surgical history PAST SOCIAL HISTORY: Denied any smoking, alcohol, drug use FAMILY HISTORY: Denied any pertinent family history Coded Allergies: No Known Drug Allergies (Unverified Allergy, Unknown, 10/08/18) ASSESSMENT: Hyperglycemia secondary to uncontrolled diabetes mellitus type POA patient used to inject lantus and humalog but not injecting for many months. he does not check glucose at home. hba1c>15.0% talia-65 abs are negative, so likely type 2 dm. Right Leg cellulitis POA MRSA and Enterofaecalis, ID following right medial thigh abscess I&D Foot ulcer of the 1st toe of the right foot POA Hyponatremia secondary to hyperglycemia Dehydration Obesity BMI 53.1 PLAN: continue lantus 60 units daily continue regular insulin 20 units tid before meals for daytime hyperglycemia. continue medium dose insulin ssi monitor glucose qx6 hourly patient will need insulin at discharge Vitals/Labs Vital Signs Date Time Temp Pulse Resp B/P (MAP) Pulse Ox O2 Delivery O2 Flow Rate FiO2 07/22/24 12:00 98.1 87 20 132/86 96 Room Air 96 07/22/24 08:20 0 Medications Current Medications Ketorolac Tromethamine 15 mg ONCE ONCE IM Last administered on 07/05/24at 13:56; Start 07/05/24 at 11:00; Stop 07/05/24 at 11:03; Status DC Vancomycin HCl 1 gm ONCE ONCE IV Last administered on 07/05/24at 14:15; Start 07/05/24 at 13:00; Stop 07/05/24 at 13:01; Status DC Ceftriaxone Sodium 2 gm ONCE ONCE IVPB Last administered on 07/05/24at 13:55; Start 07/05/24 at 12:30; Stop 07/05/24 at 12:31; Status DC Sodium Chloride 1,000 ml @ 0 mls/hr ONCE ONCE IV Last administered on 07/05/24at 13:48; Start 07/05/24 at 12:30; Stop 07/05/24 at 12:31; Status DC Insulin Human Regular 5 unit ONCE ONCE IV Last administered on 07/05/24at 14:01; Start 07/05/24 at 12:30; Stop 07/05/24 at 12:31; Status DC Famotidine 20 mg BID IV Last administered on 07/22/24at 08:19; Start 07/05/24 at 21:00; Stop 07/22/24 at 14:55; Status DC Vancomycin HCl 1 each AD IV; Start 07/05/24 at 14:30; Stop 07/10/24 at 20:22; Status DC Piperacillin Sod/ Tazobactam Sod 3.375 gm Q8H IVPB Last administered on 07/10/24at 00:09; Start 07/05/24 at 14:30; Stop 07/10/24 at 03:41; Status DC Sodium Chloride 50 ml AD IV; Start 07/05/24 at 18:00; Stop 07/06/24 at 13:20; Status DC Insulin Human Regular INSULIN SLIDING SCAL... Q6H6 SQ Last administered on 07/05/24at 17:43; Start 07/05/24 at 18:00; Stop 07/05/24 at 21:19; Status DC Sodium Chloride 1,000 ml @ 100 mls/hr Q10H IV Last administered on 07/09/24at 15:24; Start 07/05/24 at 14:30; Stop 07/11/24 at 03:05; Status DC Insulin Glargine 15 units DAILY SQ Last administered on 07/07/24at 08:47; Start 07/05/24 at 15:00; Stop 07/07/24 at 22:00; Status DC Dextrose 50 ml AD PRN IV; Start 07/05/24 at 15:00; Stop 07/22/24 at 14:55; Status DC Glucagon 1 mg AD PRN IM; Start 07/05/24 at 15:00; Stop 07/22/24 at 14:55; Status DC Vancomycin HCl 250 ml @ 250 mls/hr ONCE ONCE IV Last administered on 07/05/24at 15:11; Start 07/05/24 at 15:00; Stop 07/05/24 at 15:59; Status DC Vancomycin HCl 250 ml @ 167 mls/hr Q12H IV Last administered on 07/07/24at 01:11; Start 07/06/24 at 01:00; Stop 07/07/24 at 12:31; Status DC Iohexol 75 ml STK-MED ONCE IV; Start 07/05/24 at 15:20; Stop 07/05/24 at 15:21; Status DC Ketorolac Tromethamine 15 mg Q6H PRN IV Last administered on 07/05/24at 21:03; Start 07/05/24 at 17:00; Stop 07/07/24 at 06:16; Status DC Morphine Sulfate 2 mg Q6H PRN IVP; Start 07/05/24 at 17:00; Stop 07/10/24 at 19:59; Status DC Insulin Human Regular 10 unit TIDAC SQ Last administered on 07/07/24at 17:19; Start 07/06/24 at 07:30; Stop 07/07/24 at 22:00; Status DC Insulin Human Regular INSULIN SLIDING SCAL... ACHS SQ Last administered on 07/21/24at 21:03; Start 07/06/24 at 07:30; Stop 07/22/24 at 14:55; Status DC Enoxaparin Sodium 30 mg DAILY SQ Last administered on 07/15/24at 09:34; Start 07/06/24 at 09:00; Stop 07/15/24 at 14:28; Status DC Acetaminophen 650 mg Q6H PRN PO Last administered on 07/07/24at 14:01; Start 07/06/24 at 13:30; Stop 07/22/24 at 14:55; Status DC Acetaminophen/ Hydrocodone Bitart 1 tab Q6H PRN PO Last administered on 07/10/24at 19:19; Start 07/06/24 at 13:30; Stop 07/11/24 at 13:29; Status DC Leptospermum Honey 1 APPLICATION DAILY TP Last administered on 07/22/24at 08:20; Start 07/07/24 at 09:00; Stop 07/22/24 at 14:55; Status DC Potassium Chloride 100 ml @ 100 mls/hr AD PRN IV Last administered on 07/14/24at 14:24; Start 07/07/24 at 10:00; Stop 07/22/24 at 14:55; Status DC Potassium Chloride 20 meq AD PRN PO; Start 07/07/24 at 10:00; Stop 07/22/24 at 14:55; Status DC Potassium Chloride 20 meq AD PRN PO Last administered on 07/21/24at 17:44; Start 07/07/24 at 10:00; Stop 07/22/24 at 14:55; Status DC Magnesium Sulfate 50 ml @ 0 mls/hr PROTOCOL PRN IV Last administered on 07/19/24at 09:43; Start 07/07/24 at 10:00; Stop 07/19/24 at 09:55; Status DC Vancomycin HCl 250 ml @ 125 mls/hr Q8H IV Last administered on 07/09/24at 04:38; Start 07/07/24 at 13:00; Stop 07/09/24 at 12:53; Status DC Insulin Glargine 40 units DAILY07 SQ Last administered on 07/08/24at 07:54; Start 07/08/24 at 07:00; Stop 07/08/24 at 21:03; Status DC Insulin Human Regular 16 unit TIDAC SQ Last administered on 07/08/24at 17:33; Start 07/08/24 at 07:30; Stop 07/08/24 at 21:03; Status DC Insulin Glargine 60 units DAILY07 SQ Last administered on 07/13/24at 06:17; Start 07/09/24 at 07:00; Stop 07/13/24 at 06:18; Status DC Insulin Human Regular 22 unit TIDAC SQ Last administered on 07/09/24at 17:44; Start 07/09/24 at 07:30; Stop 07/09/24 at 21:14; Status DC Vancomycin HCl 250 ml @ 125 mls/hr Q8H IV Last administered on 07/09/24at 21:43; Start 07/09/24 at 21:00; Stop 07/10/24 at 09:45; Status DC Vancomycin HCl 500 ml @ 250 mls/hr ONCE ONCE IV Last administered on 07/09/24at 15:24; Start 07/09/24 at 13:00; Stop 07/09/24 at 14:59; Status DC Insulin Human Regular 25 unit TIDAC SQ Last administered on 07/10/24at 19:13; Start 07/10/24 at 07:30; Stop 07/13/24 at 06:18; Status DC Piperacillin Sod/ Tazobactam Sod 3.375 gm Q8H IVPB; Start 07/10/24 at 08:00; Stop 07/10/24 at 09:45; Status DC Vancomycin HCl 1 each AD IV; Start 07/10/24 at 21:00; Stop 07/22/24 at 14:55; Status DC Vancomycin HCl 250 ml @ 125 mls/hr Q6H IV Last administered on 07/13/24at 17:42; Start 07/10/24 at 21:00; Stop 07/15/24 at 06:33; Status DC Piperacillin Sod/ Tazobactam Sod 3.375 gm Q8H IV Last administered on 07/12/24at 08:51; Start 07/11/24 at 00:00; Stop 07/12/24 at 11:46; Status DC Cefepime HCl 1 gm Q8H IVPB Last administered on 07/22/24at 03:52; Start 07/12/24 at 12:00; Stop 07/22/24 at 11:59; Status DC Alteplase, Recombinant 1 mg ONCE IVCATH Last administered on 07/12/24at 18:20; Start 07/12/24 at 13:30; Stop 07/13/24 at 19:09; Status DC Insulin Glargine 50 units DAILY07 SQ Last administered on 07/16/24at 06:37; Start 07/13/24 at 07:00; Stop 07/16/24 at 07:20; Status DC Insulin Human Regular 10 unit TIDAC SQ Last administered on 07/15/24at 17:09; Start 07/13/24 at 07:30; Stop 07/15/24 at 21:41; Status DC Vancomycin HCl 250 ml @ 125 mls/hr Q6H IV Last administered on 07/14/24at 19:38; Start 07/14/24 at 00:00; Stop 07/14/24 at 20:29; Status DC Potassium Chloride 40 meq ONCE ONCE PO Last administered on 07/14/24at 13:48; Start 07/14/24 at 13:00; Stop 07/14/24 at 13:02; Status DC Potassium Chloride 100 ml @ 50 mls/hr ONCE ONCE IV; Start 07/14/24 at 13:00; Stop 07/14/24 at 14:59; Status DC Vancomycin HCl 250 ml @ 125 mls/hr Q8H6 IV; Start 07/14/24 at 22:00; Stop 07/14/24 at 19:24; Status DC Vancomycin HCl 250 ml @ 125 mls/hr Q8H6 IV Last administered on 07/15/24at 06:00; Start 07/15/24 at 06:00; Stop 07/15/24 at 06:29; Status DC Vancomycin HCl 750 mg ONCE IVPB Last administered on 07/14/24at 20:45; Start 07/14/24 at 21:00; Stop 07/14/24 at 23:59; Status DC Sodium Chloride 250 ml @ 125 mls/hr AD IV Last administered on 07/14/24at 20:46; Start 07/14/24 at 21:00; Stop 07/14/24 at 23:59; Status DC Vancomycin HCl 250 ml @ 125 mls/hr Q8H6 IV; Start 07/15/24 at 14:00; Stop 07/15/24 at 06:33; Status DC Vancomycin HCl 250 ml @ 125 mls/hr Q6H IV Last administered on 07/15/24at 20:34; Start 07/15/24 at 12:00; Stop 07/15/24 at 20:48; Status DC Furosemide 40 mg ONCE ONCE IV Last administered on 07/15/24at 14:00; Start 07/15/24 at 14:00; Stop 07/15/24 at 14:01; Status DC Enoxaparin Sodium 40 mg BID SQ Last administered on 07/22/24at 08:20; Start 07/15/24 at 21:00; Stop 07/22/24 at 14:55; Status DC Iohexol 50 ml STK-MED ONCE IV; Start 07/15/24 at 16:25; Stop 07/15/24 at 16:25; Status DC Iohexol 75 ml STK-MED ONCE IV; Start 07/15/24 at 16:25; Stop 07/15/24 at 16:25; Status DC Methylprednisolone Sodium Succinate 80 mg ONCE STAT IVP Last administered on 07/15/24at 16:52; Start 07/15/24 at 16:42; Stop 07/15/24 at 16:47; Status DC Diphenhydramine HCl 25 mg ONCE STAT IV Last administered on 07/15/24at 16:52; Start 07/15/24 at 16:42; Stop 07/15/24 at 16:47; Status DC Methylprednisolone Sodium Succinate 40 mg STK-MED ONCE .ROUTE; Start 07/15/24 at 16:46; Stop 07/15/24 at 16:46; Status DC Diphenhydramine HCl 50 mg STK-MED ONCE .ROUTE; Start 07/15/24 at 16:46; Stop 07/15/24 at 16:47; Status DC Vancomycin HCl 250 ml @ 125 mls/hr Q6H IV Last administered on 07/18/24at 00:09; Start 07/16/24 at 03:00; Stop 07/18/24 at 00:47; Status DC Insulin Human Regular 15 unit TIDAC SQ Last administered on 07/16/24at 17:34; Start 07/16/24 at 07:30; Stop 07/16/24 at 22:08; Status DC Insulin Glargine 60 units DAILY07 SQ Last administered on 07/22/24at 06:47; Start 07/17/24 at 07:00; Stop 07/22/24 at 14:55; Status DC Lidocaine HCl 100 mg STK-MED ONCE .ROUTE; Start 07/16/24 at 11:05; Stop 07/16/24 at 11:06; Status DC Midazolam HCl 2 mg STK-MED ONCE .ROUTE; Start 07/16/24 at 11:09; Stop 07/16/24 at 11:09; Status DC Ondansetron HCl 4 mg STK-MED ONCE .ROUTE; Start 07/16/24 at 11:09; Stop 07/16/24 at 11:09; Status DC Glycopyrrolate 1 mg STK-MED ONCE .ROUTE; Start 07/16/24 at 11:09; Stop 07/16/24 at 11:09; Status DC Propofol 200 mg STK-MED ONCE IV; Start 07/16/24 at 11:09; Stop 07/16/24 at 11:09; Status DC Neostigmine Methylsulfate 10 mg STK-MED ONCE IV; Start 07/16/24 at 11:09; Stop 07/16/24 at 11:10; Status DC Succinylcholine Chloride 200 mg STK-MED ONCE .ROUTE; Start 07/16/24 at 11:10; Stop 07/16/24 at 11:10; Status DC Rocuronium Dick[place] 50 mg STK-MED ONCE .ROUTE; Start 07/16/24 at 11:10; Stop 07/16/24 at 11:10; Status DC Fentanyl Citrate 100 mcg STK-MED ONCE .ROUTE; Start 07/16/24 at 11:10; Stop 07/16/24 at 11:10; Status DC Bupivacaine HCl 5 mg STK-MED ONCE .ROUTE; Start 07/16/24 at 11:47; Stop 07/16/24 at 11:48; Status DC Bupivacaine HCl 150 mg STK-MED ONCE INJ Last administered on 07/16/24at 11:50; Start 07/16/24 at 11:50; Stop 07/16/24 at 12:47; Status DC Insulin Human Regular 20 unit TIDAC SQ Last administered on 07/22/24at 12:29; Start 07/17/24 at 07:30; Stop 07/22/24 at 14:55; Status DC Ketorolac Tromethamine 15 mg Q6H PRN IM; Start 07/17/24 at 13:30; Stop 07/22/24 at 13:29; Status DC Metoprolol Succinate 12.5 mg DAILY PO Last administered on 07/22/24at 08:19; Start 07/17/24 at 14:00; Stop 07/22/24 at 14:55; Status DC Sacubitril/ Valsartan 1 each BID PO Last administered on 07/22/24at 08:19; Start 07/17/24 at 21:00; Stop 07/22/24 at 14:55; Status DC Furosemide 20 mg Q12H IV Last administered on 07/18/24at 17:15; Start 07/17/24 at 16:30; Stop 07/18/24 at 22:21; Status DC Spironolactone 25 mg BID PO Last administered on 07/22/24at 08:19; Start 07/17/24 at 21:00; Stop 07/22/24 at 14:55; Status DC Vancomycin HCl 250 ml @ 125 mls/hr Q6H IV Last administered on 07/22/24at 06:07; Start 07/18/24 at 06:00; Stop 07/22/24 at 14:55; Status DC Furosemide 20 mg BID@09,17 PO Last administered on 07/22/24at 08:19; Start 07/19/24 at 09:00; Stop 07/22/24 at 14:55; Status DC Potassium Chloride 40 meq ONCE ONCE PO Last administered on 07/19/24at 10:50; Start 07/19/24 at 10:00; Stop 07/19/24 at 10:01; Status DC Magnesium Sulfate 50 ml @ 0 mls/hr PROTOCOL IV Last administered on 07/20/24at 19:58; Start 07/19/24 at 10:00; Stop 07/22/24 at 14:55; Status DC Alteplase, Recombinant 4 mg ONCE ONCE IVCATH Last administered on 07/20/24at 16:39; Start 07/20/24 at 10:30; Stop 07/20/24 at 10:31; Status DC Sterile Water 10 ml STK-MED ONCE .ROUTE Last administered on 07/20/24at 16:39; Start 07/20/24 at 16:33; Stop 07/20/24 at 16:35; Status DC Alteplase, Recombinant 2 mg ONCE ONCE IVCATH Last administered on 07/21/24at 11:48; Start 07/21/24 at 11:30; Stop 07/21/24 at 11:31; Status DC Alteplase, Recombinant 2 mg ONCE ONCE IVCATH Last administered on 07/21/24at 11:48; Start 07/21/24 at 11:30; Stop 07/21/24 at 11:31; Status DC JOSE CASTILLO MD July 22, 2024 19:48
--- NOTE | 2024-07-22 20:38 | PN ---
SUBJECTIVE: The patient is a 24-year-old diabetic [place] male. He is followed for incision, drainage, and debridement of medial thigh, medial knee on the right, concern of pain to the areas. He is also followed for ulcers of bilateral great toes. Ulcer resolved on the left. He has had bone scan negative for osteomyelitis of both great toes. Cultures of the medial thigh, medial knee, and the great toes are both growing back Enterococcus faecalis and MRSA. The patient is receiving IV vancomycin and IV cefepime concerning pain to the medial thigh and the medial right knee. REVIEW OF SYSTEMS: CONSTITUTIONAL: Having no chills, no fevers, no night sweats. No nausea, vomiting or diarrhea. Pain to the medial thigh, medial right knee. HEENT: No positive head, eyes, ears, nose and throat. CARDIOVASCULAR: He has an enlarged heart and low ejection fraction of 25-30%, being followed by the Cardiology Service clinically. He has strongly palpable pedal pulses to his feet bilaterally. PSYCHIATRIC: Denied any depression. MUSCULOSKELETAL: Morbid obesity, BMI of 55. Bunions and hammertoe deformities. INTEGUMENTARY: He has an ulcer to his right great toe. The ulcer to the left great toe is completely healed. The ulcer of the right great toe is 5 x 6 x 2 mm. OBJECTIVE: Examination today shows the ulcer to the right great toe 5 x 6 x 2 mm. Ulcer healed to the left great toe. Palpable pedal pulses. No abscess and ascending cellulitis. ASSESSMENT: A 24-year-old male with morbid obesity; heart failure; cardiomyopathy; status post incision, drainage, and debridement of right knee, right thigh, bilateral great toe ulcers. He has an ulcer that has healed to the left. The ulcer on the right is 5 x 6 x 2 mm. Wound cultures from his thigh and his great toes ____ Enterococcus faecalis and MRSA. The patient is receiving vancomycin and cefepime. PLAN: We will continue the vancomycin and cefepime ____ Medihoney dressings to the right great toe. Continue with offloading measures. Continue to follow the patient closely while in-house. TID: [id number] RECEIPT: [id number]
--- NOTE | 2024-07-25 14:45 | NUR ---
Transitional Phone Call Spoke with Asha Landry, Grandmother [phone], [facility] patient is "doing okay." [facility] patient has all the new prescription medications; no questions or concerns. [facility] patient had the follow up appointment with PCP - Dr. Velasquez; and referrals and appointments were set for cardiology, endocrinology, pulmonology, and podiatry, currently does not have exact dates because she is not home, all are set within the next two weeks. [facility] patient has had the follow up appointment with wound care on 07/24/2024 and with the surgeon and is concerned the copay required to see all the specialists if unaffordable even with BS insurance; provided "211 Information" for information on assistance. No further questions at this time.
== END 2024-07-22 14:55 | disposition home or self-care (01) | DRG 570 ==
LOC: EDH 10:48 → 3CH 14:24 → EDHIP 14:24 → UNDOADMIN 14:24 → 3CH 07-06 17:25 → UNDOADMIN 07-06 17:25 → 3DH 07-11 14:31
PROVIDERS: ADMIT Internal Medicine; ATTEND Internal Medicine
PROC: 02HV33Z Insertion of Infusion Device into Superior Vena Cava, Percutaneous Approach (ICD-10-PCS; 2024-07-10)
PROC: 02HV33Z Insertion of Infusion Device into Superior Vena Cava, Percutaneous Approach (ICD-10-PCS; 2024-07-15)
PROC: 0JBL0ZZ Excision of Right Upper Leg Subcutaneous Tissue and Fascia, Open Approach (ICD-10-PCS; principal; 2024-07-16 13:30)
DX: L03.115 Cellulitis of right lower limb (principal); A41.9 Sepsis, unspecified organism; I50.43 Acute on chronic combined systolic (congestive) and diastolic (congestive) heart failure; J96.01 Acute respiratory failure with hypoxia; E87.1 Hypo-osmolality and hyponatremia; Z68.43 Body mass index [BMI] 50.0-59.9, adult; I42.0 Dilated cardiomyopathy; L02.415 Cutaneous abscess of right lower limb; E11.621 Type 2 diabetes mellitus with foot ulcer; Z20.822 Contact with and (suspected) exposure to COVID-19; E11.65 Type 2 diabetes mellitus with hyperglycemia; B95.2 Enterococcus as the cause of diseases classified elsewhere; B95.62 Methicillin resistant Staphylococcus aureus infection as the cause of diseases classified elsewhere; I11.0 Hypertensive heart disease with heart failure; E66.01 Morbid (severe) obesity due to excess calories; E86.0 Dehydration; L03.031 Cellulitis of right toe; D75.839 Thrombocytosis, unspecified; L97.519 Non-pressure chronic ulcer of other part of right foot with unspecified severity; E87.6 Hypokalemia; Z83.3 Family history of diabetes mellitus
CPT/HCPCS: 36415; 36569; 36600; 71045; 71270; 73562; 73620; 73702; 78315; 80048; 80053; 80061; 80074; 80202; 82010; 82306; 82550; 82607; 82803; 82948; 83036; 83605; 83735; 83880; 84100; 84132; 84145; 84443; 85025; 85027; 85378; 85610; 85651; 86140; 86341; 86644; 86645; 86658; 86665; 86701; 87070; 87076; 87086; 87186; 87205; 87390; 87496; 87635; 87804; 93306; 93356; 93925; 93971; 99285; A9503; C1894; G0378; J0330; J0692; J0696; J1200; J1650; J1815; J1885; J1938; J1940; J2003; J2250; J2405; J2543; J2704; J2710; J2919; J2997; J3010; J3370; J3475; J3480; J3490; J7030; Q9967; A4216; A4222; A4223; A4930; J0665; J1644